=== PATIENT | female | born 1950 | race African-American/Black ===

== ENCOUNTER 2019-04-03 20:08 | Observation (INO) | payer OTHER, SELFPAY ==
--- NOTE | ~2019-04-03 | XR_ITS ---
EXAMINATION: XR chest 2V 04/03/2019 21:31 INDICATION: Mid chest pain with palpitations PROCEDURE: 2 view chest COMPARISON: 01/08/2019 FINDINGS: The lungs are clear. The cardiomediastinal silhouette is within normal limits. There are no pleural effusions. There is no pneumothorax suspected. There is thoracic spondylosis with mild l evoscoliosis. IMPRESSION: 1: NO ACUTE CARDIOPULMONARY DISEASE. Reviewed, dictated and finalized at location A. DESKMAN
--- NOTE | ~2019-04-03 | CT_ITS ---
EXAMINATION: CTA chest PE protocol DATE: 04/04/2019 00:26 INDICATION: Chest tightness. TECHNIQUE: Computed tomography angiography (CTA) of the chest was performed with 100 mL Omnipaque-350 intravenous contrast timed to evaluate the pulmonary arteries. Coronal maximum intensity projection 3D-reconstructions were created by the technologist. Automated exposure control and iterative reconst ruction technique were employed. The dose-length product was 376.37 mGy-cm. COMPARISON: CT abdomen and pelvis 06/10/2016, cervical spine CT 07/04/2006 FINDINGS: The lungs demonstrate mild atelectasis. There is a 1.1 cm nodule in right upper lobe. No pl eural effusion. The heart size is normal. No pericardial effusion. There is a small sliding hiatal he rnia. There is no pulmonary embolus. There are no pathologically enlarged lymph nodes. There is corti zulema thinning of the kidneys. There are stones in the kidneys measuring up to 6 mm on the left. There is severe thoracic spondylosis. IMPRESSION: 1. No pulmonary embolus. 2. 1.1 cm nodule in right lung upper lobe suspicious for primary bronchogenic carcinoma. PET/CT or 3- month noncontrast, low-dose chest CT is recommended. Reviewed, dictated and finalized at location A. COLLECTOR IMPRESSION: 1. No pulmonary embolus. 2. 1.1 cm nodule in right lung upper lobe suspicious for primary bronchogenic c arcinoma. PET/CT or 3-month noncontrast, low-dose chest CT is recommended.
[2019-04-03 20:11] VITALS: BP 160/60; PULSE 97; RESP 16; TEMP 36.4; O2SAT 98
--- NOTE | 2019-04-03 20:11 | ECG_ITS ---
Measurements Intervals [place] Rate: 69 P: 47 [place]: 139 QRS: -23 QRSD: 114 T: 48 QT: 445 QTc: 477 Interpretive Statements SINUS RHYTHM SUPRAVENTRICULAR BIGEMINY INTRAVENTRICULAR CONDUCTION DELAY BASELINE ARTIFACT- I, II, AVR, AVL, AVF ABNORMAL ECG Electronically Signed On 04-05-2019 8:10:10 WIRE STRIPPING MACHINE OPERATOR by Michael Huynh D.O.
[2019-04-03 20:36] LABS: Basophils Absolute Auto 0.1 K/mm3 (0.0-0.1); Basophils Percent Auto 0.7 % (0.2-1.2); Eosinophils Absolute Auto 0.2 K/mm3 (0-0.3); Eosinophils Percent Auto 1.8 % (0-4.4); Hematocrit 37.8 % (37.0-47.0); Hemoglobin 12.2 g/dL (12.0-15.0); Immature Granulocyte Absolute 0.02 K/mm3 (0.00-0.031); Immature Granulocyte Percent A 0.2 % (0-0.5); Lymphocytes Absolute Auto 2.92 K/mm3 (0.9-3.2); Lymphocytes Percent Auto 31.1 % (18.3-44.2); Mean Corpuscular HGB Conc 32.3 g/dl (32-36); Mean Corpuscular Hemoglobin 28.9 pg (26-34); Mean Corpuscular Volume 89.6 fl (80-100); Mean Platelet Volume 9.6 fl (7.4-10.4); Monocytes Absolute Auto 0.8 K/mm3 (0.1-0.6); Monocytes Percent Auto 8.5 % (2.6-8.5); Neutrophils Absolute Auto 5.4 K/mm3 (1.3-6.7); Neutrophils Percent Auto 57.7 % (45.5-73.1); Platelet Count Result 378 k/mm3 (150-375); Red Blood Count 4.22 M/mm3 (4.2-5.4); Red Cell Distribution Width 13.6 % (11.5-14.5); White Blood Count 9.4 K/mm3 (4.5-10.0)
[2019-04-03 20:48] LABS: Partial Thromboplastin Time 27.6 SECONDS (22.3-36.8); Prothrombin Time 12.9 Seconds (11.1-14.7)
[2019-04-03 21:12] LABS: Blood Urea Nitrogen 31 mg/dL (7-17); Calcium 9.9 mg/dL (8.4-10.2); Carbon Dioxide 30 mmol/L (22-30); Chloride 100 mmol/L (98-107); Estimated CRCL calculation 36 ml/min; Estimated Glomerular Filt Rate 46; Glucose 114 mg/dL (65-105); Potassium 3.3 mmol/L (3.4-5.0); Sodium 142 mmol/L (137-145); Troponin I < 0.012 ng/mL (0.000-0.034)
--- NOTE | 2019-04-03 21:35 | ED.ARRPALP ---
HPI - Arrhythmia/Palpitations General Chief Complaint: Arrhythmia/Palpitations Stated Complaint: pains in my chest, palpatations Time Seen by Provider: 04/03/19 21:24 Source: patient and RN notes reviewed Mode of arrival: ambulatory Limitations: no limitations History of Present Illness HPI narrative: Pt is a 68 y/o female who presents to the ED with c/o intermittent palpitations starting over 1 week ago. She notes that she has had palpitations when she lays down to sleep at night for the past week. Pt describes her symptoms as her heart racing. She states that she was evaluated by her PCP roughly 1 week ago for her palpitations. Pt also reports intermittent chest tightness accompanying her palpitations, but denies any chest pain, SOB, fever, or chills currently. She denies any Hx of A-Fib. MD complaint: palpitations Onset (ago): week(s) (1) Duration: intermittent Context: occurred during rest Associated symptoms: chest pain (chest tightness (resolved)) Related Data Home Medications Medication Instructions Recorded Confirmed amlodipine 10 mg tablet 10 mg PO DAILY 01/21/19 atorvastatin 10 mg tablet 10 mg PO DAILY 01/21/19 ranitidine HCl 150 mg tablet 300 mg PO DAILY tablet 01/21/19 Allergies Allergy/AdvReac Type Severity Reaction Status Date / Time pregabalin Allergy Intermediate LETHARGIC, Verified 04/03/19 20:09 SLEEPY, SPACEY niacin Allergy Unknown Rash Verified 04/03/19 20:09 Penicillins Allergy Unknown Rash Verified 04/03/19 20:09 tramadol Allergy Unknown Gastrointestinal Verified 04/03/19 20:09 Upset hydrocodone AdvReac Unknown Nausea and Verified 04/03/19 20:09 Vomiting morphine AdvReac Unknown Nausea and Verified 04/03/19 20:09 Vomiting Review of Systems Review of Systems: All systems reviewed & are unremarkable except as noted in HPI and below Constitutional: Constitutional: Denies chills and Denies fever(s) Cardiovascular: Cardiovascular: Reports chest pain (chest tightness (resolved)) and Reports palpitations Respiratory: Respiratory: Denies dyspnea PMFSH Past Medical History Medical History Ankle fracture Anxiety Arthritis Blood glucose elevated Carpal tunnel syndrome on both sides Cervical vertebral fusion Chronic bilateral low back pain with left-sided sciatica Depression GERD (gastroesophageal reflux disease) HLD (hyperlipidemia) HTN (hypertension) Hypokalemia Kidney stones Mitral valve prolapse Surgical History Surgical History History of hysterectomy Hx of arthroscopic knee surgery rt knee Hx of carpal tunnel repair Hx of section Family History Family History (Updated 10/10/13 @ 07:13 by DOCTOR UNKNOWN) Father Hypertension Mother Hypertension Other Diabetes mellitus Family history of seizure disorder Social History Social History Smoking status: Never smoker Alcohol intake: never Substance use: never Substance use type: does not use Gender identity (if verbalized by the patient): Female Exam Const: General: cooperative, healthy appearing, comfortable, no acute distress, well developed, alert and awake; No confusion Orientation/consciousness: oriented to person, oriented to place, oriented to time, patient oriented x3 and No confusion Limitations: no limitations HENMT: Head: normal to inspection, normocephalic and atraumatic Chest: Chest palpation & inspection: normal inspection of the chest Resp: Effort & Inspection: normal respiratory effort, able to speak in complete sentences, no respiratory distress and not tachypneic Auscultation: clear to auscultation bilaterally, no crackles, no rales, no rhonchi and no wheezes Cardio: Rate: regular rate Rhythm: regular rhythm GI: Inspection: normal to inspection GI Palp: No abdominal tenderness, Yes Soft to palpation,
[2019-04-03] MEDS: POTASSIUM CHLORIDE 20 MEQ PACKET (FOR LIQUID) 40 MEQ PO (21:48)
[2019-04-03 22:21] VITALS: BP 165/70; PULSE 63; RESP 15; O2SAT 100
[2019-04-03 22:37] LABS: Thyroid Stimulating Hormone 0.959 uIU/mL (0.465-4.680)
[2019-04-03 23:10] VITALS: BP 150/55; PULSE 61; RESP 20; TEMP 36.7; O2SAT 100
[2019-04-04] VITALS (12 sets, daily range): BP systolic 108–160; BP diastolic 65–88; PULSE 61–89; RESP 14–25; TEMP 36.4; O2SAT 97–100; BMI 31.4
--- NOTE | 2019-04-04 | EST_ITS ---
Patient Info Name: Ira Lord Age: 68 years : 1950 Gender: Female Ht: 62 in Wt: 171 lbs BSA: 1.87 m2 HR: 64 bpm BP: 152 / 70 mmHg Technical Quality: Good Exam Date: 04/04/2019 12:17 PM Exam Location: [facility] Stress Patient Status: Inpatient Admit Date: 04/04/2019 Staff Ordering Physician: Osorio Burger MD Medical Legal Investigator: Maribel Vieyra RDCS Attending Provider: Osorio Burger MD Exercise Technologist: Monse Coates RDCS Exercise Physician: Osorio Burger MD Exam Type: CA stress echo Study Info Indications R07.89 - Other chest pain Treadmill exercise stress echocardiogram is performed. Summary 1. Negative stress echocardiogram for ischemia by wall motion analysis. Stress Echo Findings Left Ventricle No regional wall motion abnormalities noted at rest. Left ventricular endocardium is not well visualized preventing adequate wall motion interpretation at rest. Overall global left ventricular systolic function Improved post stress. Left ventricular ejection fraction increases post stress. Protocol: [facility] Stress ECG Details Stage: REST Duration (min): 53 min : 49 sec Speed (mph): 0.0 Grade (%): 0 HR (bpm): 63 SBP (mmHg): 152 DBP (mmHg): 70 METS: --- Stage: REST Duration (min): --- Speed (mph): 1.0 Grade (%): 0 HR (bpm): 75 SBP (mmHg): 152 DBP (mmHg): 70 METS: --- Stage: STAGE 1 Duration (min): 1 min : 0 sec Speed (mph): 1.7 Grade (%): 10 HR (bpm): 106 SBP (mmHg): 152 DBP (mmHg): 70 METS: --- Stage: STAGE 1 Duration (min): 2 min : 0 sec Speed (mph): 1.7 Grade (%): 10 HR (bpm): 122 SBP (mmHg): 152 DBP (mmHg): 70 METS: --- Stage: STAGE 1 Duration (min): 3 min : 0 sec Speed (mph): 1.7 Grade (%): 10 HR (bpm): 131 SBP (mmHg): 218 DBP (mmHg): 71 METS: --- Stage: STAGE 2 Duration (min): 1 min : 0 sec Speed (mph): 2.5 Grade (%): 12 HR (bpm): 144 SBP (mmHg): 218 DBP (mmHg): 71 METS: --- Stage: STAGE 2 Duration (min): 1 min : 30 sec Speed (mph): 2.5 Grade (%): 12 HR (bpm): 150 SBP (mmHg): 218 DBP (mmHg): 71 METS: --- Stage: RECOVERY Duration (min): 0 min : 29 sec Speed (mph): 0.0 Grade (%): 0 HR (bpm): 135 SBP (mmHg): 248 DBP (mmHg): 91 METS: --- Stage: RECOVERY Duration (min): 1 min : 29 sec Speed (mph): 0.0 Grade (%): 0 HR (bpm): 107 SBP (mmHg): 248 DBP (mmHg): 91 METS: --- Stage: RECOVERY Duration (min): 2 min : 29 sec Speed (mph): 0.0 Grade (%): 0 HR (bpm): 90 SBP (mmHg): 248 DBP (mmHg): 91 METS: --- Stage: RECOVERY Duration (min): 3 min : 29 sec Speed (mph): 0.0 Grade (%): 0 HR (bpm): 86 SBP (mmHg): 187 DBP (mmHg): 53 METS: --- Stage: RECOVERY Duration (min): 4 min : 29 sec Speed (mph): 0.0 Grade (%): 0
[2019-04-04 00:07] LABS: Troponin I < 0.012 ng/mL (0.000-0.034)
[2019-04-04] MEDS: SODIUM CHLORIDE 0.9% IV 1,000 ML 999 ML IV CONT (00:15)
[2019-04-04 03:26] LABS: Troponin I < 0.012 ng/mL (0.000-0.034)
--- NOTE | 2019-04-04 03:36 | ADMGEN ---
This patient, Ira Lord, was admitted to [facility]- at 0300. Patient/family oriented to hospital policies and general routines including ID bracelet, bed and alarms, visiting hours, pain management, procedures, bathroom and other care routines, personal items, smoking policy, room service/diet, and visiting hours. Valuables list has been completed. Information on how to activate the Rapid Response Team has been discussed. Patient/Family are encouraged to report perceived risks to care and to ask questions if they do not understand what they are told or what they should do.
--- NOTE | 2019-04-04 11:38 | PM.IMHP ---
H&P: HPI History of Present Illness Chief complaint: chest pain,palpatations Narrative: Ira Lord is a 68 year old female With history of mitral valve prolapse, hypertension, hyperlipidemia, hypokalemia, gastroesophageal reflux disease, depression, anxiety, chronic bilateral lower back pain with left-sided sciatica, who was seen in cardiac consultation for chief complaint of chest pain with palpitations. Patient reports a 1.5 week history of intermittent palpitations with a sense of her heart skipping a beat and occasionally beating fast. She stated that subsequent to the palpitations approximately 1 week ago she also had a possible GI syndrome with intermittent nausea and vomiting without diarrhea. She stated that on the day of her presentation to the emergency department she had an episode of chest tightness which was lasting less than 1 minute at a time but intermittent over 5 minutes. Her chest discomfort while driving was central with some associated palpitations and dizziness, as well as dyspnea and anxiety. She denies any subsequent chest pain or dyspnea. She denies any recent exertional dyspnea or exertional chest pain. She denies any presyncope or syncope. She reports no edema, orthopnea, or paroxysmal nocturnal dyspnea. She reports being started on hydrochlorothiazide approximately 1 week ago when being evaluated for her palpitations and hypertension as an outpatient. She reports a chronic occasional problem with hypokalemia requiring intermittent supplementation although she was not on potassium supplement regularly at home recently. She denies any history of myocardial infarction, known coronary artery disease, congestive heart failure, or valvular heart disease. She denies any history of prior left heart catheterization or prior echocardiogram. She reports a distant stress test which was okay per her report. She denies any family history of premature myocardial infarction. She denies any history of tobacco use, alcohol use, or drug use. This admission, telemetry demonstrated sinus arrhythmia. EKG demonstrated sinus rhythm with marked sinus arrhythmia, 69 beats per minute, intraventricular conduction delay. She had CTA of the chest: 1. No pulmonary embolus. 2. 1.1 cm nodule in right lung upper lobe suspicious for primary bronchogenic carcinoma. PET/CT or 3-month noncontrast, low-dose chest CT is recommended. TSH normal. Troponin was negative for injury on 3 occasions. Creatinine was elevated at 1.40. Potassium was initially low at 3.3. Patient was seen, examined, chart reviewed, case discussed with nurse. Review of Systems Review of Systems: All systems reviewed & are unremarkable except as noted in HPI and below (HPI) [facility] Past Medical History Medical History Ankle fracture Anxiety Arthritis Blood glucose elevated Carpal tunnel syndrome on both sides Cervical vertebral fusion Chronic bilateral low back pain with left-sided sciatica Depression GERD (gastroesophageal reflux disease) HLD (hyperlipidemia) HTN (hypertension) Hypokalemia Kidney stones Mitral valve prolapse Surgical History Surgical History History of hysterectomy Hx of arthroscopic knee surgery rt knee Hx of carpal tunnel repair Hx of section Family History Family History Father Hypertension Mother Hypertension Other Diabetes mellitus Family history of seizure disorder Social History Social History Smoking status: Never smoker Alcohol intake: never Substance use: never Substance use type: does not use Gender identity (if verbalized by the patient): Female Meds Home Medications and Allergies Home Medications Medication Instructions Recorded Confirmed Type amlodipine 10 mg tablet 10 mg PO TATYANA
[2019-04-04] MEDS: lisinopriL 10 MG TABLET PO (11:39)
[2019-04-04] MEDS: hydroCHLOROthiazide 12.5 MG CAPSULE PO (11:39)
[2019-04-04] MEDS: AMLODIPINE BESYLATE 5 MG TABLET 10 MG PO (11:39)
[2019-04-04] MEDS: FAMOTIDINE 20 MG TABLET 40 MG PO (11:40)
[2019-04-04] MEDS: ALPRAZOLAM 0.25 MG TABLET PO (12:52)
--- NOTE | 2019-04-04 16:22 | PM.DS ---
DS: Diagnosis Admitting Diagnosis Admitting Diagnosis: Chest pain, unspecified Noncardiac chest pain PVCs Discharge Diagnosis (1) Chest pain at rest: Code(s): R07.9 - Chest pain, unspecified Status: Acute Assessment and Plan: Ira Lord is a 68 year old female With history of mitral valve prolapse, hypertension, hyperlipidemia, hypokalemia, gastroesophageal reflux disease, depression, anxiety, chronic bilateral lower back pain with left-sided sciatica, who was seen in cardiac consultation for chief complaint of chest pain with palpitations. - patient presented with atypical chest pain currently resolved, with associated palpitations in the setting of hypokalemia with potassium 3.3. - Serial troponin I negative for injury, EKG without evidence of acute injury. - Obtain exercise stress echo to evaluate for ischemia. - She has a distant history of mitral valve prolapse diagnosed in emergency department many years ago. - She had CTA of the chest: 1. No pulmonary embolus. 2. 1.1 cm nodule in right lung upper lobe suspicious for primary bronchogenic carcinoma. PET/CT or 3-month noncontrast, low-dose chest CT is recommended. - Patient will need pulmonary consultation in the near future for evaluation and management of her pulmonary nodule. (2) Palpitations: Code(s): R00.2 - Palpitations Status: Acute Assessment and Plan: - telemetry and EKG this admission demonstrated sinus arrhythmia in the setting of hypokalemia with potassium 3.3. - TSH normal. -obtain magnesium level. -repleted potassium. -May need outpatient daily supplementation of her potassium since she was started on hydrochlorothiazide 1 week ago and has a history of intermittent chronic hypokalemia. (3) HTN (hypertension): Code(s): I10 - Essential (primary) hypertension Status: Acute Assessment and Plan: - Blood pressure mildly elevated this admission and will continue to monitor on current regimen. (4) Acute renal failure: Code(s): N17.9 - Acute kidney failure, unspecified Status: Acute Assessment and Plan: - she has acute renal failure in the setting of initiation per her PCP of lisinopril and hydrochlorothiazide 1 week ago and with recent GI syndrome with nausea and vomiting. -repeat BMP and if creatinine remains elevated consider discontinuation of lisinopril/hydrochlorothiazide with careful monitoring of blood pressure. (5) Pulmonary nodule: Code(s): R91.1 - Solitary pulmonary nodule Status: Acute Assessment and Plan: - She had CTA of the chest: 1. No pulmonary embolus. 2. 1.1 cm nodule in right lung upper lobe suspicious for primary bronchogenic carcinoma. PET/CT or 3-month noncontrast, low-dose chest CT is recommended. - Patient will need pulmonary consultation in the near future for evaluation and management of her pulmonary nodule. DS: Summary Time Spent with Patient Time attestation: Total time spent providing and/or coordinating discharge services: She was admitted to the hospital because of chest pain, cardiac enzymes were negative, no EKG changes, noted to have few PVCs. She underwent stress ECHO revealing no evidence of ischemia, she will be discharged home on above medication to have a follow-up with us in 1 week Exam Narrative: Exam Narrative: Const: General: cooperative, healthy appearing, comfortable, no acute distress, well developed, alert and awake; No confusion Orientation/consciousness: oriented to person, oriented to place, oriented to time, patient oriented x3 and No confusion Limitations: no limitations HENMT: Head: normal to inspection, normocephalic and atraumatic Chest: Chest palpation & inspection: normal inspection of the chest Resp: Effort & Inspection: normal respiratory effort, able to speak in complete sentences, no respiratory distress and not tachypneic Auscultation: clear to auscultation bilaterally, no crackles, no rales, no rhonchi an
[2019-04-04] MEDS: POTASSIUM CHLORIDE 20 MEQ PACKET (FOR LIQUID) 40 MEQ PO (17:10)
--- NOTE | 2019-04-04 17:12 | PC.NURSE ---
1705-pt given D/C orders and instructions. Verbalized understanding. Pt is aware of nodule on lung and has had this looked into in the past. PIV removed. No chest pain noted or verbalized at time of departure.
== END 2019-04-04 17:05 | disposition home or self-care (01) ==
LOC: ANHED 04-04 01:04 → ANHCPC 04-04 10:30
PROVIDERS: Emergency Medicine; Admitting Provider Specialist; Emergency Provider Emergency Medicine; PCP Family Medicine; Visit Provider Specialist
DX: R07.89 Other chest pain (principal); R00.2 Palpitations; E87.6 Hypokalemia; N17.9 Acute kidney failure, unspecified; R91.1 Solitary pulmonary nodule; I10 Essential (primary) hypertension; Z23 Encounter for immunization; I34.1 Nonrheumatic mitral (valve) prolapse; E78.5 Hyperlipidemia, unspecified; K21.9 Gastro-esophageal reflux disease without esophagitis; M54.42 Lumbago with sciatica, left side; Z98.1 Arthrodesis status; Z79.899 Other long term (current) drug therapy
CPT/HCPCS: 36415; 71046; 71275; 80048; 84443; 84484; 85025; 85380; 85610; 85730; 90471; 90686; 93005; 93351; 96360; 99285; A9270; G0008; G0378; J7030; Q9967

== ENCOUNTER 2019-04-19 16:13 | Emergency (ER) | payer OTHER, SELFPAY ==
[2019-04-19 16:25] VITALS: BP 135/61; PULSE 65; RESP 18; TEMP 36.9; O2SAT 98
--- NOTE | 2019-04-19 16:46 | ED.GENADULT ---
HPI - General Adult General Chief complaint: Dizziness Stated complaint: Lightheaded Time Seen by Provider: 04/19/19 16:47 Source: patient Mode of arrival: ambulatory Limitations: no limitations History of Present Illness HPI narrative: 68-year-old female patient presents to the [facility] with complaints of lightheadedness that started today. Patient states that she was in the hospital about 2 weeks ago for palpitations. Patient states at that time she had low potassium and was given potassium in the hospital. Patient states that her medications were recently changed and they put her on lisinopril with HCTZ along with metoprolol. Patient states that today she felt just kind of not right . Patient states that she did have an episode of lightheadedness and some palpitations again. Denies any nausea, vomiting, diarrhea. Denies any chest pain or shortness of breath at this time. Patient states she did try calling her primary doctor's office however they were getting ready to close and they recommend that she go to either the urgent care or ER. Patient denies any fevers, body aches or chills. Patient denies any coughing. Related Data Home Medications Medication Instructions Recorded Confirmed amlodipine 10 mg tablet 10 mg PO DAILY 01/21/19 04/04/19 atorvastatin 10 mg tablet 10 mg PO DAILY 01/21/19 04/04/19 ranitidine HCl 150 mg tablet 300 mg PO DAILY tablet 01/21/19 04/04/19 Allergies Allergy/AdvReac Type Severity Reaction Status Date / Time pregabalin Allergy Intermediate LETHARGIC, Verified 04/03/19 20:09 SLEEPY, SPACEY niacin Allergy Unknown Rash Verified 04/03/19 20:09 Penicillins Allergy Unknown Rash Verified 04/03/19 20:09 tramadol Allergy Unknown Gastrointestinal Verified 04/03/19 20:09 Upset hydrocodone AdvReac Unknown Nausea and Verified 04/03/19 20:09 Vomiting morphine AdvReac Unknown Nausea and Verified 04/03/19 20:09 Vomiting Review of Systems Review of Systems: Narrative: CONSTITUTIONAL: Denies fever, chills, or sweats. EYES: Denies visual changes, redness, or discharge. ENT: Denies rhinorrhea, congestion, sore throat, or otalgia. CARDIOVASCULAR: Denies chest pain, positive palpitations, denies edema. RESPIRATORY: Denies cough or dyspnea. GASTROINTESTINAL: Denies abdominal pain, nausea, vomiting, or diarrhea. GENITOURINARY: Denies dysuria or hematuria. SKIN: Denies rash or itching. MUSCULOSKELETAL: Denies back pain, joint pain, or myalgia. NEUROLOGIC: Denies headache, numbness, or weakness. Positive lightheadedness PSYCHIATRIC: Denies anxiety or depression. [facility] Past Medical History Medical History Ankle fracture Anxiety Arthritis Benign hypertension with chronic kidney disease Blood glucose elevated Carpal tunnel syndrome on both sides Cervical vertebral fusion Chest pain Chronic bilateral low back pain with left-sided sciatica CKD (chronic kidney disease), stage III Depression GERD (gastroesophageal reflux disease) HLD (hyperlipidemia) HTN (hypertension) Hypokalemia Hypokalemia Kidney stones Mitral valve prolapse Prediabetes Surgical History Surgical History History of hysterectomy Hx of arthroscopic knee surgery rt knee Hx of carpal tunnel repair Hx of section Family History Family History Father Hypertension Mother Hypertension Other Diabetes mellitus Family history of seizure disorder Social History Social History Smoking status: Never smoker Alcohol intake: never Substance use: never Substance use type: does not use Gender identity (if verbalized by the patient): Female Comments At the time of my signature I agree with nursing past medical history, surgical, social, and family history. There is no relevan
--- NOTE | 2019-04-19 16:49 | ECG_ITS ---
Measurements Intervals [place] Rate: 73 P: 44 [place]: 144 QRS: -25 QRSD: 112 T: 23 QT: 420 QTc: 465 Interpretive Statements SINUS RHYTHM INTRAVENTRICULAR CONDUCTION DELAY VOLTAGE CRITERIA FOR LVH BORDERLINE ECG Electronically Signed On 04-19-2019 19:14:26 CORPORATE SCHEDULER by Michael Huynh D.O.
--- NOTE | 2019-04-19 17:21 | PC.NURSE ---
ekg done. UA done. remains asymptomatic
== END 2019-04-19 17:30 | disposition short-term general hospital (02) ==
PROVIDERS: Emergency Provider Nurse Practitioner Family; PCP Family Medicine
DX: R00.2 Palpitations (principal); R42 Dizziness and giddiness; M19.90 Unspecified osteoarthritis, unspecified site; F41.9 Anxiety disorder, unspecified; I12.9 Hypertensive chronic kidney disease with stage 1 through stage 4 chronic kidney disease, or unspecified chronic kidney disease; N18.3 Chronic kidney disease, stage 3 (moderate); K21.9 Gastro-esophageal reflux disease without esophagitis; E78.5 Hyperlipidemia, unspecified; I34.1 Nonrheumatic mitral (valve) prolapse; R73.03 Prediabetes
CPT/HCPCS: 81003; 93005; 99213; G0463

== ENCOUNTER 2019-04-19 18:12 | Emergency (ER) | payer OTHER, SELFPAY ==
--- NOTE | ~2019-04-19 | XR_ITS ---
EXAMINATION: XR chest 1V portable EXAM DATE: 04/19/2019 18:51 INDICATION: Hypertension, palpitations. Chest pain. TECHNIQUE: Portable AP frontal chest x-ray was obtained. Comparison is made to prior examination from 04/03/2019. FINDINGS: The lungs are clear. There are no pleural effusions. Cardiac silhouette is prominent but magnified on this AP technique. There is no pneumothorax suspected. The bones and soft tissues are unremarkable. IMPRESSION: No acute cardiopulmonary findings. Reviewed, dictated and finalized at location A. LATORY CONSULTANT
[2019-04-19 18:15] VITALS: BP 168/67; PULSE 98; RESP 18; TEMP 36.9; O2SAT 98
--- NOTE | 2019-04-19 18:33 | ED.ARRPALP ---
HPI - Arrhythmia/Palpitations General Chief Complaint: Arrhythmia/Palpitations Stated Complaint: Palpitations Time Seen by Provider: 04/19/19 18:24 Source: patient and RN notes reviewed Mode of arrival: ambulatory Limitations: no limitations History of Present Illness HPI narrative: Pt is a 68 y/o female presenting to the ED c/o palpitations. Pt reports she started feeling lightheaded and palpitations described as skipping a beat earlier today while at work. Pt states she originally felt like as though her BP was high and notes she felt fine when she went to work earlier today. Pt denies CP. Pt reports she recently had her dosage of Lisinopril changed and had a Diuretic added by her Ski Binding Fitter And Repairer, Dr. Burger. Pt states she called her PCP, Dr. Gordon, today who instructed the pt present to the ED or UC. Pt notes she went to an UC where she was instructed to present to the ED due to an EKG abnormality. MD complaint: skipped beats Onset (ago): unknown (Earlier today) Associated symptoms: other (Lighthead) Related Data Home Medications Medication Instructions Recorded Confirmed amlodipine 10 mg tablet 10 mg PO DAILY 01/21/19 04/04/19 atorvastatin 10 mg tablet 10 mg PO DAILY 01/21/19 04/04/19 ranitidine HCl 150 mg tablet 300 mg PO DAILY tablet 01/21/19 04/04/19 Allergies Allergy/AdvReac Type Severity Reaction Status Date / Time pregabalin Allergy Intermediate LETHARGIC, Verified 04/03/19 20:09 SLEEPY, SPACEY niacin Allergy Unknown Rash Verified 04/03/19 20:09 Penicillins Allergy Unknown Rash Verified 04/03/19 20:09 tramadol Allergy Unknown Gastrointestinal Verified 04/03/19 20:09 Upset hydrocodone AdvReac Unknown Nausea and Verified 04/03/19 20:09 Vomiting morphine AdvReac Unknown Nausea and Verified 04/03/19 20:09 Vomiting Review of Systems Review of Systems: All systems reviewed & are unremarkable except as noted in HPI and below Cardiovascular: Cardiovascular: Denies chest pain and Reports palpitations ( skipping a beat ) Neurologic: Denies other (Lightheaded) FORMERLY [facility], [facility] Past Medical History Medical History Ankle fracture Anxiety Arthritis Benign hypertension with chronic kidney disease Blood glucose elevated Carpal tunnel syndrome on both sides Cervical vertebral fusion Chest pain Chronic bilateral low back pain with left-sided sciatica CKD (chronic kidney disease), stage III Depression GERD (gastroesophageal reflux disease) HLD (hyperlipidemia) HTN (hypertension) Hypokalemia Hypokalemia Kidney stones Mitral valve prolapse Prediabetes Surgical History Surgical History History of hysterectomy Hx of arthroscopic knee surgery rt knee Hx of carpal tunnel repair Hx of section Family History Family History Father Hypertension Mother Hypertension Other Diabetes mellitus Family history of seizure disorder Social History Social History Smoking status: Never smoker Alcohol intake: never Substance use: never Substance use type: does not use Gender identity (if verbalized by the patient): Female Exam Narrative: Exam Narrative: GENERAL: Well-appearing, well-nourished, and in no acute distress. HEAD: Normocephalic, atraumatic. EYES: PERRLA and EOMI. ENT: Nares clear, Mucous membranes moist. NECK: Supple. CHEST: Clear to auscultation. No respiratory distress. HEART: Regular rate and rhythm. No murmur heard. Normal peripheral pulses. ABDOMEN: Soft, non tender, non distended, normal active bowel sounds. EXTREMITIES: Normal range of motion. No edema. SKIN: Warm, dry, no rash. NEURO: No focal deficits. Alert and oriented x3. PSYCH: Normal mood and affect. Course Course Emergency Course: Patient remained in normal sinus rhythm, I discussed lab work with the patient. Advise
--- NOTE | 2019-04-19 18:42 | ECG_ITS ---
Measurements Intervals [place] Rate: 66 P: 47 NV: 142 QRS: -23 QRSD: 120 T: 47 QT: 431 QTc: 454 Interpretive Statements SINUS RHYTHM POSSIBLE LEFT ATRIAL ENLARGEMENT INTRAVENTRICULAR CONDUCTION DELAY DELAYED PRECORDIAL R/S TRANSITION BASELINE ARTIFACT- I, II, III, AVR, AVL, AVF BORDERLINE ECG Electronically Signed On 04-20-2019 7:26:07 VENEER CLIPPER HELPER by Michael Huynh D.O.
[2019-04-19 18:47] VITALS: BP 166/74; PULSE 77; RESP 18; O2SAT 99
[2019-04-19 19:11] VITALS: BP 148/82; PULSE 79; RESP 17; O2SAT 97
--- NOTE | 2019-04-19 19:11 | PC.NURSE ---
assumed care of pt at this time, received report from brianna marin.
[2019-04-19 19:25] LABS: Basophils Absolute Auto 0.1 K/mm3 (0.0-0.1); Basophils Percent Auto 0.5 % (0.2-1.2); Eosinophils Absolute Auto 0.1 K/mm3 (0-0.3); Eosinophils Percent Auto 1.1 % (0-4.4); Hematocrit 34.1 % (37.0-47.0); Hemoglobin 11.2 g/dL (12.0-15.0); Immature Granulocyte Absolute 0.03 K/mm3 (0.00-0.031); Immature Granulocyte Percent A 0.3 % (0-0.5); Lymphocytes Absolute Auto 2.92 K/mm3 (0.9-3.2); Lymphocytes Percent Auto 28.6 % (18.3-44.2); Mean Corpuscular HGB Conc 32.8 g/dl (32-36); Mean Corpuscular Hemoglobin 28.9 pg (26-34); Mean Corpuscular Volume 87.9 fl (80-100); Mean Platelet Volume 9.3 fl (7.4-10.4); Monocytes Absolute Auto 0.8 K/mm3 (0.1-0.6); Monocytes Percent Auto 7.5 % (2.6-8.5); Neutrophils Absolute Auto 6.3 K/mm3 (1.3-6.7); Platelet Count Result 362 k/mm3 (150-375); Red Blood Count 3.88 M/mm3 (4.2-5.4); Red Cell Distribution Width 13.2 % (11.5-14.5); White Blood Count 10.2 K/mm3 (4.5-10.0)
[2019-04-19 19:36] LABS: INR 1.1; Prothrombin Time 13.5 Seconds (11.1-14.7)
[2019-04-19 19:42] LABS: Blood Urea Nitrogen 36 mg/dL (7-17); Carbon Dioxide 31 mmol/L (22-30); Chloride 99 mmol/L (98-107); Estimated CRCL calculation 32 ml/min; Estimated Glomerular Filt Rate 42; Glucose 99 mg/dL (65-105); Potassium 2.8 mmol/L (3.4-5.0); Sodium 140 mmol/L (137-145)
[2019-04-19 19:47] LABS: NT Pro B Type Natriuretic Pept 183 PG/ML (5-100)
[2019-04-19 19:50] LABS: Troponin I < 0.012 ng/mL (0.000-0.034)
[2019-04-19] MEDS: POTASSIUM CHLORIDE 20 MEQ PACKET (FOR LIQUID) 40 MEQ PO (20:11)
[2019-04-19] MEDS: KCL 20 MEQ/SW 100 ML 100 ML 50 MEQ IVPB (20:11)
[2019-04-19 20:20] VITALS: BP 133/85; PULSE 82; RESP 14; O2SAT 100
[2019-04-19 21:13] VITALS: BP 161/72; PULSE 71; RESP 14; O2SAT 100
[2019-04-19 22:05] VITALS: BP 161/75; PULSE 67; RESP 17; O2SAT 100
== END 2019-04-19 22:11 | disposition home or self-care (01) ==
PROVIDERS: Emergency Provider Family Medicine; PCP Family Medicine
DX: R00.2 Palpitations (principal); E87.6 Hypokalemia; T50.2X5A Adverse effect of carbonic-anhydrase inhibitors, benzothiadiazides and other diuretics, initial encounter; M19.90 Unspecified osteoarthritis, unspecified site; I12.9 Hypertensive chronic kidney disease with stage 1 through stage 4 chronic kidney disease, or unspecified chronic kidney disease; N18.3 Chronic kidney disease, stage 3 (moderate); R73.03 Prediabetes; K21.9 Gastro-esophageal reflux disease without esophagitis; E78.5 Hyperlipidemia, unspecified; I34.1 Nonrheumatic mitral (valve) prolapse; Z87.442 Personal history of urinary calculi
CPT/HCPCS: 36415; 71045; 80048; 83880; 84484; 85025; 85610; 93005; 96365; 96366; 99284; A9270; J3480

== ENCOUNTER 2019-05-09 10:28 | Outpatient (CLI) | payer OTHER, SELFPAY ==
[2019-05-09 11:06] LABS: Blood Urea Nitrogen 35 mg/dL (7-17); Calcium 9.6 mg/dL (8.4-10.2); Carbon Dioxide 32 mmol/L (22-30); Chloride 105 mmol/L (98-107); Estimated Glomerular Filt Rate 42; Glucose 99 mg/dL (65-105); Potassium 4.1 mmol/L (3.4-5.0); Sodium 140 mmol/L (137-145)
== END 2019-05-09 10:29 | disposition home or self-care (01) ==
PROVIDERS: PCP Family Medicine; Visit Provider Physician Assistant
DX: E87.6 Hypokalemia (principal); N18.3 Chronic kidney disease, stage 3 (moderate)
CPT/HCPCS: 36415; 80048

== ENCOUNTER 2019-09-12 09:21 | Outpatient (CLI) | payer OTHER, SELFPAY ==
--- NOTE | ~2019-09-12 | US_ITS ---
EXAMINATION: US retroperitoneal duplex ltd DATE: 09/12/2019 10:47 INDICATION: Uncontrolled hypertension. TECHNIQUE: Multiple grayscale, color Doppler, and pulsed Doppler images of the kidneys and renal juan antonio elsy were obtained. COMPARISON: Chest CT 04/04/2019 FINDINGS: The aorta peak systolic velocity is 94 cm/s. The right renal artery peak systolic velocity is 58 cm/s in the proximal segment, 68 cm/s in the mid segment, and 67 cm/s in the distal segment. The left cuca al artery peak systolic velocity is 55 cm/s in the proximal segment, 54 cm/s in the mid segment, and 70 cm/s in the distal segment. IMPRESSION: 1. No Doppler evidence of renal artery stenosis. The CT from 04/04/2019 also shows no significant cuca al artery stenosis. Reviewed, dictated and finalized at location A. IMPRESSION: 1. No Doppler evidence of renal artery stenosis. The CT from 04/04/2019 also sh ows no significant renal artery stenosis.
== END 2019-09-12 09:22 | disposition home or self-care (01) ==
PROVIDERS: PCP Family Medicine; Visit Provider Physician Assistant
DX: I10 Essential (primary) hypertension (principal)
CPT/HCPCS: 93976

== ENCOUNTER 2019-10-17 17:58 | Emergency (ER) | payer OTHER, SELFPAY ==
--- NOTE | 2019-10-17 18:11 | ED.CHESTPAIN ---
HPI - Chest Pain General Chief Complaint: Unspecified Stated Complaint: burning/tightness in chest Time Seen by Provider: 10/17/19 18:46 Source: patient and RN notes reviewed Mode of arrival: ambulatory Limitations: no limitations History of Present Illness HPI narrative: 69-year-old female history of kidney disease presents with concern for burning to her mid chest. Reports she feels the burning moves into her throat, feels a sensation of things getting stuck in her chest. She reports this feeling has been going on intermittently for approximately a month, however worsened today. Reports she took a Prilosec tablet and feels like it got stuck causing burning. She denies shortness of breath, cough, nausea, diaphoresis. Denies fever, malaise. Denies constipation, diarrhea. Reports normal appetite. MD complaint: chest pain Related Data Home Medications Medication Instructions Recorded Confirmed atorvastatin 10 mg tablet 10 mg PO DAILY 01/21/19 04/04/19 ranitidine HCl 150 mg tablet 300 mg PO DAILY tablet 01/21/19 04/04/19 aspirin 10/17/19 omega 9-rws-[id number]-fish oil [Fish Oil] cap 10/17/19 Allergies Allergy/AdvReac Type Severity Reaction Status Date / Time pregabalin Allergy Intermediate LETHARGIC, Verified 04/03/19 20:09 SLEEPY, SPACEY niacin Allergy Unknown Rash Verified 04/03/19 20:09 Penicillins Allergy Unknown Rash Verified 04/03/19 20:09 tramadol Allergy Unknown Gastrointestinal Verified 04/03/19 20:09 Upset hydrochlorothiazide AdvReac Intermediate hypokalemia Verified 05/09/19 10:23 hydrocodone AdvReac Unknown Nausea and Verified 04/03/19 20:09 Vomiting morphine AdvReac Unknown Nausea and Verified 04/03/19 20:09 Vomiting Review of Systems Review of Systems: Narrative: CONSTITUTIONAL: Denies malaise, chills, sweats, or fever. EYES: Denies visual changes, redness, or discharge. ENT: Denies rhinorrhea, congestion, sinus pain, otalgia or sore throat. CARDIOVASCULAR: Reports central chest pain, burning. Reports history of palpitations. Denies edema. RESPIRATORY: Denies cough or dyspnea. GASTROINTESTINAL: Denies abdominal pain, nausea, vomiting, diarrhea, bloody, or mucous stools. GENITOURINARY: Denies dysuria or hematuria. MUSCULOSKELETAL: Denies back pain, joint pain, or myalgia. NEUROLOGIC: Denies numbness, weakness, or headache. All systems reviewed & are unremarkable except as noted in HPI and below PMFSH Past Medical History Medical History Ankle fracture Anxiety Arthritis Benign hypertension with chronic kidney disease Blood glucose elevated Carpal tunnel syndrome on both sides Cervical vertebral fusion Chest pain Chronic bilateral low back pain with left-sided sciatica CKD (chronic kidney disease), stage III Depression GERD (gastroesophageal reflux disease) HLD (hyperlipidemia) HTN (hypertension) Hypokalemia Hypokalemia Kidney stones Mitral valve prolapse Prediabetes Social History Social History Smoking status: Never smoker Alcohol intake: never Substance use: never Substance use type: does not use Gender identity (if verbalized by the patient): Female Comments At time of signature, agree with nursing past medical, surgical, social and family history. There is no relevant family history pertinent to the presenting complaint Exam Narrative: Exam Narrative: GENERAL: Well-appearing, well-nourished, and in no acute distress. HEAD: Normocephalic, atraumatic. EYES: PERRLA, conjunctivae clear ENT: Nares clear. Mucous membranes moist. Oropharynx without erythema or lesions. NECK: Supple. CHEST: No respiratory distress. Clear to auscultation. No bony deformities, no asymmetry. Speaks in full sentences. HEART: Regular rate and rhythm. No murmur heard. ABDOMEN: Soft, nontender, nondistended, normal active bowel sounds, no palpable masses. SKIN: Warm, dry, n
[2019-10-17 18:13] VITALS: BP 166/62; PULSE 65; RESP 16; TEMP 36.9; O2SAT 100
--- NOTE | 2019-10-17 19:19 | ECG_ITS ---
Measurements Intervals [place] Rate: 63 P: 47 ID: [id number] QRS: -18 QRSD: 96 T: 41 QT: 430 QTc: 442 Interpretive Statements SINUS RHYTHM POSSIBLE LEFT ATRIAL ENLARGEMENT BASELINE ARTIFACT- I, II, III, AVR, AVL, AVF, V1 BORDERLINE ECG Electronically Signed On 10-18-2019 8:05:25 CDT by Michael Huynh D.O.
== END 2019-10-17 19:30 | disposition home or self-care (01) ==
PROVIDERS: Emergency Provider Nurse Practitioner; PCP Family Medicine
DX: R07.89 Other chest pain (principal); I12.9 Hypertensive chronic kidney disease with stage 1 through stage 4 chronic kidney disease, or unspecified chronic kidney disease; N18.3 Chronic kidney disease, stage 3 (moderate); M19.90 Unspecified osteoarthritis, unspecified site; K21.9 Gastro-esophageal reflux disease without esophagitis; E78.5 Hyperlipidemia, unspecified; I34.1 Nonrheumatic mitral (valve) prolapse
CPT/HCPCS: 93005; 99213; G0463

== ENCOUNTER 2019-10-21 16:41 | Emergency (ER) | payer OTHER, SELFPAY ==
--- NOTE | 2019-10-21 16:43 | ED.GENADULT ---
HPI - General Adult General Chief complaint: Chest Pain Stated complaint: heartburn Time Seen by Provider: 10/21/19 16:43 Source: patient Mode of arrival: ambulatory Limitations: no limitations History of Present Illness HPI narrative: 69-year-old female patient presents to the [facility] with complaints of epigastric and chest pain. Patient states she was seen here Monday for some heartburn symptoms and was given some medication.. Patient states that she did follow-up with her doctor. Patient states he has been taking medication and has been only been feeling well. Patient states that today when she was laying down she felt that the fluid going up her throat and then coming back down in a burning sensation. Patient states she continues to have a burning sensation to the epigastric area as well as the chest area. Denies any shortness of breath. Denies any fevers, body aches or chills. Denies nausea, vomiting or diarrhea. Patient states she has been taking the Tums, Pepcid and omeprazole with no relief today. Patient states she feels like she has something stuck in her throat. Related Data Home Medications Medication Instructions Recorded Confirmed atorvastatin 10 mg tablet 10 mg PO DAILY 01/21/19 04/04/19 aspirin 10/17/19 omega 8-mum-vyt-fish oil [Fish Oil] cap 10/17/19 Allergies Allergy/AdvReac Type Severity Reaction Status Date / Time pregabalin Allergy Intermediate LETHARGIC, Verified 10/21/19 16:59 SLEEPY, SPACEY niacin Allergy Unknown Rash Verified 10/21/19 16:59 Penicillins Allergy Unknown Rash Verified 10/21/19 16:59 tramadol Allergy Unknown Gastrointestinal Verified 10/21/19 16:59 Upset hydrochlorothiazide AdvReac Intermediate hypokalemia Verified 10/21/19 16:59 hydrocodone AdvReac Unknown Nausea and Verified 10/21/19 16:59 Vomiting morphine AdvReac Unknown Nausea and Verified 10/21/19 16:59 Vomiting Review of Systems Review of Systems: Narrative: CONSTITUTIONAL: Denies fever, chills, or sweats. EYES: Denies visual changes, redness, or discharge. ENT: Denies rhinorrhea, congestion, sore throat, or otalgia. CARDIOVASCULAR: Positive upper chest pain, denies palpitations, or edema. RESPIRATORY: Denies cough or dyspnea. GASTROINTESTINAL: Positive epigastric pain, denies abdominal pain, nausea, vomiting, or diarrhea. GENITOURINARY: Denies dysuria or hematuria. SKIN: Denies rash or itching. MUSCULOSKELETAL: Denies back pain, joint pain, or myalgia. NEUROLOGIC: Denies headache, numbness, or weakness. PSYCHIATRIC: Denies anxiety or depression. FORMERLY [facility] Past Medical History Medical History Ankle fracture Anxiety Arthritis Benign hypertension with chronic kidney disease Blood glucose elevated Carpal tunnel syndrome on both sides Cervical vertebral fusion Chest pain Chronic bilateral low back pain with left-sided sciatica CKD (chronic kidney disease), stage III Depression GERD (gastroesophageal reflux disease) HLD (hyperlipidemia) HTN (hypertension) Hypokalemia Hypokalemia Kidney stones Mitral valve prolapse Prediabetes Surgical History Surgical History History of hysterectomy Hx of arthroscopic knee surgery rt knee Hx of carpal tunnel repair Hx of section Family History Family History Father Hypertension Mother Hypertension Other Diabetes mellitus Family history of seizure disorder Social History Social History Smoking status: Never smoker Alcohol intake: never Substance use: never Substance use type: does not use Gender identity (if verbalized by the patient): Female Comments At the time of my signature I agree with nursing past medical history, surgical, social, and family history. There is no relevant family history warren
[2019-10-21 16:55] VITALS: BP 136/63; PULSE 68; RESP 16; TEMP 35.8; O2SAT 100
--- NOTE | 2019-10-21 16:55 | ECG_ITS ---
Measurements Intervals [place] Rate: 74 P: 56 HI: 155 QRS: -16 QRSD: 112 T: 37 QT: 433 QTc: 482 Interpretive Statements SINUS RHYTHM POSSIBLE LEFT ATRIAL ENLARGEMENT INCOMPLETE RIGHT BUNDLE BRANCH BLOCK BASELINE ARTIFACT- II, III, AVF BORDERLINE ECG Electronically Signed On 10-21-2019 18:08:36 CDT by Michael Huynh D.O.
== END 2019-10-21 16:59 | disposition short-term general hospital (02) ==
PROVIDERS: Emergency Provider Nurse Practitioner Family; PCP Family Medicine
DX: R10.13 Epigastric pain (principal); R07.9 Chest pain, unspecified; I45.10 Unspecified right bundle-branch block; M19.90 Unspecified osteoarthritis, unspecified site; I12.9 Hypertensive chronic kidney disease with stage 1 through stage 4 chronic kidney disease, or unspecified chronic kidney disease; N18.3 Chronic kidney disease, stage 3 (moderate); K21.9 Gastro-esophageal reflux disease without esophagitis; E78.5 Hyperlipidemia, unspecified; I34.1 Nonrheumatic mitral (valve) prolapse; F41.9 Anxiety disorder, unspecified; F32.9 Major depressive disorder, single episode, unspecified
CPT/HCPCS: 93005; 99213; G0463

== ENCOUNTER 2019-10-21 18:12 | Observation (INO) | payer OTHER, SELFPAY ==
[2019-10-21] VITALS (8 sets, daily range): BP systolic 130–169; BP diastolic 55–136; PULSE 58–79; RESP 15–21; TEMP 36.5–36.9; O2SAT 96–100; BMI 32.3
--- NOTE | ~2019-10-21 | XR_ITS ---
XR chest 2V DATE: 10/21/2019 18:39 INDICATION: Midsternal chest pain. Hypertension. Acid reflux for 4 days TECHNIQUE: PA and lateral views COMPARISON: 04/19/2019 portable AP chest FINDINGS: Normal heart size. No hilar or mediastinal enlargement. No pulmonary infiltrate or consolid ation, pleural effusion or pulmonary vascular congestion or pneumothorax. There is degenerative spurring of the thoracic spine. IMPRESSION: No active cardiopulmonary disease Reviewed, dictated and finalized at location A.
--- NOTE | 2019-10-21 18:14 | ECG_ITS ---
Measurements Intervals [place] Rate: 75 P: 56 MT: 168 QRS: -21 QRSD: 108 T: 44 QT: 356 QTc: 399 Interpretive Statements SINUS RHYTHM WITH SINUS ARRHYTHMIA BASELINE ARTIFACT- I, III, AVR, AVL, AVF, V1-V6 BORDERLINE ECG Electronically Signed On 10-22-2019 8:18:25 CDT by Michael Huynh D.O.
[2019-10-21 18:34] LABS: Basophils Absolute Auto 0.1 K/mm3 (0.0-0.1); Basophils Percent Auto 0.5 % (0.2-1.2); Eosinophils Absolute Auto 0.2 K/mm3 (0-0.3); Eosinophils Percent Auto 1.9 % (0-4.4); Hematocrit 34.8 % (37.0-47.0); Hemoglobin 11.7 g/dL (12.0-15.0); Immature Granulocyte Absolute 0.02 K/mm3 (0.00-0.031); Immature Granulocyte Percent A 0.2 % (0-0.5); Lymphocytes Absolute Auto 3.17 K/mm3 (0.9-3.2); Lymphocytes Percent Auto 32.8 % (18.3-44.2); Mean Corpuscular HGB Conc 33.6 g/dl (32-36); Mean Corpuscular Hemoglobin 29.1 pg (26-34); Mean Corpuscular Volume 86.6 fl (80-100); Mean Platelet Volume 9.2 fl (7.4-10.4); Monocytes Absolute Auto 0.9 K/mm3 (0.1-0.6); Neutrophils Absolute Auto 5.4 K/mm3 (1.3-6.7); Neutrophils Percent Auto 55.6 % (45.5-73.1); Platelet Count Result 356 k/mm3 (150-375); Red Blood Count 4.02 M/mm3 (4.2-5.4); Red Cell Distribution Width 13.5 % (11.5-14.5); White Blood Count 9.7 K/mm3 (4.5-10.0)
[2019-10-21 18:44] LABS: INR 1.1; Prothrombin Time 14.2 Seconds (11.1-14.7)
[2019-10-21 18:45] LABS: Partial Thromboplastin Time 28.1 SECONDS (22.3-36.8)
[2019-10-21 18:47] LABS: Anion Gap 7 mmol/L (8-16); Blood Urea Nitrogen 31 mg/dL (7-17); Calcium 9.8 mg/dL (8.4-10.2); Carbon Dioxide 27 mmol/L (22-30); Chloride 103 mmol/L (98-107); Estimated CRCL calculation 24 ml/min; Estimated Glomerular Filt Rate 30; Glucose 92 mg/dL (65-105); Potassium 3.6 mmol/L (3.4-5.0); Sodium 137 mmol/L (137-145)
[2019-10-21 18:58] LABS: Troponin I < 0.012 ng/mL (0.000-0.034)
--- NOTE | 2019-10-21 19:25 | ED.CHESTPAIN ---
HPI - Chest Pain General Chief Complaint: Chest Pain Stated Complaint: heartburn, CP Time Seen by Provider: 10/21/19 18:32 Source: patient and family Mode of arrival: ambulatory Limitations: no limitations History of Present Illness HPI narrative: 69 years old -[place] female developed retrosternal burning sensation going up to the throat with vomiting 4 days ago, started on Pepcid by urgent care. Morning after patient woke up at 2:00 in the morning with acid liquid at the back of her throat with retrosternal burning sensation has been steady for the last 19 hours was intermittent flareup. Patient denies any aggravating or relieving factors. Patient denies fever, chills, nausea, or shortness of breath. History of hypertension, hyperlipidemia on medication as needed. Patient does not smoke, no family history of coronary artery disease, physically active, not morbidly obese. Related Data Home Medications Medication Instructions Recorded Confirmed atorvastatin 10 mg tablet 10 mg PO DAILY 01/21/19 10/21/19 aspirin 81 mg PO DAILY 10/17/19 omega 2-jlu-nee-fish oil [Fish Oil] 1 cap PO DAILY 10/17/19 10/21/19 lisinopril 40 mg PO DAILY 10/21/19 metoprolol succinate 25 mg PO HS 10/21/19 potassium chloride 20 meq PO DAILY 10/21/19 10/21/19 Allergies Allergy/AdvReac Type Severity Reaction Status Date / Time pregabalin Allergy Intermediate LETHARGIC, Verified 10/21/19 16:59 SLEEPY, SPACEY niacin Allergy Unknown Rash Verified 10/21/19 16:59 Penicillins Allergy Unknown Rash Verified 10/21/19 16:59 tramadol Allergy Unknown Gastrointestinal Verified 10/21/19 16:59 Upset hydrochlorothiazide AdvReac Intermediate hypokalemia Verified 10/21/19 16:59 hydrocodone AdvReac Unknown Nausea and Verified 10/21/19 16:59 Vomiting morphine AdvReac Unknown Nausea and Verified 10/21/19 16:59 Vomiting Review of Systems Review of Systems: Narrative: CONSTITUTIONAL: Denies fever, chills, or sweats. EYES: Denies visual changes, redness, or discharge. ENT: Denies rhinorrhea, congestion, sore throat, or otalgia. CARDIOVASCULAR: Denies chest pain, palpitations, or edema. RESPIRATORY: Denies cough or dyspnea. GASTROINTESTINAL: Denies abdominal pain, nausea, vomiting, or diarrhea. GENITOURINARY: Denies dysuria or hematuria. SKIN: Denies rash or itching. MUSCULOSKELETAL: Denies back pain, joint pain, or myalgia. NEUROLOGIC: Denies headache, numbness, or weakness. PSYCHIATRIC: Denies anxiety or depression. PMFSH Past Medical History Medical History Ankle fracture Anxiety Arthritis Benign hypertension with chronic kidney disease Blood glucose elevated Carpal tunnel syndrome on both sides Cervical vertebral fusion Chest pain Chronic bilateral low back pain with left-sided sciatica CKD (chronic kidney disease), stage III Depression GERD (gastroesophageal reflux disease) HLD (hyperlipidemia) HTN (hypertension) Hypokalemia Hypokalemia Kidney stones Mitral valve prolapse Prediabetes Surgical History Surgical History History of hysterectomy Hx of arthroscopic knee surgery rt knee Hx of carpal tunnel repair Hx of section Family History Family History Father Hypertension Mother Hypertension Other Diabetes mellitus Family history of seizure disorder Social History Social History Social History: Primary Care Provider: NORBERTO Pandya Smoking status: Never smoker Alcohol intake: never Substance use: never Substance use type: does not use Gender identity (if verbalized by the patient): Female Spiritual care concerns: No Exam Narrative: Exam Narrative: General appearance: Well-developed, well-nourished Skin: Normal color Head: Normocephalic, nontraumatic Eyes: Monika
[2019-10-21] MEDS: BELLADONNA ALK/PHENOB ELIX 10 ML, MAG HYDROX/ALUMINUM HYD/SIMETH 30 ML, LIDOCAINE HCL 2... PO (19:36)
--- NOTE | 2019-10-21 20:38 | PM.IMHP ---
H&P: HPI History of Present Illness Date/Time: 10/21/19 21:15 Chief complaint: chest pain going into her throat Narrative: Ira Lord is a 69 year old female with a past medical history chronic kidney disease, essential hypertension, prediabetes and heartburn who presented to the ER with substernal chest pain radiated up into her throat. The pain is burning in nature and accompanied by his sensation of globus. Symptoms started on Monday. She did have 1 episode of emesis today that was of clear material. She denies any hematemesis, coffee-ground emesis, hematochezia or melena. She denies any changes in her bowel habits. She denies any shortness of breath, cough or congestion. When her symptoms started last Monday [facility] and was given a [facility] for Pepcid. Her symptoms seem to be worse if she lies down flat. she currently feels as if she has a stick stuck down in her throat. She denies any actual sore throat states that it is uncomfortable to swallow. She did not eating any food on Monday. She did eat this small amount of chicken on Monday but then had worsening of her symptoms that persisted throughout the day on Monday resulting in her coming to the ER. She reports that she has continued to drink liquids. She does admit that she has been drinking what sounds like relatively concentrated limb in water. She stated that she was told to drink lemon water after she had a kidney stone several years ago. However, instead of drinking water with a few drops of limb in she has been adding a lot of phlegm in juice to her water. She had tried to drink some aloe supplement to see if that would soothe her stomach but this did not provide any relief. She did have significant relief in her symptoms with a GI cocktail administered in the ER. she had a prior endoscopy some where in the early (per her report).She denies any dyspnea on exertion. She has not had any lower extremity edema. the patient was evaluated by Dr. Burger March 2019 and had a stress echocardiogram that was normal. She denies any palpitations. Review of Systems Review of Systems: Narrative: 12 systems were reviewed with pertinent positives and negatives per HPI. Except as documented in the HPI, all other systems were reviewed and are negative. [facility] Past Medical History Medical History Ankle fracture Anxiety Arthritis Chronic bilateral low back pain with left-sided sciatica CKD (chronic kidney disease), stage III Depression GERD (gastroesophageal reflux disease) HLD (hyperlipidemia) HTN (hypertension) Kidney stones 2012 Mitral valve prolapse Prediabetes Surgical History Surgical History History of bilateral carpal tunnel release 2002 and 2005 History of hysterectomy 1986 History of total right knee replacement Dr. Hilario Hx of section Status post cervical spinal fusion 2005 Family History Family History (Updated 10/22/19 @ 01:59 by Mayda Reynoso DO) Father , He in June 2019 due to complications of COVID-19. Hypertension Parkinson disease Mother Hypertension Sibling Diabetes mellitus Daughter , at age 34. (2011) TTP (thrombotic thrombocytopenic purpura) Social History Social History (Updated 10/22/19 @ 02:00 by Mayda Reynoso DO) Social History: Primary Care Provider: Dr. 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 Gender identity (if verbalized by the patient): Female Spiritual care concerns: No Meds Home Medications and Allergies Home Medications Medication Instructions Recorded Confirmed Type atorvastatin 10 mg tab
[2019-10-21 21:50] LABS: Troponin I < 0.012 ng/mL (0.000-0.034)
[2019-10-21 22:03] LABS: Add Urine Microscopic? YES; Appearance Urine Clear (Clear); Bilirubin Urine Negative (Negative); Blood Urine Negative (Negative); Color Urine Straw (Yellow); Glucose Urine UA Negative (Negative); Ketones Urine Negative (Negative); Leukocyte Esterase Ur 1+ LEU/UL (Negative); Mucus Urine Rare /lpf; Nitrate Urine Negative (Negative); Protein Urine Negative (Negative); RBC Urine 0-2 /hpf (0-2); Specific Grav Ur 1.008 (1.001-1.035); Squamous Epithelial Cell Urine Few /hpf (Few); Urobilinogen Urine Negative mg/dL (<2.0); WBC Urine 0-3 /hpf
[2019-10-21 22:13] LABS: Creatinine Urine 51.7 mg/dL
[2019-10-21 22:16] LABS: Sodium Urine Random 42 meq/L
--- NOTE | 2019-10-21 22:34 | ADMGEN ---
This patient, Ira Lord, was admitted to 3 [facility] Room 313-01. Patient/family oriented to hospital policies and general routines including ID bracelet, bed and alarms, visiting hours, pain management, procedures, bathroom and other care routines, personal items, smoking policy, room service/diet, and visiting hours. Valuables list has been completed. Information on how to activate the Rapid Response Team has been discussed. Patient/Family are encouraged to report perceived risks to care and to ask questions if they do not understand what they are told or what they should do.
[2019-10-21] MEDS: SODIUM CHLORIDE 0.9% IV 1,000 ML 100 ML IV CONT (23:50)
[2019-10-22] VITALS: PULSE 66
[2019-10-22 00:45] LABS: Total Protein Urine Random 20 mg/dL
[2019-10-22 00:54] LABS: Creatinine Urine 20.2 mg/dL
[2019-10-22 01:08] LABS: Troponin I < 0.012 ng/mL (0.000-0.034)
[2019-10-22 01:29] LABS: Sodium Urine Random 67 meq/L
[2019-10-22 04:00] VITALS: PULSE 78
[2019-10-22 05:56] VITALS: BP 126/51; PULSE 58; RESP 18; TEMP 36.1; O2SAT 99
[2019-10-22 06:49] LABS: Albumin Level 4.1 g/dL (3.5-5.1); Anion Gap 7 mmol/L (8-16); Blood Urea Nitrogen 25 mg/dL (7-17); Calcium 9.1 mg/dL (8.4-10.2); Carbon Dioxide 26 mmol/L (22-30); Chloride 105 mmol/L (98-107); Estimated CRCL calculation 32 ml/min; Estimated Glomerular Filt Rate 42; Glucose 94 mg/dL (65-105); Phosphorus 3.2 mg/dL (2.5-4.5); Potassium 4.5 mmol/L (3.4-5.0); Sodium 138 mmol/L (137-145)
[2019-10-22 08:00] VITALS: PULSE 62
--- NOTE | 2019-10-22 08:14 | WPDGICN ---
Assessment and Plan Assessment and plan (1) Chest pain due to GERD: Code(s): R07.9 - Chest pain, unspecified; K21.9 - Gastro-esophageal reflux disease without esophagitis Status: Acute Assessment and Plan: Patient's chest pain described as burning regurgitation type pain has resolved. Plan is for patient be placed on proton pump inhibitor such as Protonix 40 mg p.o. daily. Anti-reflux measures are discussed with the patient including elevating head of bed at night no late snacks bland foods. Would suggest outpatient EGD be performed electively to evaluate her rather persistent severe symptoms at present. Early discharge is encourage. With outpatient follow-up. (2) GERD (gastroesophageal reflux disease): Code(s): K21.9 - Gastro-esophageal reflux disease without esophagitis Status: Acute GI Consult Note Consult date/time: 10/22/19 08:14 HPI: Ira Lord is a 69 year old female I am asked to see because of acid regurgitation. Patient reports a long standing history of acid reflux disease. Initially treated with an acids. She states she had an endoscopy perhaps 18 years ago. The exact findings are somewhat uncertain. She states that she began to have acid regurgitation with substernal discomfort beginning on Monday and and persisting throughout the weekend. She spoke with her primary care service as well as the she apparently was given a GI cocktail that seem to soothe her symptoms. At home it appears as though she was on [id number] antacid therapy. Prior to this. This morning she feels wonderful old she denies any pain. She has been received Protonix since admission with good response to symptoms. Review of Systems Review of Systems: All systems reviewed & are unremarkable except as noted in HPI and below PMFSH Past Medical History Medical History Ankle fracture Anxiety Arthritis Chronic bilateral low back pain with left-sided sciatica CKD (chronic kidney disease), stage III Depression GERD (gastroesophageal reflux disease) HLD (hyperlipidemia) HTN (hypertension) Kidney stones 2012 Mitral valve prolapse Prediabetes Surgical History Surgical History History of bilateral carpal tunnel release 2002 and 2005 History of hysterectomy 1986 History of total right knee replacement Dr. Hilario Hx of section Status post cervical spinal fusion 2005 Family History Family History Father , He in June 2019 due to complications of COVID-19. Hypertension Parkinson disease Mother Hypertension Sibling Diabetes mellitus Daughter , at age 34. (2011) TTP (thrombotic thrombocytopenic purpura) Social History Social History Social History: Primary Care Provider: Dr. 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 Gender identity (if verbalized by the patient): Female Spiritual care concerns: No Meds Home Medications and Allergies Home Medications Medication Instructions Recorded Confirmed Type atorvastatin 10 mg tablet 10 mg PO DAILY 01/21/19 10/21/19 History ondansetron 4 mg disintegrating 4 - 8 mg PO Q8H PRN #18 tablet 03/26/19 10/21/19 Rx tablet amlodipine 10 mg tablet 10 mg PO DAILY #90 tablet 05/08/19 10/21/19 Rx alendronate 35 mg tablet 35 mg PO WEEKLY #30 tablet 05/09/19 10/21/19 Rx alprazolam 0.25 mg tablet 0.25 mg PO TID PRN #60 tablet 08/27/19 10/21/19 Rx spironolactone 25 mg tablet 25 mg PO DAILY #30 tablet 09/23/19 10/21/19 Rx alum-mag hydroxide-simeth [Maalox 5 ml PO QID PRN #355 ml 10/17/19 10/21/19 Rx
[2019-10-22] MEDS: OMEGA 3 POLYUNSAT FATTY ACIDS 1 GM CAP PO (08:19)
[2019-10-22] MEDS: ATORVASTATIN 10 MG TABLET PO (08:20)
[2019-10-22] MEDS: ASPIRIN 81 MG CHEWABLE TABLET PO (08:20)
[2019-10-22] MEDS: amLODIPine BESYLATE 5 MG TABLET 10 MG PO (08:20)
[2019-10-22] MEDS: PANTOPRAZOLE SODIUM IV 40 MG VIAL IV PUSH (08:21)
--- NOTE | 2019-10-22 09:34 | PM.CNNEP ---
Assessment and Plan Assessment and plan (1) LETTY (acute kidney injury): Code(s): N17.9 - Acute kidney failure, unspecified Status: Acute Assessment and Plan: resolved perhaps her baseline CKD runs around 1.5 - 2.0mg/dl (?) more likely, her GI symptoms resulted in some relative volume depletion follow trend for now (2) CKD (chronic kidney disease), stage III: Code(s): N18.3 - Chronic kidney disease, stage 3 (moderate) Status: Acute Assessment and Plan: creatinine usually runs around 1.4 - 1.5mg/dl since earlier this year probably from HTN, vascular disease, and age further testing can be done as an outpatient if needed (3) Chest pain: Code(s): R07.9 - Chest pain, unspecified Status: Acute Assessment and Plan: thought to be more related to GERD Gastroenterology recommendations noted (4) HTN (hypertension): Code(s): I10 - Essential (primary) hypertension Status: Acute Assessment and Plan: reasonably controlled at this time follow trend of hemodynamics Will continue to follow. History of Present Illness Reason for Consult Consult date: 10/22/19 Reason for consult: acute renal failure (on chronic kidney disease) Chief Complaint Chief complaint: chest pain going into her throat History of Present Illness Narrative: The patient is a 69 year old AA female with a past medical history as outlined below who presented to the ER with chest pain. The chest pain was localized to the substernal area and described as a burning sensation with radiation up into her throat. The symptoms apparently started about 3 days ago and at that time she seem to correlate with a bout of vomiting as well. She reports no other symptoms with regard to shortness of breath, cough, congestion, or palpitations. She does state though that the sensation of something stuck in her throat seems to work be worse when she lays flat. Because of the symptoms, her oral intake has been somewhat diminished and there is some concern that she was not able to take her antihypertensive medications as well. Nevertheless, she does report that she continued to drink water as tolerated. Wltf-[id number] medications with regard to Pepcid did not seem to resolve her symptoms. As the symptoms continue to worsen, she came to the ER for further evaluation and therapy. Workup and evaluation emergency room demonstrated the patient to be hemodynamically stable with the above symptoms as noted. Initial evaluation included routine blood test demonstrated that her creatinine was somewhat higher than her previous baseline in conjunction with mild anemia. Her EKG did not show any type of ischemic changes but chest pain protocol was initiated and she was subsequent admitted to the hospital with Gastroenterology and Nephrology consultation. Renal consultation was requested due to the elevated creatinine on admission in comparison to her baseline. From review of her records, it would seem the patient has some mild renal insufficiency at baseline. Back in 2017, her creatinine was running around 1.1-1.2 mg/dL and labs earlier this year demonstrated a creatinine around 1.4-1.5 mg/dL. Presumably, her mild renal insufficiency is secondary to her hypertension, hyperlipidemia, and distant history of of her kidney stone/nephrolithiasis. Interestingly, labs this morning show her kidney function back to baseline without any significant intervention. It is felt that her chest pain symptoms are more related to gastroesophageal reflux disease and gastroenterology has started the patient on anti proton pump inhibitors with the possibility of an outpatient EGD for further evaluation if her symptoms persist. Currently, she does not appear to be in acute distress at this time. Review of Systems Review of Systems: Narrative: As per HPI. [facility] Past Medical History Medical History (Reviewed 10/22/19 @ 08:16 by Lorenzo
[2019-10-22] MEDS: SODIUM CHLORIDE 0.9% IV 1,000 ML 100 ML IV CONT (09:54)
--- NOTE | 2019-10-22 12:00 | PM.DS ---
DS: Admitting Diagnosis Admitting Diagnosis Admitting Diagnosis: chest pain going into her throat DS: Discharge Diagnosis Discharge Diagnosis (1) Chest pain due to GERD: Code(s): R07.9 - Chest pain, unspecified; K21.9 - Gastro-esophageal reflux disease without esophagitis Status: Acute Assessment and Plan: Discharge Summary (Date of service 10/22/19): Mrs. Lord is a 69 y.o. female with PMH significant for CKD, essential hypertension, prediabetes, and GERD who presented to the emergency department for the evaluation of substernal chest pain radiating up into the throat. Pain was burning in nature with globus sensation and worse lying flat. She was recently prescribed pepcid however her symptoms persisted. She had one episode of clear emesis. She reported drinking significant amounts of lemon water. Troponins were negative x3. EKG had no evidence of acute ischemia. Cr was elevated at 2.0 and BUN 31. CBC had very minimal leukocytosis, likely reactive, given her episode of vomiting. Hemoglobin was 11.2 and BUN 34.1. MCV 87.9. She was placed on protonix 40mg and admitted to the hospitalist service and GI and nephrology was consulted. Dr. Gallagher with GI recommended continued PPI (protonix 40mg PO QD) as well as anti-reflux measures. He recommended elective outpatient EGD persistent symptoms and outpatient follow-up. Her renal function returned to baseline and she was advised to follow-up with her PCP for her chronic kidney disease with referral to nephrology should her PCP feel this is necessary. She was advised to follow-up outpatient for repeat imaging of her lung nodule found on CTA chest 03/2019. She was discharged in stable condition on the afternoon of 10/22/19. (2) Renal failure (ARF), acute on chronic: Code(s): N17.9 - Acute kidney failure, unspecified; N18.9 - Chronic kidney disease, unspecified Status: Acute Assessment and Plan: Cr was 2.0 and BUN 31 at presentation to the emergency department. LETTY on chronic kidney disease was felt to be pre-renal due to decreased PO intake given her recent upper GI symptoms. She was seen in consultation by nephrology. Her renal function returned to baseline following overnight IV fluids. She will need to follow-up with her primary care doctor with a repeat BMP in 1 week. I discussed her care with Dr. Real who was fine for her to discharge. He recommended that she could follow-up with him outpatient if felt necessary by her primary care doctor. Her chronic kidney disease is likely due to longstanding hypertension, vascular disease, and age. (3) Pulmonary nodule: Code(s): R91.1 - Solitary pulmonary nodule Status: Acute Assessment and Plan: Chest CTA from 04/04/19 demonstrated a 1.1cm nodule in the right upper lobe suspicious for primary bronchogenic carcinoma. PET/CT was recommended in 3 months for surveillance. She will need to follow-up with her primary care doctor outpatient for repeat imaging for this finding. (4) Anemia: Code(s): D64.9 - Anemia, unspecified Status: Acute Assessment and Plan: Hb 11.2 and Hct 34.1. Recommend outpatient follow-up. DS: Summary Hospital Course Reason for hospitalization: Chest pain due to GERD Hospital Course: As above. Status at Discharge Functional status at discharge: independent ambulation Overall status at discharge: patient is back to baseline Time Spent with Patient Time attestation: Total time spent providing and/or coordinating discharge services: 35 minutes Exam Narrative: Exam Narrative: Vitals at presentation: Temp Pulse Resp BP Pulse Ox 97.9 F 76 18 169/136 H 96 10/21/19 18:17 10/21/19 18:17 10/21/19 18:17 10/21/19 18:17 10/21/19 18:17 Vitals at discharge: Temp Pulse Resp B
[2019-10-22 13:23] VITALS: BP 128/54; PULSE 64; RESP 18; TEMP 36.3; O2SAT 100
--- NOTE | 2019-10-22 13:55 | PC.NURSE ---
Addendum entered by Yaron Whyte RN 10/22/19 15:43: Patient was discharged before vaccination was given. Original Note: Patient left the building for discharge before vaccination was given.
[2019-10-26 17:05] LABS: Chloride Rand Ur 56 mmol/L (32-290); Chloride/Creatinine Rand Ur 255 (38-318); Creatinine Random Urine 22 mg/dL (20-275)
== END 2019-10-22 13:50 | disposition home or self-care (01) ==
LOC: ANHED 20:55 → ANH3MEDSUR 22:27
PROVIDERS: Internal Medicine Nephrology; Admitting Provider Internal Medicine; Emergency Provider Emergency Medicine; PCP Family Medicine; Visit Provider Family Medicine
DX: R07.9 Chest pain, unspecified (principal); N17.9 Acute kidney failure, unspecified; R91.1 Solitary pulmonary nodule; Z91.14 Patient's other noncompliance with medication regimen; I12.9 Hypertensive chronic kidney disease with stage 1 through stage 4 chronic kidney disease, or unspecified chronic kidney disease; N18.3 Chronic kidney disease, stage 3 (moderate); E78.5 Hyperlipidemia, unspecified; K21.9 Gastro-esophageal reflux disease without esophagitis; I34.1 Nonrheumatic mitral (valve) prolapse; R73.03 Prediabetes; F41.8 Other specified anxiety disorders; Z98.1 Arthrodesis status
CPT/HCPCS: 36415; 71046; 80048; 80069; 81001; 82436; 82570; 84156; 84300; 84484; 85025; 85610; 85730; 85999; 93005; 96361; 96374; 99285; A9270; C9113; G0378; J7030

== ENCOUNTER 2019-10-29 00:13 | Outpatient (CLI) | payer OTHER, SELFPAY ==
[2019-10-29 17:26] LABS: SARS-CoV-2 RNA PCR Negative
== END 2019-10-29 00:14 | disposition home or self-care (01) ==
LOC: ANHCOVIDDT 00:13
PROVIDERS: PCP Family Medicine; Visit Provider Internal Medicine Gastroenterology
DX: Z01.812 Encounter for preprocedural laboratory examination (principal); Z11.59 Encounter for screening for other viral diseases
CPT/HCPCS: 87635; C9803; U0003

== ENCOUNTER 2019-10-31 02:16 | Day surgery (SDC) | payer OTHER, SELFPAY ==
[2019-10-25 15:53] VITALS: BMI 31.8
--- NOTE | 2019-10-30 13:12 | WPDANESEPPF ---
Anes - Initial Pre Proc Eval Procedure: Operation Date: 10/31/19 09:30 Proposed Procedures p Esophagogastroduodenoscopy - Lorenzo Gallagher MD Date/Time: 10/30/19 13:12 Surgeon: Lorenzo Gallagher MD Pre Op Diagnosis: GERD Patient Data Age: 69 Gender: F Height: 1.57 m Weight: 79 kg Allergies Allergy/AdvReac Type Severity Reaction Status Date / Time pregabalin Allergy Intermediate LETHARGIC, Verified 10/31/19 09:11 SLEEPY, SPACEY niacin Allergy Mild Rash Verified 10/31/19 09:11 Penicillins Allergy Mild Rash Verified 10/31/19 09:11 buspirone AdvReac Intermediate Agitated Verified 10/31/19 09:11 hydrochlorothiazide AdvReac Intermediate hypokalemia Verified 10/31/19 09:11 hydrocodone AdvReac Mild Nausea and Verified 10/31/19 09:11 Vomiting morphine AdvReac Mild Nausea and Verified 10/31/19 09:11 Vomiting tramadol AdvReac Mild Gastrointestinal Verified 10/31/19 09:11 Upset Home Medications Medication Instructions Recorded Confirmed Type atorvastatin 10 mg tablet 10 mg PO DAILY 01/21/19 10/25/19 History ondansetron 4 mg disintegrating 4 - 8 mg PO Q8H PRN #18 tablet 03/26/19 10/25/19 Rx tablet alendronate 35 mg tablet 35 mg PO WEEKLY #30 tablet 05/09/19 10/25/19 Rx spironolactone 25 mg tablet 25 mg PO DAILY #30 tablet 09/23/19 10/25/19 Rx alum-mag hydroxide-simeth [Maalox 5 ml PO QID PRN #355 ml 10/17/19 10/25/19 Rx Maximum Strength] aspirin 81 mg PO DAILY 10/17/19 10/25/19 History omega 0-bel-dgv-fish oil [Fish Oil] 1 cap PO DAILY 10/17/19 10/25/19 History lisinopril 40 mg PO DAILY 10/21/19 10/25/19 History metoprolol succinate 25 mg PO HS 10/21/19 10/25/19 History potassium chloride 20 meq PO DAILY 10/21/19 10/25/19 History amlodipine 10 mg tablet 10 mg PO DAILY #90 tablet 11/11/19 Rx pantoprazole 40 mg tablet,delayed 40 mg PO QAM 30 Days #90 tablet 11/11/19 Rx release alprazolam 0.25 mg tablet 0.25 mg PO TID PRN #60 tablet 11/18/19 Rx Patient hx anesthesia problems: none Family hx anesthesia problems: none PMFSH Past Medical History Medical History (Updated 10/26/19 @ 08:31 by Gina Kelly PA-C) Ankle fracture Anxiety Arthritis Chronic bilateral low back pain with left-sided sciatica CKD (chronic kidney disease), stage III Depression GERD (gastroesophageal reflux disease) HLD (hyperlipidemia) HTN (hypertension) Kidney stones 2012 Mitral valve prolapse Prediabetes Surgical History Surgical History History of bilateral carpal tunnel release 2002 and 2005 History of hysterectomy 1986 History of total right knee replacement Dr. Hilario Hx of section Status post cervical spinal fusion 2005 Family History Family History Father , He in June 2019 due to complications of COVID-19. Hypertension Parkinson disease Mother Hypertension Sibling Diabetes mellitus Daughter , at age 34. (2011) TTP (thrombotic thrombocytopenic purpura) Social History Social History Social History: Primary Care Provider: Dr. 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 Gender identity (if verbalized by the patient): Female Spiritual care concerns: Yes (NO BLOOD PRODUCTS) Anes - Eval Final PreProcedure Day of Procedure 10/30/19 13:12 Patient weight: obese Heart: regular rate and rhythm Lungs: clear to auscultation and normal air movement Airway: Mallampati scale class II Neurological: alert and oriented Last oral intake: >/= 8 hours ASA classification: III Emergent: no Anesthetic plan: proceed Anesthesia type and monitoring: general GIVS and standard monitoring Informed Consent: The patient's
[2019-10-31 08:57] VITALS: BP 151/63; PULSE 64; RESP 18; TEMP 36.3; O2SAT 64; BMI 32.1
[2019-10-31] MEDS: SODIUM CHLORIDE 0.9% IV 500 ML 10 ML IV CONT (09:45)
--- NOTE | 2019-10-31 09:54 | WPDGICN ---
Assessment and Plan Assessment and plan (1) Chest pain: Qualifiers: Chest pain type: unspecified Qualified Code(s): R07.9 - Chest pain, unspecified Code(s): R07.9 - Chest pain, unspecified Status: Acute Assessment and Plan: Severe chest pain prompting recent hospital stay. Likely related to GE reflux. Plan is to assess with EGD today. Continue Pantoprazolel 40 mg p.o. daily anticipated. (2) GERD (gastroesophageal reflux disease): Code(s): K21.9 - Gastro-esophageal reflux disease without esophagitis Status: Acute GI Consult Note Consult date/time: 10/31/19 09:54 HPI: Ira Lord is a 69 year old female Seen in evaluation after recent hospital stay. Patient experienced chest pain attributed to heartburn and acid reflux. She has improved dramatically on taking Protonix 40 mg p.o. daily. She presents today for EGD. She states that she has had acid reflux for perhaps 18 years but never bad enough to cause hospitalization as this time. She denies any weight loss. She denies any bleeding. She has had no dysphagia. Plan is for EGD to assess more thoroughly today Review of Systems Review of Systems: All systems reviewed & are unremarkable except as noted in HPI and below PMFSH Social History Social History Social History: Primary Care Provider: Dr. 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 Gender identity (if verbalized by the patient): Female Spiritual care concerns: Yes (NO BLOOD PRODUCTS) Meds Home Medications and Allergies Home Medications Medication Instructions Recorded Confirmed Type atorvastatin 10 mg tablet 10 mg PO DAILY 01/21/19 10/25/19 History ondansetron 4 mg disintegrating 4 - 8 mg PO Q8H PRN #18 tablet 03/26/19 10/25/19 Rx tablet amlodipine 10 mg tablet 10 mg PO DAILY #90 tablet 05/08/19 10/25/19 Rx alendronate 35 mg tablet 35 mg PO WEEKLY #30 tablet 05/09/19 10/25/19 Rx alprazolam 0.25 mg tablet 0.25 mg PO TID PRN #60 tablet 08/27/19 10/25/19 Rx spironolactone 25 mg tablet 25 mg PO DAILY #30 tablet 09/23/19 10/25/19 Rx alum-mag hydroxide-simeth [Maalox 5 ml PO QID PRN #355 ml 10/17/19 10/25/19 Rx Maximum Strength] aspirin 81 mg PO DAILY 10/17/19 10/25/19 History omega 7-xpq-gft-fish oil [Fish Oil] 1 cap PO DAILY 10/17/19 10/25/19 History lisinopril 40 mg PO DAILY 10/21/19 10/25/19 History metoprolol succinate 25 mg PO HS 10/21/19 10/25/19 History potassium chloride 20 meq PO DAILY 10/21/19 10/25/19 History pantoprazole 40 mg PO QAM 30 Days #30 tablet 10/22/19 10/25/19 Rx Allergies Allergy/AdvReac Type Severity Reaction Status Date / Time pregabalin Allergy Intermediate LETHARGIC, Verified 10/31/19 09:11 SLEEPY, SPACEY niacin Allergy Mild Rash Verified 10/31/19 09:11 Penicillins Allergy Mild Rash Verified 10/31/19 09:11 buspirone AdvReac Intermediate Agitated Verified 10/31/19 09:11 hydrochlorothiazide AdvReac Intermediate hypokalemia Verified 10/31/19 09:11 hydrocodone AdvReac Mild Nausea and Verified 10/31/19 09:11 Vomiting morphine AdvReac Mild Nausea and Verified 10/31/19 09:11 Vomiting tramadol AdvReac Mild Gastrointestinal Verified 10/31/19 09:11 Upset Vital Signs Vital Signs - 24 hr 10/31/19 08:57 Temperature 97.4 F L Pulse Rate 64 Respiratory Rate 18 Blood Pressure 151/63 H Pulse Oximetry 64 L Exam Narrative: Exam Narrative: physical exam reveals patient to be alert. Vital signs stable. HEENT exam unremarkable. Lungs are clear to auscultation and percussion. Heart is without murmur or extra sounds. Abdominal exam bowel sounds are present soft nontender with no organomegaly. Digital rectal exam is unremarkable as well.
[2019-10-31] MEDS: EPINEPHrine INJ 1 MG/10 ML SYRINGE 0.2 MG XX (10:14)
[2019-10-31 10:18] VITALS: BP 147/62; PULSE 61; RESP 14; O2SAT 99
[2019-10-31 10:28] VITALS: BP 158/68; PULSE 64; RESP 19; O2SAT 99
[2019-10-31 10:38] VITALS: BP 162/70; PULSE 62; RESP 26; O2SAT 99
== END 2019-10-31 10:55 | disposition home or self-care (01) ==
PROVIDERS: PCP Family Medicine; Visit Provider Internal Medicine Gastroenterology
PROC: 0DJ08ZZ Inspection of Upper Intestinal Tract, Via Natural or Artificial Opening Endoscopic (ICD-10-PCS; CPT 43235; principal; 2019-10-31 09:30)
DX: R07.9 Chest pain, unspecified (principal); K21.9 Gastro-esophageal reflux disease without esophagitis; K31.7 Polyp of stomach and duodenum; E66.9 Obesity, unspecified; Z68.32 Body mass index [BMI] 32.0-32.9, adult
CPT/HCPCS: 43251; 88305; J0171; J2704; J7040

== ENCOUNTER 2019-11-02 11:49 | Outpatient (CLI) | payer OTHER, SELFPAY ==
[2019-11-02 12:38] LABS: Anion Gap 6 mmol/L (8-16); Blood Urea Nitrogen 37 mg/dL (7-17); Calcium 10.2 mg/dL (8.4-10.2); Carbon Dioxide 27 mmol/L (22-30); Chloride 105 mmol/L (98-107); Estimated Glomerular Filt Rate 36; Glucose 90 mg/dL (65-105); Potassium 4.6 mmol/L (3.4-5.0); Sodium 138 mmol/L (137-145)
== END 2019-11-02 11:50 | disposition home or self-care (01) ==
PROVIDERS: PCP Family Medicine; Visit Provider Physician Assistant
DX: N17.9 Acute kidney failure, unspecified (principal); N18.3 Chronic kidney disease, stage 3 (moderate)
CPT/HCPCS: 36415; 80048

== ENCOUNTER 2019-11-19 11:43 | Outpatient (CLI) | payer OTHER, SELFPAY ==
--- NOTE | ~2019-11-19 | XR_ITS ---
XR lumbar spine 2-3V DATE: 11/19/2019 12:16 INDICATION: Surgery 2 weeks ago for spondylolisthesis. TECHNIQUE: AP, lateral, coned lateral lumbosacral views COMPARISON: 05/07/2012 lumbar spine FINDINGS: Status post posterior and interbody spinal fusion at L4-5. The pedicle screws and spinal ro ds appear intact, without fracture or displacement. Normal alignment of the lumbar spine. No fracture or bone destruction is evident. There is moderately severe loss of interspace height at L3-4. There is severe degenerative disc disease at L5-S1. The sacroiliac joints are normal. Mild osteitis pubis. IMPRESSION: Status post posterior and interbody spinal fusion at L4-5 Moderately severe degenerative disc disease at L3-4 Severe degenerative disc disease at L5-S1 Reviewed, dictated and finalized at location A.
== END 2019-11-19 11:44 | disposition home or self-care (01) ==
PROVIDERS: PCP Family Medicine; Visit Provider Neurological Surgery
DX: M43.10 Spondylolisthesis, site unspecified (principal); M51.36 Other intervertebral disc degeneration, lumbar region; Z98.1 Arthrodesis status
CPT/HCPCS: 72100

== ENCOUNTER 2019-12-17 10:12 | Outpatient (CLI) | payer OTHER, SELFPAY ==
--- NOTE | ~2019-12-17 | XR_ITS ---
EXAMINATION: XR lumbar spine 2-3V DATE: 12/17/2019 10:32 INDICATION: Lumbar fusion TECHNIQUE: Anteroposterior and lateral views of the lumbar spine, and cone-down lateral view of the l umbosacral junction were obtained. COMPARISON: 11/19/2019 FINDINGS: Again noted are changes of posterior and interbody fusion at L4-5. The vertebral body heigh ts and alignment are normal. There is advanced loss of intervertebral disc space height at L5-S1. Mod erate L3-4 disc space loss is also noted. Small degenerative osteophytes project from the anterior en dplates of multiple vertebral bodies. There is no fracture. A moderate volume of colonic stool is pre sent. IMPRESSION: 1. Changes of posterior and interbody fusion at L4-5 with severe spondylosis at L5-S1, no acute findi ngs or significant interval change. Reviewed, dictated and finalized at location A. SIT MIXER DRIVER IMPRESSION: 1. Changes of posterior and interbody fusion at L4-5 with severe spondylosis at L5-S1, no acute findings or significant interval change.
== END 2019-12-17 10:13 | disposition home or self-care (01) ==
LOC: ANHIMG 10:19
PROVIDERS: PCP Family Medicine; Visit Provider Neurological Surgery
DX: Z98.1 Arthrodesis status (principal); M47.816 Spondylosis without myelopathy or radiculopathy, lumbar region
CPT/HCPCS: 72100

== ENCOUNTER 2019-12-23 03:36 | Outpatient (CLI) | payer OTHER, SELFPAY ==
[2019-12-23 20:39] LABS: SARS-CoV-2 RNA PCR Negative
== END 2019-12-23 03:37 | disposition home or self-care (01) ==
LOC: ANHCOVIDDT 03:36
PROVIDERS: PCP Family Medicine; Visit Provider Internal Medicine Gastroenterology
DX: Z01.812 Encounter for preprocedural laboratory examination (principal); Z20.828 Contact with and (suspected) exposure to other viral communicable diseases
CPT/HCPCS: 87635; C9803; U0003

== ENCOUNTER 2019-12-24 10:28 | Outpatient (CLI) | payer OTHER, SELFPAY ==
--- NOTE | ~2019-12-24 | CT_ITS ---
EXAMINATION: CT chest wo con EXAM DATE: 12/24/2019 10:42 INDICATION: R91.1 - Solitary pulmonary nodule. TECHNIQUE: Spiral CT of the chest without contrast. Axial, coronal and sagittal images were reviewe d. Coronal maximum intensity pixel images of chest reviewed. The dose-length product (DLP) for this examination was 81.39 mGy-cm. The exposure was tailored according to patient size (auto mA exposure control), and iterative reconstruction (ASIR) was used as additional dose reduction technique. Maciel rison is made to prior examination from 04/04/2019. FINDINGS: Right upper lobe nodule measuring 1.0 cm, stable or minimally decreased in size.. This is consistent with noncalcified granuloma. Additional 1 year follow-up low-dose chest CT recommended. Th ere is mild emphysema. There are no pleural or pericardial effusions. Tracheobronchial tree is castellanos nt. There is no mediastinal, hilar or axillary lymphadenopathy. There is no pneumothorax. Heart normal in size. There is mild coronary arterial calcification, arterial sclerosis. Upper abdomen is unremarkable. There is moderate thoracic spondylosis without osteoblastic or osteolytic lesions identified. IMPRESSION: 1. Right upper lobe nodule, stable or minimally decreased in size. Likely postinfectious but additio nal one-year follow-up chest CT should be considered. 2. Mild emphysema. Reviewed, dictated and finalized at location A. IC RELATIONS DIRECTOR IMPRESSION: 1. Right upper lobe nodule, stable or minimally decreased in size. Likely post infectious but additional one-year follow-up chest CT should be considered. 2. Mild emphysema.
== END 2019-12-24 10:29 ==
PROVIDERS: PCP Family Medicine; Visit Provider Physician Assistant
DX: R91.1 Solitary pulmonary nodule (principal); J43.9 Emphysema, unspecified
CPT/HCPCS: 71250

== ENCOUNTER 2019-12-26 00:34 | Day surgery (SDC) | payer OTHER, SELFPAY ==
[2019-12-19 14:53] VITALS: BMI 32.2
--- NOTE | 2019-12-26 08:07 | WPDANESEPPF ---
Anes - Initial Pre Proc Eval Procedure: Operation Date: 12/26/19 10:30 Proposed Procedures p Esophagogastroduodenoscopy - Lorenzo Gallagher MD Date/Time: 12/26/19 08:07 Surgeon: Lorenzo Gallagher MD Pre Op Diagnosis: GERD, Gastric Polyp Patient Data Age: 69 Gender: F Height: 1.57 m Weight: 80 kg Allergies Allergy/AdvReac Type Severity Reaction Status Date / Time pregabalin Allergy Intermediate LETHARGIC, Verified 12/26/19 09:46 SLEEPY, SPACEY niacin Allergy Mild Rash Verified 12/26/19 09:46 Penicillins Allergy Mild Rash Verified 12/26/19 09:46 buspirone AdvReac Intermediate Agitated Verified 12/26/19 09:46 hydrochlorothiazide AdvReac Intermediate hypokalemia Verified 12/26/19 09:46 hydrocodone AdvReac Mild Nausea and Verified 12/26/19 09:46 Vomiting morphine AdvReac Mild Nausea and Verified 12/26/19 09:46 Vomiting tramadol AdvReac Mild Gastrointestinal Verified 12/26/19 09:46 Upset Home Medications Medication Instructions Recorded Confirmed Type atorvastatin 10 mg tablet 10 mg PO DAILY 01/21/19 12/19/19 History alendronate 35 mg tablet 35 mg PO WEEKLY #30 tablet 05/09/19 12/19/19 Rx spironolactone 25 mg tablet 25 mg PO DAILY #30 tablet 09/23/19 12/19/19 Rx alum-mag hydroxide-simeth [Maalox 5 ml PO QID PRN #355 ml 10/17/19 12/19/19 Rx Maximum Strength] aspirin 81 mg PO DAILY 10/17/19 12/19/19 History omega 2-ufv-mhe-fish oil [Fish Oil] 1 cap PO DAILY 10/17/19 12/19/19 History lisinopril 40 mg PO DAILY 10/21/19 12/19/19 History metoprolol succinate 25 mg PO HS 10/21/19 12/19/19 History potassium chloride 20 meq PO DAILY 10/21/19 12/19/19 History amlodipine 10 mg tablet 10 mg PO DAILY #90 tablet 11/11/19 12/19/19 Rx pantoprazole 40 mg tablet,delayed 40 mg PO QAM 30 Days #90 tablet 11/11/19 12/19/19 Rx release alprazolam 0.25 mg tablet 0.25 mg PO TID PRN #60 tablet 11/18/19 12/19/19 Rx ondansetron 4 mg disintegrating 4 - 8 mg PO Q8H PRN tablet 12/11/19 12/19/19 History tablet Patient hx anesthesia problems: none Family hx anesthesia problems: none PMFSH Past Medical History Medical History (Updated 12/26/19 @ 08:08 by Matthew French MD) Ankle fracture Anxiety Arthritis Chronic bilateral low back pain with left-sided sciatica CKD (chronic kidney disease), stage III Depression GERD (gastroesophageal reflux disease) GERD (gastroesophageal reflux disease) HLD (hyperlipidemia) HTN (hypertension) Kidney stones 2012 Mitral valve prolapse Obesity ROSALVA (obstructive sleep apnea) Prediabetes Surgical History Surgical History History of bilateral carpal tunnel release 2002 and 2005 History of hysterectomy 1986 History of total right knee replacement Dr. Hilario Hx of section Status post cervical spinal fusion 2005 Family History Family History Father , He in June 2019 due to complications of COVID-19. Hypertension Parkinson disease Mother Hypertension Sibling Diabetes mellitus Daughter , at age 34. (2011) TTP (thrombotic thrombocytopenic purpura) Social History Social History (Updated 12/11/19 @ 13:39 by Rosa Reed MA) Social History: Primary Care Provider: Dr. 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 Gender identity (if verbalized by the patient): Female Spiritual care concerns: Yes (NO BLOOD PRODUCTS) Anes - Eval Final PreProcedure Day of Procedure 12/26/19 08:07 Patient weight: obese Heart: regular rate and rhythm Lungs: clear to auscultation and normal air movement Airway: Mallampati scale class II Neurological: alert and oriented Last oral intake: >/= 8 hours ASA class
[2019-12-26 09:48] VITALS: BP 152/48; PULSE 60; RESP 18; TEMP 36.2; O2SAT 100; BMI 31.0
[2019-12-26] MEDS: LACTATED RINGERS 1,000 ML 150 ML IV CONT (10:06)
--- NOTE | 2019-12-26 11:15 | WPDGICN ---
Assessment and Plan Assessment and plan (1) History of gastric polyp: Code(s): Z87.19 - Personal history of other diseases of the digestive system Status: Acute Assessment and Plan: Patient has a history of gastric polyp with nodular like appearance. Histology revealed this to be ulcerated hyperplastic. Plan is for follow-up exam this time to document healing of this lesion. Continuing patient on proton pump inhibitor otherwise is felt appropriate. Further recommendations may be given after endoscopy. GI Consult Note Consult date/time: 12/26/19 11:15 HPI: Ira Lord is a 69 year old female Seen in evaluation at the request Dr. Tip Nixon. Patient has a history of GI blood loss for which she was hospitalized. An EGD revealed an ulcerated nodule/polyp within the gastric antrum. Patient presents today for follow-up examination to ensure healing. The ultimate histology of this polyp was benign. Patient denies any ongoing pain she denies any obvious bleeding. Her stools are normal color if not been black. Review of Systems Review of Systems: All systems reviewed & are unremarkable except as noted in HPI and below PMFSH Past Medical History Medical History (Updated 12/26/19 @ 11:17 by Lorenzo Gallagher MD) Ankle fracture Anxiety Arthritis Chronic bilateral low back pain with left-sided sciatica CKD (chronic kidney disease), stage III Depression GERD (gastroesophageal reflux disease) GERD (gastroesophageal reflux disease) HLD (hyperlipidemia) HTN (hypertension) Kidney stones 2012 Mitral valve prolapse Obesity ROSALVA (obstructive sleep apnea) Prediabetes Surgical History Surgical History History of bilateral carpal tunnel release 2002 and 2005 History of hysterectomy 1986 History of total right knee replacement Dr. Hilario Hx of section Status post cervical spinal fusion 2005 Family History Family History Father , He in June 2019 due to complications of COVID-19. Hypertension Parkinson disease Mother Hypertension Sibling Diabetes mellitus Daughter , at age 34. (2011) TTP (thrombotic thrombocytopenic purpura) Social History Social History (Updated 12/11/19 @ 13:39 by Rosa Reed MA) Social History: Primary Care Provider: Dr. 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 Gender identity (if verbalized by the patient): Female Spiritual care concerns: Yes (NO BLOOD PRODUCTS) Meds Home Medications and Allergies Home Medications Medication Instructions Recorded Confirmed Type atorvastatin 10 mg tablet 10 mg PO DAILY 01/21/19 12/19/19 History alendronate 35 mg tablet 35 mg PO WEEKLY #30 tablet 05/09/19 12/19/19 Rx spironolactone 25 mg tablet 25 mg PO DAILY #30 tablet 09/23/19 12/19/19 Rx alum-mag hydroxide-simeth [Maalox 5 ml PO QID PRN #355 ml 10/17/19 12/19/19 Rx Maximum Strength] aspirin 81 mg PO DAILY 10/17/19 12/19/19 History omega 8-ijl-nxi-fish oil [Fish Oil] 1 cap PO DAILY 10/17/19 12/19/19 History lisinopril 40 mg PO DAILY 10/21/19 12/19/19 History metoprolol succinate 25 mg PO HS 10/21/19 12/19/19 History potassium chloride 20 meq PO DAILY 10/21/19 12/19/19 History amlodipine 10 mg tablet 10 mg PO DAILY #90 tablet 11/11/19 12/19/19 Rx pantoprazole 40 mg tablet,delayed 40 mg PO QAM 30 Days #90 tablet 11/11/19 12/19/19 Rx release alprazolam 0.25 mg tablet 0.25 mg PO TID PRN #60 tablet 11/18/19 12/19/19 Rx ondansetron 4 mg disintegrating 4 - 8 mg PO Q8H PRN tablet 12/11/19 12/19/19 History tablet Allergies Allergy/AdvReac Type Severity Reaction Status Date / Time pregabalin Allergy Inte
[2019-12-26] MEDS: BENZOCAINE (*SP) 60 ML SPRAY CAN (HURRICAINE) 1 SPRAY MUCOUS MEM (11:26)
[2019-12-26 11:35] VITALS: BP 130/56; PULSE 68; RESP 19; O2SAT 100
[2019-12-26 11:45] VITALS: BP 129/59; PULSE 63; RESP 17; O2SAT 100
[2019-12-26 11:55] VITALS: BP 141/54; PULSE 61; RESP 23; O2SAT 100
[2019-12-26 12:05] VITALS: BP 135/56; PULSE 53; RESP 15; O2SAT 100
== END 2019-12-26 12:16 | disposition home or self-care (01) ==
PROVIDERS: PCP Family Medicine; Visit Provider Internal Medicine Gastroenterology
PROC: 0DJ08ZZ Inspection of Upper Intestinal Tract, Via Natural or Artificial Opening Endoscopic (ICD-10-PCS; CPT 43235; principal; 2019-12-26 10:30)
DX: Z09 Encounter for follow-up examination after completed treatment for conditions other than malignant neoplasm (principal); K29.60 Other gastritis without bleeding; K21.9 Gastro-esophageal reflux disease without esophagitis; I12.9 Hypertensive chronic kidney disease with stage 1 through stage 4 chronic kidney disease, or unspecified chronic kidney disease; N18.30 Chronic kidney disease, stage 3 unspecified; F41.8 Other specified anxiety disorders; E78.5 Hyperlipidemia, unspecified; I34.1 Nonrheumatic mitral (valve) prolapse; G47.33 Obstructive sleep apnea (adult) (pediatric); R73.03 Prediabetes; Z98.1 Arthrodesis status; Z79.82 Long term (current) use of aspirin; E66.9 Obesity, unspecified; Z68.31 Body mass index [BMI] 31.0-31.9, adult
CPT/HCPCS: 43239; 87081; J2704; J7120

== ENCOUNTER 2020-03-27 11:43 | Outpatient (CLI) | payer OTHER, SELFPAY ==
--- NOTE | ~2020-03-27 | XR_ITS ---
XR hip LT 2V w AP pelvis 03/27/2020 12:09 Indication: Left hip pain Procedure: AP pelvis and 2 views left hip Comparison: No prior studies for comparison. Findings: There is mild joint space narrowing of the left hip consistent with degenerative joint dise ase. No fracture or traumatic malalignment. Pelvic rings are intact. There are degenerative changes o f the lower lumbar spine partially visualized with pedicular screws. Pelvic rings are intact. Sacral foramen are symmetric. Impression: 1: Mild osteoarthritis of the left hip. Reviewed, dictated and finalized at location B. AGE LINER Impression: 1: Mild osteoarthritis of the left hip.
== END 2020-03-27 11:44 | disposition home or self-care (01) ==
PROVIDERS: PCP Family Medicine; Visit Provider Physician Assistant
DX: M16.12 Unilateral primary osteoarthritis, left hip (principal)
CPT/HCPCS: 73502

== ENCOUNTER → 2020-04-18 00:32 | Outpatient (CLI) | payer OTHER, SELFPAY ==
[2020-04-18 19:48] LABS: SARS-CoV-2 RNA PCR Negative
== END ==
PROVIDERS: PCP Family Medicine; Visit Provider Internal Medicine Gastroenterology
DX: Z01.812 Encounter for preprocedural laboratory examination (principal); Z20.822 Contact with and (suspected) exposure to COVID-19
CPT/HCPCS: C9803; U0003; U0005

== ENCOUNTER 2020-04-22 00:48 | Day surgery (SDC) | payer OTHER, SELFPAY ==
[2020-04-13 09:41] VITALS: BMI 25.2
[2020-04-22 08:02] VITALS: BP 147/61; PULSE 63; RESP 16; TEMP 36.2; O2SAT 100
[2020-04-22] MEDS: LACTATED RINGERS 1,000 ML 150 ML IV CONT (08:19)
--- NOTE | 2020-04-22 08:45 | WPDANESEPPF ---
Anes - Initial Pre Proc Eval Procedure: Operation Date: 04/22/20 09:15 Proposed Procedures p Screening Colonoscopy - Aki Em MD Date/Time: 04/22/20 08:45 Surgeon: Aki Em MD Pre Op Diagnosis: Neoplasm Screening Patient Data Age: 69 Gender: F Height: 5 ft 10 in Weight: 76.7 kg Last Vital Signs Temp 97.2 F L 04/22/20 08:02 Pulse 63 04/22/20 08:02 Resp 16 04/22/20 08:02 BP 147/61 H 04/22/20 08:02 Pulse Ox 100 04/22/20 08:02 Allergies Allergy/AdvReac Type Severity Reaction Status Date / Time pregabalin Allergy Intermediate LETHARGIC, Verified 04/22/20 08:00 SLEEPY, SPACEY niacin Allergy Mild Rash Verified 04/22/20 08:00 Penicillins Allergy Mild Rash Verified 04/22/20 08:00 buspirone AdvReac Intermediate Agitated Verified 04/22/20 08:00 hydrochlorothiazide AdvReac Intermediate hypokalemia Verified 04/22/20 08:00 hydrocodone AdvReac Mild Nausea and Verified 04/22/20 08:00 Vomiting morphine AdvReac Mild Nausea and Verified 04/22/20 08:00 Vomiting tramadol AdvReac Mild Gastrointestinal Verified 04/22/20 08:00 Upset Home Medications Medication Instructions Recorded Confirmed Type atorvastatin 10 mg tablet 10 mg PO DAILY 01/21/19 04/22/20 History aspirin 81 mg PO DAILY 10/17/19 04/22/20 History omega 2-jbt-xgg-fish oil [Fish Oil] 1 cap PO DAILY 10/17/19 04/22/20 History metoprolol succinate 25 mg PO HS 10/21/19 04/22/20 History potassium chloride 20 meq PO DAILY 10/21/19 04/13/20 History amlodipine 10 mg tablet 10 mg PO DAILY #90 tablet 11/11/19 04/22/20 Rx lisinopril 40 mg tablet 40 mg PO DAILY #90 tablet 01/17/20 04/22/20 Rx spironolactone 25 mg tablet 25 mg PO DAILY #30 tablet 01/30/20 04/13/20 Rx ondansetron 4 mg disintegrating 4 - 8 mg PO Q8H PRN #30 tablet 03/10/20 04/13/20 Rx tablet alprazolam 0.25 mg tablet 0.25 mg PO TID PRN #60 tablet 04/06/20 04/22/20 Rx alendronate 35 mg PO DAILY 04/13/20 04/22/20 History omeprazole 20 mg PO DAILY 04/13/20 04/13/20 History Patient hx anesthesia problems: none Family hx anesthesia problems: none PMFSH Past Medical History Medical History Ankle fracture Anxiety Arthritis Chronic bilateral low back pain with left-sided sciatica CKD (chronic kidney disease), stage III Depression GERD (gastroesophageal reflux disease) GERD (gastroesophageal reflux disease) HLD (hyperlipidemia) HTN (hypertension) Kidney stones 2012 Mitral valve prolapse Obesity ROSALVA (obstructive sleep apnea) Prediabetes Surgical History Surgical History History of bilateral carpal tunnel release 2002 and 2005 History of hysterectomy 1985 History of total right knee replacement Dr. Hilario Hx of section Status post cervical spinal fusion 2005 Family History Family History Father , He in June 2019 due to complications of COVID-19. Hypertension Parkinson disease Mother Hypertension Sibling Diabetes mellitus Daughter , at age 34. (2011) TTP (thrombotic thrombocytopenic purpura) Social History Social History Social History: Primary Care Provider: Dr. 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 Gender identity (if verbalized by the patient): Female Spiritual care concerns: No Anes - Eval Final PreProcedure Day of Procedure 04/22/20 08:45 Patient weight: normal Heart: regular rate and rhythm Lungs: clear to auscultation Airway: Mallampati scale class II Neurological: alert and oriented Last oral intake: >/= 8 hours ASA classifi
--- NOTE | 2020-04-22 09:12 | PM.HPGS ---
History of Present Illness History of Present Illness Consent: Risks, benefits, and alternatives have been discussed and questions answered. Patient agrees to proceed with procedure. Chief complaint: Neoplasm Screening Narrative: Ira Lord is a 69 year old female here for screening colonoscopy, had colonoscopy ~ 2011 then followed by a negative cologuard and she is due to have another screening. 12/2019 had EGD that showed few stomach erosions and benign polyp, gerd symptoms controlled with ppi now. Review of Systems Constitutional: Constitutional: Denies headache(s) and Denies weakness Eyes: Eyes: Denies blurry vision ENT: Reports Normal hearing present, Denies headache(s) and Denies neck pain Cardiovascular: Cardiovascular: Denies chest pain and Denies dyspnea Respiratory: Respiratory: Denies dyspnea Gastrointestinal: Gastrointestinal: Reports no additional gastrointestinal complaints Genitourinary: Genitourinary: Denies dysuria Musculoskeletal: Musculoskeletal: Denies neck pain Integumentary/Breasts: Skin/Breast: Denies dry skin Neurologic: Reports Normal hearing present, Denies headache(s) and Denies weakness Psychiatric: Psychiatric: Denies anxiety Endocrine: Endocrine: Denies change in body appearance Hematologic/Lymphatic: Hematologic/Lymphatic: Denies easy bleeding Allergic/Immunologic: Allergic/Immunologic: Denies urticaria PMFSH Past Medical History Medical History Ankle fracture Anxiety Arthritis Chronic bilateral low back pain with left-sided sciatica CKD (chronic kidney disease), stage III Depression GERD (gastroesophageal reflux disease) GERD (gastroesophageal reflux disease) HLD (hyperlipidemia) HTN (hypertension) Kidney stones 2012 Mitral valve prolapse Obesity ROSALVA (obstructive sleep apnea) Prediabetes Surgical History Surgical History History of bilateral carpal tunnel release 2002 and 2006 History of hysterectomy 1985 History of total right knee replacement Dr. Hilario Hx of section Status post cervical spinal fusion 2005 Family History Family History Father , He in June 2019 due to complications of COVID-19. Hypertension Parkinson disease Mother Hypertension Sibling Diabetes mellitus Daughter , at age 34. (2011) TTP (thrombotic thrombocytopenic purpura) Social History Social History Social History: Primary Care Provider: Dr. 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 Gender identity (if verbalized by the patient): Female Spiritual care concerns: No Meds Home Medications and Allergies Home Medications Medication Instructions Recorded Confirmed Type atorvastatin 10 mg tablet 10 mg PO DAILY 01/21/19 04/22/20 History aspirin 81 mg PO DAILY 10/17/19 04/22/20 History omega 2-pfx-qlj-fish oil [Fish Oil] 1 cap PO DAILY 10/17/19 04/22/20 History metoprolol succinate 25 mg PO HS 10/21/19 04/22/20 History potassium chloride 20 meq PO DAILY 10/21/19 04/13/20 History amlodipine 10 mg tablet 10 mg PO DAILY #90 tablet 11/11/19 04/22/20 Rx lisinopril 40 mg tablet 40 mg PO DAILY #90 tablet 01/17/20 04/22/20 Rx spironolactone 25 mg tablet 25 mg PO DAILY #30 tablet 01/30/20 04/13/20 Rx ondansetron 4 mg disintegrating 4 - 8 mg PO Q8H PRN #30 tablet 03/10/20 04/13/20 Rx tablet alprazolam 0.25 mg tablet 0.25 mg PO TID PRN #60 tablet 04/06/20 04/22/20 Rx alendronate 35 mg PO DAILY 04/13/20 04/22/20 History omeprazole 20 mg PO DAILY 04/13/20 04/13/20 History Allergies Allergy/AdvReac Type Severity React
[2020-04-22 09:34] VITALS: BP 128/70; PULSE 80; RESP 18; O2SAT 94
[2020-04-22 09:44] VITALS: BP 139/74; PULSE 76; RESP 18; O2SAT 99
[2020-04-22 09:54] VITALS: BP 154/64; PULSE 72; RESP 18; O2SAT 98
== END 2020-04-22 10:10 | disposition home or self-care (01) ==
PROVIDERS: PCP Family Medicine; Visit Provider Internal Medicine Gastroenterology
PROC: 0DJD8ZZ Inspection of Lower Intestinal Tract, Via Natural or Artificial Opening Endoscopic (ICD-10-PCS; CPT 45378; principal; 2020-04-22 09:15)
DX: Z12.11 Encounter for screening for malignant neoplasm of colon (principal); K63.5 Polyp of colon; K64.8 Other hemorrhoids; I12.9 Hypertensive chronic kidney disease with stage 1 through stage 4 chronic kidney disease, or unspecified chronic kidney disease; N18.30 Chronic kidney disease, stage 3 unspecified; E78.5 Hyperlipidemia, unspecified; R73.03 Prediabetes; K21.9 Gastro-esophageal reflux disease without esophagitis; I34.1 Nonrheumatic mitral (valve) prolapse; F41.8 Other specified anxiety disorders; G47.33 Obstructive sleep apnea (adult) (pediatric); Z98.1 Arthrodesis status
CPT/HCPCS: 45385; 88305; J2704; J7120

== ENCOUNTER 2020-04-27 14:40 | Outpatient (CLI) | payer OTHER, SELFPAY ==
--- NOTE | ~2020-04-27 | XR_ITS ---
XR lumbar spine 2-3V DATE: 04/27/2020 14:56 INDICATION: Status post lumbar spinal fusion TECHNIQUE: AP, lateral, coned lateral lumbosacral views COMPARISON: 12/17/2019 lumbar spine FINDINGS: Status post posterior and interbody spinal fusion at L4-5. No hardware fracture or displacement. Moderately severe degenerative disc disease at L3-4. Severe degenerative disc disease at L5-S1. No fracture or dislocation or bone destruction. No spondylolisthesis. The sacroiliac joints are normal. IMPRESSION: Status post posterior and interbody surgical spinal fusion Degenerative disc disease at L3-4 and especially L5-S1 Reviewed, dictated and finalized at location A.
== END 2020-04-27 14:41 | disposition home or self-care (01) ==
PROVIDERS: PCP Family Medicine; Visit Provider Neurological Surgery
DX: Z98.1 Arthrodesis status (principal); M51.36 Other intervertebral disc degeneration, lumbar region
CPT/HCPCS: 72100

== ENCOUNTER 2020-10-29 16:44 | Outpatient (CLI) | payer OTHER, SELFPAY ==
--- NOTE | ~2020-10-29 | XR_ITS ---
XR lumbar spine 2-3V DATE: 10/29/2020 17:16 INDICATION: Lumbar spinal surgical fusion one year ago. Checkup. TECHNIQUE: AP, lateral, coned lateral lumbosacral views COMPARISON: 04/27/2020 lumbar spine 11/02/2012 CT abdomen pelvis FINDINGS: Again noted is postoperative change (posterior and interbody spinal fusion at L4-5. The perfusion hardware appears intact, without fracture or displacement. There is no interval change in position or alignment of the lumbar spine. There is very severe degenerative disc disease at L5-S1. There is moderately severe degenerative disc disease at L3-4 and moderate degenerative disc disease a t L2-3. Degenerative spurring of the thoracic spine. The sacroiliac joints are intact. At least one approximately 5 mm calcification overlying the left renal silhouette, present on 04/26/19 21. Bilateral nephrolithiasis is noted on 11/02/2012 CT abdomen pelvis examination. IMPRESSION: Status post L4-5 posterior and interbody spinal surgical fusion Multilevel degenerative disc disease, particularly severe at L5-S1 Left nephrolithiasis Reviewed, dictated and finalized at location A.
== END 2020-10-29 16:45 | disposition home or self-care (01) ==
LOC: ANHIMG 16:47
PROVIDERS: PCP Family Medicine; Visit Provider Neurological Surgery
DX: Z98.1 Arthrodesis status (principal); M47.817 Spondylosis without myelopathy or radiculopathy, lumbosacral region; N20.0 Calculus of kidney
CPT/HCPCS: 72100

== ENCOUNTER 2021-01-05 10:12 | Outpatient (CLI) | payer OTHER, SELFPAY ==
--- NOTE | ~2021-01-05 | XR_ITS ---
EXAMINATION: XR abdomen/kub 1V EXAM DATE: 01/05/2021 10:28 INDICATION: R10.12 - Left upper quadrant pain. No known history of kidney stones. TECHNIQUE: Frontal projection(s) of the abdomen for interpretation. Comparison is made to prior exami nation from 06/08/2016. FINDINGS: There is a 6 mm density projecting over left kidney which could be a kidney stone. Bowel ga s is obscuring both renal contours. Nonobstructive bowel gas pattern. L4 laminotomies, L4-5 effusions and interbody device. There is no organomegaly. IMPRESSION: Probable left nephrolithiasis. Reviewed, dictated and finalized at location A. LE COVERER
== END 2021-01-05 10:13 | disposition home or self-care (01) ==
LOC: ANHIMG 10:15
PROVIDERS: PCP Family Medicine; Visit Provider Nurse Practitioner Family
DX: R10.12 Left upper quadrant pain (principal); N20.0 Calculus of kidney
CPT/HCPCS: 74018

== ENCOUNTER 2021-01-13 16:59 | Outpatient (CLI) | payer OTHER, SELFPAY ==
--- NOTE | ~2021-01-13 | CT_ITS ---
EXAMINATION: CT chest abdomen pelvis wo con EXAM DATE: 01/13/2021 17:51 INDICATION: R91.1 - Solitary pulmonary nodule. TECHNIQUE: Spiral CT of the chest, abdomen and pelvis was performed without contrast. Axial, saeed l and sagittal images chest, abdomen and pelvis were reviewed. Coronal maximum intensity pixel image s of chest reviewed. The dose-length product (DLP) for this examination was 742.03 mGy-cm. The expo sure was tailored according to patient size (auto mA exposure control), and iterative reconstruction (ASIR) was used as additional dose reduction technique. Correlation is made to CT abdomen pelvis from 06/10/2016. FINDINGS: CHEST: There is 9 x 11 mm right suprahilar nodule without spiculations, stable consistent with postin fectious residua. No new or suspicious lung opacities. There are no pleural or pericardial effusions. Tracheobronchial tree is patent. There is no mediastinal, hilar or axillary lymphadenopathy. T here is no pneumothorax. Heart normal in size. There is mild coronary arterial calcification, art erial sclerosis. ABDOMEN PELVIS: There are bilateral renal lesions, with lobular contours. One of these along the left kidney midpole lateral cortex is heterogeneously mildly hyperdense measuring about 2 cm, appearance is suspicious for a solid mass, was not evident on a CT abdomen without contrast in 2017. There is bi lateral nephrolithiasis. No ureteral stones or hydronephrosis. The liver, spleen, adrenal glands and pancreas are unremarkable. Gallbladder is unremarkable. No bi liary obstruction. The uterus is not identified and has likely been surgically resected. The blad tho is unremarkable. There is no retroperitoneal or pelvic lymphadenopathy. There is mild scattere d arteriosclerotic disease. Probable identification of a normal appendix. No pericecal inflammation. The stomach and small chloé l are unremarkable. There is moderate amount of colonic stool. No free intraperitoneal gas. Ther e are no osteoblastic or osteolytic lesions identified. Posterior and interbody fusion L4-5. Moderat e to severe disc disease L5-S1. IMPRESSION: 1. Suspicion of solid left renal mass, RCC. Contrast-enhanced MR or CT if GFR allows, consult if not or if this suspicion confirmed on that CT. 2. Stable right upper lobe nodule, granuloma. 3. Bilateral nonobstructing calyceal stones. Reviewed, dictated and finalized at location A. ESTATE LOAN OFFICER
== END 2021-01-13 17:00 | disposition home or self-care (01) ==
LOC: ANHIMG 17:13
PROVIDERS: PCP Family Medicine; Visit Provider Nurse Practitioner Family
DX: N20.0 Calculus of kidney (principal); R91.1 Solitary pulmonary nodule; R93.5 Abnormal findings on diagnostic imaging of other abdominal regions, including retroperitoneum
CPT/HCPCS: 71250; 74176

== ENCOUNTER 2021-01-26 08:24 | Outpatient (CLI) | payer OTHER, SELFPAY ==
--- NOTE | ~2021-01-26 | CT_ITS ---
EXAMINATION: CT abdomen pelvis w con DATE: 01/26/2021 09:12 INDICATION: Other specified disorders left kidney and ureter. Left kidney mass. TECHNIQUE: Computed tomography (CT) of the abdomen and pelvis was performed with 100 mL Omnipaque 350 intravenous contrast. Automated exposure control and iterative reconstruction technique were employe d. The dose-length product was 946.41 mGy-cm. COMPARISON: CT abdomen and pelvis 01/13/2021 FINDINGS: The visualized portions of the lung bases demonstrate mild atelectasis. No pleural effusion . The heart size is normal. No pericardial effusion. There is a small sliding hiatal hernia. There is an 8 mm cyst in the liver. The gallbladder, spleen, pancreas, and adrenal glands are normal. There a re innumerable cysts in the kidneys. There is a 2.3 cm enhancing mass in left kidney. There are multi ple 1-3 mm stones in each kidney. There is a 7 mm stone in left kidney. There are no dilated loops of bowel. The appendix is normal. There are no pathologically enlarged lymph nodes. There is no free in traperitoneal fluid. There are changes of anterior and posterior fusion procedures at L4-L5. There is severe thoracic and lumbar spondylosis. IMPRESSION: 1. 2.3 cm enhancing left kidney mass, consistent with renal cell carcinoma. 2. Bilateral nonobstructing kidney stones. 3. Polycystic kidney disease. Reviewed, dictated and finalized at location A. AND FRAME MECHANIC
== END 2021-01-26 08:25 | disposition home or self-care (01) ==
PROVIDERS: PCP Family Medicine; Visit Provider Physician Assistant
DX: N28.89 Other specified disorders of kidney and ureter (principal); R93.89 Abnormal findings on diagnostic imaging of other specified body structures; N20.0 Calculus of kidney; N28.1 Cyst of kidney, acquired; Z98.1 Arthrodesis status; K76.89 Other specified diseases of liver; M47.815 Spondylosis without myelopathy or radiculopathy, thoracolumbar region
CPT/HCPCS: 74177; Q9967

== ENCOUNTER 2021-04-29 08:16 | Emergency (ER) | payer OTHER, SELFPAY ==
[2021-04-29] VITALS (10 sets, daily range): BP systolic 159–175; BP diastolic 59–64; PULSE 61–69; RESP 13–21; TEMP 36.7; O2SAT 92–100
--- NOTE | ~2021-04-29 | XR_ITS ---
EXAMINATION: XR chest 2V DATE: 04/29/2021 08:56 INDICATION: Tachycardia. Palpitations. TECHNIQUE: PA and lateral views of the chest were obtained. COMPARISON: Chest radiograph dated 10/21/[address] dated 01/13/2021 FINDINGS: The lungs remain clear with no focal airspace opacities, pulmonary edema, pleural effusion or pneumot horax. The cardiomediastinal silhouette is normal. Severe thoracic spondylosis with chronic mild wedg ing of a couple mid thoracic vertebral bodies IMPRESSION: 1. No acute cardiopulmonary disease. Reviewed, dictated and finalized at location A.
--- NOTE | 2021-04-29 08:34 | ECG_ITS ---
Measurements Intervals [place] Rate: 74 P: 50 MD: 149 QRS: -19 QRSD: 110 T: 42 QT: 410 QTc: 458 Interpretive Statements SINUS RHYTHM WITH A SHORT MD INTERVAL. NO DELTA WAVE. COMPARED TO ECG 10/21/2019 18:27:53 NO SIGNIFICANT CHANGES Electronically Signed On 04-29-2021 13:59:48 CDT by Allegra Lombardo M.D.
[2021-04-29 08:41] LABS: Basophils Percent Auto 0.4 % (0.2-1.2); Eosinophils Absolute Auto 0.1 K/mm3 (0-0.3); Eosinophils Percent Auto 0.9 % (0-4.4); Hematocrit 34.7 % (37.0-47.0); Hemoglobin 11.3 g/dL (12.0-15.0); Immature Granulocyte Absolute 0.04 K/mm3 (0.00-0.031); Immature Granulocyte Percent A 0.4 % (0-0.5); Lymphocytes Absolute Auto 1.92 K/mm3 (0.9-3.2); Lymphocytes Percent Auto 20.2 % (18.3-44.2); Mean Corpuscular HGB Conc 32.6 g/dl (32-36); Mean Corpuscular Hemoglobin 28.8 pg (26-34); Mean Corpuscular Volume 88.5 fl (80-100); Mean Platelet Volume 9.5 fl (7.4-10.4); Monocytes Absolute Auto 0.7 K/mm3 (0.1-0.6); Monocytes Percent Auto 7.4 % (2.6-8.5); Neutrophils Absolute Auto 6.7 K/mm3 (1.3-6.7); Neutrophils Percent Auto 70.7 % (45.5-73.1); Platelet Count Result 302 k/mm3 (150-375); Red Blood Count 3.92 M/mm3 (4.2-5.4); Red Cell Distribution Width 14.4 % (11.5-14.5); White Blood Count 9.5 K/mm3 (4.5-10.0)
--- NOTE | 2021-04-29 08:50 | PC.NURSE ---
Patient off unit to Radiology for chest xray.
[2021-04-29 08:52] LABS: Alanine Aminotransferase 26 U/L (4-35); Albumin Level 4.3 g/dL (3.5-5.1); Alkaline Phosphatase 86 U/L (38-126); Anion Gap 9 mmol/L (8-16); Aspartate Amino Transferase 37 U/L (14-36); Bilirubin,Total 0.4 mg/dL (0.2-1.3); Blood Urea Nitrogen 39 mg/dL (7-17); Calcium 9.4 mg/dL (8.4-10.2); Carbon Dioxide 26 mmol/L (22-30); Chloride 105 mmol/L (98-107); Estimated CRCL calculation 27 ml/min; Estimated Glomerular Filt Rate 34; Glucose 143 mg/dL (65-110); INR 1.1; Lipase 106 U/L (23-300); Partial Thromboplastin Time 25.9 SECONDS (22.3-36.8); Potassium 3.7 mmol/L (3.4-5.0); Prothrombin Time 13.7 Seconds (11.1-14.7); Sodium 140 mmol/L (137-145)
[2021-04-29 09:03] LABS: Troponin I < 0.012 ng/mL (0.000-0.034)
--- NOTE | 2021-04-29 09:08 | PC.NURSE ---
Dr. Pedraza at bedside to assess pt.
--- NOTE | 2021-04-29 09:42 | ED.ARRPALP ---
HPI - Arrhythmia/Palpitations General Chief Complaint: Chest Pain Stated Complaint: Chest pain Time Seen by Provider: 04/29/21 08:48 Source: patient Mode of arrival: ambulatory Limitations: no limitations History of Present Illness HPI narrative: Patient is 70 years old -Citizen Of [place] female was going to work and sudden onset of palpitation, tingling numbness of the hands and feet, feeling shaky and nervous. The symptoms resolved immediately on arrival to the emergency room. History of cyst on the kidney, questionable cancer scheduled for further evaluation next week. Patient is so stressed concerned about the possibility of malignancy. History of hypertension, hyperlipidemia, does not smoke or drink or uses drugs, no family history of coronary artery disease. Currently patient is asymptomatic. Related Data Home Medications Medication Instructions Recorded Confirmed atorvastatin 10 mg tablet 10 mg PO DAILY 01/21/19 11/20/20 aspirin 81 mg PO DAILY 10/17/19 11/20/20 omega 7-tpa-qgo-fish oil [Fish Oil] 1 cap PO DAILY 10/17/19 11/20/20 potassium chloride 20 meq PO DAILY 10/21/19 11/20/20 alendronate 35 mg PO DAILY 04/13/20 11/20/20 Allergies Allergy/AdvReac Type Severity Reaction Status Date / Time pregabalin Allergy Intermediate LETHARGIC, Verified 04/27/21 16:01 SLEEPY, SPACEY niacin Allergy Mild Rash Verified 04/27/21 16:01 Penicillins Allergy Mild Rash Verified 04/27/21 16:01 buspirone AdvReac Intermediate Agitated Verified 04/27/21 16:01 hydrochlorothiazide AdvReac Intermediate hypokalemia Verified 04/27/21 16:01 hydrocodone AdvReac Mild Nausea and Verified 04/27/21 16:01 Vomiting morphine AdvReac Mild Nausea and Verified 04/27/21 16:01 Vomiting tramadol AdvReac Mild Gastrointestinal Verified 04/27/21 16:01 Upset Review of Systems Review of Systems: CONSTITUTIONAL: Denies fever, chills, or sweats. EYES: Denies visual changes, redness, or discharge. ENT: Denies rhinorrhea, congestion, sore throat, or otalgia. CARDIOVASCULAR: Denies chest pain, palpitations, or edema. RESPIRATORY: Denies cough or dyspnea. GASTROINTESTINAL: Denies abdominal pain, nausea, vomiting, or diarrhea. GENITOURINARY: Denies dysuria or hematuria. SKIN: Denies rash or itching. MUSCULOSKELETAL: Denies back pain, joint pain, or myalgia. NEUROLOGIC: Denies headache, numbness, or weakness. PSYCHIATRIC: Denies anxiety or depression. [facility] Past Medical History Medical History Ankle fracture Anxiety Arthritis Chronic bilateral low back pain with left-sided sciatica CKD (chronic kidney disease), stage III Colon cancer screening Depression GERD (gastroesophageal reflux disease) GERD (gastroesophageal reflux disease) HLD (hyperlipidemia) HTN (hypertension) Kidney stones 2012 Mitral valve prolapse Obesity ROSALVA (obstructive sleep apnea) Prediabetes Surgical History Surgical History History of bilateral carpal tunnel release 2002 and 2005 History of hysterectomy 1986 History of total right knee replacement Dr. Hilario Hx of section Status post cervical spinal fusion 2005 Family History Family History Father , He in June 2019 due to complications of COVID-19. Hypertension Parkinson disease Mother Hypertension Sibling Diabetes mellitus Daughter , at age 34. (2011) TTP (thrombotic thrombocytopenic purpura) Social History Social History Social History: Primary Care Provider: Dr. 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 Gender identity (if verbalized by the patient): Female Sexual Orientation
== END 2021-04-29 10:17 | disposition home or self-care (01) ==
PROVIDERS: Emergency Provider Emergency Medicine; PCP Family Medicine
DX: R00.2 Palpitations (principal); F41.9 Anxiety disorder, unspecified; E86.0 Dehydration; I12.9 Hypertensive chronic kidney disease with stage 1 through stage 4 chronic kidney disease, or unspecified chronic kidney disease; N18.30 Chronic kidney disease, stage 3 unspecified; E78.5 Hyperlipidemia, unspecified; R73.03 Prediabetes; I34.1 Nonrheumatic mitral (valve) prolapse; F32.A Depression, unspecified; G47.33 Obstructive sleep apnea (adult) (pediatric); K21.9 Gastro-esophageal reflux disease without esophagitis; Z87.442 Personal history of urinary calculi; Z96.651 Presence of right artificial knee joint; Z98.1 Arthrodesis status; Z79.82 Long term (current) use of aspirin
CPT/HCPCS: 36415; 71046; 80053; 83690; 84484; 85025; 85610; 85730; 93005; 99284

== ENCOUNTER 2021-05-31 07:46 | Outpatient (CLI) | payer OTHER, SELFPAY ==
--- NOTE | ~2021-05-31 | MM_ITS ---
EXAMINATION: MM screening dylan BI w justice HISTORY: Screening mammogram TECHNIQUE: Craniocaudal and mediolateral oblique 3-D tomosynthesis images were obtained and synthetic 2-D images were generated. CAD analysis was submitted and interpreted. COMPARISON: 02/22/2019, 02/07/2017, 01/24/2014 bilateral screening mammogram examinations BREAST PARENCHYMAL COMPOSITION: There are scattered areas of fibroglandular density. FINDINGS: There is no evidence of suspicious mass, calcification, or architectural distortion to sugg est malignancy in either breast. There has been no suspicious interval change. IMPRESSION: 1. No mammographic evidence of malignancy. 2. Recommend routine screening mammography in one year. BI-RADS Category 1: Negative Reviewed, dictated and finalized at location A.
== END 2021-05-31 07:47 | disposition home or self-care (01) ==
LOC: ANHIMG 07:48
PROVIDERS: PCP Family Medicine; Visit Provider Obstetrics & Gynecology
DX: Z12.31 Encounter for screening mammogram for malignant neoplasm of breast (principal)
CPT/HCPCS: 77063; 77067

== ENCOUNTER 2021-10-19 17:16 | Outpatient (CLI) | payer OTHER, SELFPAY ==
--- NOTE | ~2021-10-19 | XR_ITS ---
EXAMINATION: XR lumbar spine 2-3V DATE: 10/19/2021 17:32 INDICATION: History of lumbar fusion TECHNIQUE: Anteroposterior and lateral views of the lumbar spine, and cone-down lateral view of the l umbosacral junction were obtained. COMPARISON: 10/29/2020 FINDINGS: There are changes of anterior and posterior fusion with laminectomy at L4-5. Alignment is u nchanged. There is no fracture. There is no evidence of hardware failure or loosening. There is moder ate loss of intervertebral disc space height at L3-4. There is severe loss of intervertebral disc spa ce height at L5-S1. The vertebral body heights are maintained. IMPRESSION: 1. Stable postsurgical changes of the lumbar spine. Reviewed, dictated and finalized at location B.
== END 2021-10-19 17:17 | disposition home or self-care (01) ==
PROVIDERS: PCP Family Medicine
DX: Z98.1 Arthrodesis status (principal); M47.817 Spondylosis without myelopathy or radiculopathy, lumbosacral region
CPT/HCPCS: 72100

== ENCOUNTER 2022-04-22 09:19 | Outpatient (CLI) | payer OTHER, SELFPAY ==
[2022-04-22 10:25] LABS: Influenza A QL RT-PCR Negative (Negative); Influenza B QL RT-PCR Negative (Negative); SARS-CoV-2 RNA PCR Negative
== END 2022-04-22 09:20 | disposition home or self-care (01) ==
LOC: ANHLAB 09:20
PROVIDERS: PCP Family Medicine; Visit Provider Physician Assistant
DX: R05.9 Cough, unspecified (principal); Z20.822 Contact with and (suspected) exposure to COVID-19
CPT/HCPCS: 87636

== ENCOUNTER 2022-08-03 13:10 | Outpatient (CLI) | payer OTHER, SELFPAY ==
--- NOTE | ~2022-08-03 | XR_ITS ---
Right foot Technique: AP, oblique, and lateral views were obtained. Clinical History: Pain Findings: No acute fracture or dislocation is seen. There is hallux valgus with mild degenerative carmen nge at the first MTP joint. There is moderate degenerative change of the second, third, and fourth TM T joints. Dorsal soft tissue swelling the foot noted. Impression: Hallux valgus with mild degenerative change at the first MTP joint. Moderate to advanced degenerative change at the TMT joints. Dorsal soft tissue swelling, nonspecific. Reviewed, dictated and finalized at location M. Impression: Hallux valgus with mild degenerative change at the first MTP joint. Moderate to advanced degenerative change at the TMT joints. Dorsal soft tissue swelling, nonspecific.
== END 2022-08-03 13:11 | disposition home or self-care (01) ==
PROVIDERS: PCP Family Medicine; Visit Provider Physician Assistant
DX: M20.11 Hallux valgus (acquired), right foot (principal); M79.89 Other specified soft tissue disorders; M19.071 Primary osteoarthritis, right ankle and foot
CPT/HCPCS: 73630

== ENCOUNTER 2022-10-04 15:45 | Outpatient (CLI) | payer OTHER, SELFPAY ==
--- NOTE | ~2022-10-04 | MM_ITS ---
EXAMINATION: MM screening dylan BI w justice HISTORY: Screening mammogram TECHNIQUE: Craniocaudal and mediolateral oblique 3-D tomosynthesis images were obtained and synthetic 2-D images were generated. CAD analysis was submitted and interpreted. COMPARISON: 05/31/2021, 02/22/2019, 02/07/2017 bilateral screening mammogram examinations BREAST PARENCHYMAL COMPOSITION: There are scattered areas of fibroglandular density. FINDINGS: There is no evidence of suspicious mass, calcification, or architectural distortion to sugg est malignancy in either breast. There has been no suspicious interval change. IMPRESSION: 1. No mammographic evidence of malignancy. 2. Recommend routine screening mammography in one year. BI-RADS Category 1: Negative Reviewed, dictated and finalized at location A.
== END 2022-10-04 15:46 | disposition home or self-care (01) ==
PROVIDERS: PCP Family Medicine; Visit Provider Obstetrics & Gynecology
DX: Z12.31 Encounter for screening mammogram for malignant neoplasm of breast (principal)
CPT/HCPCS: 77063; 77067

== ENCOUNTER 2022-10-28 11:12 | Emergency (ER) | payer OTHER, SELFPAY ==
[2022-10-28] VITALS (33 sets, daily range): BP systolic 106–173; BP diastolic 47–97; PULSE 56–76; RESP 12–21; TEMP 37.1; O2SAT 99–100
--- NOTE | ~2022-10-28 | CT_ITS ---
EXAMINATION: CT abdomen pelvis wo con DATE: 10/28/2022 14:09 INDICATION: Left flank pain TECHNIQUE: Computed tomography (CT) of the abdomen and pelvis was performed without intravenous contr ast. The dose-length product (DLP) was 719.53 mGy-cm. Automated exposure control and iterative recons truction technique were employed. COMPARISON: 01/26/2021 FINDINGS: Minimal dependent atelectasis is present in the lung bases. The heart size is normal. There is a small sliding hiatal hernia. The liver, spleen, pancreas, gallbladder, and adrenal glands are n ormal. There are innumerable cysts of the kidneys. There appears to be interval treatment change of t he previously described suspicious left kidney mass. There are multiple nonobstructing stones of the kidneys. The largest on the left measures 8 mm. The largest on the right measures 2 mm. No stones are identified in the ureters or bladder. No hydronephrosis or hydroureter. No pathologically enlarged a bdominal or pelvic lymph nodes are identified. No free intraperitoneal gas or evidence of bowel obstr uction. There are changes of anterior posterior fusion at L4-5. There is severe lumbar spondylosis at L5-S1. IMPRESSION: 1. No CT correlate for the patient's symptoms. 2. Polycystic kidneys. 3. Bilateral nonobstructing nephrolithiasis. Reviewed, dictated and finalized at location F.
[2022-10-28 12:27] LABS: Appearance Urine Clear (Clear); Bacteria Urine Rare /hpf; Bilirubin Urine Negative (Negative); Blood Urine Trace (Negative); Color Urine Yellow (Yellow); Glucose Urine UA Negative (Negative); Ketones Urine Negative (Negative); Leukocyte Esterase Ur 3+ LEU/UL (Negative); Nitrate Urine Negative (Negative); Non Pathogenic Casts 0-2; Protein Urine 2+ mg/dL (Negative); Specific Grav Ur 1.011 (1.001-1.035); Squamous Epithelial Cell Urine Occasional /hpf (Few); Urobilinogen Urine 0.2 mg/dL (<2.0); pH Urine 6.5 (5.0-9.0)
[2022-10-28 12:28] LABS: Basophils Absolute Auto 0.1 K/mm3 (0.0-0.1); Basophils Percent Auto 0.7 % (0.2-1.2); Eosinophils Absolute Auto 0.1 K/mm3 (0-0.3); Eosinophils Percent Auto 1.5 % (0-4.4); Hematocrit 28.6 % (37.0-47.0); Hemoglobin 9.1 g/dL (12.0-15.0); Immature Granulocyte Absolute 0.03 K/mm3 (0.00-0.031); Immature Granulocyte Percent A 0.3 % (0-0.5); Lymphocytes Absolute Auto 2.45 K/mm3 (0.9-3.2); Lymphocytes Percent Auto 26.6 % (18.3-44.2); Mean Corpuscular HGB Conc 31.8 g/dl (32-36); Mean Corpuscular Hemoglobin 29.1 pg (26-34); Mean Corpuscular Volume 91.4 fl (80-100); Mean Platelet Volume 9.8 fl (7.4-10.4); Monocytes Percent Auto 11.3 % (2.6-8.5); Neutrophils Absolute Auto 5.5 K/mm3 (1.3-6.7); Neutrophils Percent Auto 59.6 % (45.5-73.1); Platelet Count Result 317 k/mm3 (150-375); Red Blood Count 3.13 M/mm3 (4.2-5.4); Red Cell Distribution Width 14.5 % (11.5-14.5); White Blood Count 9.2 K/mm3 (4.5-10.0)
[2022-10-28 12:39] LABS: Alanine Aminotransferase 21 U/L (6-35); Albumin Level 4.4 g/dL (3.5-5.1); Alkaline Phosphatase 67 U/L (38-126); Anion Gap 9 mmol/L (8-16); Aspartate Amino Transferase 35 U/L (14-36); Bilirubin,Total 0.4 mg/dL (0.2-1.3); Blood Urea Nitrogen 56 mg/dL (7-17); Calcium 9.7 mg/dL (8.4-10.2); Carbon Dioxide 29 mmol/L (22-30); Chloride 103 mmol/L (98-107); Estimated CRCL calculation 17 ml/min; Estimated Glomerular Filt Rate 20; Glucose 87 mg/dL (65-110); Potassium 3.4 mmol/L (3.4-5.0); Sodium 141 mmol/L (137-145)
[2022-10-28 12:49] LABS: Add Urine Microscopic? YES
[2022-10-28] MEDS: SODIUM CHLORIDE 0.9% IV 1,000 ML 999 ML IV CONT (13:33)
--- NOTE | 2022-10-28 15:03 | ED.RECABL ---
HPI - Recheck/Abnormal Lab/Rx General Chief Complaint: Recheck/Abnormal Lab/Rx Stated Complaint: elevated kidney function Time Seen by Provider: 10/28/22 12:34 History of Present Illness HPI narrative: This is a 72-year-old female, with history of chronic kidney disease stage III who was encouraged to do presented to the emergency department by her neurosurgery spine physician for worsening kidney function. The patient states she was recently started on a new medication. She went for labs yesterday and was found to have a creatinine elevated to 2.8 with a reported baseline of 1.6. The patient has no complaints aside from a small amount of left flank pressure that began yesterday. Related Data Home Medications Medication Instructions Recorded Confirmed atorvastatin 10 mg tablet 10 mg PO DAILY 01/21/19 08/02/22 aspirin 81 mg PO DAILY 10/17/19 08/02/22 omega 9-rkr-gdn-fish oil 300 1 cap PO DAILY 10/17/19 08/02/22 mg-1,000 mg capsule (Fish Oil) potassium chloride 20 mEq 20 meq PO DAILY 10/21/19 08/02/22 tablet,extended release alendronate 35 mg tablet 35 mg PO WEEKLY 05/24/22 08/02/22 Allergies Allergy/AdvReac Type Severity Reaction Status Date / Time pregabalin Allergy Intermediate LETHARGIC, Verified 08/02/22 07:34 SLEEPY, SPACEY niacin Allergy Mild Rash Verified 08/02/22 07:34 Penicillins Allergy Mild Rash Verified 08/02/22 07:34 buspirone AdvReac Intermediate Agitated Verified 08/02/22 07:34 hydrochlorothiazide AdvReac Intermediate hypokalemia Verified 08/02/22 07:34 hydrocodone AdvReac Mild Nausea and Verified 08/02/22 07:34 Vomiting morphine AdvReac Mild Nausea and Verified 08/02/22 07:34 Vomiting tramadol AdvReac Mild Gastrointestinal Verified 08/02/22 07:34 Upset Review of Systems Review of Systems: CONSTITUTIONAL: Denies fever, chills, or sweats. CARDIOVASCULAR: Denies chest pain, palpitations, or edema. RESPIRATORY: Denies cough or dyspnea. GASTROINTESTINAL: Mild left flank pain denies nausea, vomiting, or diarrhea. GENITOURINARY: Denies dysuria or hematuria. SKIN: Denies rash or itching. MUSCULOSKELETAL: Denies back pain, joint pain, or myalgia. NEUROLOGIC: Denies headache, numbness, dizziness, or weakness. PSYCHIATRIC: Denies anxiety or depression. [facility] Past Medical History Medical History Ankle fracture Anxiety Arthritis Chronic bilateral low back pain with left-sided sciatica CKD (chronic kidney disease), stage III Colon cancer screening Depression GERD (gastroesophageal reflux disease) GERD (gastroesophageal reflux disease) HLD (hyperlipidemia) HTN (hypertension) Kidney stone on left side Kidney stones 2012 Mitral valve prolapse Obesity ROSALVA (obstructive sleep apnea) Prediabetes Surgical History Surgical History History of bilateral carpal tunnel release 2002 and 2005 History of hysterectomy 1986 History of total right knee replacement Dr. Hilario Hx of section Status post cervical spinal fusion 2005 Family History Family History Father , He in June 2019 due to complications of COVID-19. Hypertension Parkinson disease Mother Hypertension Sibling Diabetes mellitus Daughter , at age 34. (2011) TTP (thrombotic thrombocytopenic purpura) Social History Social History Social History: Primary Care Provider: Dr. 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 Gender identity (if verbalized by the patient): Female Sexual Orientation (if Verbalized by the Patient): Raheem
[2022-10-28 15:45] LABS: Anion Gap 8 mmol/L (8-16); Blood Urea Nitrogen 51 mg/dL (7-17); Calcium 9.2 mg/dL (8.4-10.2); Carbon Dioxide 27 mmol/L (22-30); Chloride 106 mmol/L (98-107); Estimated CRCL calculation 18 ml/min; Estimated Glomerular Filt Rate 21; Glucose 93 mg/dL (65-110); Potassium 3.1 mmol/L (3.4-5.0); Sodium 141 mmol/L (137-145)
== END 2022-10-28 17:37 | disposition home or self-care (01) ==
PROVIDERS: Emergency Provider Preventive Medicine Aerospace Medicine; PCP Family Medicine
DX: R74.8 Abnormal levels of other serum enzymes (principal); I12.9 Hypertensive chronic kidney disease with stage 1 through stage 4 chronic kidney disease, or unspecified chronic kidney disease; N18.30 Chronic kidney disease, stage 3 unspecified; E78.5 Hyperlipidemia, unspecified; G47.33 Obstructive sleep apnea (adult) (pediatric); R73.03 Prediabetes; K21.9 Gastro-esophageal reflux disease without esophagitis; F41.9 Anxiety disorder, unspecified; F32.A Depression, unspecified; I34.1 Nonrheumatic mitral (valve) prolapse; Z98.1 Arthrodesis status; Z79.82 Long term (current) use of aspirin
CPT/HCPCS: 36415; 74176; 80048; 80053; 81001; 85025; 87086; 87088; 96360; 99284; J7030

== ENCOUNTER 2023-01-28 14:59 | Emergency (ER) | payer OTHER, SELFPAY ==
--- NOTE | 2023-01-28 15:07 | ED.HEATRA ---
HPI - Head Injury General Chief complaint: Head Injury Stated complaint: tripped,hit head Time Seen by Provider: 01/28/23 15:49 Mode of arrival: ambulatory Limitations: no limitations History of Present Illness HPI Narrative: 72-year-old female presents with concern of for head injury. Reports she was at work and she tripped on a rug and hit her head. She reports a hematoma on the right side of her forehead. Reports she felt woozy little bit prior to her exam. She reports she recently started on Xarelto. She denies any vomiting. She denies any weakness, vision changes. MD Complaint: head injury Related Data Home Medications Medication Instructions Recorded Confirmed atorvastatin 10 mg tablet 10 mg PO DAILY 01/21/19 01/28/23 aspirin 81 mg PO DAILY 10/17/19 01/28/23 omega 0-bjx-tpy-fish oil 300 1 cap PO DAILY 10/17/19 01/28/23 mg-1,000 mg capsule (Fish Oil) potassium chloride 20 mEq 20 meq PO DAILY 10/21/19 01/28/23 tablet,extended release alendronate 35 mg tablet 35 mg PO WEEKLY 05/24/22 01/28/23 hydralazine 50 mg tablet 50 mg PO TID 11/03/22 01/28/23 nitroglycerin 0.4 mg sublingual 0.4 mg sublingual Q5M PRN Chest 11/03/22 01/28/23 tablet Pain rivaroxaban 15 mg tablet (Xarelto) 15 mg PO DAILY 01/28/23 01/28/23 Allergies Allergy/AdvReac Type Severity Reaction Status Date / Time pregabalin Allergy Intermediate LETHARGIC, Verified 01/28/23 15:18 SLEEPY, SPACEY niacin Allergy Mild Rash Verified 01/28/23 15:18 Penicillins Allergy Mild Rash Verified 01/28/23 15:18 buspirone AdvReac Intermediate Agitated Verified 01/28/23 15:18 hydrochlorothiazide AdvReac Intermediate hypokalemia Verified 01/28/23 15:18 hydrocodone AdvReac Mild Nausea and Verified 01/28/23 15:18 Vomiting morphine AdvReac Mild Nausea and Verified 01/28/23 15:18 Vomiting tramadol AdvReac Mild Gastrointestinal Verified 01/28/23 15:18 Upset Review of Systems Review of Systems: CONSTITUTIONAL: Denies malaise EYES: Denies visual changes CARDIOVASCULAR: Denies chest pain, palpitations, or edema. RESPIRATORY: Denies cough or dyspnea. GASTROINTESTINAL: Denies nausea, vomiting SKIN: Reports a hematoma on her forehead MUSCULOSKELETAL: Denies musculoskeletal pain NEUROLOGIC: Denies numbness, weakness. Reports headache. All systems reviewed & are unremarkable except as noted in HPI and below PMFSH Past Medical History Medical History Ankle fracture Anxiety Arthritis Chronic bilateral low back pain with left-sided sciatica CKD (chronic kidney disease), stage III Colon cancer screening Depression GERD (gastroesophageal reflux disease) GERD (gastroesophageal reflux disease) HLD (hyperlipidemia) HTN (hypertension) Kidney stone on left side Kidney stones 2012 Mitral valve prolapse Obesity ROSALVA (obstructive sleep apnea) Prediabetes Surgical History Surgical History History of bilateral carpal tunnel release 2002 and 2005 History of hysterectomy 1985 History of total right knee replacement Dr. Hilario Hx of section Status post cervical spinal fusion 2005 Family History Family History Father , He in June 2019 due to complications of COVID-19. Hypertension Parkinson disease Mother Hypertension Sibling Diabetes mellitus Daughter , at age 34. (2011) TTP (thrombotic thrombocytopenic purpura) Social History Social History (Updated 11/03/22 @ 11:40 by Angela Barrow) Social History: Primary Care Provider: Dr. Tip Gordon Smoking status: Never smoker Second hand tobacco smoke exposure: No Alcohol intake: never Substance use: never Substance use type: does not use Lack of Transportation: No Lack of Food: Never True Current Housing: I Have Housing Concerned About
[2023-01-28 15:20] VITALS: BP 147/56; PULSE 51; RESP 18; TEMP 36.1; O2SAT 98
[2023-01-28 15:24] VITALS: BP 147/56; PULSE 51; RESP 18; TEMP 36.1; O2SAT 98
== END 2023-01-28 16:00 | disposition short-term general hospital (02) ==
PROVIDERS: Emergency Provider Nurse Practitioner; PCP Family Medicine
DX: S09.90XA Unspecified injury of head, initial encounter (principal); W18.09XA Striking against other object with subsequent fall, initial encounter; Y99.0 Civilian activity done for income or pay; M19.90 Unspecified osteoarthritis, unspecified site; K21.9 Gastro-esophageal reflux disease without esophagitis; E78.5 Hyperlipidemia, unspecified; I12.9 Hypertensive chronic kidney disease with stage 1 through stage 4 chronic kidney disease, or unspecified chronic kidney disease; N18.30 Chronic kidney disease, stage 3 unspecified; I34.1 Nonrheumatic mitral (valve) prolapse; E66.9 Obesity, unspecified; Z68.30 Body mass index [BMI] 30.0-30.9, adult; R73.03 Prediabetes; Z96.651 Presence of right artificial knee joint; F41.9 Anxiety disorder, unspecified; Z79.82 Long term (current) use of aspirin; Z79.01 Long term (current) use of anticoagulants
CPT/HCPCS: 99213; G0463

== ENCOUNTER 2023-01-28 16:44 | Emergency (ER) | payer OTHER, SELFPAY ==
--- NOTE | ~2023-01-28 | XR_ITS ---
EXAM: XR knee RT min 4V DATE: 01/28/2023 17:42 HISTORY: fall, ecchymosis TO MEDIAL ANTERIOR KNEE . COMPARISON: 02/24/2022. FINDINGS: Decreased mineralization. No fracture or dislocation. No lytic or blastic lesion. Uncompli cated knee arthroplasty hardware. No erosion or periosteal change. Soft tissues swelling anteriorly. IMPRESSION: No acute osseous finding in the right knee. No radiographic evidence of hardware related complication. Reviewed, dictated and finalized at location K. READER IMPRESSION: No acute osseous finding in the right knee. No radiographic evidenc e of hardware related complication.
--- NOTE | ~2023-01-28 | CT_ITS ---
EXAMINATION: CT brain wo con DATE: 01/28/2023 17:32 INDICATION: fall, hit head, on eliquis . TECHNIQUE: Computed tomography (CT) of the head was performed without intravenous contrast. The mA wa s adjusted according to patient size. Iterative reconstruction technique was employed. The dose-lengt h product was 605.33 mGy-cm. COMPARISON: None. FINDINGS: No acute intracranial hemorrhage or extra-axial fluid collection. No hydrocephalus, mass, or herniation. No acute ischemic infarct. Unremarkable dural venous sinus attenuation. No acute osseous abnormality. Right frontotemporal scalp swelling/contusion. The aerated spaces are clear. IMPRESSION: No acute intracranial process. Reviewed, dictated and finalized at location K. [employer]AGE [employer]ER
[2023-01-28 16:46] VITALS: BP 152/94
[2023-01-28 16:52] VITALS: BP 152/54; PULSE 72; RESP 20; TEMP 36.3; O2SAT 100
--- NOTE | 2023-01-28 17:20 | ED.HEATRA ---
HPI - Head Injury General Chief complaint: Head Injury Stated complaint: FALL WITH HEAD INJURY/BLOOD THINNERS Time Seen by Provider: 01/28/23 16:56 History of Present Illness HPI Narrative: 72 y/o F who is chronically anticoagulated on Eliquis for a fib reports for evaluation reports for evaluation after a mechanical fall that occurred at 1200 today. Pt states she tripped over a rug, fell and hit her head on a glass door. States she also hit her R knee (hx of remote R knee arthroplasty). She denies LOC, but does state she felt dazed for a couple minutes after the fall. Denies n/v, amnesia or confusion, neck pain, back pain, or other injuries acquired. Related Data Home Medications Medication Instructions Recorded Confirmed atorvastatin 10 mg tablet 10 mg PO DAILY 01/21/19 01/28/23 aspirin 81 mg PO DAILY 10/17/19 01/28/23 omega 5-qei-aub-fish oil 300 1 cap PO DAILY 10/17/19 01/28/23 mg-1,000 mg capsule (Fish Oil) potassium chloride 20 mEq 20 meq PO DAILY 10/21/19 01/28/23 tablet,extended release alendronate 35 mg tablet 35 mg PO WEEKLY 05/24/22 01/28/23 hydralazine 50 mg tablet 50 mg PO TID 11/03/22 01/28/23 nitroglycerin 0.4 mg sublingual 0.4 mg sublingual Q5M PRN Chest 11/03/22 01/28/23 tablet Pain rivaroxaban 15 mg tablet (Xarelto) 15 mg PO DAILY 01/28/23 01/28/23 Allergies Allergy/AdvReac Type Severity Reaction Status Date / Time pregabalin Allergy Intermediate LETHARGIC, Verified 01/28/23 17:48 SLEEPY, SPACEY niacin Allergy Mild Rash Verified 01/28/23 17:48 Penicillins Allergy Mild Rash Verified 01/28/23 17:48 buspirone AdvReac Intermediate Agitated Verified 01/28/23 17:48 hydrochlorothiazide AdvReac Intermediate hypokalemia Verified 01/28/23 17:48 hydrocodone AdvReac Mild Nausea and Verified 01/28/23 17:48 Vomiting morphine AdvReac Mild Nausea and Verified 01/28/23 17:48 Vomiting tramadol AdvReac Mild Gastrointestinal Verified 01/28/23 17:48 Upset Review of Systems Review of Systems: CONSTITUTIONAL: Denies fever, chills, or sweats. EYES: Denies visual changes, redness, or discharge. ENT: Denies rhinorrhea, congestion, sore throat, or otalgia. CARDIOVASCULAR: Denies chest pain, palpitations, or edema. RESPIRATORY: Denies cough or dyspnea. GASTROINTESTINAL: Denies abdominal pain, nausea, vomiting, or diarrhea. GENITOURINARY: Denies dysuria or hematuria. SKIN: Denies rash or itching. MUSCULOSKELETAL: See HPI NEUROLOGIC: See HPI PSYCHIATRIC: Denies anxiety or depression. [facility] Past Medical History Medical History Ankle fracture Anxiety Arthritis Chronic bilateral low back pain with left-sided sciatica CKD (chronic kidney disease), stage III Colon cancer screening Depression GERD (gastroesophageal reflux disease) GERD (gastroesophageal reflux disease) HLD (hyperlipidemia) HTN (hypertension) Kidney stone on left side Kidney stones 2012 Mitral valve prolapse Obesity ROSALVA (obstructive sleep apnea) Prediabetes Surgical History Surgical History History of bilateral carpal tunnel release 2002 and 2005 History of hysterectomy 1986 History of total right knee replacement Dr. Hilario Hx of section Status post cervical spinal fusion 2005 Family History Family History Father , He in June 2019 due to complications of COVID-19. Hypertension Parkinson disease Mother Hypertension Sibling Diabetes mellitus Daughter , at age 34. (2011) TTP (thrombotic thrombocytopenic purpura) Social History Social History Social History: Primary Care Provider: Dr. Tip Grodon Smoking status: Never smoker Second hand tobacco smoke exposure: No Alcohol intake: never Substance use: ne
[2023-01-28 17:49] VITALS: O2SAT 98
[2023-01-28 18:09] VITALS: BP 146/56; PULSE 56; RESP 18; O2SAT 97
== END 2023-01-28 18:11 | disposition home or self-care (01) ==
PROVIDERS: Emergency Provider Physician Assistant; PCP Family Medicine
DX: S00.83XA Contusion of other part of head, initial encounter (principal); S80.01XA Contusion of right knee, initial encounter; I48.91 Unspecified atrial fibrillation; I12.9 Hypertensive chronic kidney disease with stage 1 through stage 4 chronic kidney disease, or unspecified chronic kidney disease; N18.30 Chronic kidney disease, stage 3 unspecified; I34.1 Nonrheumatic mitral (valve) prolapse; R73.03 Prediabetes; E78.5 Hyperlipidemia, unspecified; M19.90 Unspecified osteoarthritis, unspecified site; K21.9 Gastro-esophageal reflux disease without esophagitis; G47.33 Obstructive sleep apnea (adult) (pediatric); E66.9 Obesity, unspecified; Z68.29 Body mass index [BMI] 29.0-29.9, adult; Z98.1 Arthrodesis status; Z96.651 Presence of right artificial knee joint; Z87.442 Personal history of urinary calculi; Z90.710 Acquired absence of both cervix and uterus; Z79.01 Long term (current) use of anticoagulants; Z79.82 Long term (current) use of aspirin; W18.09XA Striking against other object with subsequent fall, initial encounter
CPT/HCPCS: 70450; 73564; 99284

== ENCOUNTER 2023-05-24 10:33 | Emergency (ER) | payer OTHER, SELFPAY ==
[2023-05-24 10:45] VITALS: BP 155/55; PULSE 59; RESP 16; TEMP 36.2; O2SAT 100
--- NOTE | 2023-05-24 10:45 | ED.GENADULT ---
HPI - General Adult General Chief complaint: Unspecified Stated complaint: spasm under right knee,thigh/left thigh Time Seen by Provider: 05/24/23 11:15 Source: patient and RN notes reviewed Mode of arrival: ambulatory Limitations: no limitations History of Present Illness HPI narrative: 72-year-old female presents with concern for spasms in her bilateral thighs and behind her right knee. Reports symptoms started yesterday. She denies injury, trauma. She denies any change in back pain. Reports she has chronic low back pain. Reports she had a back surgery in the past after similar symptoms which eventually led her to not be able to walk. She denies any dysfunction with bilateral extremities, denies loss of bowel or bladder function, perianal anesthesia, abdominal pain, fever. MD complaint: Leg cramps Related Data Home Medications Medication Instructions Recorded Confirmed atorvastatin 10 mg tablet 10 mg PO DAILY 01/21/19 05/24/23 aspirin 81 mg PO DAILY 10/17/19 05/24/23 omega 5-apj-jae-fish oil 300 1 cap PO DAILY 10/17/19 05/24/23 mg-1,000 mg capsule (Fish Oil) potassium chloride 20 mEq 20 meq PO DAILY 10/21/19 05/24/23 tablet,extended release alendronate 35 mg tablet 35 mg PO WEEKLY 05/24/22 05/24/23 hydralazine 50 mg tablet 50 mg PO TID 11/03/22 05/24/23 nitroglycerin 0.4 mg sublingual 0.4 mg sublingual Q5M PRN Chest 11/03/22 05/24/23 tablet Pain rivaroxaban 15 mg tablet (Xarelto) 15 mg PO DAILY 01/28/23 05/24/23 Allergies Allergy/AdvReac Type Severity Reaction Status Date / Time pregabalin Allergy Intermediate LETHARGIC, Verified 05/24/23 10:43 SLEEPY, SPACEY niacin Allergy Mild Rash Verified 05/24/23 10:43 Penicillins Allergy Mild Rash Verified 05/24/23 10:43 buspirone AdvReac Intermediate Agitated Verified 05/24/23 10:43 hydrocodone AdvReac Mild Nausea and Verified 05/24/23 10:43 Vomiting morphine AdvReac Mild Nausea and Verified 05/24/23 10:43 Vomiting tramadol AdvReac Mild Gastrointestinal Verified 05/24/23 10:43 Upset Review of Systems Review of Systems: CONSTITUTIONAL: Denies malaise, chills, sweats, or fever. CARDIOVASCULAR: Denies chest pain, palpitations, or edema. RESPIRATORY: Denies cough or dyspnea. GASTROINTESTINAL: Denies abdominal pain, nausea, vomiting, diarrhea, loss of bowel function GENITOURINARY: Denies dysuria, hematuria, frequency, loss of bladder function. SKIN: Denies rash or itching. MUSCULOSKELETAL: Reports chronic low back pain. Reports bilateral thigh spasming NEUROLOGIC: Denies numbness, weakness, or headache. All systems reviewed & are unremarkable except as noted in HPI and below PMFSH Past Medical History Medical History Ankle fracture Anxiety Arthritis Chronic bilateral low back pain with left-sided sciatica CKD (chronic kidney disease), stage III Colon cancer screening Depression GERD (gastroesophageal reflux disease) GERD (gastroesophageal reflux disease) HLD (hyperlipidemia) HTN (hypertension) Kidney stone on left side Kidney stones 2012 Mitral valve prolapse Obesity ROSALVA (obstructive sleep apnea) Prediabetes Surgical History Surgical History History of bilateral carpal tunnel release 2002 and 2005 History of hysterectomy 1985 History of total right knee replacement Dr. Hilario Hx of section Status post cervical spinal fusion 2005 Family History Family History Father , He in June 2019 due to complications of COVID-19. Hypertension Parkinson disease Mother Hypertension Sibling Diabetes mellitus Daughter , at age 34. (2011) TTP (thrombotic thrombocytopenic purpura) Social History Social History Social History: Primary Care Provid
[2023-05-24 10:54] VITALS: BP 155/55; PULSE 59; RESP 16; TEMP 36.2; O2SAT 100
== END 2023-05-24 11:32 | disposition home or self-care (01) ==
PROVIDERS: Emergency Provider Nurse Practitioner; PCP Family Medicine
DX: M54.32 Sciatica, left side (principal); M54.31 Sciatica, right side; I13.10 Hypertensive heart and chronic kidney disease without heart failure, with stage 1 through stage 4 chronic kidney disease, or unspecified chronic kidney disease; N18.30 Chronic kidney disease, stage 3 unspecified; M19.90 Unspecified osteoarthritis, unspecified site; K21.9 Gastro-esophageal reflux disease without esophagitis; E78.5 Hyperlipidemia, unspecified; I34.1 Nonrheumatic mitral (valve) prolapse; E66.9 Obesity, unspecified; Z68.31 Body mass index [BMI] 31.0-31.9, adult; R73.03 Prediabetes; F41.9 Anxiety disorder, unspecified; F32.A Depression, unspecified; Z96.651 Presence of right artificial knee joint; Z79.01 Long term (current) use of anticoagulants; Z79.82 Long term (current) use of aspirin
CPT/HCPCS: 99213; G0463

== ENCOUNTER 2023-06-14 12:34 | Outpatient (CLI) | payer OTHER, SELFPAY ==
--- NOTE | ~2023-06-14 | XR_ITS ---
XR lumbar spine 2-3V DATE: 06/14/2023 12:57 INDICATION: Sciatica and history of severe character TECHNIQUE: Standing AP, lateral and coned lateral lumbosacral views COMPARISON: [id number] 2021 lumbar spine FINDINGS: Status post posterior interbody surgical fusion at L4-5. There is chronic severe degenerative disc disease at L5-S1 with near-complete obliteration of disc sp sourav, prominent degenerative spurring and eburnation. Moderate degenerative disease at L2-3 and L3-4. No fracture or spondylolisthesis or bone destruction. There is mild dextroscoliosis of the lumbar spine. The sacroiliac joints are intact. IMPRESSION: No significant change since 10/21/2021 Reviewed, dictated and finalized at location A.
== END 2023-06-14 12:35 ==
LOC: MICIMG 12:35
PROVIDERS: PCP Physician Assistant Medical; Visit Provider Physician Assistant Medical
DX: M54.30 Sciatica, unspecified side (principal)
CPT/HCPCS: 72100

== ENCOUNTER 2023-06-28 09:13 | Outpatient (CLI) | payer OTHER, SELFPAY ==
--- NOTE | ~2023-06-28 | US_ITS ---
EXAMINATION: US arterial ankle brachial ind DATE: 06/28/2023 10:38 INDICATION: Claudication with right lower limb pain TECHNIQUE: Segmental pressures and plethysmographic and Doppler waveforms of the brachial and lower e xtremity arteries were obtained. COMPARISON: None. FINDINGS: Right and left brachial artery pressures of 160 mm Hg and 167 mm Hg, respectively, are concordant (no rmal difference <= 30 mmHg). The right ankle-brachial index (JAYESH) is 1.05 (normal >= 0.9-1.0). The right great toe-brachial index (TBI) is 0.76 (normal >= 0.65). Arterial Doppler waveforms are biphasic with brisk systolic upstrokes at both right posterior tibial and dorsalis pedis arteries. The left JAYESH is 1.11. The left TBI is 0.52. Arterial Doppler waveforms are biphasic with brisk systol ic upstrokes at both left posterior tibial and dorsalis pedis arteries. IMPRESSION: 1. Mild arterial occlusive disease to the left lower limb with normal left JAYESH but mildly decreased l eft TBI. 2. No significant arterial occlusive disease to the right lower limb with normal right JAYESH and TBI. Reviewed, dictated and finalized at location A. IMPRESSION: 1. Mild arterial occlusive disease to the left lower limb with normal left JAYESH but mildly decreased left TBI. 2. No significant arterial occlusive disease to the right lower limb with tee l right JAYESH and TBI.
== END 2023-06-28 09:14 | disposition home or self-care (01) ==
PROVIDERS: PCP Family Medicine; Visit Provider Physician Assistant Medical
DX: I77.1 Stricture of artery (principal)
CPT/HCPCS: 93922

== ENCOUNTER 2023-07-24 13:31 | Outpatient (CLI) | payer OTHER, SELFPAY ==
--- NOTE | ~2023-07-24 | MR_ITS ---
MRI of the lumbar spine Clinical History: Degenerative disc disease Technique: Axial T2-weighted images, and sagittal T1-weighted, T2-weighted, and and STIR images were acquired. Following intravenous administration of 16 cc MultiHance gadolinium, T1-weighted fat-sat im aging was performed in the axial and sagittal planes. COMPARISON: 10/16/2018 Findings: Status post interval posterior fusion from L4 to L5, with bilateral rods and transpedicular screws present. There is associated posterior decompression at L4 and L5. No fracture or subluxation evident in the lumbar spine. No suspicious bone marrow signal abnormality identified. At L1-L2, there is no significant disc bulge or herniation. There is moderate facet arthropathy. No c entral canal stenosis or neural foraminal narrowing. At L2-3, there is moderate to advanced degenerative disc narrowing. There is diffuse disc bulge and s evere facet arthropathy, with moderate to severe spinal canal stenosis/thecal sac compression. There is severe left neural foraminal compromise, and mild to moderate right neural foraminal comprise. At L3-L4, there is advanced degenerative disc narrowing. Disc bulge and severe facet arthropathy cont ribute to severe spinal canal stenosis/thecal sac compression. There is severe left neural foraminal narrowing, and mild to moderate right neural foraminal narrowing. At L4-L5, there is no disc bulge or herniation. No spinal canal stenosis. Neural foramina may be mini melissa narrowed, right worse than left. At L5-S1, there is disc bulge and severe facet arthropathy. No oneil central canal stenosis. There is severe bilateral neural foraminal compromise. Paravertebral soft tissues are unremarkable, aside from expected postoperative change. No abnormal postcontrast enhancement seen. Impression: Severe degenerative spondylosis at L2-L3 and L3-L4, as detailed above. Status post interval posterior fusion and posterior decompression from L4 to L5, as detailed above. Advanced bilateral neural foraminal narrowing at L5-S1. Reviewed, dictated and finalized at location M. Impression: Severe degenerative spondylosis at L2-L3 and L3-L4, as detailed above. Status post interval posterior fusion and posterior decompression from L4 to L5 , as detailed above. Advanced bilateral neural foraminal narrowing at L5-S1.
== END 2023-07-24 13:32 | disposition home or self-care (01) ==
PROVIDERS: PCP Family Medicine; Visit Provider Physician Assistant Medical
DX: M51.36 Other intervertebral disc degeneration, lumbar region (principal); M48.00 Spinal stenosis, site unspecified; Z98.1 Arthrodesis status; M47.896 Other spondylosis, lumbar region
CPT/HCPCS: 72158; A9577

== ENCOUNTER 2023-08-11 14:55 | Outpatient (CLI) | payer OTHER, SELFPAY ==
--- NOTE | ~2023-08-11 | MR_ITS ---
EXAMINATION: MR cervical spine wo con DATE: 08/11/2023 15:42 INDICATION: Paresthesias of skin TECHNIQUE: Magnetic resonance imaging (MRI) of the cervical spine was performed without intravenous c ontrast. Sequences included sagittal T2-weighted FSE, sagittal T2-weighted FS FSE, sagittal T1-weight ed FSE, axial MERGE and axial T2-weighted FSE. COMPARISON: None FINDINGS: C3-C6 anterior spinal fusion. 4 mm anterolisthesis C2 on C3 and 2.5 mm anterolisthesis C7 on T1. Karen re disc height loss with bronchovascular and fibrofatty degenerative endplate changes at C2-C3 and C6 -C7 through T3-T4. Unfused vertebral body heights are normal. Aside from the degenerative endplate ch anges the marrow signal is normal. Small focus of mild fluid signal in the cord at the level of C2-C3 where there is moderate to severe stenosis. Cervical soft tissues are unremarkable. The following di sc levels are specifically discussed: C2-C3: Disc is bulging and there is some ossification along the posterior longitudinal ligament at C3 . There is moderate bilateral uncovertebral joint osteoarthritis. There is severe facet joint osteoar thritis. There is moderate bilateral neural foraminal stenosis. There is moderate to severe central c anal stenosis which measures 5 mm AP in the mid sagittal plane with indentation of the ventral surfac e of the cord. C3-C4: Disc space is fused. There is moderate bilateral facet joint osteoarthritis with suggestion of developing fusion. There is mild bilateral neural foraminal stenosis. There is mild central canal st enosis. C4-C5: Disc space is fused. There is mild bilateral facet joint osteoarthritis. There is minimal left neural foraminal stenosis. There is no central canal stenosis. C5-C6: Disc space is fused. There is mild bilateral facet joint osteoarthritis. There is minimal righ t neural foraminal stenosis. There is mild central canal stenosis. C6-C7: Disc is bulging. There is severe bilateral uncovertebral joint osteoarthritis. There is severe bilateral facet joint osteoarthritis. There is moderate bilateral neural foraminal stenosis. There i s mild central canal stenosis. C7-T1: Disc is bulging. There is mild bilateral uncovertebral joint osteoarthritis. There is severe b ilateral facet joint osteoarthritis. There is mild to moderate bilateral neural foraminal stenosis. T here is mild central canal stenosis. IMPRESSION: 1. Severe cervical and upper thoracic spondylosis most notable for 4 mm anterolisthesis C2 on C3 and moderate to severe associated central canal stenosis with small region of mild increased cord signal at this level. 2. C3-C6 anterior spinal fusion. Reviewed, dictated and finalized at location A. IMPRESSION: 1. Severe cervical and upper thoracic spondylosis most notable for 4 mm anterol isthesis C2 on C3 and moderate to severe associated central canal stenosis with small region of mild increased cord signal at this level. 2. C3-C6 anterior spinal fusion.
== END 2023-08-11 14:56 ==
LOC: GOSHIMG 14:55
PROVIDERS: PCP Family Medicine; Visit Provider Orthopaedic Surgery
DX: M54.12 Radiculopathy, cervical region (principal); R20.2 Paresthesia of skin; R20.0 Anesthesia of skin; M43.02 Spondylolysis, cervical region; M48.02 Spinal stenosis, cervical region; Z98.1 Arthrodesis status
CPT/HCPCS: 72141

== ENCOUNTER 2023-09-13 09:41 | Emergency (ER) | payer OTHER, SELFPAY ==
[2023-09-13] VITALS (7 sets, daily range): BP systolic 127–143; BP diastolic 41–57; PULSE 53–58; RESP 14–20; TEMP 36.5–36.9; O2SAT 94–100
--- NOTE | ~2023-09-13 | XR_ITS ---
EXAMINATION: XR chest 1V portable DATE: 09/13/2023 13:21 INDICATION: Pulmonary edema. TECHNIQUE: A single frontal view of the chest was obtained. COMPARISON: Chest 2 view 04/29/2021, CT abdomen and pelvis 10/28/2022 FINDINGS: There are mild airspace opacities in the lower lung zones. No pleural effusion or pneumotho rax. Cardiomegaly is noted. IMPRESSION: 1. Mild airspace opacities in the lower lung zones, likely atelectasis. 2. Cardiomegaly. Reviewed, dictated and finalized at location A.
--- NOTE | 2023-09-13 11:19 | ED.EXTPRO ---
HPI - Extremity Problem General Chief complaint: Extremity Problem,Nontraumatic Stated complaint: bilateral leg weakness Time Seen by Provider: 09/13/23 10:03 Source: patient Mode of arrival: ambulatory Limitations: no limitations History of Present Illness HPI Narrative: Patient presents with bilateral leg weakness, stating that they feel like jelly , achy and weak. Patient has a history of neurogenic bilateral lower extremity claudication and has been seen by her primary care provider/physician resident assistant cna as well as neurosurgeon in the past month and has had MRI imaging. She undergoes physical therapy, ambulates with a cane as needed and is on cyclobenzaprine. Symptoms are better when sitting. She has had chronic intermittent left toe paresthesias in left upper extremity paresthesias in 3 fingers ever since she has had surgical intervention and cervical spine lumbar spine. She denies any dysuria, urgency, frequency or hematuria. She does continue to make urine. She is on Lasix once daily as well as hydrochlorothiazide once daily. Denies any shortness of breath. Related Data Home Medications Medication Instructions Recorded Confirmed atorvastatin 10 mg tablet 10 mg PO DAILY 01/21/19 08/25/23 omega 1-zam-yzl-fish oil 300 1 cap PO DAILY 10/17/19 08/25/23 mg-1,000 mg capsule (Fish Oil) potassium chloride 20 mEq 20 meq PO DAILY 10/21/19 08/25/23 tablet,extended release alendronate 35 mg tablet 35 mg PO WEEKLY 05/24/22 08/25/23 hydralazine 50 mg tablet 50 mg PO TID 11/03/22 08/25/23 nitroglycerin 0.4 mg sublingual 0.4 mg sublingual Q5M PRN Chest 11/03/22 08/25/23 tablet Pain rivaroxaban 15 mg tablet (Xarelto) 15 mg PO DAILY 01/28/23 08/25/23 aspirin 81 mg capsule 81 mg PO DAILY 07/26/23 08/25/23 Allergies Allergy/AdvReac Type Severity Reaction Status Date / Time pregabalin Allergy Intermediate LETHARGIC, Verified 09/13/23 09:50 SLEEPY, SPACEY niacin Allergy Mild Rash Verified 09/13/23 09:50 Penicillins Allergy Mild Rash Verified 09/13/23 09:50 buspirone AdvReac Intermediate Agitated Verified 09/13/23 09:50 hydrocodone AdvReac Mild Nausea and Verified 09/13/23 09:50 Vomiting morphine AdvReac Mild Nausea and Verified 09/13/23 09:50 Vomiting tramadol AdvReac Mild Gastrointestinal Verified 09/13/23 09:50 Upset PMFSH Past Medical History Medical History (Updated 09/14/23 @ 09:34 by July Omer MD) Anemia Ankle fracture Anxiety Arthritis BMI 30.0-30.9,adult Chronic bilateral low back pain with left-sided sciatica CKD (chronic kidney disease), stage III Colon cancer screening Depression GERD (gastroesophageal reflux disease) HLD (hyperlipidemia) HTN (hypertension) Kidney stone on left side Kidney stones 2012 Mitral valve prolapse Obesity ROSALVA (obstructive sleep apnea) Prediabetes Surgical History Surgical History History of bilateral carpal tunnel release 2002 and 2005 History of hysterectomy 1986 History of total right knee replacement Dr. Hilario Hx of section Status post cervical spinal fusion 2005 Family History Family History Father , He in June 2019 due to complications of COVID-19. Hypertension Parkinson disease Mother Hypertension Sibling Diabetes mellitus Daughter , at age 34. (2011) TTP (thrombotic thrombocytopenic purpura) Social History Social History (Updated 09/14/23 @ 09:34 by July Omer MD) Social History: Primary Care Provider: Dr. Tip Gordon Smoking status: Never smoker Second hand tobacco smoke exposure: No Alcohol intake: never Substance use: never Substance use type: does not use Do You Feel Safe in your Home?: Yes Lack of Transportation: No Lack of Food: Never True Current Housing: I Have Housing Concerned About Future Housing:
[2023-09-13 11:35] LABS: Basophils Percent Auto 0.2 % (0.2-1.2); Eosinophils Absolute Auto 0.1 K/mm3 (0-0.3); Eosinophils Percent Auto 1.5 % (0-4.4); Immature Granulocyte Absolute 0.06 K/mm3 (0.00-0.031); Immature Granulocyte Percent A 0.6 % (0-0.5); Lymphocytes Absolute Auto 1.32 K/mm3 (0.9-3.2); Lymphocytes Percent Auto 14.1 % (18.3-44.2); Mean Corpuscular HGB Conc 29.3 g/dl (32-36); Mean Corpuscular Volume 78.5 fl (80-100); Mean Platelet Volume 9.1 fl (7.4-10.4); Monocytes Absolute Auto 0.9 K/mm3 (0.1-0.6); Monocytes Percent Auto 9.5 % (2.6-8.5); Neutrophils Absolute Auto 6.9 K/mm3 (1.3-6.7); Neutrophils Percent Auto 74.1 % (45.5-73.1); Nucleated Red Blood Cells Perc 0.4 % (0.0-0.2); Platelet Count Result 262 k/mm3 (150-375); Red Blood Count 1.91 M/mm3 (4.2-5.4); Red Cell Distribution Width 16.9 % (11.5-14.5); White Blood Count 9.4 K/mm3 (4.5-10.0)
[2023-09-13 11:42] LABS: Hemoglobin 4.4 g/dL (12.0-15.0)
[2023-09-13 11:47] LABS: Anion Gap 13 mmol/L (4-12); Blood Urea Nitrogen 87 mg/dL (7-17); Calcium 9.5 mg/dL (8.4-10.2); Carbon Dioxide 23 mmol/L (22-30); Chloride 103 mmol/L (98-107); Creatine Kinase 47 U/L (30-135); Estimated CRCL calculation 9 ml/min; Estimated Glomerular Filt Rate 10; Glucose 98 mg/dL (65-110); INR 3.3; Magnesium 1.8 mg/dL (1.6-2.3); Potassium 3.3 mmol/L (3.4-5.0); Prothrombin Time 34.5 Seconds (11.1-14.7); Sodium 139 mmol/L (137-145)
[2023-09-13 11:48] LABS: Partial Thromboplastin Time 39.2 Seconds (22.3-36.8)
[2023-09-13 11:57] LABS: Anisocytosis 1+; Hypochromasia 2+; Microcytosis 2+ (NORMAL); Platelet Estimate Adequate (Adequate); Schistocytes None Seen
[2023-09-13 12:03] LABS: Add Urine Microscopic? YES; Appearance Urine Clear (Clear); Bilirubin Urine Negative (Negative); Blood Urine 1+ (Negative); Color Urine Yellow (Yellow); Glucose Urine UA Negative (Negative); Ketones Urine Negative (Negative); Leukocyte Esterase Ur 1+ LEU/UL (Negative); Nitrate Urine Negative (Negative); Protein Urine 1+ mg/dL (Negative); Specific Grav Ur 1.009 (1.001-1.035); Urobilinogen Urine 0.2 mg/dL (<2.0); pH Urine 5.5 (5.0-9.0)
[2023-09-13 12:07] LABS: Bacteria Urine None Seen /hpf; Non Pathogenic Casts 0-2; Squamous Epithelial Cell Urine None Seen /hpf (Few)
[2023-09-13 12:17] LABS: NT Pro B Type Natriuretic Pept 2350 pg/mL (19.9-100)
[2023-09-13] MEDS: EPOETIN ALFA 20,000 UNITS/ML VIAL 40000 UNITS SUB-Q (13:13)
[2023-09-13 13:26] LABS: Iron 17 ug/dL (37-170)
[2023-09-13 13:42] LABS: Percent Iron Saturation 4 % (20-50)
[2023-09-13 14:18] LABS: Folic Acid > 20.0 ng/mL (2.76->20)
[2023-09-13] MEDS: FUROSEMIDE 20 MG TABLET 40 MG PO (15:50)
[2023-09-13] MEDS: FERROUS SULFATE 325 MG TABLET DR PO (15:51)
[2023-09-13] MEDS: HYDROcodone/acetaminophen (*CRX) 5-325 MG TABLET 1 TAB PO (15:56)
== END 2023-09-13 16:04 | disposition home or self-care (01) ==
PROVIDERS: Emergency Provider Student in an Organized Health Care Education/Training Program; PCP Family Medicine
DX: I12.0 Hypertensive chronic kidney disease with stage 5 chronic kidney disease or end stage renal disease (principal); N18.5 Chronic kidney disease, stage 5; D63.1 Anemia in chronic kidney disease; D50.9 Iron deficiency anemia, unspecified; E87.6 Hypokalemia; R79.1 Abnormal coagulation profile; R79.89 Other specified abnormal findings of blood chemistry; R19.5 Other fecal abnormalities; I51.7 Cardiomegaly; I48.91 Unspecified atrial fibrillation; Z53.1 Procedure and treatment not carried out because of patient's decision for reasons of belief and group pressure; M48.062 Spinal stenosis, lumbar region with neurogenic claudication; Z79.01 Long term (current) use of anticoagulants; Z79.82 Long term (current) use of aspirin; Z79.899 Other long term (current) drug therapy
CPT/HCPCS: 36415; 71045; 80048; 81001; 82550; 82607; 82728; 82746; 83540; 83550; 83735; 83880; 85025; 85610; 85730; 87086; 96372; 99283; A9270; Q4081

== ENCOUNTER 2023-09-28 14:38 | Outpatient (CLI) | payer OTHER, SELFPAY ==
--- NOTE | ~2023-09-28 | XR_ITS ---
XR shoulder LT min 2V 09/28/2023 15:09 Indication: Left shoulder pain Procedure: 4 views left shoulder Comparison: No prior studies for comparison. Findings: Mild osteoarthritis of the acromioclavicular joint. No fracture, subluxation or dislocati on. Normal mineralization. Lungs are unremarkable. No soft tissue abnormality. No foreign bodies. Impression: 1: Mild osteoarthritis of the acromioclavicular joint. Reviewed, dictated and finalized at location B. Impression: 1: Mild osteoarthritis of the acromioclavicular joint.
== END 2023-09-28 14:39 ==
PROVIDERS: PCP Family Medicine; Visit Provider Family Medicine
DX: M19.012 Primary osteoarthritis, left shoulder (principal)
CPT/HCPCS: 73030

== ENCOUNTER 2023-10-19 16:30 | Emergency (ER) | payer OTHER, SELFPAY ==
--- NOTE | ~2023-10-19 | CT_ITS ---
EXAMINATION: CT brain wo con DATE: 10/19/2023 17:09 INDICATION: Fall. Head injury. TECHNIQUE: Computed tomography (CT) of the head was performed without intravenous contrast. The mA wa s adjusted according to patient size. Iterative reconstruction technique was employed. The dose-lengt h product was 605.33 mGy-cm. COMPARISON: Head CT 01/28/2023 FINDINGS: There is no intracranial hemorrhage, acute infarction, or abnormal intracranial mass lesion . The ventricles are normal in size. There is a frontal scalp hematoma. There is mild mucosal thicken ing in the paranasal sinuses. The mastoid air cells are normal. IMPRESSION: 1. Normal brain. Reviewed, dictated and finalized at location A. IMPRESSION: 1. Normal brain.
--- NOTE | ~2023-10-19 | CT_ITS ---
EXAMINATION: CT cervical spine wo con DATE: 10/19/2023 17:09 INDICATION: Head injury. Fall. TECHNIQUE: Computed tomography (CT) of the cervical spine was performed without intravenous contrast. Automated exposure control and iterative reconstruction technique were employed. The dose-length pro duct was 445.52 mGy-cm. COMPARISON: None FINDINGS: There is kyphosis of cervical spine. There is 4 mm anterolisthesis of C2 on C3 and 3 mm ant erolisthesis of C7 on T1. Vertebral body heights are normal. There is healed interbody fusion from C3 to C6. There is moderately decreased disc height at C2-3, severely decreased disc height at C6-7, mo derately decreased disc height at C7-T1, and severely decreased disc height at T1-T2 and T2-T3. The f ollowing disc levels are specifically discussed: C2-C3: There is moderate bilateral uncovertebral joint osteoarthritis. There is severe bilateral face t joint osteoarthritis. There is mild bilateral neural foraminal stenosis. There is moderate central canal stenosis. C3-C4: There is mild bilateral uncovertebral joint hypertrophy. There is ankylosis of the facet joint s with mild hypertrophy. There is mild bilateral neural foraminal stenosis. There is no central canal stenosis. C4-C5: There is mild bilateral uncovertebral joint hypertrophy. There is no facet joint hypertrophy. There is no neural foraminal stenosis. There is no central canal stenosis. C5-C6: There is mild bilateral uncovertebral joint hypertrophy. There is no facet joint hypertrophy. There is no neural foraminal stenosis. There is no central canal stenosis. C6-C7: There is severe bilateral uncovertebral joint osteoarthritis. There is severe bilateral facet joint osteoarthritis. There is mild right and moderate left neural foraminal stenosis. There is mild central canal stenosis. C7-T1: There is mild bilateral uncovertebral joint osteoarthritis. There is severe bilateral facet enid int osteoarthritis. There is mild bilateral neural foraminal stenosis. There is no central canal sten osis. IMPRESSION: 1. No fracture. 2. Severe cervical spondylosis. 3. Anterior fusion procedure from C3 to C6. Reviewed, dictated and finalized at location A.
[2023-10-19 16:40] VITALS: BP 161/60; PULSE 67; RESP 14; TEMP 36.6; O2SAT 100
--- NOTE | 2023-10-19 19:45 | ED.FALL ---
HPI - Fall General Chief Complaint: Fall Stated Complaint: fall head injury Time Seen by Provider: 10/19/23 18:10 History of Present Illness HPI Narrative: 73-year-old female presents to the emergency department for evaluation after having a ground level fall at work. Patient states that she tripped and hit her head on the side of the table. Patient does have a hematoma on the right side of her head. Patient does deny loss consciousness. Patient had previously been on blood thinners but stopped these on September 15. Patient does confirm that this was a mechanical fall, And that she tripped over the corner of a rug. Related Data Home Medications Medication Instructions Recorded Confirmed atorvastatin 10 mg tablet 10 mg PO DAILY 01/21/19 10/09/23 omega 4-imm-gqe-fish oil 300 1 cap PO DAILY 10/17/19 10/09/23 mg-1,000 mg capsule (Fish Oil) potassium chloride 20 mEq 20 meq PO DAILY 10/21/19 10/09/23 tablet,extended release hydralazine 50 mg tablet 50 mg PO TID 11/03/22 10/09/23 nitroglycerin 0.4 mg sublingual 0.4 mg sublingual Q5M PRN Chest 11/03/22 10/09/23 tablet Pain rivaroxaban 15 mg tablet (Xarelto) 15 mg PO DAILY 01/28/23 10/09/23 aspirin 81 mg capsule 81 mg PO DAILY 07/26/23 10/09/23 metoprolol succinate 50 mg 50 mg PO DAILY 10/09/23 10/09/23 tablet,extended release 24 hr Allergies Allergy/AdvReac Type Severity Reaction Status Date / Time pregabalin Allergy Intermediate LETHARGIC, Verified 10/09/23 14:14 SLEEPY, SPACEY niacin Allergy Mild Rash Verified 10/09/23 14:14 Penicillins Allergy Mild Rash Verified 10/09/23 14:14 buspirone AdvReac Intermediate Agitated Verified 10/09/23 14:14 hydrocodone AdvReac Mild Nausea and Verified 10/09/23 14:14 Vomiting morphine AdvReac Mild Nausea and Verified 10/09/23 14:14 Vomiting tramadol AdvReac Mild Gastrointestinal Verified 10/09/23 14:14 Upset Review of Systems Review of Systems: All systems reviewed & are unremarkable except as noted in HPI and below 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 Hilario Hx of section Status post cervical spinal fusion 2005 Family History Family History Father , He in June 2019 due to complications of COVID-19. Hypertension Parkinson disease Mother Hypertension Sibling Diabetes mellitus Daughter , at age 34. (2012) TTP (thrombotic thrombocytopenic purpura) Social History Social History Social History: Primary Care Provider: Dr. Tip Gordon Smoking status: Never smoker Second hand tobacco smoke exposure: No Alcohol intake: never Substance use: never Substance use type: does not use Do You Feel Safe in your Home?: Yes Lack of Transportation: No Lack of Food: Never True Current Housing: I Have Housing Concerned About Future Housing: No Difficulty Paying Gas/Electric Bills: No Difficulty Paying for Meds: No Currently Unemployed: No Education: Associate Degree Difficulty w/ Childcare or Family Care: No Living arrangements: with fam
[2023-10-19 20:57] VITALS: BP 146/84; PULSE 62; RESP 16; O2SAT 100
== END 2023-10-19 21:05 | disposition home or self-care (01) ==
PROVIDERS: Emergency Provider Emergency Medicine; PCP Family Medicine
DX: S00.93XA Contusion of unspecified part of head, initial encounter (principal); W01.190A Fall on same level from slipping, tripping and stumbling with subsequent striking against furniture, initial encounter; I12.9 Hypertensive chronic kidney disease with stage 1 through stage 4 chronic kidney disease, or unspecified chronic kidney disease; N18.30 Chronic kidney disease, stage 3 unspecified; E78.5 Hyperlipidemia, unspecified; D50.9 Iron deficiency anemia, unspecified; G47.33 Obstructive sleep apnea (adult) (pediatric); K21.9 Gastro-esophageal reflux disease without esophagitis; F41.9 Anxiety disorder, unspecified; F32.A Depression, unspecified; I34.1 Nonrheumatic mitral (valve) prolapse; Z98.1 Arthrodesis status; Z79.01 Long term (current) use of anticoagulants; Z79.82 Long term (current) use of aspirin
CPT/HCPCS: 70450; 72125; 99284

== ENCOUNTER 2023-11-04 09:33 | Outpatient (CLI) | payer OTHER, SELFPAY ==
--- NOTE | ~2023-11-04 | MR_ITS ---
EXAMINATION: MR shoulder LT wo con DATE: 11/04/2023 10:37 INDICATION: Left rotator cuff pathology. TECHNIQUE: Magnetic resonance imaging (MRI) of the left shoulder was performed without intravenous co ntrast. Sequences included axial PD-weighted FS FSE, coronal oblique PD-weighted FS FSE and T2-weight ed FS FSE, and sagittal oblique T2-weighted FS FSE and T1-weighted FSE. COMPARISON: Left shoulder radiographs 09/28/2023 FINDINGS: Coracoacromial arch: The acromion undersurface is curved in morphology (type II). There is severe acromioclavicular joint osteoarthritis. There is severe subacromial/subdeltoid bursitis. Rotator cuff: There is a full-thickness tear involving supraspinatus and infraspinatus tendons measuring 3.9 cm ant erior to posterior by 4.5 cm proximal to distal. Teres minor tendon is normal. There is severe subsca pularis tendinopathy. There is mild fatty atrophy of supraspinatus and infraspinatus muscle bellies. Biceps tendon and glenoid labrum: There is a partial tear of proximal biceps tendon. There is degenerative tearing of the glenoid labru m. Fluid: There is a large glenohumeral joint effusion. Bones/cartilage: There is partial-thickness cartilage loss of humeral head and glenoid. IMPRESSION: 1. Full-thickness rotator cuff tear. 2. Mild glenohumeral joint chondrosis. 3. Severe acromioclavicular joint osteoarthritis. 4. Partial tear of proximal biceps tendon. 5. Large glenohumeral joint effusion and severe subacromial/bob bursitis. Reviewed, dictated and finalized at location A.
== END 2023-11-04 09:34 | disposition home or self-care (01) ==
PROVIDERS: PCP Family Medicine; Visit Provider Family Medicine
DX: M75.122 Complete rotator cuff tear or rupture of left shoulder, not specified as traumatic (principal); M94.212 Chondromalacia, left shoulder; M19.012 Primary osteoarthritis, left shoulder; S46.212A Strain of muscle, fascia and tendon of other parts of biceps, left arm, initial encounter; X58.XXXA Exposure to other specified factors, initial encounter; M25.412 Effusion, left shoulder; M75.52 Bursitis of left shoulder
CPT/HCPCS: 73221

== ENCOUNTER 2023-11-09 16:12 | Outpatient (CLI) | payer OTHER, SELFPAY ==
--- NOTE | ~2023-11-09 | MM_ITS ---
EXAMINATION: MM screening dylan BI w justice HISTORY: Screening TECHNIQUE: Craniocaudal and mediolateral oblique 3-D tomosynthesis images were obtained and synthetic 2-D images were generated. CAD analysis was submitted and interpreted. COMPARISON: Comparison to multiple prior studies sequentially, with oldest reviewed study dated 10/04. BREAST PARENCHYMAL COMPOSITION: Not dense: There are scattered areas of fibroglandular density. FINDINGS: Stable benign-appearing low-density left breast mass. There is no evidence of suspicious ma ss, calcification, or architectural distortion to suggest malignancy in either breast. There has been no suspicious interval change. IMPRESSION: 1. No mammographic evidence of malignancy. 2. Recommend routine screening mammography in one year. BI-RADS Category 2: Benign finding(s). Reviewed, dictated and finalized at location B.
== END 2023-11-09 16:13 | disposition home or self-care (01) ==
PROVIDERS: PCP Family Medicine; Visit Provider Obstetrics & Gynecology
DX: Z12.31 Encounter for screening mammogram for malignant neoplasm of breast (principal)
CPT/HCPCS: 77063; 77067

== ENCOUNTER 2024-01-05 01:28 | Day surgery (SDC) | payer OTHER, SELFPAY ==
[2023-12-21 15:45] VITALS: BMI 31.0
[2024-01-05 08:34] VITALS: BP 179/55; PULSE 59; RESP 16; TEMP 36.7; O2SAT 100; BMI 29.7
[2024-01-05] MEDS: LACTATED RINGERS 1,000 ML 150 ML IV CONT (08:48)
--- NOTE | 2024-01-05 09:21 | PM.IMHP ---
H&P: HPI History of Present Illness Date/Time: 01/05/24 09:21 Chief Complaint: Anemia Narrative: this patient was seen in our office by Dr. Chaves 2 months ago, with history of chronic renal failure and severe anemia Treated with transfusions and iron infusion. Her last EGD and colonoscopy were about 4 years ago. She is here for follow-up EGD and colonoscopy. She denies melena, hematemesis, abdominal pain or any GI complaints at this moment. 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 Hilario Hx of section Status post cervical spinal fusion 2005 Family History Family History Father , He in June 2019 due to complications of COVID-19. Hypertension Parkinson disease Mother Hypertension Sibling Diabetes mellitus Daughter , at age 34. (2011) TTP (thrombotic thrombocytopenic purpura) Social History Social History Social History: Primary Care Provider: Dr. 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 Gender identity (if verbalized by the patient): Female Sexual Orientation (if Verbalized by the Patient): Straight or Heterosexual Spiritual care concerns: Yes Agree to blood products: No Meds Home Medications and Allergies Home Medications Medication Instructions Recorded Confirmed Type atorvastatin 10 mg tablet 10 mg PO DAILY 01/21/19 01/05/24 History omega 9-ult-uhv-fish oil 300 1 cap PO DAILY 10/17/19 01/05/24 History mg-1,000 mg capsule (Fish Oil) potassium chloride 20 mEq 20 meq PO DAILY 10/21/19 01/05/24 History tablet,extended release amlodipine 10 mg tablet See Rx Instructions .Route 08/25/20 01/05/24 Rx .COMPLEX #90 tabs hydralazine 50 mg tablet 50 mg PO TID 11/03/22 01/05/24 History nitroglycerin 0.4 mg sublingual 0.4 mg sublingual Q5M PRN Chest 11/03/22 01/05/24 History tablet Pain ondansetron 4 mg disintegrating 4 - 8 mg PO Q8H PRN nausea and 07/03/23 01/05/24 Rx tablet vomiting #30 tabs calcitriol 0.25 mcg capsule 0.25 mcg PO 3XW #48 caps 08/09/23 01/05/24 Rx cyclobenzaprine 10 mg tablet 10 mg PO TID PRN muscle spasm #30 08/25/23 01/05/24 Rx tabs ferrous sulfate 325 mg (65 mg 325 mg PO EVERY OTHER DAY 30 days 09/13/23 01/05/24 Rx iron) tablet #15 tabs metoprolol succinate 50 mg 50 mg PO DAILY 10/09/23 01/05/24 History tablet,extended release 24 hr triamcinolone acetonide 0.1 % 1 applic topical DAILY #60 mL 11/14/23 01/05/24 Rx lotion clonazepam 0.25 mg disintegrating 0.25 mg PO BID #60 tabs 12/18/23 01/05/24 Rx tablet pantoprazole 40 mg tablet,delayed 40 mg PO QAM 12/21/23 01/05/24 History release (Protonix) amiodarone 200 mg tablet 200 mg PO DAILY 12/25/23 01/05/24 History aspirin 325 mg tablet,delayed 325 mg PO DAILY 12/25/23 01/05/24 History release Allergies Allergy/AdvReac Type Severity Reaction Status Date / Time pregabalin Allergy Intermediate LETHARGIC, Verified 01/05/24 08:30 SLEEPY, SPACEY niacin Allergy Mild Rash Verified 01/05/24 08:30 Penicillins Allergy Mild Rash Verified 01/05/24 08:30 buspirone AdvReac Intermediate Agitated Verified 01/05/24 08:30 hydrocodone AdvReac Mild Nausea and Verified 01/05/24 08:30 Vomiting morphine AdvReac Mild Nausea and Verified 01/05/24 08:30 Vomiting tramadol AdvReac Mild Gastrointestinal Verified 01/05/24 08:30 Upset Vital Signs Vital Signs - 24 hr 01/05/24 08:34 Temperature 98.0 F Pulse Rate 59 L Respiratory Rate 16 Blood Pressure 179/55 H Pulse Oximetry 100 Oxygen Delivery Room Air Exam Const: General: cooperative and healthy appearing Resp: Effort & Inspection: normal respiratory effort and able to speak in complete sentences Auscultation: clear to auscultation bilaterally Cardio: Rate: regular rate Rhythm: regular rhythm GI: Inspection: normal to inspection GI Palp: No No hepatosplenomegaly present Auscultation: normal bowel sounds Rectal Exam: deferred Skin: General skin exam: normal color Psych: Appearance: grossly normal Mental Status: mental status grossly normal Assessment and Plan Assessment and plan (1) Anemia: Code(s): D64.9 - Anemia, unspecified Status: Acute Assessment and Plan: The patient is deemed a good candidate for EGD and colonoscopy. Consent signed. Will proceed.
--- NOTE | 2024-01-05 09:29 | WPDANESEPPF ---
Anes - Initial Pre Proc Eval Procedure: Operation Date: 01/05/24 09:30 Proposed Procedures p Esophagogastroduodenoscopy & Colonoscopy - Ignacio Nuno MD Date/Time: 01/05/24 09:29 Surgeon: Ignacio Nuno MD Pre Op Diagnosis: anemia and CKD-stage 4 Patient Data Age: 73 Gender: F Height: 1.57 m Weight: 73.9 kg Last Vital Signs Temp 98.0 F 01/05/24 08:34 Pulse 59 L 01/05/24 08:34 Resp 16 01/05/24 08:34 BP 179/55 H 01/05/24 08:34 Pulse Ox 100 01/05/24 08:34 O2 Del Method Room Air 01/05/24 08:34 Allergies Allergy/AdvReac Type Severity Reaction Status Date / Time pregabalin Allergy Intermediate LETHARGIC, Verified 01/05/24 08:30 SLEEPY, SPACEY niacin Allergy Mild Rash Verified 01/05/24 08:30 Penicillins Allergy Mild Rash Verified 01/05/24 08:30 buspirone AdvReac Intermediate Agitated Verified 01/05/24 08:30 hydrocodone AdvReac Mild Nausea and Verified 01/05/24 08:30 Vomiting morphine AdvReac Mild Nausea and Verified 01/05/24 08:30 Vomiting tramadol AdvReac Mild Gastrointestinal Verified 01/05/24 08:30 Upset Home Medications Medication Instructions Recorded Confirmed Type atorvastatin 10 mg tablet 10 mg PO DAILY 01/21/19 01/05/24 History omega 4-sxx-awv-fish oil 300 1 cap PO DAILY 10/17/19 01/05/24 History mg-1,000 mg capsule (Fish Oil) potassium chloride 20 mEq 20 meq PO DAILY 10/21/19 01/05/24 History tablet,extended release amlodipine 10 mg tablet See Rx Instructions .Route 08/25/20 01/05/24 Rx .COMPLEX #90 tabs hydralazine 50 mg tablet 50 mg PO TID 11/03/22 01/05/24 History nitroglycerin 0.4 mg sublingual 0.4 mg sublingual Q5M PRN Chest 11/03/22 01/05/24 History tablet Pain ondansetron 4 mg disintegrating 4 - 8 mg PO Q8H PRN nausea and 07/03/23 01/05/24 Rx tablet vomiting #30 tabs calcitriol 0.25 mcg capsule 0.25 mcg PO 3XW #48 caps 08/09/23 01/05/24 Rx cyclobenzaprine 10 mg tablet 10 mg PO TID PRN muscle spasm #30 08/25/23 01/05/24 Rx tabs ferrous sulfate 325 mg (65 mg 325 mg PO EVERY OTHER DAY 30 days 09/13/23 01/05/24 Rx iron) tablet #15 tabs metoprolol succinate 50 mg 50 mg PO DAILY 10/09/23 01/05/24 History tablet,extended release 24 hr triamcinolone acetonide 0.1 % 1 applic topical DAILY #60 mL 11/14/23 01/05/24 Rx lotion clonazepam 0.25 mg disintegrating 0.25 mg PO BID #60 tabs 12/18/23 01/05/24 Rx tablet pantoprazole 40 mg tablet,delayed 40 mg PO QAM 12/21/23 01/05/24 History release (Protonix) amiodarone 200 mg tablet 200 mg PO DAILY 12/25/23 01/05/24 History aspirin 325 mg tablet,delayed 325 mg PO DAILY 12/25/23 01/05/24 History release Patient hx anesthesia problems: none Family hx anesthesia problems: none Results Review: All pre-operative results and documents have been reviewed as part of the pre-operative evaluation. 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 Hilario Hx of section Status post cervical spinal fusion 2005 Family History Family History Father , He in June 2019 due to complications of COVID-19. Hypertension Parkinson disease Mother Hypertension Sibling Diabetes mellitus Daughter , at age 34. (2011) TTP (thrombotic thrombocytopenic purpura) Social History Social History Social History: Primary Care Provider: Dr. 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 Gender identity (if verbalized by the patient): Female Sexual Orientation (if Verbalized by the Patient): Straight or Heterosexual Spiritual care concerns: Yes Agree to blood products: No Anes - Eval Final PreProcedure Day of Procedure 01/05/24 09:29 Patient weight: normal Heart: regular rate and rhythm Lungs: clear to auscultation Airway: Mallampati scale class II Neurological: alert and oriented Last oral intake: >/= 8 hours ASA classification: III Emergent: no Anesthetic plan: proceed Anesthesia type and monitoring: general GIVS and standard monitoring Results Review: All pre-operative results and documents have been reviewed as part of the pre-operative evaluation. Informed Consent: The patient's anesthetic plan and its attendant risks and benefits were discussed with the patient/family/POA. Questions were solicited and answers provided to the satisfaction of the patient/family/POA.
[2024-01-05] MEDS: SIMETHICONE ORAL SUSPENSION 20 MG/0.3 ML 30 ML BOTTLE 0.6 ML IRRIGATION (10:38)
--- NOTE | 2024-01-05 11:11 | SUR.OPER ---
EGD [id number]. Colonoscopy start time 1113.
[2024-01-05 11:33] VITALS: BP 105/48; PULSE 60; RESP 24; O2SAT 100
[2024-01-05 11:43] VITALS: BP 158/68; PULSE 52; RESP 15; O2SAT 100
[2024-01-05 11:53] VITALS: BP 155/64; PULSE 52; RESP 16; O2SAT 100
--- NOTE | 2024-01-05 12:33 | SUR.PHASEII ---
Patient instructed to avoid NSAIDs for 2 weeks and to follow up with primary on when to resume Xarelto. Pt. verbalized understanding of all teaching and instructions.
== END 2024-01-05 12:30 | disposition home or self-care (01) ==
PROVIDERS: PCP Family Medicine; Visit Provider Internal Medicine Gastroenterology
PROC: 0DJ08ZZ Inspection of Upper Intestinal Tract, Via Natural or Artificial Opening Endoscopic (ICD-10-PCS; CPT 43235; principal; 2024-01-05 09:30)
DX: D50.9 Iron deficiency anemia, unspecified (principal); D17.5 Benign lipomatous neoplasm of intra-abdominal organs; K31.7 Polyp of stomach and duodenum; K21.9 Gastro-esophageal reflux disease without esophagitis; I12.9 Hypertensive chronic kidney disease with stage 1 through stage 4 chronic kidney disease, or unspecified chronic kidney disease; E78.5 Hyperlipidemia, unspecified; G47.33 Obstructive sleep apnea (adult) (pediatric); F41.9 Anxiety disorder, unspecified; F32.A Depression, unspecified; N18.4 Chronic kidney disease, stage 4 (severe); D63.1 Anemia in chronic kidney disease
CPT/HCPCS: 45378; 43254; 88305; J2704; J7120

== ENCOUNTER 2024-03-27 00:23 | Day surgery (SDC) | payer OTHER, SELFPAY ==
[2024-03-13 12:43] VITALS: BMI 31.1
--- OUTSIDE RECORDS SUMMARY | 2024-03-27 00:26 | XMS_ITS | Clinical Summary ---
Author Organization [employer] [id number] [facility] Address [address] [place] [address] Care Team Providers Care Nurse Clinician Name Role Phone Tip Gordon MD Primary Care Provider [phone] Allergies Active Allergy Reactions Criticality Noted Date Comments Niacin Rash Low 01/25/2019 Penicillins Rash Low 01/25/2019 Medications amLODIPine (NORVASC) 10 mg tablet Take 10 mg by mouth. 2 9 Active atorvastatin (LIPITOR) 10 mg tablet Take 10 mg by mouth daily. 5 9 Active lisinopril (PRINIVIL) 10 mg tablet Take 40 mg by mouth daily. 2 9 Active BIOTIN-KERATIN ORAL Take by mouth. Activ e ALPRAZolam (XANAX) 0.25 mg tablet Take 0.25 mg by mouth nightly as needed for Anxiety. Active pantoprazole (Protonix) 40 mg Tablet, Delayed Release (E.C.) Take 40 mg by mouth daily. Active metoprolol succinate (TOPROL XL) 25 mg Extended Release 24 hour tablet Take 25 mg by mouth daily at bedtime. Active alendronate (FOSAMAX) 70 mg tablet Take 35 mg by mouth every 7 days. TAKES ON Active POTASSIUM-99 ORAL Take 1 Tablet by mouth daily. Active HYDROcodone-sourav taminophen (NORCO) 5-325 mg tabletIndicatio ns:Spondylolist hesis at L4-L5 level Take 1 Tablet by mouth every 6 hours as needed for break through pain. Max Daily Amount: 4 Tablets 18 Tablet 11/08/2019 12:35 PM CDT 0 Active sennosides-docu sate sodium (SENNA-S) 8.6-50 mg tablet Take 1 Tablet by mouth 2 times daily while on narcotic analgesia, then take 1 tablet twice daily as needed for constipation. 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 01/22/2019 Family History Medical History Relation Name Comments Diabetes Brother Hypertension Brother Hypertension Father Parkinson's Disease Father Arthritis-osteo Mother Hypertension Mother Relation Name Status Comments Brother Alive Father Alive Mother Alive Social History Tobacco Use Types Packs/Day Years Used Date Smoking Tobacco: Never Smokeless Tobacco: Never Alcohol Use Standard Drinks/Week Comments Never 0 (1 standard drink = 0.6 oz pur e alcohol) Comments No Sex and Gender Information Value Date Recorded Sex Assigned at Not on file Legal Sex Female 4:04 PM CDT Gender Identity Not on file Sexual Orientation Not on file Occupation Industry Job Start Date Job End Date Not on file Not on file Not on file Not on file Last Filed Vital Signs Vital Sign Reading Time Taken Comments Blood Pressure 135/53 11/08/2019 5:00 PM CDT Pulse 73 11/08/2019 5:00 PM CDT Temperature 36.8 C (98.2 F) 11/08/2019 5:00 PM CDT Respiratory Rate 20 11/08/2019 5:00 PM CDT Oxygen Saturation 98% 11/08/2019 5:00 PM CDT Inhaled Oxygen Concentration - - Weight 79.1 kg (174 lb 4.8 oz) 11/07/2019 10:45 PM CDT Height 158.8 cm (5' 2.5 ) 11/06/2019 9:15 AM CDT Body Mass Index 31.37 11/06/2019 9:15 AM CDT Plan of Treatment Health Maintenance Due Date Last Done Comments DTAP/TDAP/TD VACCINES (1 - Tdap) 10/10/1971 BREAST CANCER SCREENING 1992 COLORECTAL SCREENING 1997 Colorectal Cancer Screening 1997 FIT-DNA Q 3 years 1997 FIT/FOBT Q 1 year 1997 Flex Sig/CT Colonography Q 5 years 1997 PNEUMOCOCCAL VACCINE 65+ YEARS (1 of 1 - PCV) 10/10/19 03 ZOSTER VACCINE (1 of 2) 2002 OSTEOPOROSIS SCREENING 2017 INFLUENZA VACCINE (#1) 2023 04/23/2019 RSV VACCINE (60+ or ) (1 - 1-dose 75+ series) 10/10/2027 Medical Devices Implanted Type Area Top Stitcher Device Identifier Shelf Expiration Date Model / Serial / Lot Hemostatic Surgiflo 8ml W/Thrombin 2994 - [id number] Implanted:Qty: 1 on 11/06/2019 by Matt Brooks MD at [facility] Hemostatic N/A: Spine Lumbar [employer] 10/13/2020 2994 / / [id number] Meliton Cdh Solera Ccm 4.79a80pz Capped [id number] - [id number] Implanted:Qty: 2 on 11/06/2019 by Matt Brooks MD at [facility] Meliton N/A: Spine Lumbar [employer]- SOFAMOR DANEK [id number] / / N/A Description:Load no. 02 Sterilized Nov 05 SAPPHIRE REQ [id number] Screw Solera Markell Ma 6.5x40mm 4.75 Ext Tab [id number] - [id number] Implanted:Qty: 2 on 11/06/2019 by Matt Brooks MD at [facility] Screw N/A: Spine Lumbar [employer]- SOFAMOR DANEK [id number] / / N/A Description:Load no. 02 Sterilized Nov 05 Set Screw Solera Perc 4.75mm [id number] - [id number] Implanted:Qty: 4 on 11/06/2019 by Matt Brooks MD at [facility] N/A: Spine Lumbar [employer]- SOFAMOR DANEK [id number] / / N/A Description:Load no. 02 Sterilized Nov 05 Screw Solera Markell Ma 6.5x35mm 4.75 Ext Tab [id number] - [id number] Implanted:Qty: 1 on 11/06/2019 by Matt Brooks MD at [facility] Screw N/A: Spine Lumbar [employer] SOFAMOR DANEK [id number] / / N/A Description:Load no. [id number] 02 Sterilized Nov 05 Screw Solera Markell Ma 5.5x35mm 4.75 Ext Tab [id number] - [id number] Implanted:Qty: 1 on 11/06/2019 by Matt Brooks MD at [facility] Screw N/A: Spine Lumbar [employer] SOFAMOR DANEK [id number] / / N/A Description:Load no. 5 02 Sterilized Nov 05 Infuse Protein Kit Sm [id number] - [id number] Implanted:Qty: 1 on 11/06/2019 by Matt Brooks MD at [facility] Tissue N/A: Spine Lumbar [employer]- SOFAMOR DANEK 10/13/2020 [id number] / / [id number] Description:REQ#[id number] Globus Spacer 8x22, 7-13mm Implanted:Qty: 1 on 11/06/2019 by Matt Brooks MD at [facility] N/A: Spine Lumbar [employer] [id number] / STERILIZED 11/06/2019 / LOAD #[id number] Description:ENTERED BY RN 09 [id number] 1X ADD SAPPHIRE REQ [id number] Insurance MEDICARE PART A HOSPITAL ONLY [employer] HMO OPEN ACCESS RX [facility] [employer] Advance Directives For more information, please contact: [phone] * Full Code (Latest Code Status on File) Date Activated Date Inactivated Comments 11/06/2019 6:31 PM 11/08/2019 7:39 PM * Full Code Date Activated Date Inactivated Comments 11/06/2019 10:06 AM 11/06/2019 6:31 PM Care Teams Nurse Clinician Relationship Specialty Start Date End Date Tip Gordon MD [address] [facility] [address] [place] [address] PCP - General Family Practice 11/12/18
--- OUTSIDE RECORDS SUMMARY | 2024-03-27 00:26 | XMS_ITS | Encounter Summary ---
Author Organization [facility] Address [address] [place] [address] Phone Care Team Providers Care Food Service Name Role Phone Tip Gordon MD Primary Care Provider Gilberto Huang MD Unavailable [phone] Encounter Details Date Type Department Care Team (Late st Contact Info) Description 11/24/2023 Telephone [facility] [address] [phone] Gilberto Huang MD [address] [facility] [address] [place] [address] Social History Tobacco Use Types Packs/Day Years Used Date Smoking Tobacco: Never Smokeless Tobacco: Never Alcohol Use Standard Drinks/Week Comments Not Currently 0 (1 standard drink = 0.6 oz pur e alcohol) Comments Unknown Sex and Gender Information Value Date Recorded Sex Assigned at Not on file 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 documented in this encounter Plan of Treatment Upcoming Encounters Date Type Department Care Team (Late st Contact Info) Description 05/03/2024 11:00 AM CDT Lab [facility] [address] [phone] Lab, [facility] 05/10/2024 11:15 AM CDT Office Visit [facility] [address] [phone] Gilberto Huang MD [address] [address] documented as of this encounter Visit Diagnoses Not on filedocumented in this encounter Care Teams Food Service Relationship Specialty Start Date End Date Tip Gordon MD [address] [place] [address] PCP - General Family Medicine 09/20/23 Gilberto Huang MD [address] [place] [phone] Oncology 09/20/23 documented as of this encounter
--- OUTSIDE RECORDS SUMMARY | 2024-03-27 00:26 | XMS_ITS | Clinical Summary ---
Author Organization [facility] Address [address], [address] [place] [address] Phone Care Team Providers Care Honey Blender Name Role Phone Tip Gordon MD Primary Care Provider Gilberto Huang MD Unavailable [phone] Allergies Active Allergy Reactions Criticality Noted Date Comments Hydrocodone Other (see Comments) 03/14/2021 Morphine Unknown 03/14/2021 Niacin Unknown,Rash Low 01/25/2019 Penicillins Rash Low 01/25/2019 Pregabalin Unknown,Other (see Comments) 022 Tramadol Nausea 03/14/2021 Diazepam Nausea 09/22/2023 Medications amiodarone (CORDARONE) 200 MG Tablet Take 1 Tablet by mouth daily. Active amLODIPine (NORVASC) 10 MG Tablet Take 1 Tablet by mouth daily. 9 Active atorvastatin (LIPITOR) 10 MG Tablet Take 10 mg by mouth daily. 9 Active calcitRIOL (ROCALTROL) 0.25 MCG Capsule Take 0.25 mcg by mouth. Active clonazePAM ODT (KlonoPIN) 0.25 MG TABLET DISPERSIBLE Take 1 Tablet by mouth 2 times daily. 2 Active famotidine (PEPCID) 40 MG Tablet Take 40 mg by mouth. 1 Active hydrALAZINE 50 MG Tablet Take 50 mg by mouth 3 times daily. Active ferrous sulfate 325 (65 Fe) MG Tablet Take 325 mg by mouth daily. 4 Active ondansetron (ZOFRAN-ODT) 4 MG TABLET DISPERSIBLE Take 4 mg by mouth every 8 hours as needed for Nausea - 1st line. 1 Active metoprolol Succinate (TOPROL-XL) 50 MG TABLET SR 24 HR Take 50 mg by mouth. 4 Active albuterol 108 (90 Base) MCG/ACT Aerosol Solution INHALE 2 PUFFS BY MOUTH EVERY 4 HOURS NEEDED Active pantoprazole (PROTONIX) 40 MG Tablet Delayed Response TAKE 1 TABLET 40 MG ORALLY EVERY MORNING 4 Active cyclobenzaprine (FLEXERIL) 10 MG Tablet Take 10 mg by mouth. 4 Active triamcinolone (KENALOG) 0.1 % Lotion APPLY TOPICALLY TO AFFECTED AREAS ONCE DAILY FOR NO MORE THAN 2 WEEKS 4 Active fish oil-omega-3 fatty acids 1000 MG Capsule Take 1 Capsule by mouth daily. 0 Active nitroGLYCERIN (NITROSTAT) 0.4 MG SL Tablet 0.4 mg by Sublingual route. Active lisinopril (PRINIVIL, ZESTRIL) 10 MG Tablet Take 1 Tablet by mouth daily. Active Active Problems Problem Noted Date Diagnosed Date HTN (hypertension) 12/15/2023 Anemia in stage 3b chronic kidney disease 2023 Stage 3 chronic kidney disease 10/13/2023 Iron deficiency anemia due to chronic blood loss 09/22/2023 Encounters Date Type Department Care Team Description 03/15/2024 10:45 AM MANAGER CHEMICAL Office Visit [facility] [address] [place] [phone] Gilberto Huang MD Iron deficiency anemia due to chronic blood loss (Primary Dx); Anemia in stage 3b chronic kidney disease (HCC); Stage 3 chronic kidney disease, unspecified whether stage 3a or 3b CKD (HCC) 03/15/2024 Travel 03/05/2024 Results Follow-Up [facility] [address] [place] [phone] Gilberto Huang MD 03/04/2024 10:30 AM MANAGER CHEMICAL Lab [facility] [address] [address] Lab, [facility] [place] Iron deficiency anemia due to chronic blood loss; Anemia in stage 3b chronic kidney disease (HCC); Chronic atrial fibrillation (HCC) 03/04/2024 Travel 02/16/2024 10:45 AM MANAGER CHEMICAL Office Visit [facility] [address] [address] Jolene Carpenter APRN, PHILIP Anemia in stage 3b chronic kidney disease (HCC) (Primary Dx); Iron deficiency anemia due to chronic blood loss; Chronic atrial fibrillation (HCC) 02/16/2024 Travel 02/12/2024 10:40 AM MANAGER CHEMICAL Lab [facility] [address] [address] Lab, [facility] [place] Iron deficiency anemia due to chronic blood loss; Anemia in stage 3b chronic kidney disease (HCC); Stage 3 chronic kidney disease, unspecified whether stage 3a or 3b CKD (HCC) 02/12/2024 Telephone [facility] [address] [address] Gilberto Huang MD 02/12/2024 Travel 01/19/2024 10:45 AM MANAGER CHEMICAL Office [facility] [address] [address] Gilberto Huang MD Iron deficiency anemia due to chronic blood loss (Primary Dx); Anemia in stage 3b chronic kidney disease (HCC); Stage 3 chronic kidney disease, unspecified whether stage 3a or 3b CKD (HCC) 01/19/2024 Travel 01/15/2024 9:15 AM MANAGER CHEMICAL Lab [facility] [address] [address] Lab, [facility] [place] Anemia in stage 3b chronic kidney disease (HCC); Iron deficiency anemia due to chronic blood loss; Stage 3 chronic kidney disease, unspecified whether stage 3a or 3b CKD (HCC) 01/15/2024 Travel from Last 3 Months Immunizations Immunization Administration Dates Next Due COVID-19, Mrna, Lnp-s, Pf, 50 mcg/0.5 mL 024 Covid-19, Mrna, Lnp-s, Pf, 1 00 Mcg Or 50 Mcg Dose (MODERNA) 03/19/2020 Influenza, High-dose, Quadrivalent 12/03/2022, Influenza, high-dose, trivalent, PF 12/09/2023 Pneumococcal conjugate PCV20 , polysaccharide SNV040 conjugate, adjuvant, PF 02/24/2022 RSV, Bivalent, Protein Subun it Rsvpref, Diluent Reconstit (Abrysvo) 12/25/2023 TDAP Vaccine 07/05/2022,03/02/2015 Zoster Vaccine Recombinant 04/12/2022,01/23/2022 Family History Medical History Relation Name Comments Hypertension Father Hypertension Mother Relation Name Status Comments Father Mother Social History Tobacco Use Types Packs/Day Years Used Date Smoking Tobacco: Never Smokeless Tobacco: Never Tobacco Cessation:Counseling Given: Not Answered Alcohol Use Standard Drinks/Week Comments Not Currently 0 (1 standard drink = 0.6 oz pur e alcohol) Comments Unknown Sex and Gender Information Value Date Recorded Sex Assigned at Not on file Legal Sex Female 1:21 PM MANAGER CHEMICAL Gender Identity Not on file Sexual Orientation Not on file Last Filed Vital Signs Vital Sign Reading Time Taken Comments Blood Pressure 168/70 03/15/2024 10:58 AM MANAGER CHEMICAL Pulse 57 03/15/2024 10:58 AM MANAGER CHEMICAL Temperature 36.7 C (98 F) 03/15/2024 10:58 AM MANAGER CHEMICAL Respiratory Rate 18 03/15/2024 10:58 AM MANAGER CHEMICAL Oxygen Saturation 99% 03/15/2024 10:58 AM MANAGER CHEMICAL Inhaled Oxygen Concentration - - Weight 76.5 kg (168 lb 9.6 oz) 03/15/2024 10:58 AM MANAGER CHEMICAL Height 158.8 cm (5' 2.5 ) 03/15/2024 10:58 AM CS T Body Mass Index 30.35 03/15/2024 10:58 AM MANAGER CHEMICAL Plan of Treatment Upcoming Encounters Date Type Department Care Team (Late st Contact Info) Description 05/03/2024 11:00 AM CDT Lab [facility] [address] [phone] Lab, [facility] 05/10/2024 11:15 AM CDT Office Visit [facility] [address] [place] [address] Gilberto Huang MD [address] [place] [address] [place], [place] [phone] Health Maintenance Due Date Last Done Comments DEXA Bone Density 1950 Hepatitis C Virus (HCV) Screening 1950 Colonoscopy 1997 Cologuard 2002 Mammogram 2002 Colorectal Cancer Screening 09/17/2023 SARS-COV-2 Immunization ( season) 2024 12/09/2023, 12/03/2022, 11/20/2021, Additional history exists Immunochemical Fecal Occult Blood 09/15/2024 09/16/2023 Td Immunization Every 10 Years (Adults With 1 Tdap) 07/05/2032 07/05/2022, 03/02/2015 Pneumococcal Immunization (50+ years) Completed 02/24/2022 Zoster Immunization Completed 04/12/2022, DTaP/Tdap/Td Immunization Discontinued 07/05/2022, TdaP Immunization Discontinued 07/05/2022, 03/02/2015 Influenza Immunization Completed 4, 12/03/2022, 11/20/2021 Respiratory Syncytial Virus (RSV) Immunization (Adult) Completed 12/25/2023 Hepatitis B Immunization Aged Out No longer eligible based on patient's age to complete this topic Meningococcal Immunization (ACWY) Aged Out No longer eligible based on patient's age to complete this topic Rotavirus Immunization Aged Out No lo nger eligible based on patient's age to complete this topic Procedures Procedure Name Priority Date/Time Associated Diagnosis Comments CBC WITH AUTO DIFF OH Routine 03/04/2024 10:28 AM MANAGER CHEMICAL CMP (COMPREHENSIVE METABOLIC PANEL) Routine 03/04/2024 10:28 AM MANAGER CHEMICAL Iron deficiency anemia due to chronic blood loss Anemia in stage 3b chronic kidney disease (HCC) Chronic atrial fibrillation (HCC) LACTATE DEHYDROGENASE (LD) Routine 03/04/2024 10:28 AM MANAGER CHEMICAL Iron deficiency anemia due to chronic blood loss Anemia in stage 3b chronic kidney disease (HCC) Chronic atrial fibrillation (HCC) VITAMIN B12 Routine 03/04/2024 10:28 AM MANAGER CHEMICAL Iron deficiency anemia due to chronic blood loss Anemia in stage 3b chronic kidney disease (HCC) Chronic atrial fibrillation (HCC) FERRITIN Routine 03/04/2024 10:28 AM MANAGER CHEMICAL Iron deficiency anemia due to chronic blood loss Anemia in stage 3b chronic kidney disease (HCC) Chronic atrial fibrillation (HCC) IRON W/ IRON BINDING CAPACITY OH Routine 03/04/2024 10:28 AM MANAGER CHEMICAL Iron deficiency anemia due to chronic blood loss Anemia in stage 3b chronic kidney disease (HCC) Chronic atrial fibrillation (HCC) CBC WITH AUTO DIFF OH Routine 02/12/2024 10:43 AM MANAGER CHEMICAL CMP (COMPREHENSIVE METABOLIC PANEL) Routine 02/12/2024 10:43 AM MANAGER CHEMICAL Iron deficiency anemia due to chronic blood loss Anemia in stage 3b chronic kidney disease (HCC) Stage 3 chronic kidney disease, unspecified whether stage 3a or 3b CKD (HCC) LACTATE DEHYDROGENASE (LD) Routine 02/12/2024 10:43 AM MANAGER CHEMICAL Iron deficiency anemia due to chronic blood loss Anemia in stage 3b chronic kidney disease (HCC) Stage 3 chronic kidney disease, unspecified whether stage 3a or 3b CKD (HCC) VITAMIN B12 Routine 02/12/2024 10:43 AM MANAGER CHEMICAL Iron deficiency anemia due to chronic blood loss Anemia in stage 3b chronic kidney disease (HCC) Stage 3 chronic kidney disease, unspecified whether stage 3a or 3b CKD (HCC) IRON W/ IRON BINDING CAPACITY OH Routine 02/12/2024 10:43 AM MANAGER CHEMICAL Iron deficiency anemia due to chronic blood loss Anemia in stage 3b chronic kidney disease (HCC) Stage 3 chronic kidney disease, unspecified whether stage 3a or 3b CKD (HCC) FERRITIN Routine 02/12/2024 10:43 AM MANAGER CHEMICAL Iron deficiency anemia due to chronic blood loss Anemia in stage 3b chronic kidney disease (HCC) Stage 3 chronic kidney disease, unspecified whether stage 3a or 3b CKD (HCC) CBC WITH AUTO DIFF OH Routine 01/15/2024 9:25 AM MANAGER CHEMICAL CMP (COMPREHENSIVE METABOLIC PANEL) Routine 01/15/2024 9:25 AM MANAGER CHEMICAL Anemia in stage 3b chronic kidney disease (HCC) Iron deficiency anemia due to chronic blood loss Stage 3 chronic kidney disease, unspecified whether stage 3a or 3b CKD (HCC) VITAMIN B12 Routine 01/15/2024 9:25 AM MANAGER CHEMICAL Anemia in stage 3b chronic kidney disease (HCC) Iron deficiency anemia due to chronic blood loss Stage 3 chronic kidney disease, unspecified whether stage 3a or 3b CKD (HCC) FOLIC ACID (FOLATE) Routine 01/15/2024 9 :25 AM MANAGER CHEMICAL Anemia in stage 3b chronic kidney disease (HCC) Iron deficiency anemia due to chronic blood loss Stage 3 chronic kidney disease, unspecified whether stage 3a or 3b CKD (HCC) IRON W/ IRON BINDING CAPACITY OH Routine 01/15/2024 9:25 AM MANAGER CHEMICAL Anemia in stage 3b chronic kidney disease (HCC) Iron deficiency anemia due to chronic blood loss Stage 3 chronic kidney disease, unspecified whether stage 3a or 3b CKD (HCC) FERRITIN Routine 01/15/2024 9:25 AM MANAGER CHEMICAL Anemia in stage 3b chronic kidney disease (HCC) Iron deficiency anemia due to chronic blood loss Stage 3 chronic kidney disease, unspecified whether stage 3a or 3b CKD (HCC) from Last 3 Months Results * (ABNORMAL) IRON W/ IRON BINDING CAPACITY OH (03/04/2024 10:28 AM MANAGER CHEMICAL) Only the most recent of3 resultswithin the time period is included. IRON 76 50 - 212 ug/dL [facility] UIBC 173 155 - 355 ug/dL [facility] TIBC 249(L) 261 - 478 ug/dl [facility] % Saturation 31 20 - 50 % [facility] 03/04/2024 10:2 8 AM MANAGER CHEMICAL Narrative [facility] - 03/04/2024 11:48 AM MANAGER CHEMICAL Release to patient->Immediate us Jolene Carpenter COUNTER MOLDER, BACKEND PYTHON DEVELOPER LAB SEND OUTS Fin al Result [facility] [place] [address], [place] [phone] * (ABNORMAL) CBC WITH AUTO DIFF OH (03/04/2024 10:28 AM MANAGER CHEMICAL) Only the most recent of3 resultswithin the time period is included. WBC 8.0 4.0 - 10.0 10*3/uL [facility] HGB 9.1(L) 11.2 - 15.7 g/dL [facility] HCT 27.4(L) 34.1 - 44.9 % [facility] PLT 236 163 - 369 10*3/uL [facility] MPV 9.1(L) 9.4 - 12.4 fL [facility] RBC 2.89(L) 3.93 - 5.22 10*6/uL [facility] MCV 95 79 - 95 fL [facility] MCH 31.5 25.6 - 32.2 pg [facility] MCHC 33.2 32.2 - 36.5 g/dL [facility] RDW 15.2(H) 11.6 - 14.4 % [facility] Neutrophils % 70.8(H) 36.0 - 66.0 % [facility] Lymphocytes % 18.1(L) 19.0 - 40.0 % [facility] Monocytes % 8.5 4.1 - 12.1 % [facility] Eosinophils % 1.3 0.0 - 3.5 % [facility] Basophils % 0.5 0.0 - 1.0 % [facility] [place] Absolute Neutrophils 5.7 1.4 - 6.6 10*3/uL [facility] Absolute Lymphocytes 1.4 0.8 - 4.0 10*3/uL [facility] Absolute Monocytes 0.7 0.2 - 1.2 10*3/uL [facility] Absolute Eosinophils 0.1 0.0 - 0.4 10*3/uL [facility] Absolute Basophils 0.0 0.0 - 0.1 10*3/uL [facility] 03/04/2024 10:2 8 AM MANAGER CHEMICAL us Jolene Carpenter APRN, CNP LAB SEND OUTS Fin al Result Performing Organization Address [facility] Co de Phone Number [facility] [place] [address], [place] [phone] * VITAMIN B12 (03/04/2024 10:28 AM MANAGER CHEMICAL) Only the most recent of3 resultswithin the time period is included. Vitamin B12 337 180 - 914 pg/mL [facility] Blood 03/04/2024 10:2 8 AM MANAGER CHEMICAL Narrative [facility] - 03/05/2024 2:48 PM MANAGER CHEMICAL Release to patient->Immediate Jolene Carpenter APRN, CNP CHEMISTRY ORDERABLE S Final Result Performing Organization Address [facility] de Phone Number [facility] [place] [address], [place] [phone] * LACTATE DEHYDROGENASE (LD) (03/04/2024 10:28 AM MANAGER CHEMICAL) Only the most recent of2 resultswithin the time period is included. LDH 187 140 - 271 U/L [facility] Blood 03/04/2024 10:2 8 AM MANAGER CHEMICAL Narrative [facility] 03/04/2024 11:48 AM MANAGER CHEMICAL Release to patient->Immediate us Jolene Carpenter APRN, CNP CHEMISTRY ORDERABLE S Final Result Performing Organization Address [facility] Co de Phone Number [facility] [place] [address], [place] [phone] * (ABNORMAL) FERRITIN (03/04/2024 10:28 AM MANAGER CHEMICAL) Only the most recent of3 resultswithin the time period is included. Ferritin 498(H) 11 - 307 ng/mL [facility] Blood 03/04/2024 10:2 8 AM MANAGER CHEMICAL [facility] - 03/05/2024 2:48 PM MANAGER CHEMICAL Release to patient->Immediate Jolene Carpenter APRN, CNP CHEMISTRY ORDERABLE S Final Result Performing Organization Address [facility] de Phone Number [facility] [place] [address], [place] [phone] * (ABNORMAL) CMP (COMPREHENSIVE METABOLIC PANEL) (03/04/2024 10:28 AM MANAGER CHEMICAL) Only the most recent of3 resultswithin the time period is included. Glucose 94 70 - 105 mg/dL [facility] Blood Urea Nitrogen 57(H) 7 - 25 mg/dL [facility] Creatinine 5.1(H) 0.6 - 1.2 mg/dL [facility] Sodium 146(H) 136 - 145 mEq/L [facility] Potassium 3.8 3.5 - 5.1 mEq/L [facility] Chloride 106 98 - 107 mEq/L [facility] Bicarbonate 26 21 - 31 mEq/L [facility] Total Bilirubin 0.5 0.3 - 1.0 mg/dL [facility] Alk. Phosphatase 106(H) 34 - 104 U/L [facility] Aspartate Aminotransferase 34 13 - 39 U/L [facility] Alanine Aminotransferase 48 7 - 52 U/L [facility] Total Protein 6.0(L) 6.4 - 8.9 g/dL [facility] Albumin 4.0 3.5 - 5.7 g/dL [facility] Calcium 9.9 8.6 - 10.3 mg/dL [facility] Anion Gap 17.8(H) 7.0 - 15.0 mEq/L [facility] Globulin 2.0 2.0 - 3.5 g/dL [facility] EGFR 9(L) >60 ml/min/1. 73m2 [facility] Comment: This eGFR is calculated using 2020 CKD-EPI Creatinine equation without race modifier based on the NKF-ASN task force recommendations Blood 03/04/2024 10:2 8 AM MANAGER CHEMICAL Narrative [facility] - 03/04/2024 11:48 AM MANAGER CHEMICAL Release to patient->Immediate IS THE PATIENT REQUIRED TO BE FASTING FOR 8 HOURS?->No Jolene Carpenter APRN, CNP CHEMISTRY ORDERABLE S Final Result Performing Organization Address [facility] Co de Phone Number [facility] Cancer [address] [place] [address], * FOLIC ACID (FOLATE) (01/15/2024 9:25 AM MANAGER CHEMICAL) Folate >20.00 >=5.90 ng/mL [facility] Blood 01/15/2024 9:25 AM MANAGER CHEMICAL Narrative [facility] - 01/15/2024 2:45 PM MANAGER CHEMICAL Release to patient->Immediate IS THE PATIENT REQUIRED TO BE FASTING FOR 12 HOURS?->No Gilberto Huang MD CHEMISTRY ORDERABLES Patience l Result [facility] Care [address] [place] [address], from Last 3 Months Insurance [employer] [facility] OAP Care Teams Honey Blender Relationship Specialty Start Date End Date Tip Gordon MD [address] [place] [address] PCP - General Family Medicine 09/20/23 Gilberto Huang MD [address] [place] [phone] Oncology 09/20/23
--- OUTSIDE RECORDS SUMMARY | 2024-03-27 00:27 | XMS_ITS | Data Portability ---
Author Organization [place] - [facility] OFFICE Address [address] [place] [address] Care Team Providers Care Under Cutter Name Role Phone TALA URIARTE Primary Care Provider Assessment Encounter Date Assessment Date Assessment LastModified by Organization Details LastModified Time 04/25/2023 04/25/2023 This document was scribed by BULL Piper Not available 04/25/2023 12:53:08 Plan of Treatment Reminders Order Date Submit Date Provider Last Modified By Organization Details Last Modified Time Details Appointments ESTABLISH ED PATIENT DETAILED 2024 01:00P M Osorio Hargrove i, MD Not available Not available Not available Lab None recorded. Referral None recorded. Procedures None recorded. Surgeries None recorded. Imaging None recorded. Medication Orders hydralazi ne 50 mg tablet 2023 024 [id number], [address] [place], [address], 08/08/2023 17:36:19 furosemid e 40 mg tablet 2023 024 [id number], [address] [place], [address], 08/08/2023 17:36:21 furosemid e 40 mg tablet 2024 025 [id number], [address] [place], [address], 03/16/2024 15:31:24 rosuvasta tin 10 mg tablet 2024 025 [id number], [address] [place], [address], 03/16/2024 15:31:24 Patient TargetsNo targets recorded. Patient Instructions Encounter Date Encounter Id Patient Instructions Last Modified By Organization Details Last Modified Time 04/25/2023 [id number] Low cholesterol diet advised Low sodium diet advised. [email or web address] Not available 04/25/2023 12:55:17 08/29/2023 [id number] Weight loss 20 pounds Exercise advised Low cholesterol diet advised Low sodium diet advised. [email or web address] Not available 08/29/2023 12:39:20 09/23/2023 [id number] Weight loss 20 pounds Exercise advised Low cholesterol diet advised Low sodium diet advised. [email or web address] Not available 09/23/2023 14:49:24 Reason for Referral None Reported. Results Created Date Observation Date Name Description Value Unit Range Abnormal Flag Note LastModifiedBy Organization Detail LastModifiedTime 08/09/19 24 08/08/2023 elect rocar diogr am No observ ation record ed. [email or web address] Not Available 2023 10:58:56 08/29/19 24 08/29/2023 elect rocar diogr am No observ ation record ed. [email or web address] Not Available 2023 16:38:01 03/19/19 25 03/16/2024 elect rocar diogr am No observ ation record ed. [email or web address] Not Available 2024 16:03:38 Result Notes None recorded. Problems Name Problem SNOMED Code Status Onset Date Resolution Date Notes Provider Name and Address Organization Details Recorded Time Chest pain 42828068 Active 2019 [place], [place] - [facility] 0 15:02:45 Palpitatio ns 03152087 Active 2019 Wayne [place], [place] - [facility] 0 15:02:52 Fracture of ankle 68882359 Active 2019 [place] - [facility] 0 15:17:27 Anxiety 49436446 Active 2019 [place] [facility] 0 15:18:29 Arthritis 7260531 Active 2019 [place] [facility] 0 15:18:35 Carpal tunnel syndrome 60035212 Active 2019 [place] [facility] 0 15:19:24 Low back pain 813020696 Active 2019 bilateral [place] [facility] 0 15:21:03 Depressive disorder 08410375 Active 2019 [place] [facility] 0 15:21:56 Gastroesop hageal reflux disease 108219858 Active 2019 [place] [facility] 0 15:22:05 Hyperlipid emia 86247540 Active 2019 [place] [facility] 2 14:39:11 Essential hypertensi on 77422320 Active 2019 [place] [facility] 2 14:39:03 Hypokalemi a 30758749 Active 2019 [place] [facility] 0 15:22:33 Kidney stone 21061939 Active 2019 [place] [facility] 0 15:24:20 Mitral valve prolapse 746882358 Active 2019 [place] [facility] 0 15:24:51 Nodule of lung 647584474 Active 2019 [place] [facility] 0 15:39:32 Ventricula r premature beats 70242983 Active 2019 [place] [facility] 0 08:16:19 Atypical chest pain 594966407 Active 2019 [place] [facility] 0 08:16:32 Solitary nodule of lung 924473855 Active 2019 [place] [facility] 0 08:16:42 Edema of lower extremity 007022095 Active 2019 [place] [facility] 0 08:16:53 Problem Notes None recorded. Procedures Surgical History Date Name Laterality Status Provider Name and Address Organization Details Recorded Time hysterectomy completed [place] [facility] 04/05/2019 15:25:09 Knee arthroscopy/surge ry completed [place] [facility] 04/05/2019 15:26:23 Carpal tunnel surgery completed [place] [facility] 04/05/2019 15:26:59 Caesarean Section completed [facility] [place] [facility] 04/05/2019 15:27:46 Imaging Results Imaging Date Name Status LastModified by Organization Details LastModified Time 08/08/2023 electrocardiogram completed Informa tion not available 08/09/2023 10:58:56 08/29/2023 electrocardiogram completed Informa tion not available 08/29/2023 16:38:01 03/16/2024 electrocardiogram completed Informa tion not available 03/19/2024 16:03:38 Procedure Notes None recorded. Medical Equipment None Reported. Allergies Allergen ID Allergen Name Allergen Category Reaction Reaction Severity Criticality Documentation Date Start Date Code Code System Note Provider Name and Address Organization Details Recorded Time 9613 pregabali n medicatio n Not available Not available Not available 04/05/2019 60603 2 RxNorm [place] - [facility] 0 15:34:20 9614 niacin medicatio n Not available Not available Not available 04/05/2019 7393 RxNorm [place] [facility] 0 15:34:35 9615 Product containin g penicilli n and antibioti c (product) medicatio n Not available Not available Not available 04/05/2019 21168 05 SNOMED [place] [facility] 0 15:34:42 9616 tramadol medicatio n Not available Not available Not available 04/05/2019 50903 RxNorm [place] [facility] 0 15:34:48 9617 hydrocodo ne Not available Not available Not available Not available 04/05/2019 5489 RxNorm Wayne [place]ter[place] - [facility] 0 15:35:01 9618 morphine medicatio n Not available Not available Not available 04/05/2019 7052 RxNorm Wayne [place] [facility] 0 15:35:09 Medications Name Sig Start Date Stop Date Status Note LastModified by Organization Details LastModified Time cyclobenz aprine 10 mg tablet TAKE 1 TABLET ORALLY THREE TIMES A DAY NEEDED FOR MUSCLE SPASM active Not Available Not Available No t Available furosemid e 40 mg tablet TAKE 1 TABLET BY MOUTH EVERY DAY active Not Available Not Available No t Available buspirone 5 mg tablet 08/15 completed pt states makes her feel weird 08/15/2019 FH Not Available Not Available Not Available clindamyc in HCl 300 mg capsule 07/18 completed Not Available Not Available Not Available atorvasta tin 10 mg tablet TAKE 1 TABLET BY MOUTH EVERY DAY 05/22 completed Not Available Not Available Not Available azithromy bhavani 250 mg tablet 07/18 completed Not Available Not Available Not Available amiodaron e 200 mg tablet TAKE 1 TABLET BY MOUTH EVERY DAY active Not Available Not Available No t Available metoprolo l succinate ER 50 mg tablet,ex tended release 24 hr TAKE 1 TABLET BY MOUTH EVERY DAY 02/15 completed Not Available Not Available Not Available ranitidin e 300 mg tablet 07/18 completed Not Available Not Available Not Available hydrocodo ne 5 mg-acetam inophen 325 mg tablet 07/23 completed pt. no longer take 09/04/20 FH Not Available Not Available Not Available lisinopri l 20 mg tablet 1 tablet once day 09/12 completed Pt takes differen t dose - oya 0 Not Available Not Available Not Available famotidin e 40 mg tablet TAKE 1 TABLET BY MOUTH EVERY DAY NEEDED 09/22 completed Not Available Not Available Not Available prednison e 20 mg tablet TAKE 2 TABLETS BY MOUTH EVERY DAY FOR 5 DAYS 08/07 completed Not Available Not Available Not Available metoprolo l succinate ER 100 mg tablet,ex tended release 24 hr TAKE 1 TABLET BY MOUTH EVERY DAY active Not Available Not Available No t Available sulfameth oxazole 800 mg-trimet hoprim 160 mg tablet TAKE 1 TABLET BY MOUTH TWICE A DAY 10/28 completed Not Available Not Available Not Available spironola ctone 25 mg tablet TAKE 1 TABLET BY MOUTH EVERY DAY 06/11 completed Pt is not taking this medicati on Not Available Not Available Not Available nortripty line 25 mg capsule 09/12 completed Pt not taking - oya 0 Not Available Not Available Not Available alendrona te 35 mg tablet TAKE 1 TABLET BY MOUTH WEEKLY 03/16 completed Not Available Not Available Not Available potassium chloride 20 mEq oral packet 08/18 completed Not Available Not Available Not Available alprazola m 0.25 mg tablet TAKE 1 TABLET BY MOUTH THREE TIMES A DAY NEEDED FOR ANXIETY active Not Available Not Available No t Available amlodipin e 10 mg tablet TAKE 1 TABLET BY MOUTH EVERY DAY active Not Available Not Available No t Available benzonata te 100 mg capsule 10/28 completed Not Available Not Available Not Available pantopraz ole 40 mg tablet,de layed release TAKE 1 TABLET 40 MG ORALLY EVERY MORNING active Not Available Not Available No t Available ferrous sulfate 325 mg (65 mg iron) tablet TAKE 1 TABLET BY MOUTH EVERY DAY WITH BREAKFAS T active Not Available Not Available No t Available lisinopri l 10 mg tablet TAKE 1 TABLET BY MOUTH EVERY DAY active Not Available Not Available No t Available nitroglyc georgette 0.4 mg sublingua l tablet PLACE 1 TABLET 3 TIMES A DAY BY SUBLINGU AL ROUTE. active Not Available Not Available No t Available sertralin e 25 mg tablet Take 1 tablet every day by oral route for 30 days. 10/13 completed Not Available Not Available Not Available Personal Best Full Range device USE DIRECTED active Not Available Not Available No t Available hydralazi ne 50 mg tablet TAKE 1 TABLET 3 TIMES A DAY BY ORAL ROUTE. active Not Available Not Available No t Available hydrochlo rothiazid e 25 mg tablet 25 MG ORALLY DAILY active Not Available Not Available No t Available furosemid e 20 mg tablet TAKE 1 TABLET BY MOUTH EVERY DAY NEEDED 05/22 completed Not Available Not Available Not Available metoprolo l succinate ER 25 mg tablet,ex tended release 24 hr TAKE 1 TABLET BY MOUTH TWICE A DAY 08/04 completed 08/04/21 okay to change to 50mg. daily/OA /ek Not Available Not Available Not Available triamcino lone acetonide 0.1 % lotion APPLY TOPICALL Y TO AFFECTED AREAS ONCE DAILY FOR NO MORE THAN 2 WEEKS active Not Available Not Available No t Available lisinopri l 10 mg-hydroc hlorothia zide 12.5 mg tablet 05/14 completed Not Available Not Available Not Available levofloxa bhavani 750 mg tablet 07/18 completed Not Available Not Available Not Available methylpre dnisolone 4 mg tablets in a dose pack TAKE 6 TABLETS ON DAY 1 DIRECTED ON PACKAGE AND DECREASE BY 1 TAB EACH DAY FOR A TOTAL OF 6 DAYS 03/16 completed Not Available Not Available Not Available albuterol sulfate HFA 90 mcg/actua tion aerosol inhaler INHALE 2 PUFFS BY MOUTH EVERY 4 HOURS NEEDED active Not Available Not Available No t Available ipratropi um bromide 42 mcg (0.06 %) nasal spray 06/11 completed Prn Not Available Not Available Not Available lisinopri l 40 mg tablet 40 MG ORALLY DAILY 03/16 completed Not Available Not Available Not Available ondansetr on 4 mg disintegr ating tablet TAKE 1 TO 2 TABLETS BY MOUTH EVERY 8 HOURS NEEDED FOR NAUSEA AND VOMITING 03/16 completed Not Available Not Available Not Available sertralin e 50 mg tablet TAKE 1&1/2 TABLETS BY MOUTH DAILY active Not Available Not Available No t Available calcitrio l 0.25 mcg capsule 0.25 MCG ORALLY 3 TIMES A WEEK TAKE ON MON/MON/ MONDAY active Not Available Not Available No t Available escitalop jae 10 mg tablet 06/11 completed Not Available Not Available Not Available clonazepa m 0.25 mg disintegr ating tablet TAKE 1 TABLET BY MOUTH TWICE DAILY active Not Available Not Available No t Available rosuvasta tin 10 mg tablet TAKE 1 TABLET BY MOUTH EVERY DAY active Not Available Not Available No t Available potassium 1 tablet once a day 08/18 completed 99mcg once a day Not Available Not Available Not Available Xarelto 15 mg tablet TAKE 1 TABLET BY MOUTH EVERY DAY 03/16 completed Not Available Not Available Not Available potassium chloride ER 20 mEq tablet,ex tended release take 1 tablet daily po active Not Available Not Available No t Available Fish Oil 1,000 mg (120 mg-180 mg) capsule Take 1 capsule every day by oral route. 2019 active Not Available Not Available Not Avai lable Clenpiq 10 mg-3.5 gram-12 gram/160 mL oral solution PLEASE SEE ATTACHED FOR DETAILED DIRECTIO NS 07/23 completed pt no longer takes 12/30/19 nj Not Available Not Available Not Available Fluzone High-Dose Quad (PF) 240 mcg/0.7 mL IM syringe 12/12 completed Not Available Not Available Not Available Vitals Date Recorded Body height Body mass index (BMI) Body weight Heart rate Oxygen saturation Oxygen saturation in Arterial blood by Pulse oximetry Systolic blood pressure Diastolic blood pressure Provider Name and Address Organization Details Last Updated DateTime 4 157.48 cm 32.7 kg/m2 45910.0 3 g 56 /min 98 % 98 % 165 mm[Hg] 62 mm[Hg] Liz Ribera [facility] [place] 4 12:36:08 Date Recorded Body height Body mass index (BMI) Body weight Heart rate Oxygen saturation Oxygen saturation in Arterial blood by Pulse oximetry Systolic blood pressure Diastolic blood pressure Provider Name and Address Organization Details Last Updated DateTime 4 157.48 cm 32 kg/m2 34466.6 6 g 52 /min 99 % 99 % 140 mm[Hg] 60 mm[Hg] [facility] 4 17:18:46 Date Recorded Body height Body mass index (BMI) Body weight Heart rate Oxygen saturation Oxygen saturation in Arterial blood by Pulse oximetry Systolic blood pressure Diastolic blood pressure Provider Name and Address Organization Details Last Updated DateTime 4 157.48 cm 31.6 kg/m2 33352.4 8 g 54 /min 99 % 99 % 120 mm[Hg] 52 mm[Hg] [facility] 4 12:13:23 Date Recorded Body height Body mass index (BMI) Body weight Heart rate Oxygen saturation Oxygen saturation in Arterial blood by Pulse oximetry Systolic blood pressure Diastolic blood pressure Provider Name and Address Organization Details Last Updated DateTime 4 157.48 cm 30.5 kg/m2 51490.2 1 g 63 /min 97 % 97 % 138 mm[Hg] 60 mm[Hg] Liz Ribera [facility] [place] 4 14:04:16 Date Recorded Body height Body mass index (BMI) Body weight Heart rate Oxygen saturation Oxygen saturation in Arterial blood by Pulse oximetry Systolic blood pressure Diastolic blood pressure Provider Name and Address Organization Details Last Updated DateTime 5 157.48 cm 30.8 kg/m2 76473.3 1 g 49 /min 100 % 100 % 130 mm[Hg] 80 mm[Hg] Priscilla Guerra [facility] 5 15:08:49 Social History Question Answer Notes LastModified by Organizat ion Details LastModified Time Tobacco Smoking Status Never Smoker Wayne beckford [facility] 04/05/2019 15:31:46 What Is Your Level Of Alcohol Consumption? None Information not available 04/05/2019 Which Illicit Or Recreational Drugs Have You Used? Kedar Information not available 04/05/2019 Do You Or Have You Ever Used E-cigarettes Or Vape? Never Used Electronic Cigarettes Information not available 04/05/2019 What Was The Date Of Your Most Recent Tobacco Screening? 04/04/2019 Information not available 04/05/2019 What Is Your Relationship Status? Information not available 12/17/2022 Do You Or Have You Ever Used Smokeless Tobacco? Never Used Smokeless Tobacco Information not available 04/05/2019 How Much Tobacco Do You Smoke? No Information not available 04/05/2019 How Many Years Have You Smoked Tobacco? 0 Information not available 04/05/2019 Sex: Unknown Functional Status None recorded. Mental Status None recorded. Family History Relationship Description Onset Age of this Age Resolved Age Notes LastModified by Organization Details LastModified Time Father Hypertensive disorder hmesto Not available 2019 15:27:56 Mother Hypertensive disorder hmesto Not available 2019 15:28:01 Unspecified Relation Diabetes mellitus hmesto Not available 2019 15:28:13 Unspecified Relation Seizure disorder hmesto Not available 2019 15:30:39 Medical History Condition Response Depression Y Kidney Disease Y Valvular Heart Disease Y Hyperlipidemia Y GERD/Reflux Y Hypertension Y Gynecological HistoryNo gynecological history recorded. Obstetrics History GPAL:G 0 P 0 0 0 0 Past Encounters Encounter ID Performer Location Encounter Start Date Encounter Closed Date Diagnosis/Indication Diagnosis SNOMED-CT Code Diagnosis ICD10 Code Diagnosis Note [id number] MD Ellis [facility] Office [address] [place] [address] 04/08/2019 15:43:00 04/08/2019 16:33:18 Ventricular premature beats 15488175 I49.3 Atypical chest pain 1025 60920 R07.89 Had negative stress test Essential hypertension 43941481 I10 Now well controlled Solitary n odule of lung 446922433 R91.1 Pulmonary follow up Edema of l ower extremity 014768561 R60.0 [id number] Kellen Moreira [facility] Office [address] [place] [address] 05/15/2019 14:08:26 05/15/2019 14:53:26 Ventricular premature beats 58610534 I49.3 Stable. Continue Metoprolol . Atypical chest pain 1025 49797 R07.89 Resolved. Had negative stress test Essential hypertension 55980739 I10 Now well controlled Solitary n odule of lung 722044020 R91.1 Pulmonary follow up Edema of l ower extremity 986718415 R60.0 04/22/19 ECHO: LV chamber size is normal. The estimated left ventricle ejection fraction is 55-60%(nor mal). LV relaxation is impaired. There is borderline left atrial enlargemen t. There is mild aortic valve sclerosis without significan t stenosis. Mitral valve prolapse is present. There is mild thickening of mitral valve anterior leaflet. There is trace mitral regurgitat ion. Hyperlipidemia 39327634 E78.5 Needs to keep LDL less than 100, and HDL more than 40 [place] [id number] Wong Ervin [place] OFFICE [address] [place] [address] 07/19/2019 11:57:46 07/19/2019 13:04:29 Ventricular premature beats 06553054 I49.3 Stable. Continue Metoprolol . Atypical chest pain 1025 87492 R07.89 Resolved. Had negative stress test 04/04/2019 Essential hypertension 57073120 I10 Now well controlled Edema of l ower extremity 057717692 R60.0 04/22/19 ECHO: LV chamber size is normal. The estimated left ventricle ejection fraction is 55-60%(nor mal). LV relaxation is impaired. There is borderline left atrial enlargemen t. There is mild aortic valve sclerosis without significan t stenosis. Mitral valve prolapse is present. There is mild thickening of mitral valve anterior leaflet. There is trace mitral regurgitat ion. Hyperlipidemia 87012455 E78.5 Needs to keep LDL less than 100, and HDL more than 40 Will get fasting [place] [id number] Osorio Burger MD [place] [facility] [place] [address] 08/16/2019 10:07:18 08/16/2019 11:01:05 Ventricular premature beats 72536896 I49.3 Increase metoprolol to 25mg daily 08/16/2019 Atypical chest pain 1025 00657 R07.89 Will arrange for cardiac CTA, the patient will need further investigat ions, and would benefit from CT to look for any Coronary Artery Disease Negative stress test 04/04/2019 Essential hypertension 78280799 I10 Well controlled Edema of l ower extremity 614619880 R60.0 Stable, improved. 04/22/2019 ECHO: LV chamber size is normal. The estimated left ventricle ejection fraction is 55-60%(nor mal). LV relaxation is impaired. There is borderline left atrial enlargemen t. There is mild aortic valve sclerosis without significan t stenosis. Mitral valve prolapse is present. There is mild thickening of mitral valve anterior leaflet. There is trace mitral regurgitat ion. Hyperlipidemia 97270614 E78.5 Needs to keep LDL less than 100, and HDL more than 40 Will get fasting [place] [id number] Osorio Burger MD [place] [facility] [place] [address] 09/13/2019 12:32:18 09/26/2019 11:22:47 Ventricular premature beats 23481205 I49.3 Stable, improved.o n metoprolol to 25mg daily since 08/16/2019 Atypical chest pain 1025 87665 R07.89 Resolved Cardiac CTA 09/02/2019 showed no significan t CAD Negative stress test 04/04/2019 Essential hypertension 67935967 I10 Blood pressure is elevated today, but this is only one reading, will keep close follow up, and consider medication change if blood pressure is still elevated next visit. Edema of l ower extremity 330205913 R60.0 Stable, improved. 04/22/2019 ECHO: LV chamber size is normal. The estimated left ventricle ejection fraction is 55-60%(nor mal). LV relaxation is impaired. There is borderline left atrial enlargemen t. There is mild aortic valve sclerosis without significan t stenosis. Mitral valve prolapse is present. There is mild thickening of mitral valve anterior leaflet. There is trace mitral regurgitat ion. Hyperlipidemia 30823254 E78.5 Needs to keep LDL less than 100, and HDL more than 40 Will get fasting lipids for follow-upC ontinue atorvastat in 10mg nightly [id number] Osorio Burger MD [place] [facility] [place] [address] 12/13/2019 12:18:06 12/13/2019 13:59:06 Ventricular premature beats 90387279 I49.3 Stable, improved with metoprolol 25mg. Atypical chest pain 1025 91642 R07.89 Resolved Cardiac CTA 09/02/2019 showed no significan t CAD Negative stress test 04/04/2019 Essential hypertension 54274872 I10 Fair control on current regimen Edema of l ower extremity 463955039 R60.0 Will start Lasix 20mg daily Echo 04/22/2019 : LV chamber size is normal. The estimated left ventricle ejection fraction is 55-60%(nor mal). LV relaxation is impaired. There is borderline left atrial enlargemen t. There is mild aortic valve sclerosis without significan t stenosis. Mitral valve prolapse is present. There is mild thickening of mitral valve anterior leaflet. There is trace mitral regurgitat ion. Hyperlipidemia 41089928 E78.5 Needs to keep LDL less than 100, and HDL more than 40 Will get fasting lipids for follow-upC ontinue atorvastat in 10mg nightly Mitral valve prolapse 40 4812842 I34.1 Stable, echo as above. [id number] Kathleen Martha [place] OFFICE [address] [place] [address] 02/05/2020 14:19:50 02/05/2020 15:19:10 Ventricular premature beats 23496294 I49.3 Reports episode of palpitatio ns today that caused her to mandrel puller and call to make an appointmen t. Took alprazolam , which resolved the palpitatio ns. Obtain 48 hour holter improved with metoprolol 25mg. Atypical chest pain 1025 67867 R07.89 Resolved Cardiac CTA 09/02/2019 showed no significan t CAD Negative stress test 04/04/2019 Essential hypertension 39747337 I10 Fair control on current regimen Edema of l ower extremity 397239518 R60.0 StableLasi x 20mg daily Echo 04/22/2019 : LV chamber size is normal. The estimated left ventricle ejection fraction is 55-60%(nor mal). LV relaxation is impaired. There is borderline left atrial enlargemen t. There is mild aortic valve sclerosis without significan t stenosis. Mitral valve prolapse is present. There is mild thickening of mitral valve anterior leaflet. There is trace mitral regurgitat ion. Hyperlipidemia 08142581 E78.5 Needs to keep LDL less than 100, and HDL more than 40 Will get fasting lipids for follow-upC ontinue atorvastat in 10mg nightly Mitral valve prolapse 40 2685664 I34.1 Stable, echo as above. [id number] Osorio Burger MD [place] [facility] [place] [address] 03/13/2020 11:11:24 03/13/2020 13:14:10 Ventricular premature beats 22890747 I49.3 Reports episode of palpitatio ns today that caused her to mandrel puller and call to make an appointmen t. Took alprazolam , which resolved the palpitatio ns. Education on talking to her PCP about skilled nursing medication s. 48 hour holter unremarkab le improved with metoprolol 25mg. Atypical chest pain 1025 54562 R07.89 Resolved Cardiac CTA 09/02/2019 showed no significan t CAD Negative stress test 04/04/2019 Essential hypertension 45755524 I10 Fair control on current regimen Edema of l ower extremity 379739019 R60.0 StableLasi x 20mg daily Echo 04/22/2019 : LV chamber size is normal. The estimated left ventricle ejection fraction is 55-60%(nor mal). LV relaxation is impaired. There is borderline left atrial enlargemen t. There is mild aortic valve sclerosis without significan t stenosis. Mitral valve prolapse is present. There is mild thickening of mitral valve anterior leaflet. There is trace mitral regurgitat ion. Hyperlipidemia 04947596 E78.5 Needs to keep LDL less than 100, and HDL more than 40 Will get fasting lipids for follow-upC ontinue atorvastat in 10mg nightly Mitral valve prolapse 40 2306700 I34.1 Stable, echo as above. [id number] MD Td Jackson e Office [address] [facility] [address] [place] [address] 06/01/2020 09:59:43 06/01/2020 10:37:52 Ventricular premature beats 16003543 I49.3 with recurrent palpitatio ns Stress and anxiety management discussed 48 hour holter monitor 02/24/2020 : Unremarkab le holter. Continue metoprolol 25 mg Atypical chest pain 1025 21233 R07.89 Resolved Cardiac CTA obtained 09/02/2019 showed no significan t CAD Negative stress test 04/04/2019 Essential hypertension 17890004 I10 Fair control on current regimen Edema of l ower extremity 678314555 R60.0 Venous duplex and reflux study Compressio n stockings trial Echo 04/22/2019 : LV chamber size is normal. The estimated left ventricle ejection fraction is 55-60%(nor mal). LV relaxation is impaired. There is borderline left atrial enlargemen t. There is mild aortic valve sclerosis without significan t stenosis. Mitral valve prolapse is present. There is mild thickening of mitral valve anterior leaflet. There is trace mitral regurgitat ion. Hyperlipidemia 05715431 E78.5 Needs to keep LDL less than 100, and HDL more than 40 Will get fasting lipids for follow-up Continue atorvastat in 10 mg nightly Mitral valve prolapse 40 7609030 I34.1 Stable, echo as above. 95557 MD Td Jackson Office [address] [facility] [address] [place] [address] 06/11/2020 10:10:40 06/11/2020 10:34:45 Ventricular premature beats 85120837 I49.3 with recurrent palpitatio ns r/t anxiety/pa jag attacks Stress and anxiety management discussed 48 hour holter monitor 02/24/2020 : Unremarkab le holter. Continue metoprolol 25 mg and OTC fish oil Atypical chest pain 1025 62547 R07.89 Resolved Cardiac CTA obtained 09/02/2019 showed no significan t CAD Negative stress test 04/04/2019 Essential hypertension 27325294 I10 Fair control on current regimen Edema of l ower extremity 658042995 R60.0 Venous duplex and reflux study Compressio n stockings trial Echo 04/22/2019 : LV chamber size is normal. The estimated left ventricle ejection fraction is 55-60%(nor mal). LV relaxation is impaired. There is borderline left atrial enlargemen t. There is mild aortic valve sclerosis without significan t stenosis. Mitral valve prolapse is present. There is mild thickening of mitral valve anterior leaflet. There is trace mitral regurgitat ion. Hyperlipidemia 65901170 E78.5 Needs to keep LDL less than 100, and HDL more than 40. Will get fasting lipids for follow-up Continue atorvastat in 10 mg nightly Mitral valve prolapse 40 7333474 I34.1 Stable, echo as above. [id number] Wong [facility] OFFICE [address] [place] [address] 09/04/2020 10:00:16 09/07/2020 08:45:59 Ventricular premature beats 12530130 I49.3 with recurrent palpitatio ns r/t anxiety/pa jag attacks Stress and anxiety management discussed 48 hour holter monitor 02/24/2020 : Unremarkab le holter. Continue metoprolol 25 mg and OTC fish oil Atypical chest pain 1025 13996 R07.89 Resolved with Pepcid Cardiac CTA obtained 09/02/2019 showed no significan t CAD Negative stress test 04/04/2019 Essential hypertension 24550109 I10 Well controlled on current regimen Edema of l ower extremity 545728255 R60.0 Resolved Venous reflux 07/23/2020 : No significan t reflux disease noted Echo 04/22/2019 : LV chamber size is normal. The estimated left ventricle ejection fraction is 55-60%(nor mal). LV relaxation is impaired. There is borderline left atrial enlargemen t. There is mild aortic valve sclerosis without significan t stenosis. Mitral valve prolapse is present. There is mild thickening of mitral valve anterior leaflet. There is trace mitral regurgitat ion. Hyperlipidemia 79387776 E78.5 Needs to keep LDL less than 100, and HDL more than 40. Will get fasting lipids for follow-up Continue atorvastat in 10 mg nightly Mitral valve prolapse 40 8396802 I34.1 Stable, echo as above. 52575 Osorio Burger MD [place] OFFICE [address] [place] [address] 12/29/2020 17:04:00 12/29/2020 17:46:59 Essential hypertension 25305278 I10 Well controlled on current regimen Hyperlipidemia 59132465 E78.5 Needs to keep LDL less than 100, and HDL more than 40. Will get fasting lipids for follow-up Continue atorvastat in 10 mg nightly Ventricula r premature beats 03569511 I49.3 with recurrent palpitatio ns r/t anxiety/pa jag attacks Stress and anxiety management discussed 48 hour holter monitor 02/24/2020 : Unremarkab le holter. Continue metoprolol 25 mg and increase to bid Edema of l ower extremity 057291510 R60.0 Obtain echo to evaluate for structural /functiona l disease. 05725 Kathleen hTomas [place] OFF[facility] [place] [address] 03/30/2021 16:39:07 03/30/2021 18:15:50 Essential hypertension 22075399 I10 Well controlled on current regimen Hyperlipidemia 74889221 E78.5 Needs to keep LDL less than 100, and HDL more than 40. Will get fasting lipids for follow-up Continue atorvastat in 10 mg nightly Ventricula r premature beats 46652343 I49.3 with recurrent palpitatio ns r/t anxiety/pa jag attacks Stress and anxiety management discussed 48 hour holter monitor 02/24/2020 : Unremarkab le holter. Continue metoprolol 50 mg once a day Edema of l ower extremity 496551686 R60.0 2+ edema will start lasix 20 daily and will check her in 2 weeks Coronary arteriosclerosis 38149441 I25.10 chest pain will do stres echo [id number] Osorio Burger MD [place] OFFICE [address] [place] [address] 07/23/2021 10:03:45 07/23/2021 11:18:07 Essential hypertension 92535825 I10 Well controlled on current regimen Hyperlipidemia 06728445 E78.5 Needs to keep LDL less than 100, and HDL more than 40. Will get fasting lipids for follow-up Continue atorvastat in 10 mg nightly Ventricula r premature beats 88993007 I49.3 with recurrent palpitatio ns r/t anxiety/pa jag attacks Stress and anxiety management discussed 48 hour holter monitor 02/24/2020 : Unremarkab le holter. Continue metoprolol 50 mg once a day Edema of l ower extremity 813926830 R60.0 resolved Coronary arteriosclerosis 99101823 I25.10 Negative stress echo Pre-surger y evaluation 777879785 Z01.818 There is no cardiac contraindi cation for the procedure. The planned procedure would be within acceptable risk. {{ Patient may stop taking aspirin and Plavix five (5) days prior to the procedure. *}} [id number] Osorio Burger MD [facility] Office [address] [facility] [address] [address] 10/13/2021 15:18:53 10/13/2021 16:00:18 Essential hypertension 05873885 I10 still elevated at 162/80will add HCTZ 25 mg daily Hyperlipidemia 19993595 E78.5 Needs to keep LDL less than 100, and HDL more than 40.LDL 98 done on tinue atorvastat in 10 mg nightly Ventricula r premature beats 51017630 I49.3 with recurrent palpitatio ns r/t anxiety/pa jag attacks Stress and anxiety management discussed 48 hour holter monitor 02/24/2020 : Unremarkab le holter. Continue metoprolol 100 mg once a dayadd fish oil Edema of l ower extremity 482937169 R60.0 3+ edema contiune lasix 20 mg dailyadd HCTZ 25 mg daily Coronary arteriosclerosis 78143762 I25.10 Negative stress echo [id number] Osorio Burger MD [place] OFFICE [address] [place] [address] 01/21/2022 09:11:04 01/21/2022 09:35:11 Essential hypertension 56288861 I10 still elevated at 162/80will add HCTZ 25 mg daily Hyperlipidemia 87465857 E78.5 Needs to keep LDL less than 100, and HDL more than 40.LDL 98 done on tinue atorvastat in 10 mg nightly Ventricula r premature beats 61392416 I49.3 with recurrent palpitatio ns r/t anxiety/pa jag attacks Stress and anxiety management discussed 48 hour holter monitor 02/24/2020 : Unremarkab le holter. Continue metoprolol 100 mg once a dayadd fish oil Edema of l ower extremity 123731155 R60.0 1+ edema continue lasix 20 mg dailyand HCTZ 25 mg daily Coronary arteriosclerosis 50675927 I25.10 Negative stress echo [id number] Osorio Burger MD [place] OFFICE [address] [place] [address] 04/22/2022 11:20:08 04/22/2022 12:14:18 Essential hypertension 74088363 I10 Better nowwill add HCTZ 25 mg daily Hyperlipidemia 16678485 E78.5 Needs to keep LDL less than 100, and HDL more than 40.LDL 98 done on tinue atorvastat in 10 mg nightly Ventricula r premature beats 53368457 I49.3 with recurrent palpitatio ns r/t anxiety/pa jag attacks Stress and anxiety management discussed 48 hour holter monitor 02/24/2020 : Unremarkab le holter. Continue metoprolol 100 mg once a day, OK to take 50 mg PRN for Palpitatio n Edema of l ower extremity 444514954 R60.0 1+ edema continue lasix 20 mg dailyand HCTZ 25 mg daily Coronary arteriosclerosis 91672560 I25.10 Negative stress echo 19256 Chayo So [place] OFFICE [address] [place] [address] 10/21/2022 10:06:50 10/21/2022 11:14:39 Essential hypertension 44159235 I10 elevated BP 190/100wil l add hydralazin e to 50 mg TID daily Hyperlipidemia 19376045 E78.5 Needs to keep LDL less than 100, and HDL more than 40.LDL 98 done 04/2022Con tinue atorvastat in 10 mg nightly Ventricula r premature beats 87271677 I49.3 with recurrent palpitatio ns r/t anxiety/pa jag attacks Stress and anxiety management discussed 48 hour holter monitor 02/24/2020 : Unremarkab le holter. Continue metoprolol 100 mg once a day, OK to take 50 mg PRN for Palpitatio n Edema of l ower extremity 515786656 R60.0 1+ edema continue lasix 20 mg dailyconti nue HCTZ 25 mg daily Coronary arteriosclerosis 79644659 I25.10 Negative stress echo will repeat echo [id number] NATHANIEL SAULCHAVA [place] OFFICE [address] [place] [address] 10/28/2022 10:15:48 10/28/2022 11:27:18 Essential hypertension 80718535 I10 mildly elevated at 140 /67continu e hydralazin e to 50 mg TID daily as it is new for herwill increase if stay high in 3 months Hyperlipidemia 26026518 E78.5 Needs to keep LDL less than 100, and HDL more than 40.LDL 98 done on tinue atorvastat in 10 mg nightly Ventricula r premature beats 36674012 I49.3 with recurrent palpitatio ns r/t anxiety/pa jag attacks Stress and anxiety management discussed 48 hour holter monitor 02/24/2020 : Unremarkab le holter. Continue metoprolol 100 mg once a day, OK to take 50 mg PRN for Palpitatio n Edema of l ower extremity 511951340 R60.0 1+ edema continue lasix 20 mg dailyconti nue HCTZ 25 mg daily Coronary arteriosclerosis 06796922 I25.10 Negative stress echo US, echocardio gram ECHO 10/26/22:L V chamber size is normal,LVE F 65-70%.LV relaxation is impaired,l eft atrium chamber is mildly dilated,th e aortic valve is mildly calcified, degenerati ve aortic valve. Chronic ki dney disease stage 3 507654675 N18.30 Her Cr increased from 1.6 to 2.8 with drop in her GFRWILL SEND HER TO ED [id number] Osorio Burger MD [place] OFFICE [address] [place] [address] 11/12/2022 08:59:12 11/12/2022 09:46:51 Essential hypertension 22823480 I10 mildly elevated at 140 /67continu e hydralazin e to 50 mg TID daily as it is new for herwill increase if stay high in 3 months Hyperlipidemia 01645679 E78.5 Needs to keep LDL less than 100, and HDL more than 40.LDL 98 done on tinue atorvastat in 10 mg nightly Ventricula r premature beats 60146537 I49.3 with recurrent palpitatio ns r/t anxiety/pa jag attacks Stress and anxiety management discussed 48 hour holter monitor 02/24/2020 : Unremarkab le holter. Continue metoprolol 100 mg once a day, OK to take 50 mg PRN for Palpitatio n Edema of l ower extremity 240518014 R60.0 1+ edema continue lasix 20 mg dailyconti nue HCTZ 25 mg daily Coronary arteriosclerosis 32382897 I25.10 Negative stress echo US, echocardio gram ECHO 10/26/22:L V chamber size is normal,LVE F 65-70%.LV relaxation is impaired,l eft atrium chamber is mildly dilated,th e aortic valve is mildly calcified, degenerati ve aortic valve. Chronic ki dney disease stage 3 264314958 N18.30 Her Cr increased from 1.6 to 2.8 with drop in her GFRHad follow labs, will get for [facility] [id number] NATHANIEL [facility] OFFICE [address] [place] [address] 12/21/2022 16:10:17 12/21/2022 16:45:58 Palpitations 10699715 R00.2 she is on metop 100 mg dailytoday she has one episode of heart flutter and took additional 50 mg metoprolol and now her fluttering is better. Fluttering heart 9285438 04 R00.2 will do event monitor for one monthwill add full aspirincon tinue with metoprolol 100 mg daily 60142 ROMEROFRANCISCA [facility] OFFICE [address] [place] [address] 01/25/2023 16:06:46 01/25/2023 16:33:24 Palpitations 03085043 R00.2 she is on metop 100 mg dailytoday she has one episode of heart flutter and took additional 50 mg metoprolol and now her fluttering is better. Fluttering heart 5670024 04 R00.2 event monitor showed paroxysmal a fib with RVRcontinu e with aspirin and will start xarelto 15 mg dailyconti nue with metoprolol 100 mg daily/ rate controlled [id number] Osorio Burger MD [place] OFFICE [facility] [place] [address] 03/04/2023 13:08:10 03/04/2023 13:41:33 Palpitations 22063221 R00.2 she is on metop 100 mg dailytoday she has one episode of heart flutter and took additional 50 mg metoprolol and now her fluttering is better. Fluttering heart 3242276 04 R00.2 event monitor showed paroxysmal a fib with RVRcontinu e with aspirin and will start xarelto 15 mg dailyconti nue with metoprolol 100 mg daily/ rate controlled Hyperlipidemia 54949695 E78.5 Needs to keep LDL less than 100, and HDL more than 40.LDL 98 done 3Con tinue atorvastat in 10 mg nightly Essential hypertension 39904893 I10 mildly elevated at 140 /67continu e hydralazin e to 50 mg TID daily as it is new for herwill increase if stay high in 3 months [id number] Osorio Burger MD [place] OFF[facility] [place] [address] 04/25/2023 12:25:22 04/25/2023 13:06:17 Palpitations 98668164 R00.2 she is on metop 100 mg daily well controlled today Fluttering heart 1967990 04 R00.2 event monitor showed paroxysmal a fib with RVRcontinu e with aspirin and will start xarelto 15 mg dailyconti nue with metoprolol 100 mg daily/ rate controlled Hyperlipidemia 53932623 E78.5 Needs to keep LDL less than 100, and HDL more than 40.LDL 98 done 3Con tinue atorvastat in 10 mg nightly Essential hypertension 08855912 I10 mildly elevated at 140 /67continu e hydralazin e to 50 mg TID daily as it is new for herwill increase if stay high in 3 months Swelling o f bilateral lower limbs 732061943 M79.89 continue with HCTZ and lasix 40 [id number] Osorio Burger MD [place] OFFICE [address] [place] [address] 08/08/2023 16:55:40 08/08/2023 17:45:53 Palpitations 14495437 R00.2 she is on metop 100 mg daily well controlled today Fluttering heart 7844172 04 R00.2 event monitor showed paroxysmal a fib with RVRcontinu e with aspirin and will start xarelto 15 mg dailyconti nue with metoprolol 100 mg daily/ rate controlled Hyperlipidemia 93743388 E78.5 Needs to keep LDL less than 100, and HDL more than 40.LDL 98 done on tinue atorvastat in 10 mg nightly Essential hypertension 48723622 I10 mildly elevated at 140 /67continu e hydralazin e to 50 mg TID daily as it is new for herwill increase if stay high in 3 months Swelling o f bilateral lower limbs 697391067 M79.89 continue with HCTZ and lasix 40 Obstructiv e sleep apnea syndrome 06371652 G47.33 Home sleep studyHe has leg swelling, fatigue, and snoring [id number] Osorio Burger MD [place] OFFICE [address] [place] [address] 08/29/2023 11:32:59 08/29/2023 12:41:22 Palpitations 19786526 R00.2 she is on metop 100 mg daily well controlled today Fluttering heart 4193484 04 R00.2 event monitor showed paroxysmal a fib with RVRcontinu e with aspirin and will start xarelto 15 mg dailyconti nue with metoprolol 100 mg daily/ rate controlled Hyperlipidemia 04820076 E78.5 Needs to keep LDL less than 100, and HDL more than 40.LDL 98 done 3Con tinue atorvastat in 10 mg nightly Essential hypertension 71446006 I10 mildly elevated at 140 /67continu e hydralazin e to 50 mg TID daily as it is new for herwill increase if stay high in 3 months Swelling o f bilateral lower limbs 082921107 M79.89 continue with HCTZ and lasix 40 Obstructiv e sleep apnea syndrome 22960744 G47.33 Home sleep studyHe has leg swelling, fatigue, and snoring [id number] Osorio Burger MD [place] OFFICE [address] [place] [address] 09/23/2023 13:44:18 09/23/2023 14:51:02 Palpitations 66608725 R00.2 she is on metop 100 mg daily well controlled today Fluttering heart 9900702 04 R00.2 event monitor showed paroxysmal a fib with RVRcontinu e with aspirin full dosecontin ue with metoprolol 100 mg daily/ rate controlled Hyperlipidemia 83201138 E78.5 Needs to keep LDL less than 100, and HDL more than 40.LDL 98 done on tinue atorvastat in 10 mg nightly Essential hypertension 33221018 I10 mildly elevated at 140 /67continu e hydralazin e to 50 mg TID daily as it is new for herwill increase if stay high in 3 months Swelling o f bilateral lower limbs 300604347 M79.89 continue with HCTZ and lasix 40 Obstructiv e sleep apnea syndrome 42803365 G47.33 Home sleep studyHe has leg swelling, fatigue, and snoring [id number] Osorio Burger MD [place] OFFICE [address] [place] [address] 03/16/2024 14:22:29 03/16/2024 15:38:52 Palpitations 50329319 R00.2 she is on metop 100 mg daily well controlled todayObtai n echo to evaluate for structural /functiona l disease. Fluttering heart 9177006 04 R00.2 event monitor showed paroxysmal a fib with RVRcontinu e with aspirin full dosecontin ue with metoprolol 100 mg daily/ rate controlled Hyperlipidemia 18289219 E78.5 Needs to keep LDL less than 100, and HDL more than 40.LDL 98 done 10/2022 Essential hypertension 46612272 I10 Needs to keep LDL less than 70, and HDL more than 40Will get fasting lipids for follow up Swelling o f bilateral lower limbs 893132995 M79.89 continue with HCTZ and lasix 40 Obstructiv e sleep apnea syndrome 10034349 G47.33 on Cpap Health Concerns Section Related Observation LastModified by Organization Detshashank ls LastModified Time None Recorded Concern Status LastModified by Organization Details LastModified Time None Recorded Advance Directives Directive None Recorded Payers Encounter Date Sequence Insurance Name Policy Number Policy Alonzo Covered Member ID Alonzo Member ID Guarantor Name 04/25/2023 1 [facility] [employer] (O) Ira Massey Lord [id number] OI Ira Alaniznes 08/08/2023 1 [facility] [employer] (PPO) Ira Massey Lord [id number] OI Iraemily Alaniznes 08/29/2023 1 [facility] [employer] (O) Ira Massey Lord [id number] OI Ira Alaniznes 09/23/2023 1 [facility] [employer] (O) Ira Alaniznes [id number] OI Ira Alaniznes 03/16/2024 1 [facility] [employer] (PPO) Ira Alaniznes [id number] OI Ira Lord Notes Date Note Type Note Provider Name and Address Organization Details Recorded Time 04/25/2023 text/html 04/25/23CC: Card iac follow-up dyspnea on [id number] Female with h/o mitral valve prolapse, ROSALVA (CPAP) ,Hypertension, Hyperlipidemia , Hypokalemia , paroxysmal a fib, GERD, depression, Anxiety, chronic bilateral pain with left sided sciatica is here for 3 month follow up.She was last seen in the clinic on 03/04/23, since then she is doing well. *Last LDL was 95 done on 10/26/22.Pt takes atorvastatin 10 mg. She denies ER visits and hospitalizations since she was last seen. Today reports:no ccDenies chest pain.Denies shortness of breath at rest. Has mild dyspnea on exertion.No orthopnea. No PNDs.Denies heart palpitations.Denies dizziness. Denies syncope or near syncope.No ankle or leg edema.No major bleeding events.No reported side effects from medications. Taking medications as prescribed with no missed doses.Denies snoring, daytime somnolence and AM headache.*Last LDL was 95 done on 10/26/22.Pt takes atorvastatin 10 mg. Previously:Her event monitor showed paroxysmal Atrial fibrillation with rapid ventricular response. She had occasional Palpitation with chest pain. She took extra dose of metoprolol which is 50 mg today. She is on sinus rhythm. She had palpitation and chest pressure occasionally. Her last stress test negative done 05/2021. She has leg edema and she is using her CPAP daily. *Had ECHO done in 12/02/20 showed LV chamber size is normal,LV wall thickness is normal,LVEF is 65-70%,E to A mitral inflow reversal is consistent with possible diastolic dysfunction,Left atrium chamber is mildly dilated, the aortic valve is mildly calcified, mitral valve prolapse is present,the mitral valve leaflet is mildly thickened,there is mild pulmonic regurgitation, sinus bradycardia. She c/o abnormal EKG at PCP showing, enlarged heart and Palpitation She had one episode of chest discomfort in the middle of her chest which was relieved with Pepcid. She reported increased chest pain and palpitations; had Metoprolol XL increased from 1/2 tab to 1 tab daily. *Had CTA done on 09/02/2019 showing mild Coronary Artery Disease. She was in [facility] in 04/04/19 because of Chest pain. Had negative stress test on 04/04/2019, but noted to have PVC'sResults from this visit, or from the past:EKG 06/01/20: Sinus bradycardia,left axis deviation. 02/05/20 EKG: NSR 12/17/19 EKG: Sinus bradycardia. Otherwise within normal limits 08/05/19 EKG: Normal sinus rhythm within normal limits. 05/15/2019 : EKG : Left axis deviation 04/08/19 Ekg- SR- w/ rare variation. CV=11. Left atrial enlargement. Anteroseptal infarct. 02/24/20 48 HR HOLTER: Unremarkable Holter. 04/22/19 ECHO: LV chamber size is normal. The estimated left ventricle ejection fraction is 55-60%(normal). LV relaxation is impaired. There is borderline left atrial enlargement. There is mild aortic valve sclerosis without significant stenosis. Mitral valve prolapse is present. There is mild thickening of mitral valve anterior leaflet. There is trace mitral regurgitation 09/02/19 CTA: Normal LV function. EF 66%. Mild coronary disease. LM: small distal calcification lesion with <10% stenosis. LAD: proximal calcified lesion with <25% stenosis. Left Circumflex: Significant disease. RCA: large dominant with important RPL branch. 25-40% stenosis in proximal segment. 04/04/2019 : Stress Echo : 10 Negative stress echocardiogram for ischemia by wall motion analysis Stress Echo Findings : Left ventricle No regional wall motion abnormalities noted at rest .Left ventricular endocardium is not well visualized preventing adequate wall motion interpretation at rest Overall global left ventricular systolic function improved post stress Left ventricular ejection fraction increases post stress 04/22/19 ECHO: LV chamber size is normal. The estimated left ventricle ejection fraction is 55-60%(normal). LV relaxation is impaired. There is borderline left atrial enlargement. There is mild aortic valve sclerosis without significant stenosis. Mitral valve prolapse is present. There is mild thickening of mitral valve anterior leaflet. There is trace mitral regurgitation. Osorio Burger MD [address] [place], [address], [facility] 04/25/2023 12:55:21 08/08/2023 text/html 08/08/23CC: Card iac follow-up , [id number] Female with h/o mitral valve prolapse, ROSALVA (CPAP) ,Hypertension, Hyperlipidemia , Hypokalemia , paroxysmal a fib, GERD, depression, Anxiety, chronic bilateral pain with left sided sciatica is here for follow up.She was last seen in the clinic on 04/25/23, since then she has more PalpitationShe denies ER visits and hospitalizations since she was last seen. Today reports:Denies chest pain.Denies shortness of breath at rest. Has mild dyspnea on exertion.No orthopnea. No PNDs.Has heart palpitations.Denies dizziness. Denies syncope or near syncope.No ankle or leg edema.No major bleeding events.No reported side effects from medications. Taking medications as prescribed with no missed doses.Has snoring, daytime somnolence and AM headache.*Last LDL was 95 done on 10/26/22.Pt dose not takes any statins. Previously:Her event monitor showed paroxysmal Atrial fibrillation with rapid ventricular response. She had occasional Palpitation with chest pain. She took extra dose of metoprolol which is 50 mg today. She is on sinus rhythm. She had palpitation and chest pressure occasionally. Her last stress test negative done 05/2021. She has leg edema and she is using her CPAP daily. *Had ECHO done in 12/02/20 showed LV chamber size is normal,LV wall thickness is normal,LVEF is 65-70%,E to A mitral inflow reversal is consistent with possible diastolic dysfunction,Left atrium chamber is mildly dilated, the aortic valve is mildly calcified, mitral valve prolapse is present,the mitral valve leaflet is mildly thickened,there is mild pulmonic regurgitation, sinus bradycardia. She c/o abnormal EKG at PCP showing, enlarged heart and Palpitation She had one episode of chest discomfort in the middle of her chest which was relieved with Pepcid. She reported increased chest pain and palpitations; had Metoprolol XL increased from 1/2 tab to 1 tab daily. *Had CTA done on 09/02/2019 showing mild Coronary Artery Disease. She was in [facility] in 04/04/19 because of Chest pain. Had negative stress test on 04/04/2019, but noted to have PVC'sResults from this visit, or from the past:EKG 06/01/20: Sinus bradycardia,left axis deviation. 02/05/20 EKG: NSR 12/17/19 EKG: Sinus bradycardia. Otherwise within normal limits 08/05/19 EKG: Normal sinus rhythm within normal limits. 05/15/2019 : EKG : Left axis deviation 04/08/19 Ekg- SR- w/ rare variation. CV=11. Left atrial enlargement. Anteroseptal infarct. 02/24/20 48 HR HOLTER: Unremarkable Holter. 04/22/19 ECHO: LV chamber size is normal. The estimated left ventricle ejection fraction is 55-60%(normal). LV relaxation is impaired. There is borderline left atrial enlargement. There is mild aortic valve sclerosis without significant stenosis. Mitral valve prolapse is present. There is mild thickening of mitral valve anterior leaflet. There is trace mitral regurgitation 09/02/19 CTA: Normal LV function. EF 66%. Mild coronary disease. LM: small distal calcification lesion with <10% stenosis. LAD: proximal calcified lesion with <25% stenosis. Left Circumflex: Significant disease. RCA: large dominant with important RPL branch. 25-40% stenosis in proximal segment. 04/04/2019 : Stress Echo : 10 Negative stress echocardiogram for ischemia by wall motion analysis Stress Echo Findings : Left ventricle No regional wall motion abnormalities noted at rest .Left ventricular endocardium is not well visualized preventing adequate wall motion interpretation at rest Overall global left ventricular systolic function improved post stress Left ventricular ejection fraction increases post stress 04/22/19 ECHO: LV chamber size is normal. The estimated left ventricle ejection fraction is 55-60%(normal). LV relaxation is impaired. There is borderline left atrial enlargement. There is mild aortic valve sclerosis without significant stenosis. Mitral valve prolapse is present. There is mild thickening of mitral valve anterior leaflet. There is trace mitral regurgitation. Osorio Burger MD [address] [place], [address], [facility] 08/08/2023 17:37:22 08/29/2023 text/html 08/29/23CC: Card iac follow-up , issues with heart [id number] Female with h/o mitral valve prolapse, ROSALVA (CPAP) ,Hypertension, Hyperlipidemia , Hypokalemia , paroxysmal a fib, GERD, depression, Anxiety, chronic bilateral pain with left sided sciatica is here with c/o issues with heart rate.She was last seen in the clinic on 04/25/23, since then she has issues with heart rateShe denies ER visits and hospitalizations since she was last seen. Today reports:Denies chest pain.Denies shortness of breath at rest. Has mild dyspnea on exertion.No orthopnea. No PNDs.Has heart palpitations.Denies dizziness. Denies syncope or near syncope.No ankle or leg edema.No major bleeding events.No reported side effects from medications. Taking medications as prescribed with no missed doses.Has snoring, daytime somnolence and AM headache.*Last LDL was 95 done on 10/26/22.Pt dose not takes any statins. Previously:Her event monitor showed paroxysmal Atrial fibrillation with rapid ventricular response. She had occasional Palpitation with chest pain. She took extra dose of metoprolol which is 50 mg today. She is on sinus rhythm. She had palpitation and chest pressure occasionally. Her last stress test negative done 05/2021. She has leg edema and she is using her CPAP daily. *Had ECHO done in 12/02/20 showed LV chamber size is normal,LV wall thickness is normal,LVEF is 65-70%,E to A mitral inflow reversal is consistent with possible diastolic dysfunction,Left atrium chamber is mildly dilated, the aortic valve is mildly calcified, mitral valve prolapse is present,the mitral valve leaflet is mildly thickened,there is mild pulmonic regurgitation, sinus bradycardia. She c/o abnormal EKG at PCP showing, enlarged heart and Palpitation She had one episode of chest discomfort in the middle of her chest which was relieved with Pepcid. She reported increased chest pain and palpitations; had Metoprolol XL increased from 1/2 tab to 1 tab daily. *Had CTA done on 09/02/2019 showing mild Coronary Artery Disease. She was in [facility] in 04/04/19 because of Chest pain. Had negative stress test on 04/04/2019, but noted to have PVC'sResults from this visit, or from the past:EKG 06/01/20: Sinus bradycardia,left axis deviation. 02/05/20 EKG: NSR 12/17/19 EKG: Sinus bradycardia. Otherwise within normal limits 08/05/19 EKG: Normal sinus rhythm within normal limits. 05/15/2019 : EKG : Left axis deviation 04/08/19 Ekg- SR- w/ rare variation. CV=11. Left atrial enlargement. Anteroseptal infarct. 02/24/20 48 HR HOLTER: Unremarkable Holter. 04/22/19 ECHO: LV chamber size is normal. The estimated left ventricle ejection fraction is 55-60%(normal). LV relaxation is impaired. There is borderline left atrial enlargement. There is mild aortic valve sclerosis without significant stenosis. Mitral valve prolapse is present. There is mild thickening of mitral valve anterior leaflet. There is trace mitral regurgitation 09/02/19 CTA: Normal LV function. EF 66%. Mild coronary disease. LM: small distal calcification lesion with <10% stenosis. LAD: proximal calcified lesion with <25% stenosis. Left Circumflex: Significant disease. RCA: large dominant with important RPL branch. 25-40% stenosis in proximal segment. 04/04/2019 : Stress Echo : 10 Negative stress echocardiogram for ischemia by wall motion analysis Stress Echo Findings : Left ventricle No regional wall motion abnormalities noted at rest .Left ventricular endocardium is not well visualized preventing adequate wall motion interpretation at rest Overall global left ventricular systolic function improved post stress Left ventricular ejection fraction increases post stress 04/22/19 ECHO: LV chamber size is normal. The estimated left ventricle ejection fraction is 55-60%(normal). LV relaxation is impaired. There is borderline left atrial enlargement. There is mild aortic valve sclerosis without significant stenosis. Mitral valve prolapse is present. There is mild thickening of mitral valve anterior leaflet. There is trace mitral regurgitation. 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 Has mild dyspnea on exertion.No orthopnea. No PNDs.Denies heart palpitations.Denies dizziness. Denies syncope or near syncope.No ankle or leg edema.No major bleeding events.No reported side effects from medications. Taking medications as prescribed with no missed doses.Denies snoring, daytime somnolence and AM headache.*Last LDL was 95 done on 10/26/22.Pt dose not takes any statins. *She had Cardiac ECHOCARDIOGRAM on 09/18/23 showed The left ventricular size is normal. No left ventricular hypertrophy. The ejection fraction is 60-65%. Diastolic filling is indeterminate. The right ventricle size is normal. The right ventricular function is normal. Left atrial size is moderately enlarged. The right atrial size is normal. Bubble study negative for PFO. Mild pulmonic regurgitation There is trace tricuspid regurgitation. Previously:Last visit came with c/o issues with heart rate.Her event monitor showed paroxysmal Atrial fibrillation with rapid ventricular response. Her last stress test negative done 05/2021. She has leg edema and she is using her CPAP daily. *Had ECHO done in 12/02/20 showed LV chamber size is normal,LV wall thickness is normal,LVEF is 65-70%,E to A mitral inflow reversal is consistent with possible diastolic dysfunction,Left atrium chamber is mildly dilated, the aortic valve is mildly calcified, mitral valve prolapse is present,the mitral valve leaflet is mildly thickened,there is mild pulmonic regurgitation, sinus bradycardia. She c/o abnormal EKG at PCP showing, enlarged heart and Palpitation She reported increased chest pain and palpitations; had Metoprolol XL increased from 1/2 tab to 1 tab daily. *Had CTA done on 09/02/2019 showing mild Coronary Artery Disease. She was in [facility] in 04/04/19 because of Chest pain. Had negative stress test on 04/04/2019, but noted to have PVC'sResults from this visit, or from the past:EKG 06/01/20: Sinus bradycardia,left axis deviation. 02/05/20 EKG: NSR 12/17/19 EKG: Sinus bradycardia. Otherwise within normal limits 08/05/19 EKG: Normal sinus rhythm within normal limits. 05/15/2019 : EKG : Left axis deviation 04/08/19 Ekg- SR- w/ rare variation. CV=11. Left atrial enlargement. Anteroseptal infarct. 02/24/20 48 HR HOLTER: Unremarkable Holter. 04/22/19 ECHO: LV chamber size is normal. The estimated left ventricle ejection fraction is 55-60%(normal). LV relaxation is impaired. There is borderline left atrial enlargement. There is mild aortic valve sclerosis without significant stenosis. Mitral valve prolapse is present. There is mild thickening of mitral valve anterior leaflet. There is trace mitral regurgitation 09/02/19 CTA: Normal LV function. EF 66%. Mild coronary disease. LM: small distal calcification lesion with <10% stenosis. LAD: proximal calcified lesion with <25% stenosis. Left Circumflex: Significant disease. RCA: large dominant with important RPL branch. 25-40% stenosis in proximal segment. 04/04/2019 : Stress Echo : 10 Negative stress echocardiogram for ischemia by wall motion analysis Stress Echo Findings : Left ventricle No regional wall motion abnormalities noted at rest .Left ventricular endocardium is not well visualized preventing adequate wall motion interpretation at rest Overall global left ventricular systolic function improved post stress Left ventricular ejection fraction increases post stress 04/22/19 ECHO: LV chamber size is normal. The estimated left ventricle ejection fraction is 55-60%(normal). LV relaxation is impaired. There is borderline left atrial enlargement. There is mild aortic valve sclerosis without significant stenosis. Mitral valve prolapse is present. There is mild thickening of mitral valve anterior leaflet. There is trace mitral regurgitation. 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 Today reports: CC: pt states no concerns at this timeDenies chest pain.Denies shortness of breath at rest. Has mild dyspnea on exertion.No orthopnea. No PNDs.Denies heart palpitations.Denies dizziness. Denies syncope or near syncope.No ankle or leg edema.No major bleeding events.No reported side effects from medications. Taking medications as prescribed with no missed doses.Denies snoring, daytime somnolence and AM headache.*Last LDL was 95 done on 10/26/22.Pt dose not takes any statins. Previously:She was in the hospital on 09/16/23 because of Weakness and diagnosed with Anemia and Chronic kidney disease.*She had ECHO on 09/18/23 showed The left ventricular size is normal. No left ventricular hypertrophy. The ejection fraction is 60-65%. Diastolic filling is indeterminate. The right ventricle size is normal. The right ventricular function is normal. Left atrial size is moderately enlarged. The right atrial size is normal. Bubble study negative for PFO. Mild pulmonic regurgitation There is trace tricuspid regurgitation. Her event monitor showed paroxysmal Atrial fibrillation with rapid ventricular response. Her last stress test negative done 05/2021. She c/o abnormal EKG at PCP showing, enlarged heart and Palpitation She reported increased chest pain and palpitations; had Metoprolol XL increased from 1/2 tab to 1 tab daily. *Had CTA done on 09/02/2019 showing mild Coronary Artery Disease. She was in [facility] in 04/04/19 because of Chest pain. Had negative stress test on 04/04/2019, but noted to have PVC'sResults from this visit, or from the past:EKG 06/01/20: Sinus bradycardia,left axis deviation. 02/05/20 EKG: NSR 12/17/19 EKG: Sinus bradycardia. Otherwise within normal limits 08/05/19 EKG: Normal sinus rhythm within normal limits. 05/15/2019 : EKG : Left axis deviation 04/08/19 Ekg- SR- w/ rare variation. CV=11. Left atrial enlargement. Anteroseptal infarct. 02/24/20 48 HR HOLTER: Unremarkable Holter. 04/22/19 ECHO: LV chamber size is normal. The estimated left ventricle ejection fraction is 55-60%(normal). LV relaxation is impaired. There is borderline left atrial enlargement. There is mild aortic valve sclerosis without significant stenosis. Mitral valve prolapse is present. There is mild thickening of mitral valve anterior leaflet. There is trace mitral regurgitation 09/02/19 CTA: Normal LV function. EF 66%. Mild coronary disease. LM: small distal calcification lesion with <10% stenosis. LAD: proximal calcified lesion with <25% stenosis. Left Circumflex: Significant disease. RCA: large dominant with important RPL branch. 25-40% stenosis in proximal segment. 04/04/2019 : Stress Echo : 10 Negative stress echocardiogram for ischemia by wall motion analysis Stress Echo Findings : Left ventricle No regional wall motion abnormalities noted at rest .Left ventricular endocardium is not well visualized preventing adequate wall motion interpretation at rest Overall global left ventricular systolic function improved post stress Left ventricular ejection fraction increases post stress 04/22/19 ECHO: LV chamber size is normal. The estimated left ventricle ejection fraction is 55-60%(normal). LV relaxation is impaired. There is borderline left atrial enlargement. There is mild aortic valve sclerosis without significant stenosis. Mitral valve prolapse is present. There is mild thickening of mitral valve anterior leaflet. There is trace mitral regurgitation. Osorio Burger MD [address] [place], [address], [facility] 03/16/2024 15:32:10 OBGyn Episode No OBEpisode recorded.
--- OUTSIDE RECORDS SUMMARY | 2024-03-27 00:27 | XMS_ITS | Clinical Summary ---
Author Organization [facility] Address [address] [place] [address] Care Team Providers Care Antenna Installer Name Role Phone Tip Gordon MD Primary Care Provider [phone] Allergies Active Allergy Reactions Criticality Noted Date Comments Niacin Rash Low 01/25/2019 Penicillins Rash Low 01/25/2019 Pregabalin Other (see comment) 03/14/2021 Medications albuterol sulfate HFA 108 (90 Base) MCG/ACT inhaler Inhale 2 puffs into the lungs every 4 (four) hours as needed for Shortness of breath. Active amLODIPine 10 MG tablet Take 1 tablet (10 mg total) by mouth daily. 2 Active atorvastatin 10 MG tablet Take 1 tablet (10 mg total) by mouth daily. 2 Active clonazePAM 0.25 MG disintegrating tablet Take 1 tablet (0.25 mg total) by mouth 2 (two) times daily as needed (anxiety). 2 Active famotidine 40 MG tablet Take 1 tablet (40 mg total) by mouth daily as needed for Heartburn. 2 Active calcitriol (ROCALTROL) 0.25 MCG capsule Take 1 capsule (0.25 mcg total) by mouth 3 (three) times a week. On Mondays, Wednesdays, and Fridays Active hydrALAZINE (APRESOLINE) 50 MG tablet Take 1 tablet (50 mg total) by mouth 3 (three) times daily. Active amiodarone (PACERONE) 200 MG tablet Take 1 tablet (200 mg total) by mouth daily. Active metoprolol succinate ER (TOPROL-XL) 50 MG 24 hr tablet Take 1 tablet (50 mg total) by mouth daily. 30 tablet 1 4 Active ferrous sulfate, 65 mg elemental, 325 (65 FE) MG tablet Take 1 tablet (325 mg total) by mouth daily with breakfast. 30 tablet 2 4 Active Active Problems Problem Noted Date Diagnosed Date Anemia 09/16/2023 Encounters Date Type Department Care Team Description 03/11/2024 8:00 AM DEHYDRATION PLANT OPERATOR - 03/11/2024 11:59 PM [facility] Hospital Encounter [facility] [place] [address] Juno Field MD Discharge Disposition: Home or Self Care (Routine Discharge) 03/11/2024 Travel from Last 3 Months Social History Tobacco Use Types Packs/Day Years Used Date Smoking Tobacco: Never Smokeless Tobacco: Never Alcohol Use Standard Drinks/Week Comments Not Currently 0 (1 standard drink = 0.6 oz pur e alcohol) B1300 Health Literacy Answer Date Recor ded How often do you need to hav e someone help you when you read instructions, pamphlets, or other written material from your doctor or pharmacy? Patient declines to respond 09/16/2023 [facility] Utilities Answer Date Recorded In the past 12 months has [facility] Open Utility, oil, or water [employer] threatened to shut off services in your home? Patient declined 09/16/2023 Humiliation, Afraid, Rape, and Kick questionnair e Answer Date Recorded Within the last year, have y ou been afraid of your partner or ex-partner? Patient declined 09/16/2023 Within the last year, have y ou been humiliated or emotionally abused in other ways by your partner or ex-partner? Patient declined 09/16/2023 Within the last year, have y ou been kicked, hit, slapped, or otherwise physically hurt by your partner or ex-partner? Patient declined 09/16/2023 Within the last year, have y ou been raped or forced to have any kind of sexual activity by your partner or ex-partner? Patient declined 09/16/2023 Social Connection and Isolat ion Panel [NHANES] Answer Date Recorded In a typical week, how many times do you talk on the phone with family, friends, or neighbors? More than three times a week 09/16/2023 How often do you get togethe r with friends or relatives? Once a week 09/16/2023 How often do you attend chur ch or tenriism services? More than 4 times per year 09/16/2023 Do you belong to any clubs o r organizations such as yarsanism groups, unions, fraternal or athletic groups, or school groups? Yes 09/16/2023 How often do you attend meet ings of the clubs or organizations you belong to? More than 4 times per year 09/16/2023 Are you , , di vorced, , never , or living with a partner? 09/16/2023 AUDIT-C Answer Date Recorded Q1: How often do you have a drink containing alc ohol? Patient declined 09/16/2023 Q2: How many drinks containi ng alcohol do you have on a typical day when you are drinking? Patient declined 09/16/2023 Q3: How often do you have si x or more drinks on one occasion? Patient declined 09/16/2023 Overall Financial Resource Strain (CARDIA) Answe r Date Recorded How hard is it for you to pa y for the very basics like food, housing, medical care, and heating? Patient declined 09/16/2023 [facility] - Occupational Stress Questionnaire Answer Date Recorded Do you feel stress - tense, restless, nervous, or anxious, or unable to sleep at night because your mind is troubled all the time - these days? Patient declined 09/16/2023 Exercise Vital Sign Answer Date Recorde d On average, how many days pe r week do you engage in moderate to strenuous exercise (like a brisk walk)? 7 days 09/16/2023 On average, how many minutes do you engage in exercise at this level? 60 min 09/16/2023 Hunger Vital Sign Answer Date Recorded Within the past 12 months, y ou worried that your food would run out before you got the money to buy more. Patient declined Within the past 12 months, t he food you bought just didn't last and you didn't have money to get more. Patient declined 04/2023 PRAPARE - Transportation Answer Date Re corded In the past 12 months, has l ack of transportation kept you from medical appointments or from getting medications? No 04/2023 In the past 12 months, has l ack of transportation kept you from meetings, work, or from getting things needed for daily living? No 09/16/2023 Housing Stability Vital Sign Answer Teddy e Recorded In the last 12 months, was t here a time when you were not able to pay the mortgage or rent on time? No 09/16/2023 In the past 12 months, how m any times have you moved where you were living? 1 09/16/2023 At any time in the past 12 m [facility], were you homeless or living in a jail (including now)? No 09/16/2023 Comments No Sex and Gender Information Value Date Recorded Sex Assigned at Female 03/11/2024 8:03 AM DEHYDRATION PLANT OPERATOR Legal Sex Female 6:23 PM CDT Gender Identity Not on file Sexual Orientation Not on file Last Filed Vital Signs Vital Sign Reading Time Taken Comments Blood Pressure 122/48 09/20/2023 11:45 AM CDT Pulse 61 09/20/2023 11:39 AM CDT Temperature 36.7 C (98.1 F) 09/20/2023 11:39 AM CDT Respiratory Rate 17 09/20/2023 11:39 AM CDT Oxygen Saturation 100% 09/20/2023 11:39 AM CDT Inhaled Oxygen Concentration - - Weight 74.5 kg (164 lb 3.2 oz) 09/20/2023 2:28 A M CDT Height 157.5 cm (5' 2 ) 09/16/2023 2:56 PM CDT Body Mass Index 30.03 09/16/2023 2:56 PM CDT Plan of Treatment Health Maintenance Due Date Last Done Comments Hepatitis C 1970 Mammogram Screening 1992 RSV Immunization or 60+ Years (1 - Risk 60-74 years 1-dose series) 2012 Dexa Scan (General) 2017 Colorectal Cancer Screening FIT/FOBT (1 Year) 09/15/2024 09/16/2023 DTaP, Tdap and Td Vaccines (3 - Td or Tdap) 07/05/2032 07/05/2022, 03/02/2015 Pneumococcal Vaccine: 65+ Years Completed 02/24/2022 Zoster Vaccines Completed 04/12/2022, 01/23/2022 COVID-19 Vaccine Completed 12/09/2023, 12/2020, 04/16/2020, Additional history exists Influenza Adult Completed 12/09/2023, 10/23/2012 Meningococcal B Vaccine Aged Out No l onger eligible based on patient's age to complete this topic Meningococcal Vaccine Aged Out No romaine su eligible based on patient's age to complete this topic RSV Immunizations Under 20 Months Aged Out No longer eligible based on patient's age to complete this topic Goals Goal Patient Goal Type Associated Problems Recent Progress Patient-Stated? Author Patient will return to prior living situation and remain independent in ADLs upon discharge from hospital Lifestyle Cesilia Bolanos RN Procedures Procedure Name Priority Date/Time Associated Diagnosis Comments MRI ABD WWO CON Routine 03/11/2024 9:15 AM DEHYDRATION PLANT OPERATOR Left renal mass OCCULT BLOOD, FECES STAT 09/16/2023 5 :50 PM CDT from Last 3 Months or Most Recently Relevant to Health Maintenance Results * MRI ABD WWO CON (03/11/2024 9:15 AM DEHYDRATION PLANT OPERATOR) Anatomical Region Laterality Modality Abdomen Magnetic Resonan ce 03/12/2024 4:21 PM DEHYDRATION PLANT OPERATOR Impressions 03/12/2024 4:27 PM DEHYDRATION PLANT OPERATOR =====IMPRESSION:===== 1. Complex abnormalities of both kidneys. These appear to represent a bilateral combination of benign Bosniak type II simple cysts and Bosniak type II F indeterminate cysts of relatively low suspicion. These do not appear to be significantly changed in comparison to the previous study. Correlation with follow-up pre and post contrast renal protocol MRI abdomen in 6 months would be recommended for continued evaluation. Ordered By: JUNO FIELD Interpreted By: Kennedy Ortiz MD, 03/12/2024 4:21 PM Narrative 03/12/2024 4:27 PM DEHYDRATION PLANT OPERATOR [address] [address] EXAMINATION: MRI Abdomen with/without contrast EXAM DATE/TIME: 03/11/2024 8:15 AM REASON FOR EXAM: Left renal mass ablation, multiple bilateral renal lesions. COMPARISON: MRI abdomen 05/12/2023 TECHNIQUE: Multiplanar, multisequence imaging of the abdomen was obtained before and after uneventful intravenous administration of 16 mL Dotarem gadolinium contrast. FINDINGS: There is some respiratory motion artifact and misregistration along with some associated subtraction artifact decreasing the sensitivity of study. The liver is normal in size. Small benign-appearing intrahepatic cysts. No significant liver lesions are demonstrated. No evidence of cholelithiasis nor gallbladder wall thickening. No biliary duct dilatation. The spleen, pancreas, and the adrenal glands are unremarkable. Complex multifocal abnormalities are again noted involving both kidneys. There are numerous simple and complex appearing cystic lesions present throughout both lesions. Several of the lesions including a 2.3 cm low pole left renal lesion have high signal intensity on noncontrast T1-weighted images suggesting hemorrhagic content. Following intravenous injection of gadolinium contrast none of the lesions appear to be showing any significant focal enhancement in these are not significantly changed in comparison to previous study. These are felt to represent a combination of multiple Bosniak type II and Bosniak type II F lesions. The renal veins are unremarkable. There is no significant lymphadenopathy no acute inflammatory change, abscess nor ascites. Procedure Note Kennedy Ortiz MD - 03/12/[address] [address] EXAMINATION: MRI Abdomen with/without contrast EXAM DATE/TIME: 03/11/2024 8:15 AM REASON FOR EXAM: Left renal mass ablation, multiple bilateral renallesions. COMPARISON: MRI abdomen 05/12/2023 TECHNIQUE: Multiplanar, multisequence imaging of the abdomen was obtainedbefore and after uneventful intravenous administration of 16 mL Dotaremgadolinium contrast. FINDINGS: There is some respiratory motion artifact and misregistrationalong with some associated subtraction artifact decreasing the sensitivityof study. The liver is normal in size. Small benign-appearing intrahepaticcysts. No significant liver lesions are demonstrated. No evidence ofcholelithiasis nor gallbladder wall thickening. No biliary ductdilatation. The spleen, pancreas, and the adrenal glands are unremarkable. Complex multifocal abnormalities are again noted involving both kidneys.There are numerous simple and complex appearing cystic lesions presentthroughout both lesions. Several of the lesions including a 2.3 cm lowpole left renal lesion have high signal intensity on noncontrastT1-weighted images suggesting hemorrhagic content. Following intravenousinjection of gadolinium contrast none of the lesions appear to be showingany significant focal enhancement in these are not significantly changedin comparison to previous study. These are felt to represent a combinationof multiple Bosniak type II and Bosniak type II F lesions. The renal veinsare unremarkable. There is no significant lymphadenopathy no acuteinflammatory change, abscess nor ascites. =====IMPRESSION:===== 1. Complex abnormalities of both kidneys. These appear to represent abilateral combination of benign Bosniak type II simple cysts and Bosniaktype II F indeterminate cysts of relatively low suspicion. These do notappear to be significantly changed in comparison to the previous study.Correlation with follow-up pre and post contrast renal protocol MRIabdomen in 6 months would be recommended for continued evaluation. Ordered By: JUNO FIELD Interpreted By: Kennedy Ortiz MD, 03/12/2024 4:21 PM Juno Field MD MRI Patience l Result * OCCULT BLOOD, FECES (09/16/2023 5:50 PM CDT) OCCULT BLOOD FECAL NEGATIVE 09/16/2023 7:06 PM CDT [facility] STOOL SPECIMEN / Unknown 09/16/2023 5:50 PM CDT Nicholas Nassar MD BODY FLUIDS AND STOOLS ORDERAB LES Final Result [facility] [address] [place] [address], [place] [phone] from Last 3 Months or Most Recently Relevant to Health Maintenance Insurance [employer] [facility] A Advance Directives * Full Code (Latest Code Status on File) Date Activated Date Inactivated Comments 09/16/2023 7:01 PM 09/20/2023 3:53 PM Care Teams Antenna Installer Relationship Specialty Start Date End Date Tip Gordon MD [address] [place] [address] PCP - General FAMILY PRACTICE 04/27/21
--- OUTSIDE RECORDS SUMMARY | 2024-03-27 00:27 | XMS_ITS | Encounter Summary ---
Author Organization [facility] Address [address] [place] [address] Care Team Providers Care Washer Engineer Name Role Phone Tip Gordon MD Primary Care Provider [phone] Reason for Visit * Reason Onset Date Comments SURGICAL ADMIT 11/07/2019 SPOKE [address] JASMIN Wray WITH [facility] Encounter Details Date Type Department Care Team (Late st Contact Info) Description 11/07/2019 Telephone [facility] Admitting [address] [place] [address] [place] [address] [facility] [address] [place] [address] SURGICAL ADMIT (SPOKE TO JASMIN MENDOZA WITH DR[facility]) Social History Tobacco Use Types Packs/Day Years [...] file Not on file Not on file COVID-19 Exposure Response Date Recorded In the last month, have you been in contact with someone who was confirmed or suspected to have Coronavirus / COVID-19? No / Unsure 11/03/2019 10:26 AM CDT documented as of this encounter Plan of Treatment Not on file documented as of this encounter Visit Diagnoses Not on filedocumented in this encounter Care Teams Washer Engineer Relationship Specialty Start Date End Date Tip Gordon MD [address] [facility] [address] [place] [address] PCP - General Family Practice 11/12/18 documented as of this encounter
--- OUTSIDE RECORDS SUMMARY | 2024-03-27 00:27 | XMS_ITS | Clinical Summary ---
Author Organization [facility] Address [address] [place] [id number] Phone Care Team Providers Care Wet Mix Operator Name Role Phone Tip Gordon MD Primary Care Provider Allergies Active Allergy Reactions Criticality Noted Date Comments Hydrocodone 03/14/2021 Morphine 03/14/2021 Niacin Rash Low 01/25/2019 Penicillins Rash Low 01/25/2019 Pregabalin 03/14/2021 Tramadol 03/14/2021 Medications Medication Sig Dispensed Refills Start Date End Date Status alendronate (FOSAMAX) 35 MG tablet 01/26/2021 Active ALPRAZolam (XANAX) 0.25 MG tablet 12/11/2020 Active amLODIPine (NORVASC) 10 MG tablet 02/19/2021 Active famotidine (PEPCID) 40 MG tablet 12/05/2020 Active furosemide (LASIX) 20 MG tablet 02/11/2021 Active lisinopril (PRINIVIL) 40 MG tablet 02/15/2021 Active metoprolol succinate XL (TOPROL-XL) 25 MG 24 hr tablet 12/23/2020 Active ondansetron ODT (ZOFRAN-ODT) 4 MG dispersible tablet 12/30/2020 Active pantoprazole (PROTONIX) 40 MG EC tablet 01/19/2021 Active sertraline (ZOLOFT) 25 MG tablet daily 06/11/2020 Active Sod Picosulfate-Mag Ox-Cit Acd (Clenpiq) 10-3.5-12 MG-GM -GM/160ML solution Clenpiq 10 mg-3.5 gram-12 gram/160 mL oral solution PLEASE SEE ATTACHED FOR DETAILED DIRECTIONS Active Active Problems Problem Noted Date Diagnosed Date Edema of lower extremity 04/27/2019 Ventricular premature beats 04/27/2019 Anxiety 04/05/2019 Arthritis 04/05/2019 Atypical chest pain 04/05/2019 Carpal tunnel syndrome 04/05/2019 Depressive disorder 04/05/2019 Essential hypertension 04/05/2019 Fracture of ankle 04/05/2019 Gastroesophageal reflux disease 04/05/2019 Hyperlipidemia 04/05/2019 Hypokalemia 04/05/2019 Mitral valve prolapse 04/05/2019 Lumbago 04/05/2019 Palpitations 04/05/2019 Renal stone 04/05/2019 Solitary nodule of lung 04/05/2019 Lumbar spondylolisthesis 01/22/2019 Neurogenic claudication 01/22/2019 Immunizations Name Administration Dates Next Due Sars-cov-2, Unspecified 07/01/2020 Family History Medical History Relation Comments Thrombotic thrombocytopenic purpura Daughter Hypertension Father Parkinson's disease Father Hypertension Mother Diabetes mellitus Sibling Relation Status Comments Daughter Alive Father Mother Sibling Alive Social History Tobacco Use Types Packs/Day Years Used Date Smoking Tobacco: Never Smokeless Tobacco: Never Alcohol Use Standard Drinks/Week Comments Never 0 (1 standard drink = 0.6 oz pur e alcohol) Sex and Gender Information Value Date Recorded Sex Assigned at Not on file Gender Identity Not on file Sexual Orientation Not on file Last Filed Vital Signs Vital Sign Reading Time Taken Comments Blood Pressure 136/74 03/03/2021 9:47 AM FILER AND SANDER Pulse - - Temperature 36.6 C (97.8 F) 03/03/2021 9:47 AM FILER AND SANDER Respiratory Rate 18 03/03/2021 9:47 AM FILER AND SANDER Oxygen Saturation - - Inhaled Oxygen Concentration - - Weight 81.2 kg (179 lb) 03/03/2021 9:47 AM FILER AND SANDER Height 157.5 cm (5' 2 ) 03/03/2021 9:47 AM FILER AND SANDER Body Mass Index 32.74 03/03/2021 9:47 AM FILER AND SANDER Plan of Treatment Health Maintenance Due Date Last Done Comments Pneumococcal PPSV23/PCV13 65 + Years / Low and Medium Risk (1 of 4 - PCV) 2017 Influenza Vaccine (#1) 2023 10/23/2012 Care Teams Wet Mix Operator Relationship Specialty Start Date End Date Tip Gordon MD [address] [facility] [address] [facility] [address] [place] [id number] PCP - General Internal Medicine 01/27/21
[2024-03-27 06:53] VITALS: BP 209/60; PULSE 53; RESP 16; TEMP 35.7; O2SAT 100; BMI 30.7
[2024-03-27] MEDS: LACTATED RINGERS 1,000 ML 150 ML IV CONT (07:01)
--- NOTE | 2024-03-27 07:36 | WPDANESEPPF ---
Anes - Initial Pre Proc Eval Procedure: Operation Date: 03/27/24 08:00 Proposed Procedures p Esophagogastroduodenoscopy - Ignacio Nuno MD Date/Time: 03/27/24 07:36 Surgeon: Ignacio Nuno MD Pre Op Diagnosis: Polyp of stomach Patient Data Age: 73 Gender: F Height: 1.57 m Weight: 76.2 kg Last Vital Signs Temp 96.2 F L 03/27/24 06:53 Pulse 53 L 03/27/24 06:53 Resp 16 03/27/24 06:53 BP 209/60 H 03/27/24 06:53 Pulse Ox 100 03/27/24 06:53 O2 Del Method Room Air 03/27/24 06:53 Allergies Allergy/AdvReac Type Severity Reaction Status Date / Time pregabalin Allergy Intermediate LETHARGIC, Verified 03/27/24 06:49 SLEEPY, SPACEY niacin Allergy Mild Rash Verified 03/27/24 06:49 Penicillins Allergy Mild Rash Verified 03/27/24 06:49 buspirone AdvReac Intermediate Agitated Verified 03/27/24 06:49 hydrocodone AdvReac Mild Nausea and Verified 03/27/24 06:49 Vomiting morphine AdvReac Mild Nausea and Verified 03/27/24 06:49 Vomiting tramadol AdvReac Mild Gastrointestinal Verified 03/27/24 06:49 Upset Home Medications ?Medication ?Instructions ?Recorded ?Confirmed ?Type atorvastatin 10 mg tablet 10 mg PO DAILY 01/21/19 03/27/24 History omega 1-rmt-pov-fish oil 300 1 cap PO DAILY 10/17/19 03/27/24 History mg-1,000 mg capsule (Fish Oil) amlodipine 10 mg tablet See Rx Instructions .Route 08/25/20 03/27/24 Rx .COMPLEX #90 tabs hydralazine 50 mg tablet 50 mg PO TID 11/03/22 03/27/24 History nitroglycerin 0.4 mg sublingual 0.4 mg sublingual Q5M PRN Chest 11/03/22 03/13/24 History tablet Pain ondansetron 4 mg disintegrating 4 - 8 mg (1 - 2 x 4 mg) PO Q8H PRN 07/03/23 03/13/24 Rx tablet nausea and vomiting #30 tabs calcitriol 0.25 mcg capsule 0.25 mcg PO 3XW #48 caps 08/09/23 03/27/24 Rx cyclobenzaprine 10 mg tablet 10 mg PO TID PRN muscle spasm #30 08/25/23 03/27/24 Rx tabs ferrous sulfate 325 mg (65 mg 325 mg PO EVERY OTHER DAY 30 days 09/13/23 03/27/24 Rx iron) tablet #15 tabs metoprolol succinate 50 mg 50 mg PO DAILY 10/09/23 03/27/24 History tablet,extended release 24 hr pantoprazole 40 mg tablet,delayed 40 mg PO QAM 12/21/23 03/27/24 History release (Protonix) amiodarone 200 mg tablet 200 mg PO DAILY 12/25/23 03/27/24 History aspirin 325 mg tablet,delayed 325 mg PO DAILY 12/25/23 03/27/24 History release triamcinolone acetonide 0.1 % 1 applic topical DAILY #60 mL 02/05/24 03/13/24 Rx lotion lisinopril 10 mg tablet 10 mg PO DAILY #30 tabs 02/16/24 03/27/24 Rx clonazepam 0.25 mg disintegrating 0.25 mg PO BID #60 tabs 03/03/24 03/27/24 Rx tablet potassium chloride 20 mEq 20 meq PO DAILY #90 tabs 03/14/24 03/27/24 Rx tablet,extended release Patient hx anesthesia problems: none Family hx anesthesia problems: none Results Review: All pre-operative results and documents have been reviewed as part of the pre-operative evaluation. 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 Bicahlo History of bilateral carpal tunnel release 2002 and 2005 Hx of section History of hysterectomy 1985 Family History Family History Father , He in June 2019 due to complications of COVID-19. Hypertension Parkinson disease Mother Hypertension Sibling Diabetes mellitus Daughter , at age 34. (2011) TTP (thrombotic thrombocytopenic purpura) Social History Social History Social History: Primary Care Provider: Dr. 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 Gender identity (if verbalized by the patient): Female Sexual Orientation (if Verbalized by the Patient): Straight or Heterosexual Spiritual care concerns: Yes Agree to blood products: No Anes - Eval Final PreProcedure Day of Procedure 03/27/24 07:36 Patient weight: overweight Lungs: normal air movement Airway: Mallampati scale and special considerations (Missing many upper teeth. ) Neurological: alert and oriented Last oral intake: >/= 8 hours ASA classification: IV Emergent: no Anesthetic plan: proceed Anesthesia type and monitoring: general GIVS and standard monitoring Results Review: All pre-operative results and documents have been reviewed as part of the pre-operative evaluation. Paroxysmal afib, off AC, ROSALVA on CPAP, CKD w chronic anemia. Hgb 9.1 on03/04/24. Pt reports home BPs 160-180 systolic. Informed Consent: The patient's anesthetic plan and its attendant risks and benefits were discussed with the patient/family/POA. Questions were solicited and answers provided to the satisfaction of the patient/family/POA.
--- NOTE | 2024-03-27 07:55 | PM.IMHP ---
H&P: HPI History of Present Illness Date/Time: 03/27/24 07:55 Chief Complaint: History of gastric polyp Narrative: on 01/05/2024 a 1.7 cm gastric polyp was removed by endoscopic mucosal resection. Pathology showed a hyperplastic polyp. Three clips were placed on the resection site. She is here today for EGD, to check resection site. No complaints, no rectal bleeding no abdominal pain. She has been kept on a PPI. 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 Hilario History of bilateral carpal tunnel release 2002 and 2005 Hx of section History of hysterectomy 1985 Family History Family History Father , He in June 2019 due to complications of COVID-19. Hypertension Parkinson disease Mother Hypertension Sibling Diabetes mellitus Daughter , at age 34. (2011) TTP (thrombotic thrombocytopenic purpura) Social History Social History Social History: Primary Care Provider: Dr. 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 Gender identity (if verbalized by the patient): Female Sexual Orientation (if Verbalized by the Patient): Straight or Heterosexual Spiritual care concerns: Yes Agree to blood products: No Meds Home Medications and Allergies Home Medications ?Medication ?Instructions ?Recorded ?Confirmed ?Type atorvastatin 10 mg tablet 10 mg PO DAILY 01/21/19 03/27/24 History omega 7-qcu-clo-fish oil 300 1 cap PO DAILY 10/17/19 03/27/24 History mg-1,000 mg capsule (Fish Oil) amlodipine 10 mg tablet See Rx Instructions .Route 08/25/20 03/27/24 Rx .COMPLEX #90 tabs hydralazine 50 mg tablet 50 mg PO TID 11/03/22 03/27/24 History nitroglycerin 0.4 mg sublingual 0.4 mg sublingual Q5M PRN Chest 11/03/22 03/13/24 History tablet Pain ondansetron 4 mg disintegrating 4 - 8 mg (1 - 2 x 4 mg) PO Q8H PRN 07/03/23 03/13/24 Rx tablet nausea and vomiting #30 tabs calcitriol 0.25 mcg capsule 0.25 mcg PO 3XW #48 caps 08/09/23 03/27/24 Rx cyclobenzaprine 10 mg tablet 10 mg PO TID PRN muscle spasm #30 08/25/23 03/27/24 Rx tabs ferrous sulfate 325 mg (65 mg 325 mg PO EVERY OTHER DAY 30 days 09/13/23 03/27/24 Rx iron) tablet #15 tabs metoprolol succinate 50 mg 50 mg PO DAILY 10/09/23 03/27/24 History tablet,extended release 24 hr pantoprazole 40 mg tablet,delayed 40 mg PO QAM 12/21/23 03/27/24 History release (Protonix) amiodarone 200 mg tablet 200 mg PO DAILY 12/25/23 03/27/24 History aspirin 325 mg tablet,delayed 325 mg PO DAILY 12/25/23 03/27/24 History release triamcinolone acetonide 0.1 % 1 applic topical DAILY #60 mL 02/05/24 03/13/24 Rx lotion lisinopril 10 mg tablet 10 mg PO DAILY #30 tabs 02/16/24 03/27/24 Rx clonazepam 0.25 mg disintegrating 0.25 mg PO BID #60 tabs 03/03/24 03/27/24 Rx tablet potassium chloride 20 mEq 20 meq PO DAILY #90 tabs 03/14/24 03/27/24 Rx tablet,extended release Allergies Allergy/AdvReac Type Severity Reaction Status Date / Time pregabalin Allergy Intermediate LETHARGIC, Verified 03/27/24 06:49 SLEEPY, SPACEY niacin Allergy Mild Rash Verified 03/27/24 06:49 Penicillins Allergy Mild Rash Verified 03/27/24 06:49 buspirone AdvReac Intermediate Agitated Verified 03/27/24 06:49 hydrocodone AdvReac Mild Nausea and Verified 03/27/24 06:49 Vomiting morphine AdvReac Mild Nausea and Verified 03/27/24 06:49 Vomiting tramadol AdvReac Mild Gastrointestinal Verified 03/27/24 06:49 Upset Vital Signs Vital Signs - 24 hr 03/27/24 06:53 Temperature 96.2 F L Pulse Rate 53 L Respiratory Rate 16 Blood Pressure 209/60 H Pulse Oximetry 100 Oxygen Delivery Room Air Exam Const: General: cooperative and healthy appearing Resp: Effort & Inspection: normal respiratory effort and able to speak in complete sentences Auscultation: clear to auscultation bilaterally Cardio: Rate: regular rate Rhythm: regular rhythm GI: Inspection: normal to inspection GI Palp: No No hepatosplenomegaly present Auscultation: normal bowel sounds Rectal Exam: deferred Skin: General skin exam: normal color Psych: Appearance: grossly normal Mental Status: mental status grossly normal Assessment and Plan Assessment and plan (1) History of gastric polyp: Code(s): Z87.19 - Personal history of other diseases of the digestive system Status: Acute Assessment and Plan: The patient is deemed a good candidate for the procedure. Consent signed. Will proceed.
[2024-03-27 08:07] VITALS: BP 174/67; PULSE 53; RESP 17; O2SAT 94
[2024-03-27 08:17] VITALS: BP 159/60; PULSE 50; RESP 17; O2SAT 95
[2024-03-27 08:27] VITALS: BP 171/63; PULSE 50; RESP 19; O2SAT 98
== END 2024-03-27 08:45 | disposition home or self-care (01) ==
PROVIDERS: PCP Family Medicine; Visit Provider Internal Medicine Gastroenterology
PROC: 0DJ08ZZ Inspection of Upper Intestinal Tract, Via Natural or Artificial Opening Endoscopic (ICD-10-PCS; CPT 43235; principal; 2024-03-27 08:00)
DX: Z09 Encounter for follow-up examination after completed treatment for conditions other than malignant neoplasm (principal); K29.30 Chronic superficial gastritis without bleeding; Z87.19 Personal history of other diseases of the digestive system
CPT/HCPCS: 43235; J2704; J7120

== ENCOUNTER 2024-04-24 14:19 | Emergency (ER) | payer OTHER, SELFPAY ==
--- NOTE | ~2024-04-24 | XR_ITS ---
XR chest 2V Ordering provider: Kash Perez MD History: 73 years Female with . dyspnea . Comparison: September 13, 2023 FINDINGS: MEDIASTINUM: The cardiac silhouette is slightly enlarged. LUNGS: No infiltrates, effusions or pneumothorax. Opacification of the vertebrae in the lateral view is most likely due to the aortic arch and degenerative changes of the spine. Possibility of infiltrat e less likely. Follow-up advised. OTHER: No free air under the diaphragm. Degenerative changes of the spine. IMPRESSION: Minimal opacification projected over the left tibia which is most likely summation shadow. Possibilit y of infiltrate is less likely. Follow-up advised. Otherwise, No acute cardiopulmonary pathology. Reviewed, dictated and finalized at location A. IMPRESSION: Minimal opacification projected over the left tibia which is most likely summat ion shadow. Possibility of infiltrate is less likely. Follow-up advised. Otherw ise, No acute cardiopulmonary pathology.
--- NOTE | ~2024-04-24 | CT_ITS ---
CT brain wo con Ordering provider: Kash Perez MD History: 73 years Female with . hughes, htn . Comparison: October 19, 2023 Technique: CT of the head without contrast. Radiation reduction technique utilized. The dose-length p roduct was 605. mGy-cm. FINDINGS: BRAIN PARENCHYMA AND CSF SPACES: Mild leukoaraiosis and diffuse cortical atrophy. Mild atheromatous d isease. No midline shift, mass effect or hemorrhage. The brain parenchyma and CSF spaces are otherwise norm al. VISUALIZED PARANASAL SINUSES: Well aerated. MASTOIDS: Well aerated. BONES: The bones appear intact. SOFT TISSUES: Visualized nasopharynx is normal. Superficial soft tissues are normal. IMPRESSION: No acute intracranial findings. Reviewed, dictated and finalized at location A.
--- NOTE | 2024-04-24 14:21 | ECG_ITS ---
Test Date: 2024-04-24 14:49:26 Measurements Intervals [place] Rate: 46 P: 42 CO: 131 QRS: -35 QRSD: 96 T: 39 QT: 466 QTc: 412 Interpretive Statements SINUS BRADYCARDIA POSSIBLE LEFT ATRIAL ENLARGEMENT [-0.1mV P-WAVE IN V1/V2] LEFT AXIS DEVIATION [QRS AXIS < -30] INCOMPLETE RIGHT BUNDLE BRANCH BLOCK [90+ ms QRS DURATION, TERMINAL R IN V1/V2, 40+ ms S IN I/aVL/V4/V5/V6] SEPTAL MYOCARDIAL INFARCTION , PROBABLY OLD [40+ ms Q WAVE IN V1/V2] No previous ECG available for comparison Electronically Signed On 04-25-2024 13:54:34 CDT by Vishal Stahl M.D.
[2024-04-24 14:26] VITALS: BP 161/46; PULSE 50; RESP 18; TEMP 36.6; O2SAT 99
[2024-04-24 15:04] LABS: Basophils Percent Auto 0.2 % (0.2-1.2); Eosinophils Absolute Auto 0.1 K/mm3 (0-0.3); Eosinophils Percent Auto 0.9 % (0-4.4); Hematocrit 29.2 % (37.0-47.0); Hemoglobin 9.4 g/dL (12.0-15.0); Immature Granulocyte Absolute 0.04 K/mm3 (0.00-0.031); Immature Granulocyte Percent A 0.5 % (0-0.5); Lymphocytes Absolute Auto 1.43 K/mm3 (0.9-3.2); Lymphocytes Percent Auto 16.8 % (18.3-44.2); Mean Corpuscular HGB Conc 32.2 g/dl (32-36); Mean Corpuscular Volume 96.4 fl (80-100); Mean Platelet Volume 9.3 fl (7.4-10.4); Monocytes Absolute Auto 0.7 K/mm3 (0.1-0.6); Monocytes Percent Auto 8.2 % (2.6-8.5); Neutrophils Absolute Auto 6.3 K/mm3 (1.3-6.7); Neutrophils Percent Auto 73.4 % (45.5-73.1); Platelet Count Result 261 k/mm3 (150-375); Red Blood Count 3.03 M/mm3 (4.2-5.4); Red Cell Distribution Width 15.2 % (11.5-14.5); White Blood Count 8.5 K/mm3 (4.5-10.0)
[2024-04-24 15:15] LABS: Alanine Aminotransferase 35 U/L (6-35); Albumin Level 4.1 g/dL (3.5-5.1); Alkaline Phosphatase 95 U/L (38-126); Anion Gap 11 mmol/L (4-12); Aspartate Amino Transferase 31 U/L (14-36); Bilirubin,Total 0.4 mg/dL (0.2-1.3); Blood Urea Nitrogen 58 mg/dL (7-17); Calcium 9.8 mg/dL (8.4-10.2); Carbon Dioxide 25 mmol/L (22-30); Chloride 107 mmol/L (98-107); Estimated CRCL calculation 8 ml/min; Estimated Glomerular Filt Rate 7; Glucose 112 mg/dL (65-110); Sodium 143 mmol/L (137-145)
[2024-04-24 15:54] VITALS: O2SAT 100
[2024-04-24 16:00] VITALS: BP 170/57; PULSE 50; RESP 19; O2SAT 98
--- OUTSIDE RECORDS SUMMARY | 2024-04-24 16:09 | XMS_ITS | Clinical Summary ---
Author Organization [facility] [address] [facility] Address [address] [place] [address] Care Team Providers Care Senior Tableau Developer Name Role Phone Tip Gordon MD Primary Care Provider [phone] Allergies Active Allergy Reactions Criticality Noted Date [...] Colonography Q 5 years 1997 PNEUMOCOCCAL VACCINE 50+ YEARS (1 of 1 - PCV) 10/10/19 03 ZOSTER VACCINE (1 of 2) 2002 OSTEOPOROSIS SCREENING 2017 INFLUENZA VACCINE (#1) 2023 04/23/2019 RSV VACCINE (60+ or ) (1 - 1-dose 75+ series) 10/10/2027 Medical Devices Implanted Type Area Natural Resources Specialist Device Identifier Shelf Expiration Date Model / Serial / Lot Hemostatic Surgiflo 8ml W/Thrombin 2994 - [id number] Implanted:Qty: 1 on 11/06/2019 by [facility] Hemostatic N/A: Spine Lumbar [employer] 10/13/2020 2994 / / [id number] Meliton Cdh Solera Ccm 4.28q15pb Capped [id number] - [id number] Implanted:Qty: 2 on 11/06/2019 by Matt Brooks MD at [facility] Meliton N/A: Spine Lumbar [employer] SOFAMOR DANEK [id number] / / N/A Description:Load no. 02 Sterilized Nov 05 SAPPHIRE REQ [id number] Screw Solera Markell Ma 6.5x40mm 4.75 Ext Tab [id number] - [id number] Implanted:Qty: 2 on 11/06/2019 by Matt Brooks MD at [facility] Screw N/A: Spine Lumbar [employer]AM[employer]ANEK [id number] / / N/A Description:Load no. 02 Sterilized Nov 05 Set Screw Solera Perc 4.75mm [id number] - [id number] Implanted:Qty: 4 on 11/06/2019 by Matt Brooks MD at [facility] N/A: Spine Lumbar [employer]AMOR [employer]ANEK [id number] / / N/A Description:Load no. 02 Sterilized Nov 05 Screw Solera Markell Ma 6.5x35mm 4.75 Ext Tab [id number] - [id number] Implanted:Qty: 1 on 11/06/2019 by Matt Brooks MD at [facility] Screw N/A: Spine Lumbar [employer]ANE[employer] [id number] / / N/A Description:Load no. 202-675 02 Sterilized Nov 05 Screw Solera Markell Ma 5.5x35mm 4.75 Ext Tab [id number] - [id number] Implanted:Qty: 1 on 11/06/2019 by Matt Brooks MD at [facility] Screw N/A: Spine Lumbar [employer]K [id number] / / N/A Description:Load no. 5 02 Sterilized Nov 05 Infuse Protein Kit Sm [id number] - [id number] Implanted:Qty: 1 on 11/06/2019 by Matt Brooks [facility] Tissue N/A: Spine Lumbar [employer]ANEK 10/13/2020 [id number] / / [id number] Description:REQ#[id number] Globus Spacer 8x22, 7-13mm Implanted:Qty: 1 on 11/06/2019 by Matt Brooks MD at [facility] N/A: Spine Lumbar [employer] 193.001 / STERILIZED 11/06/2019 / LOAD #[id number] Description:ENTERED BY RN [id number] 1X ADD SAPPHIRE REQ [id number] Insurance MEDICARE PART A HOSPITAL ONLY [employer] HMO OPEN ACCESS RX [facility] [employer] Advance Directives For more information, please contact: [phone] * Full Code (Latest Code Status on File) Date Activated Date Inactivated Comments 11/06/2019 6:31 PM 11/08/2019 7:39 PM * Full Code Date Activated Date Inactivated Comments 11/06/2019 10:06 AM 11/06/2019 6:31 PM Care Teams Senior Tableau Developer Relationship Specialty Start Date End Date Tip Gordon MD [address] [facility] [address] [place] [address] PCP - General Family Practice 11/12/18
--- OUTSIDE RECORDS SUMMARY | 2024-04-24 16:09 | XMS_ITS | Encounter Summary ---
Author Organization [facility] Address [address] [place] [address] Phone Care Team Providers Care Typewriters Functional Tester Name Role Phone Tip Gordon MD Primary Care Provider Gilberto Huang MD Unavailable [phone] Encounter Details Date Type Department Care Team (Late st Contact Info) Description 11/24/2023 Telephone [facility] [address] [phone] Gilberto Huang MD [address] [facility] [address] [place] [address] Social History Tobacco Use Types Packs/Day Years Used Date Smoking Tobacco: Never Smokeless Tobacco: Never Alcohol Use Standard Drinks/Week Comments Not Currently 0 (1 standard drink = 0.6 oz pur e alcohol) Comments Unknown Sex and Gender Information Value Date Recorded Sex Assigned at Not on file Legal Sex Female 1:21 PM FACILITIES MANAGEMENT EXECUTIVE Gender Identity Not on file Sexual Orientation [...] AM CDT Lab [facility] [address] [phone] Lab, [facility] 05/10/2024 11:15 AM CDT Office Visit [facility] [address] [phone] Gilberto Huang MD [address] [address] documented as of this encounter Visit Diagnoses Not on filedocumented in this encounter Care Teams Typewriters Functional Tester Relationship Specialty Start Date End Date Tip Gordon MD [address] [place] [address] PCP - General Family Medicine 09/20/23 Gilberto Huang MD [address] [place] [phone] Oncology 09/20/23 documented as of this encounter
--- OUTSIDE RECORDS SUMMARY | 2024-04-24 16:09 | XMS_ITS | Clinical Summary ---
Author Organization [facility] Address [address], [address] [place] [address] Phone Care Team Providers Care Finish Molder Name Role Phone Tip Gordon MD Primary Care Provider Gilberto Huang MD Unavailable [phone] Allergies Active Allergy Reactions Criticality Noted Date [...] Department Care Team Description 03/15/2024 10:45 AM ARCHIVIST MILITARY HISTORY Office Visit [facility] [address] [place] [phone] Gilberto Huang MD Iron deficiency anemia due to chronic blood loss (Primary Dx); Anemia in stage 3b chronic kidney disease (HCC); Stage 3 chronic kidney disease, unspecified whether stage 3a or 3b CKD (HCC) 03/15/2024 Travel 03/05/2024 Results Follow-Up [facility] [address] [place] [phone] Gilberto Huang MD 03/04/2024 10:30 AM ARCHIVIST MILITARY HISTORY Lab [facility] [address] [phone] Lab, Cc [place] Iron deficiency anemia due to chronic blood loss; Anemia in stage 3b chronic kidney disease (HCC); Chronic atrial fibrillation (HCC) 03/04/2024 Travel 02/16/2024 10:45 AM ARCHIVIST MILITARY HISTORY Office Visit [facility] [address] [phone] Jolene Carpenter APRN, PHILIP Anemia in stage 3b chronic kidney disease (HCC) (Primary Dx); Iron deficiency anemia due to chronic blood loss; Chronic atrial fibrillation (HCC) 02/16/2024 Travel 02/12/2024 10:40 AM ARCHIVIST MILITARY HISTORY Lab [facility] [address] [phone] Lab, [facility] [place] Iron deficiency anemia due to chronic blood loss; Anemia in stage 3b chronic kidney disease (HCC); Stage 3 chronic kidney disease, unspecified whether stage 3a or 3b CKD (HCC) 02/12/2024 Telephone [facility] [address] [phone] Gilberto Huang MD 02/12/2024 Travel from Last 3 Months Immunizations Immunization Administration Dates Next Due COVID-19, Mrna, Lnp-s, Pf, 50 mcg/0.5 mL 024 Covid-19, Mrna, Lnp-s, Pf, 1 00 Mcg Or 50 Mcg Dose (MODERNA) 03/19/2020 Influenza, High-dose, Quadrivalent 12/03/2022, Influenza, high-dose, trivalent, PF 12/09/2023 Pneumococcal conjugate PCV20 , polysaccharide [id number] conjugate, adjuvant, PF 02/24/2022 RSV, Bivalent, Protein [...] on file Legal Sex Female 1:21 PM ARCHIVIST MILITARY HISTORY Gender Identity Not on file Sexual Orientation Not on file Last Filed Vital Signs Vital Sign Reading Time Taken Comments Blood Pressure 168/70 03/15/2024 10:58 AM ARCHIVIST MILITARY HISTORY Pulse 57 03/15/2024 10:58 AM ARCHIVIST MILITARY HISTORY Temperature 36.7 C (98 F) 03/15/2024 10:58 AM ARCHIVIST MILITARY HISTORY Respiratory Rate 18 03/15/2024 10:58 AM ARCHIVIST MILITARY HISTORY Oxygen Saturation 99% 03/15/2024 10:58 AM ARCHIVIST MILITARY HISTORY Inhaled Oxygen Concentration - - Weight 76.5 kg (168 lb 9.6 oz) 03/15/2024 10:58 AM ARCHIVIST MILITARY HISTORY Height 158.8 cm (5' 2.5 ) 03/15/2024 10:58 AM CS T Body Mass Index 30.35 03/15/2024 10:58 AM ARCHIVIST MILITARY HISTORY Plan of Treatment Upcoming Encounters Date Type Department Care Team (Late st Contact Info) Description 05/03/2024 11:00 AM CDT Lab [facility] [address] [phone] Lab, Cc [facility] 05/10/2024 11:15 AM CDT Office Visit [facility] [address] [phone] Gilberto Huang MD [address] [place] [address] [place] [address] Health Maintenance Due Date Last Done Comments DEXA Bone Density 1950 Hepatitis C Virus (HCV) Screening 1950 Mammogram 1950 Colonoscopy 1997 Cologuard 2002 Colorectal Cancer Screening 09/17/2023 SARS-COV-2 Immunization [...] AUTO DIFF OH Routine 03/04/2024 10:28 AM ARCHIVIST MILITARY HISTORY CMP (COMPREHENSIVE METABOLIC PANEL) Routine 03/04/2024 10:28 AM ARCHIVIST MILITARY HISTORY Iron deficiency anemia due to chronic blood loss Anemia in stage 3b chronic kidney disease (HCC) Chronic atrial fibrillation (HCC) LACTATE DEHYDROGENASE (LD) Routine 03/04/2024 10:28 AM ARCHIVIST MILITARY HISTORY Iron deficiency anemia due to chronic blood loss Anemia in stage 3b chronic kidney disease (HCC) Chronic atrial fibrillation (HCC) VITAMIN B12 Routine 03/04/2024 10:28 AM ARCHIVIST MILITARY HISTORY Iron deficiency anemia due to chronic blood loss Anemia in stage 3b chronic kidney disease (HCC) Chronic atrial fibrillation (HCC) FERRITIN Routine 03/04/2024 10:28 AM ARCHIVIST MILITARY HISTORY Iron deficiency anemia due to chronic blood loss Anemia in stage 3b chronic kidney disease (HCC) Chronic atrial fibrillation (HCC) IRON W/ IRON BINDING CAPACITY OH Routine 03/04/2024 10:28 AM ARCHIVIST MILITARY HISTORY Iron deficiency anemia due to chronic blood loss Anemia in stage 3b chronic kidney disease (HCC) Chronic atrial fibrillation (HCC) CBC WITH AUTO DIFF OH Routine 02/12/2024 10:43 AM ARCHIVIST MILITARY HISTORY CMP (COMPREHENSIVE METABOLIC PANEL) Routine 02/12/2024 10:43 AM ARCHIVIST MILITARY HISTORY Iron deficiency anemia due to chronic blood loss Anemia in stage 3b chronic kidney disease (HCC) Stage 3 chronic kidney disease, unspecified whether stage 3a or 3b CKD (HCC) LACTATE DEHYDROGENASE (LD) Routine 02/12/2024 10:43 AM ARCHIVIST MILITARY HISTORY Iron deficiency anemia due to chronic blood loss Anemia in stage 3b chronic kidney disease (HCC) Stage 3 chronic kidney disease, unspecified whether stage 3a or 3b CKD (HCC) VITAMIN B12 Routine 02/12/2024 10:43 AM ARCHIVIST MILITARY HISTORY Iron deficiency anemia due to chronic blood loss Anemia in stage 3b chronic kidney disease (HCC) Stage 3 chronic kidney disease, unspecified whether stage 3a or 3b CKD (HCC) IRON W/ IRON BINDING CAPACITY OH Routine 02/12/2024 10:43 AM ARCHIVIST MILITARY HISTORY Iron deficiency anemia due to chronic blood loss Anemia in stage 3b chronic kidney disease (HCC) Stage 3 chronic kidney disease, unspecified whether stage 3a or 3b CKD (HCC) FERRITIN Routine 02/12/2024 10:43 AM ARCHIVIST MILITARY HISTORY Iron deficiency anemia due to chronic blood loss Anemia in stage 3b chronic kidney disease (HCC) Stage 3 chronic kidney disease, unspecified whether stage 3a or 3b CKD (HCC) from Last 3 Months Results * (ABNORMAL) IRON W/ IRON BINDING CAPACITY OH (03/04/2024 10:28 AM ARCHIVIST MILITARY HISTORY) Only the most recent of2 resultswithin the time period is included. IRON 76 50 - 212 ug/dL [facility] UIBC 173 155 - 355 ug/dL [facility] TIBC 249(L) 261 - 478 ug/dl [facility] % Saturation 31 20 - 50 % [facility] 03/04/2024 10:2 8 AM ARCHIVIST MILITARY HISTORY Narrative [facility] - 03/04/2024 11:48 AM ARCHIVIST MILITARY HISTORY Release to patient->Immediate Jolene Carpenter APRN, SYSTEMS SOFTWARE DESIGNER LAB SEND OUTS Fin al Result [facility] [place] [address], * (ABNORMAL) CBC WITH AUTO DIFF [place] (03/04/2024 10:28 AM ARCHIVIST MILITARY HISTORY) Only the most recent of2 resultswithin the time period is included. WBC 8.0 4.0 - 10.0 10*3/uL [facility] HGB 9.1(L) 11.2 - 15.7 g/dL [facility] HCT 27.4(L) 34.1 - 44.9 % [facility] PLT 236 163 - 369 10*3/uL [facility] MPV 9.1(L) 9.4 - 12.4 fL [facility] RBC 2.89(L) 3.93 - 5.22 10*6/uL [facility] MCV 95 79 - 95 fL [facility] MCH 31.5 25.6 - 32.2 pg [facility] MCHC 33.2 32.2 - 36.5 g/dL [facility] RDW 15.2(H) 11.6 - 14.4 % [facility] Neutrophils % 70.8(H) 36.0 - 66.0 % [facility] Lymphocytes % 18.1(L) 19.0 - 40.0 % [facility]EC[facility] Monocytes % 8.5 4.1 - 12.1 % [facility] Eosinophils % 1.3 0.0 - 3.5 % [facility]IGHT[facility] EXEC[facility] Basophils % 0.5 0.0 - 1.0 % [facility]EC[facility] Absolute Neutrophils 5.7 1.4 - 6.6 10*3/uL [facility]EC[facility] Absolute Lymphocytes 1.4 0.8 - 4.0 10*3/uL [facility]IGHTS [facility]EC[facility] Absolute Monocytes 0.7 0.2 - 1.2 10*3/uL [facility]IGHT[facility]EC[facility] Absolute Eosinophils 0.1 0.0 - 0.4 10*3/uL [facility]EC[facility] Absolute Basophils 0.0 0.0 - 0.1 10*3/uL [facility] 03/04/2024 10:2 8 AM ARCHIVIST MILITARY HISTORY Jolene Carpenter APRN, SYSTEMS SOFTWARE DESIGNER LAB SEND OUTS Fin al Result [facility] [address] [place] [address], [place] [phone] * VITAMIN B12 (03/04/2024 10:28 AM ARCHIVIST MILITARY HISTORY) Only the most recent of2 resultswithin the time period is included. Vitamin B12 337 180 - 914 pg/mL [facility] Blood 03/04/2024 10:2 8 AM ARCHIVIST MILITARY HISTORY Narrative [facility] - 03/05/2024 2:48 PM ARCHIVIST MILITARY HISTORY Release to patient->Immediate us Jolene Carpenter APRN, SYSTEMS SOFTWARE DESIGNER CHEMISTRY ORDERABLE S Final Result Performing Organization Address City/[facility]/ZIP Co de Phone Number [facility] [address] [place] [address], [place] [phone] * LACTATE DEHYDROGENASE (LD) (03/04/2024 10:28 AM ARCHIVIST MILITARY HISTORY) Only the most recent of2 resultswithin the time period is included. LDH 187 140 - 271 U/L [facility] Blood 03/04/2024 10:2 8 AM ARCHIVIST MILITARY HISTORY Narrative [facility] - 03/04/2024 11:48 AM ARCHIVIST MILITARY HISTORY Release to patient->Immediate Jolene Carpenter APRN, SYSTEMS SOFTWARE DESIGNER CHEMISTRY ORDERABLE S Final Result Performing Organization Address City/[facility]/ZIP Co de Phone Number [facility] [place] [address], [place] [phone] * (ABNORMAL) FERRITIN (03/04/2024 10:28 AM ARCHIVIST MILITARY HISTORY) Only the most recent of2 resultswithin the time period is included. Ferritin 498(H) 11 - 307 ng/mL [facility] Blood 03/04/2024 10:2 8 AM ARCHIVIST MILITARY HISTORY Narrative [facility] - 03/05/2024 2:48 PM ARCHIVIST MILITARY HISTORY Release to patient->Immediate Jolene Carpenter APRN, SYSTEMS SOFTWARE DESIGNER CHEMISTRY ORDERABLE S Final Result Performing Organization Address [facility] Co de Phone Number [facility] [place] [address], [place] [phone] * (ABNORMAL) CMP (COMPREHENSIVE METABOLIC PANEL) (03/04/2024 10:28 AM ARCHIVIST MILITARY HISTORY) Only the most recent of2 resultswithin the time period is included. Glucose 94 70 - 105 mg/dL [facility] Blood Urea Nitrogen 57(H) 7 - 25 mg/dL [facility] Creatinine 5.1(H) 0.6 - 1.2 mg/dL [facility] Sodium 146(H) 136 - 145 mEq/L [facility] Potassium 3.8 3.5 - 5.1 mEq/L [facility] Chloride 106 98 - 107 mEq/L [facility] Bicarbonate 26 21 - 31 mEq/L [facility] Total Bilirubin 0.5 0.3 - 1.0 mg/dL [facility] Alk. Phosphatase 106(H) 34 - 104 U/L [facility] Aspartate Aminotransferase 34 13 - 39 U/L [facility] Alanine Aminotransferase 48 7 - 52 U/L [facility] Total Protein 6.0(L) 6.4 - 8.9 g/dL [facility] Albumin 4.0 3.5 - 5.7 g/dL [facility] Calcium 9.9 8.6 - 10.3 mg/dL [facility] Anion Gap 17.8(H) 7.0 - 15.0 mEq/L [facility] Globulin 2.0 2.0 - 3.5 g/dL [facility] EGFR 9(L) >60 ml/min/1. 73m2 [facility] Comment: This eGFR is calculated using 2020 CKD-EPI Creatinine equation without race modifier based on the NKF-ASN task force recommendations Blood 03/04/2024 10:2 8 AM ARCHIVIST MILITARY HISTORY Narrative [facility] - 03/04/2024 11:48 AM ARCHIVIST MILITARY HISTORY Release to patient->Immediate IS THE PATIENT REQUIRED TO BE FASTING FOR 8 HOURS?->No us Jolene Carpenter APRN, SYSTEMS SOFTWARE DESIGNER CHEMISTRY ORDERABLE S Final Result [facility]EC[facility] [address] [place] [address], from Last 3 Months Insurance [facility] Care Teams Finish Molder Relationship Specialty Start Date End Date Tip Gordon MD [address] [place] [address] PCP - General Family Medicine 09/20/23 Gilberto Huang MD [address] [place] [phone] Oncology 09/20/23
--- OUTSIDE RECORDS SUMMARY | 2024-04-24 16:11 | XMS_ITS | Clinical Summary ---
Author Organization [facility] Sheron nguyen Address [address] [place] [address] Phone Care Team Providers Care Cookie Breaker Name Role Phone Tip Gordon MD Primary Care Provider [phone] Allergies Active Allergy Reactions Criticality Noted Date [...] Comments Blood Pressure 136/74 03/03/2021 9:47 AM WEB DEVELOPMENT MANAGER Pulse - - Temperature 36.6 C (97.8 F) 03/03/2021 9:47 AM WEB DEVELOPMENT MANAGER Respiratory Rate 18 03/03/2021 9:47 AM WEB DEVELOPMENT MANAGER Oxygen Saturation - - Inhaled Oxygen Concentration - - Weight 81.2 kg (179 lb) 03/03/2021 9:47 AM WEB DEVELOPMENT MANAGER Height 157.5 cm (5' 2 ) 03/03/2021 9:47 AM WEB DEVELOPMENT MANAGER Body Mass Index 32.74 03/03/2021 9:47 AM WEB DEVELOPMENT MANAGER Plan of Treatment Health Maintenance Due Date Last Done Comments Pneumococcal PPSV23/PCV13 65 + Years / Low and Medium Risk (1 of 4 - PCV) 2017 Influenza Vaccine (#1) 2023 10/23/2012 Care Teams Cookie Breaker Relationship Specialty Start Date End Date Tip Gordon MD [address] [facility] [address] [facility] [address] [place] [phone] PCP - General Internal Medicine 01/27/21
--- OUTSIDE RECORDS SUMMARY | 2024-04-24 16:11 | XMS_ITS | Encounter Summary ---
Author Organization [facility] Address [address] [place] [address] Care Team Providers Care Curing Oven Tender Name Role Phone Tip Gordon MD Primary Care Provider [phone] Reason for Visit * Reason Onset Date Comments SURGICAL ADMIT 11/07/[address] JASMIN Wray [facility] Encounter Details Date Type Department Care Team (Late st Contact Info) Description 11/07/2019 Telephone [facility] Admitting [address] [place] [address] [place] [address] [facility] [address] [place] [address] SURGICAL ADMIT (SPOKE TO JASMIN [...] on filedocumented in this encounter Care Teams Curing Oven Tender Relationship Specialty Start Date End Date Tip Gordon MD [address] [facility] [address] [place] [address] PCP - General Family Practice 11/12/18 documented as of this encounter
--- OUTSIDE RECORDS SUMMARY | 2024-04-24 16:11 | XMS_ITS | Clinical Summary ---
Author Organization [facility] Address [address] [place] [address] Care Team Providers Care Production Tool Engineer Name Role Phone Tip Gordon MD Primary Care Provider [phone] Allergies Active Allergy Reactions Criticality Noted Date [...] Department Care Team Description 03/11/2024 8:00 AM OUTDOOR ADVENTURE LEADER - 03/11/2024 11:59 PM [facility] Hospital Encounter [facility] [place] [address] Juno Field MD Discharge Disposition: Home or [...] or pharmacy? Patient declines to respond 09/16/2023 [facility] Utilities Answer Date Recorded In the past 12 months has [facility] [employer], oil, or water [employer] threatened to shut off services in your [...] often do you attend chur ch or adventism services? More than 4 times per year 09/16/2023 Do you belong to any clubs o r organizations such as yarsani groups, unions, fraternal or athletic groups, or [...] medical care, and heating? Patient declined 09/16/2023 [facility] - Occupational Stress [...] any time in the past 12 m [facility], were you homeless or living in a fpc (including now)? No 09/16/2023 Comments No Sex and Gender Information Value Date Recorded Sex Assigned at Female 03/11/2024 8:03 AM OUTDOOR ADVENTURE LEADER Legal Sex Female 6:23 PM CDT Gender [...] ABD WWO CON Routine 03/11/2024 9:15 AM OUTDOOR ADVENTURE LEADER Left renal mass OCCULT BLOOD, FECES STAT 09/16/2023 5 :50 PM CDT from Last 3 Months or Most Recently Relevant to Health Maintenance Results * MRI ABD WWO CON (03/11/2024 9:15 AM OUTDOOR ADVENTURE LEADER) Anatomical Region Laterality Modality Abdomen Magnetic Resonan ce 03/12/2024 4:21 PM OUTDOOR ADVENTURE LEADER Impressions 03/12/2024 4:27 PM OUTDOOR ADVENTURE LEADER =====IMPRESSION:===== 1. Complex abnormalities of both kidneys. [...] 03/12/2024 4:21 PM Narrative 03/12/2024 4:27 PM OUTDOOR ADVENTURE LEADER [address] [address] EXAMINATION: MRI Abdomen with/without contrast EXAM DATE/TIME: [...] Procedure Note Kennedy Ortiz MD - 03/12/[address] [address] EXAMINATION: MRI Abdomen with/without contrast EXAM DATE/TIME: [...] BLOOD FECAL NEGATIVE 09/16/2023 7:06 PM CDT [facility] STOOL SPECIMEN / Unknown 09/16/2023 5:50 PM CDT Nicholas Nassar MD BODY FLUIDS AND STOOLS ORDERAB LES Final Result [facility] [address] [place] [address], [place] [phone] from Last 3 Months or Most Recently Relevant to Health Maintenance Insurance [employer] OPEN ACCESS [facility] MEDICARE PART A Advance Directives * Full Code (Latest Code Status on File) Date Activated Date Inactivated Comments 09/16/2023 7:01 PM 09/20/2023 3:53 PM Care Teams Production Tool Engineer Relationship Specialty Start Date End Date Tip Gordon MD [address] [place] [address] PCP - General FAMILY PRACTICE 04/27/21
[2024-04-24 17:00] VITALS: BP 167/55; PULSE 50; RESP 17; O2SAT 97
[2024-04-24 17:55] LABS: Troponin I < 0.012 ng/mL (0.000-0.034)
--- OUTSIDE RECORDS SUMMARY | 2024-04-24 17:57 | XMS_ITS | Clinical Summary ---
Author Organization [employer] [id number] [facility] Address [address] [place] [address] Care Team Providers Care Date Pitter Name Role Phone Tip Gordon MD Primary Care Provider [phone] Allergies Active Allergy Reactions Criticality Noted Date [...] series) 10/10/2027 Medical Devices Implanted Type Area Insurance Claims Analyst Device Identifier Shelf Expiration Date Model / Serial / Lot Hemostatic Surgiflo 8ml W/Thrombin 2994 - [id number] Implanted:Qty: 1 on 11/06/2019 by Matt Brooks MD at [facility] Hemostatic N/A: Spine Lumbar [employer] 10/13/2020 2994 / / [id number] Mel[place] Cdh Solera Ccm 4.78c04vd Capped [id number] - [id number] Implanted:Qty: 2 on 11/06/2019 by Matt Brooks MD at [facility] Meliton N/A: Spine Lumbar [employer]AM[employer] DANEK [id number] / / N/A Description:Load no. 02 Sterilized Nov 05 [employer] REQ [id number] Screw Solera Markell Ma 6.5x40mm 4.75 Ext Tab [id number] - [id number] Implanted:Qty: 2 on 11/06/2019 by Matt Brooks MD at [facility] Screw N/A: Spine Lumbar [employer] [id number] / / N/A Description:Load no. 02 Sterilized Nov 05 Set Screw Solera Perc 4.75mm [id number] - [id number] Implanted:Qty: 4 on 11/06/2019 by Matt Brooks MD at [facility] N/A: Spine Lumbar [employer] [id number] / / N/A Description:Load no. 02 Sterilized Nov 05 Screw Solera Markell Ma 6.5x35mm 4.75 Ext Tab [id number] - [id number] Implanted:Qty: 1 on 11/06/2019 by Matt Brooks MD at [facility] Screw N/A: Spine Lumbar [employer] [id number] / / N/A Description:Load no. 202-675 02 Sterilized Nov 05 Screw Solera Markell Ma 5.5x35mm 4.75 Ext Tab [id number] - [id number] Implanted:Qty: 1 on 11/06/2019 by Matt Brooks MD at [facility] Screw N/A: Spine Lumbar [employer] [id number] / / N/A Description:Load no. 5 02 Sterilized Nov 05 Infuse Protein Kit Sm [id number] - [id number] Implanted:Qty: 1 on 11/06/2019 by Matt Brooks MD at [facility] Tissue N/A: Spine Lumbar [employer] 10/13/2020 [id number] / / [id number] Description:REQ#[id number] Globus Spacer 8x22, 7-13mm Implanted:Qty: 1 on 11/06/2019 by Matt Brooks MD at [facility] N/A: Spine Lumbar [employer] 193.001 / STERILIZED 11/06/2019 / LOAD #[id number] Description:ENTERED BY RN [phone] [id number] 1X ADD [employer]IRE REQ [id number] Insurance MEDICARE PART A HOSPITAL ONLY [employer] HMO OPEN ACCESS RX [facility] [employer] Advance Directives For more information, please contact: [phone] * Full Code (Latest Code Status on File) Date Activated Date Inactivated Comments 11/06/2019 6:31 PM 11/08/2019 7:39 PM * Full Code Date Activated Date Inactivated Comments 11/06/2019 10:06 AM 11/06/2019 6:31 PM Care Teams Date Pitter Relationship Specialty Start Date End Date Tip Gordon MD [address] [facility] [address] [place] [address] PCP - General Family Practice 11/12/18
--- OUTSIDE RECORDS SUMMARY | 2024-04-24 17:57 | XMS_ITS | Encounter Summary ---
Author Organization [facility] Address [address] [place] [address] Phone Care Team Providers Care Sand Sifter Name Role Phone Tip Gordon MD Primary Care Provider Gilberto Huang MD Unavailable [phone] Encounter Details Date Type Department Care Team (Late st Contact Info) Description 11/24/2023 Telephone [facility] [address] [phone] Gilberto Huang MD [address] [facility] [address] [place] [address] Social History Tobacco Use Types Packs/Day Years Used Date Smoking Tobacco: Never Smokeless Tobacco: Never Alcohol Use Standard Drinks/Week Comments Not Currently 0 (1 standard drink = 0.6 oz pur e alcohol) Comments Unknown Sex and Gender Information Value Date Recorded Sex Assigned at Not on file Legal Sex Female 1:21 PM CARPENTER'S ASSISTANT Gender Identity Not on file Sexual Orientation [...] AM CDT Lab [facility] [address] [phone] Lab, [facility] 05/10/2024 11:15 AM CDT Office Visit [facility] [address] [phone] Gilberto Huang MD [address] [address] documented as of this encounter Visit Diagnoses Not on filedocumented in this encounter Care Teams Sand Sifter Relationship Specialty Start Date End Date Tip Gordon MD [address] [place] [address] PCP - General Family Medicine 09/20/23 Gilberto Huang MD [address] [place] [phone] Oncology 09/20/23 documented as of this encounter
--- OUTSIDE RECORDS SUMMARY | 2024-04-24 17:57 | XMS_ITS | Clinical Summary ---
Author Organization [facility] Address [address] [place] [address] Phone Care Team Providers Care Anodizing Line Operator Name Role Phone Tip Gordon MD Primary Care Provider Gilberto Huang MD Unavailable [phone] Allergies Active Allergy Reactions Criticality Noted Date [...] Department Care Team Description 03/15/2024 10:45 AM DIRECTOR CORPORATE COMPLIANCE Office Visit [facility] [address] [place] [phone] Gilberto Huang MD Iron deficiency anemia due to chronic blood loss (Primary Dx); Anemia in stage 3b chronic kidney disease (HCC); Stage 3 chronic kidney disease, unspecified whether stage 3a or 3b CKD (HCC) 03/15/2024 Travel 03/05/2024 Results Follow-Up [facility] [address] [place] [phone] Gilberto Huang MD 03/04/2024 10:30 AM DIRECTOR CORPORATE COMPLIANCE Lab [facility] [address] [phone] Lab, [facility] [place] Iron deficiency anemia due to chronic blood loss; Anemia in stage 3b chronic kidney disease (HCC); Chronic atrial fibrillation (HCC) 03/04/2024 Travel 02/16/2024 10:45 AM DIRECTOR CORPORATE COMPLIANCE Office Visit [facility] [address] [phone] Jolene Carpenter APRN, PHILIP Anemia in stage 3b chronic kidney disease (HCC) (Primary Dx); Iron deficiency anemia due to chronic blood loss; Chronic atrial fibrillation (HCC) 02/16/2024 Travel 02/12/2024 10:40 AM DIRECTOR CORPORATE COMPLIANCE Lab [facility] [address] [phone] Lab, [facility] [place] Iron deficiency anemia due to chronic blood loss; Anemia in stage 3b chronic kidney disease (HCC); Stage 3 chronic kidney disease, unspecified whether stage 3a or 3b CKD (HCC) 02/12/2024 Telephone [facility] [address] [phone] Gilberto Huang MD 02/12/2024 Travel from Last 3 Months Immunizations Immunization Administration Dates Next Due COVID-19, Mrna, Lnp-s, Pf, 50 mcg/0.5 mL 024 Covid-19, Mrna, Lnp-s, Pf, 1 00 Mcg Or 50 Mcg Dose (MODERNA) 03/19/2020 Influenza, High-dose, Quadrivalent 12/03/2022, Influenza, high-dose, trivalent, PF 12/09/2023 Pneumococcal conjugate PCV20 , polysaccharide [id number] conjugate, adjuvant, PF 02/24/2022 RSV, Bivalent, Protein [...] on file Legal Sex Female 1:21 PM DIRECTOR CORPORATE COMPLIANCE Gender Identity Not on file Sexual Orientation Not on file Last Filed Vital Signs Vital Sign Reading Time Taken Comments Blood Pressure 168/70 03/15/2024 10:58 AM DIRECTOR CORPORATE COMPLIANCE Pulse 57 03/15/2024 10:58 AM DIRECTOR CORPORATE COMPLIANCE Temperature 36.7 C (98 F) 03/15/2024 10:58 AM DIRECTOR CORPORATE COMPLIANCE Respiratory Rate 18 03/15/2024 10:58 AM DIRECTOR CORPORATE COMPLIANCE Oxygen Saturation 99% 03/15/2024 10:58 AM DIRECTOR CORPORATE COMPLIANCE Inhaled Oxygen Concentration - - Weight 76.5 kg (168 lb 9.6 oz) 03/15/2024 10:58 AM DIRECTOR CORPORATE COMPLIANCE Height 158.8 cm (5' 2.5 ) 03/15/2024 10:58 AM CS T Body Mass Index 30.35 03/15/2024 10:58 AM DIRECTOR CORPORATE COMPLIANCE Plan of Treatment Upcoming Encounters Date Type Department Care Team (Late st Contact Info) Description 05/03/2024 11:00 AM CDT Lab [facility] [address] [phone] Lab, [facility] 05/10/2024 11:15 AM CDT Office Visit [facility] [address] [phone] Gilberto Huang MD [address] [place] [address] [place] [id number] Health Maintenance Due Date Last Done Comments [...] AUTO DIFF OH Routine 03/04/2024 10:28 AM DIRECTOR CORPORATE COMPLIANCE CMP (COMPREHENSIVE METABOLIC PANEL) Routine 03/04/2024 10:28 AM DIRECTOR CORPORATE COMPLIANCE Iron deficiency anemia due to chronic blood loss Anemia in stage 3b chronic kidney disease (HCC) Chronic atrial fibrillation (HCC) LACTATE DEHYDROGENASE (LD) Routine 03/04/2024 10:28 AM DIRECTOR CORPORATE COMPLIANCE Iron deficiency anemia due to chronic blood loss Anemia in stage 3b chronic kidney disease (HCC) Chronic atrial fibrillation (HCC) VITAMIN B12 Routine 03/04/2024 10:28 AM DIRECTOR CORPORATE COMPLIANCE Iron deficiency anemia due to chronic blood loss Anemia in stage 3b chronic kidney disease (HCC) Chronic atrial fibrillation (HCC) FERRITIN Routine 03/04/2024 10:28 AM DIRECTOR CORPORATE COMPLIANCE Iron deficiency anemia due to chronic blood loss Anemia in stage 3b chronic kidney disease (HCC) Chronic atrial fibrillation (HCC) IRON W/ IRON BINDING CAPACITY OH Routine 03/04/2024 10:28 AM DIRECTOR CORPORATE COMPLIANCE Iron deficiency anemia due to chronic blood loss Anemia in stage 3b chronic kidney disease (HCC) Chronic atrial fibrillation (HCC) CBC WITH AUTO DIFF OH Routine 02/12/2024 10:43 AM DIRECTOR CORPORATE COMPLIANCE CMP (COMPREHENSIVE METABOLIC PANEL) Routine 02/12/2024 10:43 AM DIRECTOR CORPORATE COMPLIANCE Iron deficiency anemia due to chronic blood loss Anemia in stage 3b chronic kidney disease (HCC) Stage 3 chronic kidney disease, unspecified whether stage 3a or 3b CKD (HCC) LACTATE DEHYDROGENASE (LD) Routine 02/12/2024 10:43 AM DIRECTOR CORPORATE COMPLIANCE Iron deficiency anemia due to chronic blood loss Anemia in stage 3b chronic kidney disease (HCC) Stage 3 chronic kidney disease, unspecified whether stage 3a or 3b CKD (HCC) VITAMIN B12 Routine 02/12/2024 10:43 AM DIRECTOR CORPORATE COMPLIANCE Iron deficiency anemia due to chronic blood loss Anemia in stage 3b chronic kidney disease (HCC) Stage 3 chronic kidney disease, unspecified whether stage 3a or 3b CKD (HCC) IRON W/ IRON BINDING CAPACITY OH Routine 02/12/2024 10:43 AM DIRECTOR CORPORATE COMPLIANCE Iron deficiency anemia due to chronic blood loss Anemia in stage 3b chronic kidney disease (HCC) Stage 3 chronic kidney disease, unspecified whether stage 3a or 3b CKD (HCC) FERRITIN Routine 02/12/2024 10:43 AM DIRECTOR CORPORATE COMPLIANCE Iron deficiency anemia due to chronic blood loss Anemia in stage 3b chronic kidney disease (HCC) Stage 3 chronic kidney disease, unspecified whether stage 3a or 3b CKD (HCC) from Last 3 Months Results * (ABNORMAL) IRON W/ IRON BINDING CAPACITY OH (03/04/2024 10:28 AM DIRECTOR CORPORATE COMPLIANCE) Only the most recent of2 resultswithin the time period is included. IRON 76 50 - 212 ug/dL [facility] UIBC 173 155 - 355 ug/dL [facility] TIBC 249(L) 261 - 478 ug/dl [facility] % Saturation 31 20 - 50 % [facility] 03/04/2024 10:2 8 AM DIRECTOR CORPORATE COMPLIANCE Narrative [facility], [facility]1983 - 03/04/2024 11:48 AM DIRECTOR CORPORATE COMPLIANCE Release to patient->Immediate Jolene Carpenter APRN, [employer]ER LAB SEND OUTS Fin al Result [facility] [place] [address], * (ABNORMAL) CBC WITH AUTO DIFF [place] (03/04/2024 10:28 AM DIRECTOR CORPORATE COMPLIANCE) Only the most recent of2 resultswithin the time period is included. WBC 8.0 4.0 - 10.0 10*3/uL [facility]1983 HGB 9.1(L) 11.2 - 15.7 g/dL [facility], [facility]1983 HCT 27.4(L) 34.1 - 44.9 % [facility] INSTRUMENTATION [facility]1983 PLT 236 163 - 369 10*3/uL [facility] INSTRUMENTATION [facility], [facility]1983 MPV 9.1(L) 9.4 - 12.4 fL [facility] INSTRUMENTATION OFF[facility]1983 RBC 2.89(L) 3.93 - 5.22 10*6/uL [facility]MICAL INSTRUMENTATION OFF[facility], [facility]1983 MCV 95 79 - 95 fL [facility]MICAL INSTRUMENTATION OFFIC[facility], [facility]1983 MCH 31.5 25.6 - 32.2 pg [facility] INSTRUMENTATION OFF[facility], [facility]1983 MCHC 33.2 32.2 - 36.5 g/dL [facility] INSTRUMENTATION OFF[facility]1983 RDW 15.2(H) 11.6 - 14.4 % [facility] INSTRUMENT[facility], [facility]1983 Neutrophils % 70.8(H) 36.0 - 66.0 % [facility]MICAL INSTRUMENTATION OFF[facility]1983 Lymphocytes % 18.1(L) 19.0 - 40.0 % [facility]MICAL INSTRUMENTATION OFF[facility], [facility]1983 Monocytes % 8.5 4.1 - 12.1 % [facility]MICAL INSTRUMENTATION OFF[facility], [facility]1983 Eosinophils % 1.3 0.0 - 3.5 % [facility] CHEMICAL INSTRUMENTATION OFFIC[facility]1983 Basophils % 0.5 0.0 - 1.0 % [facility]MICAL INSTRUMENTATION OFFIC[facility]1983 Absolute Neutrophils 5.7 1.4 - 6.6 10*3/uL [facility] INSTRUMENTATION OFF[facility]1983 Absolute Lymphocytes 1.4 0.8 - 4.0 10*3/uL [facility] INSTRUMENTATION OFF[facility]1983 Absolute Monocytes 0.7 0.2 - 1.2 10*3/uL [facility] INSTRUMENTATION [facility]1983 Absolute Eosinophils 0.1 0.0 - 0.4 10*3/uL [facility] INSTRUMENTATION [facility]1983 Absolute Basophils 0.0 0.0 - 0.1 10*3/uL [facility] 03/04/2024 10:2 8 AM DIRECTOR CORPORATE COMPLIANCE Jolene Carpenter APRN, GLORY HOLE TENDER LAB SEND OUTS Fin al Result [facility] INSTRUMENTATION [facility] [address] [place] [address], [place] [phone] * VITAMIN B12 (03/04/2024 10:28 AM DIRECTOR CORPORATE COMPLIANCE) Only the most recent of2 resultswithin the time period is included. Vitamin B12 337 180 - 914 pg/mL [facility] Blood 03/04/2024 10:2 8 AM DIRECTOR CORPORATE COMPLIANCE Narrative [facility] - 03/05/2024 2:48 PM DIRECTOR CORPORATE COMPLIANCE Release to patient->Immediate us Jolene Carpenter APRN, GLORY HOLE TENDER CHEMISTRY ORDERABLE S Final Result Performing Organization Address City/[facility]/ZIP Co de Phone Number [facility] [address] [place] [address], [place] [phone] * LACTATE DEHYDROGENASE (LD) (03/04/2024 10:28 AM DIRECTOR CORPORATE COMPLIANCE) Only the most recent of2 resultswithin the time period is included. LDH 187 140 - 271 U/L [facility] Blood 03/04/2024 10:2 8 AM DIRECTOR CORPORATE COMPLIANCE Narrative [facility] - 03/04/2024 11:48 AM DIRECTOR CORPORATE COMPLIANCE Release to patient->Immediate Jolene Carpenter APRN, GLORY HOLE TENDER CHEMISTRY ORDERABLE S Final Result Performing Organization Address City/[facility]/ZIP Co de Phone Number [facility] [place] [address], [place] [phone] * (ABNORMAL) FERRITIN (03/04/2024 10:28 AM DIRECTOR CORPORATE COMPLIANCE) Only the most recent of2 resultswithin the time period is included. Ferritin 498(H) 11 - 307 ng/mL [facility] Blood 03/04/2024 10:2 8 AM DIRECTOR CORPORATE COMPLIANCE Narrative [facility] - 03/05/2024 2:48 PM DIRECTOR CORPORATE COMPLIANCE Release to patient->Immediate Jolene Carpenter APRN, GLORY HOLE TENDER CHEMISTRY ORDERABLE S Final Result Performing Organization Address [facility] Co de Phone Number [facility] [place] [place] [address], [place] [phone] * (ABNORMAL) CMP (COMPREHENSIVE METABOLIC PANEL) (03/04/2024 10:28 AM DIRECTOR CORPORATE COMPLIANCE) Only the most recent of2 resultswithin the time period is included. Glucose 94 70 - 105 mg/dL [facility] Blood Urea Nitrogen 57(H) 7 - 25 mg/dL [facility] Creatinine 5.1(H) 0.6 - 1.2 mg/dL [facility] Sodium 146(H) 136 - 145 mEq/L [facility] Potassium 3.8 3.5 - 5.1 mEq/L [facility] Chloride 106 98 - 107 mEq/L [facility] Bicarbonate 26 21 - 31 mEq/L [facility] Total Bilirubin 0.5 0.3 - 1.0 mg/dL [facility] Alk. Phosphatase 106(H) 34 - 104 U/L [facility] Aspartate Aminotransferase 34 13 - 39 U/L [facility] Alanine Aminotransferase 48 7 - 52 U/L [facility] Total Protein 6.0(L) 6.4 - 8.9 g/dL [facility] Albumin 4.0 3.5 - 5.7 g/dL [facility] Calcium 9.9 8.6 - 10.3 mg/dL [facility] Anion Gap 17.8(H) 7.0 - 15.0 mEq/L [facility] Globulin 2.0 2.0 - 3.5 g/dL [facility] EGFR 9(L) >60 ml/min/1. 73m2 [facility]STRUMENTATION [facility] Comment: This eGFR is calculated using 2020 CKD-EPI Creatinine equation without race modifier based on the NKF-ASN task force recommendations Blood 03/04/2024 10:2 8 AM DIRECTOR CORPORATE COMPLIANCE Narrative [facility] - 03/04/2024 11:48 AM DIRECTOR CORPORATE COMPLIANCE Release to patient->Immediate IS THE PATIENT REQUIRED TO BE FASTING FOR 8 HOURS?->No us Jolene Carpenter APRN, GLORY HOLE TENDER CHEMISTRY ORDERABLE S Final Result [facility]STR[facility] [address] [place] [address], from Last 3 Months Insurance [facility] Care Teams Anodizing Line Operator Relationship Specialty Start Date End Date Tip Gordon MD [address] [place] [address] PCP - General Family Medicine 09/20/23 Gilberto Huang MD [address] [place] [phone] Oncology 09/20/23
--- OUTSIDE RECORDS SUMMARY | 2024-04-24 17:57 | XMS_ITS | Data Portability ---
Author Organization [place] - [facility] OFFICE Address [address] [place] [address] Care Team Providers Care Territory Representative Name Role Phone TALA URIARTE Primary Care [...] None recorded. Imaging None recorded. Medication Orders furosemid e 40 mg tablet 2024 025 [facility]/Pharmacy #[id number], [address] [place], [address], 03/16/2024 15:31:24 rosuvasta tin 10 mg tablet 2024 025 [facility]/Pharmacy #[id number], [address] [place], [address], 03/16/2024 15:31:24 hydralazi ne 50 mg tablet 2023 024 [facility]/Pharmacy #[id number], [address] [place], [address], 08/08/2023 17:36:19 furosemid e 40 mg tablet 2023 024 [facility]/Pharmacy #[id number], [address] [place], [address], 08/08/2023 17:36:21 Patient TargetsNo targets recorded. Patient Instructions Encounter Date Encounter Id Patient Instructions Last Modified By Organization Details Last Modified Time 04/25/2023 [id number] Low cholesterol diet advised Low sodium diet advised. [email or web address] Not available 04/25/2023 12:55:17 08/29/2023 [id number] Weight loss 20 pounds Exercise advised Low cholesterol diet advised Low sodium diet advised. [email or web address] Not available 08/29/2023 12:39:20 09/23/2023 [id number] Weight loss 20 pounds Exercise advised Low [...] record ed. [email or web address] Not Available 2024 16:03:38 04/01/19 25 03/26/2024 , [facility] ardio gram No observ ation record ed. [facility] [address] [place], [place], [address], 04/01/2024 03:25:05 Result Notes None recorded. Problems Name Problem SNOMED Code Status Onset Date Resolution Date Notes Provider Name and Address Organization Details Recorded Time Chest pain 14085788 Active 2019 DIANA Shook - [facility] 0 15:02:45 Palpitatio ns 94680371 Active 2019 [place] - [facility] 0 15:02:52 Fracture of ankle 11957268 Active 2019 [place] [facility] 0 15:17:27 Anxiety 60594163 Active 2019 [place] [facility] 0 15:18:29 Arthritis 6728122 Active 2019 [place] [facility] 0 15:18:35 Carpal tunnel syndrome 67562456 Active 2019 [place] [facility] 0 15:19:24 Low back pain 146754402 Active 2019 bilateral [place] [facility] 0 15:21:03 Depressive disorder 63329841 Active 2019 [place] [facility] 0 15:21:56 Gastroesop hageal reflux disease 552195071 Active 2019 [place] [facility] 0 15:22:05 Hyperlipid emia 81290092 Active 2019 [place] [facility] 2 14:39:11 Essential hypertensi on 01178924 Active 2019 [place] [facility] 2 14:39:03 Hypokalemi a 85165822 Active 2019 [place] [facility] 0 15:22:33 Kidney stone 52174786 Active 2019 [place] [facility] 0 15:24:20 Mitral valve prolapse 507648309 Active 2019 [place] [facility] 0 15:24:51 Nodule of lung 499325393 Active 2019 [place] [facility] 0 15:39:32 Ventricula r premature beats 12730968 Active 2019 [place] [facility] 0 08:16:19 Atypical chest pain 937276639 Active 2019 [place] [facility] 0 08:16:32 Solitary nodule of lung 216324499 Active 2019 [place] [facility] 0 08:16:42 Edema of lower extremity 286148607 Active 2019 [place] [facility] 0 08:16:53 Problem Notes None recorded. Procedures Surgical History Date Name Laterality Status Provider Name and Address Organization Details Recorded Time hysterectomy completed [facility] [place] - [facility] 04/05/2019 15:25:09 Knee arthroscopy/surge ry completed [facility] [place] [facility] 04/05/2019 15:26:23 Carpal tunnel surgery completed [facility] [place] [place] - [facility] 04/05/2019 15:26:59 Caesarean Section completed [facility] - [facility] 04/05/2019 15:27:46 Imaging Results Imaging Date Name Status LastModified by Organization Details LastModified Time 08/08/2023 electrocardiogram completed Informa tion not available 08/09/2023 10:58:56 08/29/2023 electrocardiogram completed Informa tion not available 08/29/2023 16:38:01 03/16/2024 electrocardiogram completed Informa tion not available 03/19/2024 16:03:38 03/26/2024 , echocardiogram completed [facility] [place] [address], [place], [address], 04/01/2024 03:25:05 Procedure Notes None recorded. Medical Equipment None Reported. Allergies Allergen ID Allergen Name Allergen Category Reaction Reaction Severity Criticality Documentation Date Start Date Code Code System Note Provider Name and Address Organization Details Recorded Time 9613 pregabali n medicatio n Not available Not available Not available 04/05/2019 79183 2 RxNorm [place] - [facility] 0 15:34:20 9614 niacin medicatio n Not available Not available Not available 04/05/2019 7393 RxNorm Black [place] [facility], [facility] 0 15:34:35 9615 Product containin g penicilli n (product) medicatio n Not available Not available Not available 04/05/2019 72954 8001 SNOMED [place] [facility], [facility] 0 15:34:42 9616 tramadol medicatio n Not available Not available Not available 04/05/2019 80729 RxNorm [place] [facility], [facility] 0 15:34:48 9617 hydrocodo ne Not available Not available Not available Not available 04/05/2019 5489 RxNorm [place] [facility], [facility] 0 15:35:01 9618 morphine medicatio n Not available Not available Not available 04/05/2019 7052 RxNorm [place] [facility], [facility] 0 15:35:09 Medications Name Sig Start Date [...] 07/23 completed pt no longer takes 12/30/19 21 nj Not Available Not Available Not Available [...] Updated DateTime 4 157.48 cm 32.7 kg/m2 39424.0 3 g 56 /min 98 % 98 % 165 mm[Hg] 62 mm[Hg] Liz Ribera [facility] 4 12:36:08 Date Recorded Body height Body mass index (BMI) Body weight Heart rate Oxygen saturation Oxygen saturation in Arterial blood by Pulse oximetry Systolic blood pressure Diastolic blood pressure Provider Name and Address Organization Details Last Updated DateTime 4 157.48 cm 32 kg/m2 53655.6 6 g 52 /min 99 % 99 % 140 mm[Hg] 60 mm[Hg] Laura Luque [facility] 4 17:18:46 Date Recorded Body height Body mass index (BMI) Body weight Heart rate Oxygen saturation Oxygen saturation in Arterial blood by Pulse oximetry Systolic blood pressure Diastolic blood pressure Provider Name and Address Organization Details Last Updated DateTime 4 157.48 cm 31.6 kg/m2 42114.4 8 g 54 /min 99 % 99 % 120 mm[Hg] 52 mm[Hg] Laura Luque [facility] 4 12:13:23 Date Recorded Body height Body mass index (BMI) Body weight Heart rate Oxygen saturation Oxygen saturation in Arterial blood by Pulse oximetry Systolic blood pressure Diastolic blood pressure Provider Name and Address Organization Details Last Updated DateTime 4 157.48 cm 30.5 kg/m2 25847.2 1 g 63 /min 97 % 97 % 138 mm[Hg] 60 mm[Hg] Liz Ribera [facility] 4 14:04:16 Date Recorded Body height Body mass index (BMI) Body weight Heart rate Oxygen saturation Oxygen saturation in Arterial blood by Pulse oximetry Systolic blood pressure Diastolic blood pressure Provider Name and Address Organization Details Last Updated DateTime 5 157.48 cm 30.8 kg/m2 52229.3 1 g 49 /min 100 % 100 % 130 mm[Hg] 80 mm[Hg] Priscilla Guerra [facility] 5 15:08:49 Social History Question Answer Notes LastModified by Organizat ion Details LastModified Time Tobacco Smoking Status Never Smoker [place] [facility] 04/05/2019 15:31:46 What Is Your Level Of [...] 15:30:39 Medical History Condition Response Depression Y Valvular Heart Disease Y Hyperlipidemia Y GERD/Reflux Y Hypertension Y Kidney Disease Y Gynecological HistoryNo gynecological history recorded. Obstetrics History GPAL:G 0 P 0 0 0 0 Past Encounters Encounter ID Performer Location Encounter Start Date Encounter Closed Date Diagnosis/Indication Diagnosis SNOMED-CT Code Diagnosis ICD10 Code Diagnosis Note [id number] Osorio Burger MD [place] [facility] [address] [place] [address] 04/08/2019 15:43:00 04/08/2019 16:33:18 Ventricular premature beats 07559481 I49.3 Atypical chest pain 1025 04306 R07.89 Had negative stress test Essential hypertension 96647243 I10 Now well controlled Solitary n odule of lung 255647788 R91.1 Pulmonary follow up Edema of l ower extremity 827356487 R60.0 [id number] [address] [place] [address] [place] [address] 05/15/2019 14:08:26 05/15/2019 14:53:26 Ventricular premature beats 41813288 I49.3 Stable. Continue Metoprolol . Atypical chest pain 1025 42252 R07.89 Resolved. Had negative stress test Essential hypertension 73708593 I10 Now well controlled Solitary n odule of lung 100187810 R91.1 Pulmonary follow up Edema of l ower extremity 602765298 R60.0 04/22/19 ECHO: LV chamber size is normal. The estimated left ventricle ejection fraction is 55-60%(nor mal). LV relaxation is impaired. There is borderline left atrial enlargemen t. There is mild aortic valve sclerosis without significan t stenosis. Mitral valve prolapse is present. There is mild thickening of mitral valve anterior leaflet. There is trace mitral regurgitat ion. Hyperlipidemia 91085145 E78.5 Needs to keep LDL less than 100, and HDL more than 40 [place] [id number] [address] [facility] OFF[facility] [address] [place] [address] 07/19/2019 11:57:46 07/19/2019 13:04:29 Ventricular premature beats 72385433 I49.3 Stable. Continue Metoprolol . Atypical chest pain 1025 73549 R07.89 Resolved. Had negative stress test 04/04/2019 Essential hypertension 05331422 I10 Now well controlled Edema of l ower extremity 424881669 R60.0 04/22/19 ECHO: LV chamber size is normal. The estimated left ventricle ejection fraction is 55-60%(nor mal). LV relaxation is impaired. There is borderline left atrial enlargemen t. There is mild aortic valve sclerosis without significan t stenosis. Mitral valve prolapse is present. There is mild thickening of mitral valve anterior leaflet. There is trace mitral regurgitat ion. Hyperlipidemia 35127569 E78.5 Needs to keep LDL less than 100, and HDL more than 40 Will get fasting [place] [id number] Osorio Burger MD [place] OFF[facility] [place] [address] 08/16/2019 10:07:18 08/16/2019 11:01:05 Ventricular premature beats 24829007 I49.3 Increase metoprolol to 25mg daily 08/16/2019 Atypical chest pain 1025 21416 R07.89 Will arrange for cardiac CTA, the patient will need further investigat ions, and would benefit from CT to look for any Coronary Artery Disease Negative stress test 04/04/2019 Essential hypertension 73386911 I10 Well controlled Edema of l ower extremity 984845863 R60.0 Stable, improved. 04/22/2019 ECHO: LV chamber size is normal. The estimated left ventricle ejection fraction is 55-60%(nor mal). LV relaxation is impaired. There is borderline left atrial enlargemen t. There is mild aortic valve sclerosis without significan t stenosis. Mitral valve prolapse is present. There is mild thickening of mitral valve anterior leaflet. There is trace mitral regurgitat ion. Hyperlipidemia 13391172 E78.5 Needs to keep LDL less than 100, and HDL more than 40 Will get fasting [place] [id number] Osorio Burger MD [place] [facility] [place] [address] 09/13/2019 12:32:18 09/26/2019 11:22:47 Ventricular premature beats 73379858 I49.3 Stable, improved.o n metoprolol to 25mg daily since 08/16/2019 Atypical chest pain 1025 48376 R07.89 Resolved Cardiac CTA 09/02/2019 showed no significan t CAD Negative stress test 04/04/2019 Essential hypertension 25672474 I10 Blood pressure is elevated today, but this is only one reading, will keep close follow up, and consider medication change if blood pressure is still elevated next visit. Edema of l ower extremity 916099685 R60.0 Stable, improved. 04/22/2019 ECHO: LV chamber size is normal. The estimated left ventricle ejection fraction is 55-60%(nor mal). LV relaxation is impaired. There is borderline left atrial enlargemen t. There is mild aortic valve sclerosis without significan t stenosis. Mitral valve prolapse is present. There is mild thickening of mitral valve anterior leaflet. There is trace mitral regurgitat ion. Hyperlipidemia 97166943 E78.5 Needs to keep LDL less than 100, and HDL more than 40 Will get fasting lipids for follow-upC ontinue atorvastat in 10mg nightly [id number] Osorio Burger MD [place] [facility] [address] [place] [address] 12/13/2019 12:18:06 12/13/2019 13:59:06 Ventricular premature beats 88474418 I49.3 Stable, improved with metoprolol 25mg. Atypical chest pain 1025 41896 R07.89 Resolved Cardiac CTA 09/02/2019 showed no significan t CAD Negative stress test 04/04/2019 Essential hypertension 74872176 I10 Fair control on current regimen Edema of l ower extremity 357348962 R60.0 Will start Lasix 20mg daily Echo [...] There is trace mitral regurgitat ion. Hyperlipidemia 35358140 E78.5 Needs to keep LDL less than 100, and HDL more than 40 Will get fasting lipids for follow-upC ontinue atorvastat in 10mg nightly Mitral valve prolapse 40 6299004 I34.1 Stable, echo as above. [id number] Kathleen Thomas [facility] [address] [place] [address] 02/05/2020 14:19:50 02/05/2020 15:19:10 Ventricular premature beats 66378390 I49.3 Reports episode of palpitatio ns today that caused her to insole tack puller hand and call to make an appointmen t. Took alprazolam , which resolved the palpitatio ns. Obtain 48 hour holter improved with metoprolol 25mg. Atypical chest pain 1025 00286 R07.89 Resolved Cardiac CTA 09/02/2019 showed no significan t CAD Negative stress test 04/04/2019 Essential hypertension 32349950 I10 Fair control on current regimen Edema of l ower extremity 145011367 R60.0 StableLasi x 20mg daily Echo 04/22/2019 [...] There is trace mitral regurgitat ion. Hyperlipidemia 01610191 E78.5 Needs to keep LDL less than 100, and HDL more than 40 Will get fasting lipids for follow-upC ontinue atorvastat in 10mg nightly Mitral valve prolapse 40 6372573 I34.1 Stable, echo as above. [id number] Osorio Burger MD [place] [facility] [address] [place] [address] 03/13/2020 11:11:24 03/13/2020 13:14:10 Ventricular premature beats 28737976 I49.3 Reports episode of palpitatio ns today that caused her to insole tack puller hand and call to make an appointmen t. Took alprazolam , which resolved the palpitatio ns. Education on talking to her PCP about [facility] medication s. 48 hour holter unremarkab le improved with metoprolol 25mg. Atypical chest pain 1025 03340 R07.89 Resolved Cardiac CTA 09/02/2019 showed no significan t CAD Negative stress test 04/04/2019 Essential hypertension 84950379 I10 Fair control on current regimen Edema of l ower extremity 211650472 R60.0 StableLasi x 20mg daily Echo 04/22/2019 [...] There is trace mitral regurgitat ion. Hyperlipidemia 99892015 E78.5 Needs to keep LDL less than 100, and HDL more than 40 Will get fasting lipids for follow-upC ontinue atorvastat in 10mg nightly Mitral valve prolapse 40 2870091 I34.1 Stable, echo as above. [id number] MD Td [place] [facility] [address] [place] [address] 06/01/2020 09:59:43 06/01/2020 10:37:52 Ventricular premature beats 08299380 I49.3 with recurrent palpitatio ns Stress and anxiety management discussed 48 hour holter monitor 02/24/2020 : Unremarkab le holter. Continue metoprolol 25 mg Atypical chest pain 1025 67919 R07.89 Resolved Cardiac CTA obtained 09/02/2019 showed no significan t CAD Negative stress test 04/04/2019 Essential hypertension 49040942 I10 Fair control on current regimen Edema of l ower extremity 250709899 R60.0 Venous duplex and reflux study Compressio [...] There is trace mitral regurgitat ion. Hyperlipidemia 65033415 E78.5 Needs to keep LDL less than 100, and HDL more than 40 Will get fasting lipids for follow-up Continue atorvastat in 10 mg nightly Mitral valve prolapse 40 3333305 I34.1 Stable, echo as above. [id number] MD [facility] [address] [place] [address] 06/11/2020 10:10:40 06/11/2020 10:34:45 Ventricular premature beats 97276925 I49.3 with recurrent palpitatio ns r/t anxiety/pa jag attacks Stress and anxiety management discussed 48 hour holter monitor 02/24/2020 : Unremarkab le holter. Continue metoprolol 25 mg and OTC fish oil Atypical chest pain 1025 32686 R07.89 Resolved Cardiac CTA obtained 09/02/2019 showed no significan t CAD Negative stress test 04/04/2019 Essential hypertension 21843207 I10 Fair control on current regimen Edema of l ower extremity 629178593 R60.0 Venous duplex and reflux study Compressio [...] There is trace mitral regurgitat ion. Hyperlipidemia 04498058 E78.5 Needs to keep LDL less than 100, and HDL more than 40. Will get fasting lipids for follow-up Continue atorvastat in 10 mg nightly Mitral valve prolapse 40 4202695 I34.1 Stable, echo as above. [id number] Wong [facility]vin [facility] [address] [place] [address] 09/04/2020 10:00:16 09/07/2020 08:45:59 Ventricular premature beats 65193593 I49.3 with recurrent palpitatio ns r/t anxiety/pa jag attacks Stress and anxiety management discussed 48 hour holter monitor 02/24/2020 : Unremarkab le holter. Continue metoprolol 25 mg and OTC fish oil Atypical chest pain 1025 00326 R07.89 Resolved with Pepcid Cardiac CTA obtained 09/02/2019 showed no significan t CAD Negative stress test 04/04/2019 Essential hypertension 55386250 I10 Well controlled on current regimen Edema of l ower extremity 737018384 R60.0 Resolved Venous reflux 07/23/2020 : No [...] There is trace mitral regurgitat ion. Hyperlipidemia 68848808 E78.5 Needs to keep LDL less than 100, and HDL more than 40. Will get fasting lipids for follow-up Continue atorvastat in 10 mg nightly Mitral valve prolapse 40 8319150 I34.1 Stable, echo as above. [id number] Osorio Burger MD [place] [facility] [address] [place] [address] 12/29/2020 17:04:00 12/29/2020 17:46:59 Essential hypertension 27317647 I10 Well controlled on current regimen Hyperlipidemia 68234128 E78.5 Needs to keep LDL less than 100, and HDL more than 40. Will get fasting lipids for follow-up Continue atorvastat in 10 mg nightly Ventricula r premature beats 83639734 I49.3 with recurrent palpitatio ns r/t anxiety/pa jag attacks Stress and anxiety management discussed 48 hour holter monitor 02/24/2020 : Unremarkab le holter. Continue metoprolol 25 mg and increase to bid Edema of l ower extremity 221405825 R60.0 Obtain echo to evaluate for structural /functiona l disease. 94400 Kathleen Thomas [facility] [address] [place] [address] 03/30/2021 16:39:07 03/30/2021 18:15:50 Essential hypertension 58126065 I10 Well controlled on current regimen Hyperlipidemia 73176191 E78.5 Needs to keep LDL less than 100, and HDL more than 40. Will get fasting lipids for follow-up Continue atorvastat in 10 mg nightly Ventricula r premature beats 38777082 I49.3 with recurrent palpitatio ns r/t anxiety/pa jag attacks Stress and anxiety management discussed 48 hour holter monitor 02/24/2020 : Unremarkab le holter. Continue metoprolol 50 mg once a day Edema of l ower extremity 377761078 R60.0 2+ edema will start lasix 20 daily and will check her in 2 weeks Coronary arteriosclerosis 67831304 I25.10 chest pain will do stres echo 04673 Osorio Burger MD [place] [facility] [address] [place] [address] 07/23/2021 10:03:45 07/23/2021 11:18:07 Essential hypertension 94893386 I10 Well controlled on current regimen Hyperlipidemia 81189903 E78.5 Needs to keep LDL less than 100, and HDL more than 40. Will get fasting lipids for follow-up Continue atorvastat in 10 mg nightly Ventricula r premature beats 05824015 I49.3 with recurrent palpitatio ns r/t anxiety/pa jag attacks Stress and anxiety management discussed 48 hour holter monitor 02/24/2020 : Unremarkab le holter. Continue metoprolol 50 mg once a day Edema of l ower extremity 334817970 R60.0 resolved Coronary arteriosclerosis 67192509 I25.10 Negative stress echo Pre-surger y evaluation 780275274 Z01.818 There is no cardiac contraindi cation for the procedure. The planned procedure would be within acceptable risk. {{ Patient may stop taking aspirin and Plavix five (5) days prior to the procedure. *}} [id number] MD Td [place] [facility] [address] [place] [address] 10/13/2021 15:18:53 10/13/2021 16:00:18 Essential hypertension 71322825 I10 still elevated at 162/80will add HCTZ 25 mg daily Hyperlipidemia 32888625 E78.5 Needs to keep LDL less than 100, and HDL more than 40.LDL 98 done on tinue atorvastat in 10 mg nightly Ventricula r premature beats 57210118 I49.3 with recurrent palpitatio ns r/t anxiety/pa jag attacks Stress and anxiety management discussed 48 hour holter monitor 02/24/2020 : Unremarkab le holter. Continue metoprolol 100 mg once a dayadd fish oil Edema of l ower extremity 362659175 R60.0 3+ edema contiune lasix 20 mg dailyadd HCTZ 25 mg daily Coronary arteriosclerosis 28943017 I25.10 Negative stress echo 73669 Osorio Burger MD [place] [facility] [place] [address] 01/21/2022 09:11:04 01/21/2022 09:35:11 Essential hypertension 92631333 I10 still elevated at 162/80will add HCTZ 25 mg daily Hyperlipidemia 28283064 E78.5 Needs to keep LDL less than 100, and HDL more than 40.LDL 98 done on tinue atorvastat in 10 mg nightly Ventricula r premature beats 32588474 I49.3 with recurrent palpitatio ns r/t anxiety/pa jag attacks Stress and anxiety management discussed 48 hour holter monitor 02/24/2020 : Unremarkab le holter. Continue metoprolol 100 mg once a dayadd fish oil Edema of l ower extremity 359631757 R60.0 1+ edema continue lasix 20 mg dailyand HCTZ 25 mg daily Coronary arteriosclerosis 98450440 I25.10 Negative stress echo 78706 Osorio Burger MD [place] [facility] [address] [place] [address] 04/22/2022 11:20:08 04/22/2022 12:14:18 Essential hypertension 50377720 I10 Better nowwill add HCTZ 25 mg daily Hyperlipidemia 62070769 E78.5 Needs to keep LDL less than 100, and HDL more than 40.LDL 98 done 2Con tinue atorvastat in 10 mg nightly Ventricula r premature beats 12850261 I49.3 with recurrent palpitatio ns r/t anxiety/pa jag attacks Stress and anxiety management discussed 48 hour holter monitor 02/24/2020 : Unremarkab le holter. Continue metoprolol 100 mg once a day, OK to take 50 mg PRN for Palpitatio n Edema of l ower extremity 218943762 R60.0 1+ edema continue lasix 20 mg dailyand HCTZ 25 mg daily Coronary arteriosclerosis 37054997 I25.10 Negative stress echo 88153 Chayo So [facility] [address] [place] [address] 10/21/2022 10:06:50 10/21/2022 11:14:39 Essential hypertension 30024787 I10 elevated BP 190/100wil l add hydralazin e to 50 mg TID daily Hyperlipidemia 08383127 E78.5 Needs to keep LDL less than 100, and HDL more than 40.LDL 98 done on tinue atorvastat in 10 mg nightly Ventricula r premature beats 88340929 I49.3 with recurrent palpitatio ns r/t anxiety/pa jag attacks Stress and anxiety management discussed 48 hour holter monitor 02/24/2020 : Unremarkab le holter. Continue metoprolol 100 mg once a day, OK to take 50 mg PRN for Palpitatio n Edema of l ower extremity [id number] R60.0 1+ edema continue lasix 20 mg dailyconti nue HCTZ 25 mg daily Coronary arteriosclerosis 48852160 I25.10 Negative stress echo will repeat echo [id number] NATHANIEL ZARAGO[facility] [address] [place] [address] 10/28/2022 10:15:48 10/28/2022 11:27:18 Essential hypertension 11927452 I10 mildly elevated at 140 /67continu e hydralazin e to 50 mg TID daily as it is new for herwill increase if stay high in 3 months Hyperlipidemia 29459031 E78.5 Needs to keep LDL less than 100, and HDL more than 40.LDL 98 done on tinue atorvastat in 10 mg nightly Ventricula r premature beats 77718353 I49.3 with recurrent palpitatio ns r/t anxiety/pa jag attacks Stress and anxiety management discussed 48 hour holter monitor 02/24/2020 : Unremarkab le holter. Continue metoprolol 100 mg once a day, OK to take 50 mg PRN for Palpitatio n Edema of l ower extremity 817485608 R60.0 1+ edema continue lasix 20 mg dailyconti nue HCTZ 25 mg daily Coronary arteriosclerosis 05419629 I25.10 Negative stress echo US, echocardio gram ECHO 10/26/22:L V chamber size is normal,LVE F 65-70%.LV relaxation is impaired,l eft atrium chamber is mildly dilated,th e aortic valve is mildly calcified, degenerati ve aortic valve. Chronic ki dney disease stage 3 [id number] N18.30 Her Cr increased from 1.6 to 2.8 with drop in her GFRW[place] [id number] Osorio Burger MD [facility] [address] [place] [address] 11/12/2022 08:59:12 11/12/2022 09:46:51 Essential hypertension 16495380 I10 mildly elevated at 140 /67continu e hydralazin e to 50 mg TID daily as it is new for herwill increase if stay high in 3 months Hyperlipidemia 12523217 E78.5 Needs to keep LDL less than 100, and HDL more than 40.LDL 98 done on tinue atorvastat in 10 mg nightly Ventricula r premature beats 54081196 I49.3 with recurrent palpitatio ns r/t anxiety/pa jag attacks Stress and anxiety management discussed 48 hour holter monitor 02/24/2020 : Unremarkab le holter. Continue metoprolol 100 mg once a day, OK to take 50 mg PRN for Palpitatio n Edema of l ower extremity 750020496 R60.0 1+ edema continue lasix 20 mg dailyconti nue HCTZ 25 mg daily Coronary arteriosclerosis 06140442 I25.10 Negative stress echo US, echocardio gram ECHO 10/26/22:L V chamber size is normal,LVE F 65-70%.LV relaxation is impaired,l eft atrium chamber is mildly dilated,th e aortic valve is mildly calcified, degenerati ve aortic valve. Chronic ki dney disease stage 3 543815457 N18.30 Her Cr increased from 1.6 to 2.8 with drop in her GFRHad follow labs, will get for [facility] [id number] [facility]ANIEL ZARAGOZA [facility] [address] [place] [address] 12/21/2022 16:10:17 12/21/2022 16:45:58 Palpitations 56271916 R00.2 she is on metop 100 mg dailytoday she has one episode of heart flutter and took additional 50 mg metoprolol and now her fluttering is better. Fluttering heart 4664554 04 R00.2 will do event monitor for one monthwill add full aspirincon tinue with metoprolol 100 mg daily [id number] NATHANIEL ZARAGOZA [facility] [address] [place] [address] 01/25/2023 16:06:46 01/25/2023 16:33:24 Palpitations 00209899 R00.2 she is on metop 100 mg dailytoday she has one episode of heart flutter and took additional 50 mg metoprolol and now her fluttering is better. Fluttering heart 2574014 04 R00.2 event monitor showed paroxysmal a fib with RVRcontinu e with aspirin and will start xarelto 15 mg dailyconti nue with metoprolol 100 mg daily/ rate controlled [id number] Osorio Burger MD [facility] [place] [address] 03/04/2023 13:08:10 03/04/2023 13:41:33 Palpitations 74522962 R00.2 she is on metop 100 mg dailytoday she has one episode of heart flutter and took additional 50 mg metoprolol and now her fluttering is better. Fluttering heart 5064763 04 R00.2 event monitor showed paroxysmal a fib with RVRcontinu e with aspirin and will start xarelto 15 mg dailyconti nue with metoprolol 100 mg daily/ rate controlled Hyperlipidemia 44084176 E78.5 Needs to keep LDL less than 100, and HDL more than 40.LDL 98 done on tinue atorvastat in 10 mg nightly Essential hypertension 87011361 I10 mildly elevated at 140 /67continu e hydralazin e to 50 mg TID daily as it is new for herwill increase if stay high in 3 months [id number] Osorio Burger MD [facility] [place] [address] 04/25/2023 12:25:22 04/25/2023 13:06:17 Palpitations 73740490 R00.2 she is on metop 100 mg daily well controlled today Fluttering heart 3566216 04 R00.2 event monitor showed paroxysmal a fib with RVRcontinu e with aspirin and will start xarelto 15 mg dailyconti nue with metoprolol 100 mg daily/ rate controlled Hyperlipidemia 69993948 E78.5 Needs to keep LDL less than 100, and HDL more than 40.LDL 98 done on tinue atorvastat in 10 mg nightly Essential hypertension 16558936 I10 mildly elevated at 140 /67continu e hydralazin e to 50 mg TID daily as it is new for herwill increase if stay high in 3 months Swelling o f bilateral lower limbs 552902749 M79.89 continue with HCTZ and lasix 40 [id number] Osorio Burger MD [facility] [address] [place] [address] 08/08/2023 16:55:40 08/08/2023 17:45:53 Palpitations 10737374 R00.2 she is on metop 100 mg daily well controlled today Fluttering heart 5294358 04 R00.2 event monitor showed paroxysmal a fib with RVRcontinu e with aspirin and will start xarelto 15 mg dailyconti nue with metoprolol 100 mg daily/ rate controlled Hyperlipidemia 42159707 E78.5 Needs to keep LDL less than 100, and HDL more than 40.LDL 98 done on tinue atorvastat in 10 mg nightly Essential hypertension 57944452 I10 mildly elevated at 140 /67continu e hydralazin e to 50 mg TID daily as it is new for herwill increase if stay high in 3 months Swelling o f bilateral lower limbs 537601175 M79.89 continue with HCTZ and lasix 40 Obstructiv e sleep apnea syndrome 92551853 G47.33 Home sleep studyHe has leg swelling, fatigue, and snoring [id number] Osorio Burger MD [facility] [address] [place] [address] 08/29/2023 11:32:59 08/29/2023 12:41:22 Palpitations 19876243 R00.2 she is on metop 100 mg daily well controlled today Fluttering heart 1702649 04 R00.2 event monitor showed paroxysmal a fib with RVRcontinu e with aspirin and will start xarelto 15 mg dailyconti nue with metoprolol 100 mg daily/ rate controlled Hyperlipidemia 43280832 E78.5 Needs to keep LDL less than 100, and HDL more than 40.LDL 98 done 3Con tinue atorvastat in 10 mg nightly Essential hypertension 05102855 I10 mildly elevated at 140 /67continu e hydralazin e to 50 mg TID daily as it is new for herwill increase if stay high in 3 months Swelling o f bilateral lower limbs 007255880 M79.89 continue with HCTZ and lasix 40 Obstructiv e sleep apnea syndrome 76256158 G47.33 Home sleep studyHe has leg swelling, fatigue, and snoring [id number] Osorio Burger MD [facility] [place] [address] 09/23/2023 13:44:18 09/23/2023 14:51:02 Palpitations 95339030 R00.2 she is on metop 100 mg daily well controlled today Fluttering heart 7353794 04 R00.2 event monitor showed paroxysmal a fib with RVRcontinu e with aspirin full dosecontin ue with metoprolol 100 mg daily/ rate controlled Hyperlipidemia 33023419 E78.5 Needs to keep LDL less than 100, and HDL more than 40.LDL 98 done on tinue atorvastat in 10 mg nightly Essential hypertension 93189396 I10 mildly elevated at 140 /67continu e hydralazin e to 50 mg TID daily as it is new for herwill increase if stay high in 3 months Swelling o f bilateral lower limbs 026287515 M79.89 continue with HCTZ and lasix 40 Obstructiv e sleep apnea syndrome 42791599 G47.33 Home sleep studyHe has leg swelling, fatigue, and snoring [id number] Osorio Burger MD [facility] [place] [address] 03/16/2024 14:22:29 03/16/2024 15:38:52 Palpitations 89937674 R00.2 she is on metop 100 mg daily well controlled todayObtai n echo to evaluate for structural /functiona l disease. Fluttering heart 3293706 04 R00.2 event monitor showed paroxysmal a fib with RVRcontinu e with aspirin full dosecontin ue with metoprolol 100 mg daily/ rate controlled Hyperlipidemia 21257143 E78.5 Needs to keep LDL less than 100, and HDL more than 40.LDL 98 done 10/2022 Essential hypertension 44516292 I10 Needs to keep LDL less than 70, and HDL more than 40Will get fasting lipids for follow up Swelling o f bilateral lower limbs 156117202 M79.89 continue with HCTZ and lasix 40 Obstructiv e sleep apnea syndrome 45964145 G47.33 on Cpap Health Concerns Section Related Observation LastModified by Organization Detai ls LastModified Time None Recorded Concern Status LastModified by Organization Details LastModified Time None Recorded Advance Directives Directive None Recorded Payers Encounter Date Sequence Insurance Name Policy Number Policy Alonzo Covered Member ID Alonzo Member ID Guarantor Name 04/25/2023 1 [facility] [employer] ([facility] Ira Lord [id number] OI Ira Lord 08/08/2023 1 [facility] [employer] (O) Ira Lord [id number] OI Ira Lord 08/29/2023 1 [facility] [employer] (PPO) Ira Lord [id number] OI Ira Lord 09/23/2023 1 [facility] [employer] (O) Ira Lord [id number] OI Ira Lord 03/16/2024 1 [facility] [employer] (O) Ira Lord [id number] OI Ira Lord Notes Date Note Type Note Provider Name and Address Organization Details Recorded Time 04/25/2023 text/html 04/25/23CC: Card iac follow-up dyspnea on [id number] Female with h/o mitral valve prolapse, ROSALVA [...] mild Coronary Artery Disease. She was in [facility] in 04/04/19 because of Chest pain. [...] mitral regurgitation. Osorio Burger MD [address] [place], [address], [facility] 04/25/2023 12:55:21 08/08/2023 text/html 08/08/23CC: Card iac follow-up , [id number] Female with h/o mitral valve prolapse, ROSALVA [...] mild Coronary Artery Disease. She was in [facility] in 04/04/19 because of Chest pain. [...] trace mitral regurgitation. Osorio Burger MD [address] [place], [address], [facility] 08/08/2023 17:37:22 08/29/2023 text/html 08/29/23CC: Card iac follow-up , issues with heart [id number] Female with h/o mitral valve prolapse, ROSALVA [...] mild Coronary Artery Disease. She was in [facility] in 04/04/19 because of Chest pain. [...] leaflet. There is trace mitral regurgitation. Osorio Bugrer MD [address] [place], [address], [facility] 08/29/2023 12:39:29 09/23/2023 text/html 09/23/23CC: Card iac follow-up, dyspnea on [id number] Female with h/o mitral valve prolapse, ROSALVA [...] mild Coronary Artery Disease. She was in [facility] in 04/04/19 because of Chest pain. [...] is trace mitral regurgitation. Osorio Burger MD [address] [place], [address], [facility] 09/23/2023 14:51:13 03/16/2024 text/html 03/16/24CC: Card iac [id number] Female with h/o mitral valve prolapse, ROSALVA [...] mild Coronary Artery Disease. She was in [facility] in 04/04/19 because of Chest pain. [...] is trace mitral regurgitation. Osorio Burger MD [address] [place], [address], [facility] 03/16/2024 15:32:10 OBGyn Episode No OBEpisode recorded.
--- OUTSIDE RECORDS SUMMARY | 2024-04-24 17:58 | XMS_ITS | Encounter Summary ---
Author Organization [facility] Address [address] [place] [address] Care Team Providers Care Floating Labor Gang Supervisor Name Role Phone Tip Gordon MD Primary Care Provider [phone] Reason for Visit * Reason Onset Date Comments SURGICAL ADMIT 11/07/[address] [facility] Encounter Details Date Type Department Care Team (Late st Contact Info) Description 11/07/2019 Telephone [facility] Admitting [address] [place] [address] [place] [address] [facility] [address] [place] [address] SURGICAL ADMIT (SPOKE TO JASMIN [...] on filedocumented in this encounter Care Teams Floating Labor Gang Supervisor Relationship Specialty Start Date End Date Tip Gordon MD [address] [facility] [address] [place] [address] PCP - General Family Practice 11/12/18 documented as of this encounter
--- OUTSIDE RECORDS SUMMARY | 2024-04-24 17:58 | XMS_ITS | Continuity of Care Document ---
Author Organization [facility] Address [address] [facility] [address] [place] [address] Phone Care Team Providers Care Medical Doctor Md Name Role Phone Melinda Raf JENNINGS Unavailable Unavailable Procedures Procedure Date PT Re-evaluation Therapeutic Exercise Neuromuscular Re-Ed Therapeutic Activities Therapeutic Exercise Manual Therapy Therapeutic Activities Hot or Cold Pack Neuromuscular Re-Ed Progress Note Therapeutic Activities Neuromuscular Re-Ed Therapeutic Exercise Manual Therapy Hot or Cold Pack Therapeutic Activities Neuromuscular Re-Ed Manual Therapy Therapeutic Exercise Hot or Cold Pack Therapeutic Activities Neuromuscular Re-Ed Manual Therapy Hot or Cold Pack Therapeutic Exercise Manual Therapy Therapeutic Activities Hot or Cold Pack Therapeutic Exercise Neuromuscular Re-Ed Therapeutic Activities Manual Therapy Hot or Cold Pack Neuromuscular Re-Ed Therapeutic Exercise Therapeutic Activities Therapeutic Exercise Neuromuscular Re-Ed Manual Therapy Hot or Cold Pack Therapeutic Activities Therapeutic Exercise Neuromuscular Re-Ed Hot or Cold Pack Manual Therapy Therapeutic Activities Manual Therapy Neuromuscular Re-Ed Hot or Cold Pack Therapeutic Exercise Therapeutic Activities Neuromuscular Re-Ed Therapeutic Exercise Manual Therapy Hot or Cold Pack Therapeutic Activities Hot or Cold Pack Neuromuscular Re-Ed Manual Therapy Therapeutic Exercise Therapeutic Activities Hot or Cold Pack Neuromuscular Re-Ed Therapeutic Exercise Manual Therapy Therapeutic Activities Manual Therapy Neuromuscular Re-Ed Therapeutic Exercise Therapeutic Activities Neuromuscular Re-Ed Therapeutic Exercise Manual Therapy Therapeutic Activities Hot or Cold Pack Neuromuscular Re-Ed Therapeutic Exercise Manual Therapy Therapeutic Activities Manual Therapy Hot or Cold Pack Neuromuscular Re-Ed Therapeutic Exercise Therapeutic Activities Neuromuscular Re-Ed Therapeutic Exercise Manual Therapy Hot or Cold Pack Therapeutic Activities Neuromuscular Re-Ed Therapeutic Exercise Manual Therapy Hot or Cold Pack Neuromuscular Re-Ed PT Evaluation Moderate Complexity Therapeutic Exercise Therapeutic Activities Manual Therapy Therapeutic Exercise Therapeutic Activities Hot or Cold Pack Therapeutic Exercise Hot or Cold Pack NSF Fee PT Evaluation Moderate Complexity Therapeutic Exercise Forearm OT EVALUATION THERAPEUTIC EXERCISES ORTHOTIC FITTING Advance Directives Directive Yes / No Effective Date File Name No Information Encounters Encounter Description Practice Location Reason(s) For Visit Diagnoses Date Provider Providers Copied on Encounter [address], [id number], tel:[phone] [place] No Information 1 Dalel Raf. [address] [place] [address], [facility] [address], [place], [facility], . tel:[phone], [id number], tel:[phone] [place] No Information 1 Dalel Raf. [address] [place] [address], [facility] [address] [address], . tel:[phone], [id number], tel:[phone] [place] No Information 1 Muehl Raf. [address] [facility], [facility] [address], [place] [address], . tel:[phone], [id number], tel:[phone] [place] No Information 1 Dalel Raf. [address] [facility], [address], [facility], [place]. tel:[phone] [facility] [address], [place], [place], [id number], [place] tel:[phone] [place] No Information June-2 1- 1 Kath Parrish. . [facility], [address], [place], [place], [id number], [place] tel:[phone] [place] No Information June-1 - 1 Muehl Raf. [address] [facility], [address], [place], [place], [facility], [place]. tel:[phone] [facility] [address] [place], [place] [address], [place], [place], [id number], tel:[phone] [place] No Information June-0 1 Muehl Raf. [address] [place] [address], [address], [place], [place], [facility], [place]. tel:[phone] [facility] [address], [place], [place], [id number], [place] tel:[phone] [place] No Information June-0 1 Muehl Raf. [address] [facility], [address], [place], [place], [facility], [place]. tel:[phone] [facility] [address] [place], [place] [address], [place], [place], [id number], [place] tel:[phone] [place] No Information May-2 1 Kath Parrish. . [facility], [place], [place], [address], [place] tel:[phone] [place] No Information May-2 1 Muehl Raf. [address] [facility], [address], [place], [place], [facility], [place]. tel:[phone] [facility] [address], [place], [place], [address], [place] tel:[phone] [place] No Information May-2 3- 1 Muehl Raf. [address] [place] [address], [address], [place], [place], [facility], [place]. tel:[phone] [facility] [address], [place], [place], [id number], [place] tel:[phone] [place] No Information Apr-2 0-202 1 Kath Parrish. . [facility], [address], [place], [place], [address], [place] tel:[phone] [place] No Information Apr-1 4-202 1 Kath Parrish. . [facility], [address], [place], [place], [address], [place] tel:[phone] [place] No Information Apr-1 2-202 1 Muehl Raf. [address] [place] [address], [address], [place], [place], [facility], [place]. tel:[phone] [facility] [address] [place], [place] [address], [place], [place], [id number], [place] tel:[phone] [place] No Information Apr-0 6-202 1 Muehl Raf. [address] [place] [address], [address], [place], [facility], [place]. tel:[phone] [facility] [address] [place], [place] [address], [place], [place], [id number], [place] tel:[phone] [place] No Information Apr-0 5-202 1 Muehl Raf. [address] [place] [address], [address], [place], [address], [place]. tel:[phone] [facility] [address], [place], [place], [id number], [place] tel:[phone] [place] No Information Apr-0 2-202 1 Muehl Raf. [address] [place] [address], [address], [place], [facility], [place]. tel:[phone] [facility] [address], [place], [place], [address], [place] tel:[phone] [place] No Information Mar-2 9-202 1 Muehl Raf. [address] [facility], [address], [place], [place], [facility], [place]. tel:[phone] [address], [place], [place], [id number], tel:[phone] [place] No Information Apr-2 1 Muehl Raf. [address] [place] [address], [address], [place], [facility], [place]. tel:[phone] [address], [place], [place], [address], [place] tel:[phone] [place] No Information 1 Muehl Raf. [address] [place] [address], [address], [place], [place], [facility], [place]. tel:[phone], [id number], tel:[phone] [place] Pain in right shoulderStiffne ss of right shoulder, not elsewhere classifiedMuscl e weakness (generalized)Im pingement syndrome of right shoulder 8 Muehl Raf. [address] [place] [address], [address], [place], [place], [facility], [place]. tel:[phone] Referring Provider: Tip Gordon [address], [place], [address]. tel:[phone] [address], [place], [id number], [place] tel:[phone] [place] Pain in right shoulderStiffne ss of right shoulder, not elsewhere classifiedMuscl e weakness (generalized)Im pingement syndrome of right shoulder 8 Muehl Raf. [address] [place] [address], [address], [place], [place], [facility], [place]. tel:[phone] Referring Provider: Tip Gordon [address], [place], [address]. tel:[phone] [place] [address], [id number], tel:[phone] [employer] No Information 8 Screen Clinician. . Referring Provider: Clinician Screen. [facility] [address] [place] [address], [id number], tel:[phone] [place] Pain in right shoulderStiffne ss of right shoulder, not elsewhere classifiedMuscl e weakness (generalized)Im pingement syndrome of right shoulder 8 Muehl Raf. [address] [facility], [address], [place], [place], [facility], [place]. tel:[phone] Referring Provider: Tip Gordon, [address] [place] [address] [address], [place], [place], [facility]. tel:[phone] [facility] [address] [place] [address], [id number], tel:[phone] [place] No Information 5 Monroe Moseley. [address] [facility], [address], [place], [address], [place]. tel:[phone] Referring Provider: Lui Hearn, [address] [place] [address] [address], [place], [address]. tel:[phone] [facility] [address] [place] [address], [id number], tel:[phone] [place] Pain in right handUnsp fx fifth MC bone, right hand, subs for fx w routn heal 5 Monroe Moseley. [address] [facility], [address], [place], [address], [place]. tel:[phone] Referring Provider: Chuck Busby, [address] [place] [address], [place], [address]. tel:[phone] Family History Family Member Type Diagnosis Age At Onset No Information Payers Payer name Insurance type Covered libertarian ID Authoriza tion(s) No Information Social History Type Description Quantity Date Captured Comments Alcohol Use Details Unknown Caffeine Use Details Unknown Tobacco Use Status Current non-smoker Smoking Status Never smoker Non-Smoking Tobacco Use Details : No Details Available : No Details Available Sex Female Chief Complaint And Reason For Visit No Information Reason For Referral Reason For Referral No Information History Of Present Illness Encounter Date Complaint History Of Prese nt Illness No Information Functional Status Date Functional Assessmen t No Information Instructions Date Instruction Additional Infor yousuf Prescribed activity/exercise edu cation Related to Overweight Dietary needs education Related to Overweight Assessments Type Assessment Date No Information Patient Care Teams Name Effective Dates (start - stop) Status Members No Information
--- OUTSIDE RECORDS SUMMARY | 2024-04-24 17:58 | XMS_ITS | Clinical Summary ---
Author Organization [facility] Address [address] [place] [address] Care Team Providers Care Tubing Machine Tender Name Role Phone Tip Gordon MD Primary Care Provider [phone] Allergies Active Allergy Reactions Criticality Noted Date [...] Department Care Team Description 03/11/2024 8:00 AM SALES AND DISTRIBUTION CLERK - 03/11/2024 11:59 PM [facility] Encounter [facility] [place] [address] Juno Field MD Discharge Disposition: Home or [...] or pharmacy? Patient declines to respond 09/16/2023 [facility] Utilities Answer Date Recorded In the past 12 months has [facility] [employer], oil, or water [employer] threatened to shut off services in your [...] often do you attend chur ch or jainism services? More than 4 times per year 09/16/2023 Do you belong to any clubs o r organizations such as presybeterian groups, unions, fraternal or athletic groups, or [...] medical care, and heating? Patient declined 09/16/2023 [facility] - Occupational [...] any time in the past 12 m [facility], were you homeless or living in a chcf (including now)? No 09/16/2023 Comments No Sex and Gender Information Value Date Recorded Sex Assigned at Female 03/11/2024 8:03 AM SALES AND DISTRIBUTION CLERK Legal Sex Female 6:23 PM CDT Gender [...] ABD WWO CON Routine 03/11/2024 9:15 AM SALES AND DISTRIBUTION CLERK Left renal mass OCCULT BLOOD, FECES STAT 09/16/2023 5 :50 PM CDT from Last 3 Months or Most Recently Relevant to Health Maintenance Results * MRI ABD WWO CON (03/11/2024 9:15 AM SALES AND DISTRIBUTION CLERK) Anatomical Region Laterality Modality Abdomen Magnetic Resonan ce 03/12/2024 4:21 PM SALES AND DISTRIBUTION CLERK Impressions 03/12/2024 4:27 PM SALES AND DISTRIBUTION CLERK =====IMPRESSION:===== 1. Complex abnormalities of both kidneys. [...] 03/12/2024 4:21 PM Narrative 03/12/2024 4:27 PM SALES AND DISTRIBUTION CLERK [address] [address] EXAMINATION: MRI Abdomen with/without contrast EXAM DATE/TIME: [...] Procedure Note Kennedy Ortiz MD - 03/12/[address] [address] EXAMINATION: MRI Abdomen with/without contrast EXAM DATE/TIME: [...] BLOOD FECAL NEGATIVE 09/16/2023 7:06 PM CDT [facility] STOOL SPECIMEN / Unknown 09/16/2023 5:50 PM CDT Nicholas Nassar MD BODY FLUIDS AND STOOLS ORDERAB LES Final Result [facility] [address] [place] [address], [place] [phone] from Last 3 Months or Most Recently Relevant to Health Maintenance Insurance [employer] [facility] MEDICARE PART A Advance Directives * Full Code (Latest Code Status on File) Date Activated Date Inactivated Comments 09/16/2023 7:01 PM 09/20/2023 3:53 PM Care Teams Tubing Machine Tender Relationship Specialty Start Date End Date Tip Gordon MD [address] [place] [address] PCP - General FAMILY PRACTICE 04/27/21
--- OUTSIDE RECORDS SUMMARY | 2024-04-24 17:58 | XMS_ITS | Clinical Summary ---
Author Organization [facility] Address [address] [place] [id number] Phone Care Team Providers Care Sheet Rock Applier Name Role Phone Tip Gordon MD Primary [...] Comments Blood Pressure 136/74 03/03/2021 9:47 AM NETEZZA DEVELOPER Pulse - - Temperature 36.6 C (97.8 F) 03/03/2021 9:47 AM NETEZZA DEVELOPER Respiratory Rate 18 03/03/2021 9:47 AM NETEZZA DEVELOPER Oxygen Saturation - - Inhaled Oxygen Concentration - - Weight 81.2 kg (179 lb) 03/03/2021 9:47 AM NETEZZA DEVELOPER Height 157.5 cm (5' 2 ) 03/03/2021 9:47 AM NETEZZA DEVELOPER Body Mass Index 32.74 03/03/2021 9:47 AM NETEZZA DEVELOPER Plan of Treatment Health Maintenance Due Date Last Done Comments Pneumococcal PPSV23/PCV13 65 + Years / Low and Medium Risk (1 of 4 - PCV) 2017 Influenza Vaccine (#1) 2023 10/23/2012 Care Teams Sheet Rock Applier Relationship Specialty Start Date End Date Tip Gordon MD [address] [facility] [address] [facility] [address] [place] [id number] PCP - General Internal Medicine 01/27/21
[2024-04-24 18:00] VITALS: BP 177/65; PULSE 52; RESP 16; O2SAT 97
--- NOTE | 2024-04-24 19:11 | ED_ITS ---
HPI - General Adult General Chief complaint: Shortness of Breath/Dyspnea Stated complaint: feeling off , h/a, feeling sob Time Seen by Provider: 04/24/24 16:31 History of Present Illness HPI narrative: 73-year-old female with a past medical history including hypertension, hyperlipidemia, stage IV CKD, GERD, ROSALVA, paroxysmal AFib on Eliquis. Patient presents to the emergency department today with a chief complaint of chest pressure and chest heaviness associated with a headache. She was seen by her primary care provider this morning and referred to the ER for evaluation. Patient states since her arrival to the ER headache and chest pain and pressure of sense slowly resolved and now normal. Patient denies any symptoms at this time, no headache, vision change, nausea, vomiting, chest pain, shortness a breath. No dizziness or spinning. She does that her blood pressure was elevated today and thinks that her symptoms could have been related to this as they are now improved with her blood pressure also lowering without intervention. Related Data Home Medications ?Medication ?Instructions ?Recorded ?Confirmed ?Last Taken ?Type atorvastatin 10 mg tablet 10 mg PO DAILY 01/21/19 04/24/24 03/26/24 History omega 5-upx-cat-fish oil 300 1 cap PO DAILY 10/17/19 04/24/24 03/26/24 History mg-1,000 mg capsule (Fish Oil) hydralazine 50 mg tablet 50 mg PO TID 11/03/22 04/24/24 03/26/24 History nitroglycerin 0.4 mg sublingual 0.4 mg sublingual Q5M PRN Chest 11/03/22 04/24/24 01/04/24 History tablet Pain metoprolol succinate 50 mg 50 mg PO DAILY 10/09/23 04/24/24 03/27/24 History tablet,extended release 24 hr pantoprazole 40 mg tablet,delayed 40 mg PO QAM 12/21/23 04/24/24 03/26/24 History release (Protonix) amiodarone 200 mg tablet 200 mg PO DAILY 12/25/23 04/24/24 03/26/24 History aspirin 325 mg tablet,delayed 325 mg PO DAILY 12/25/23 04/24/24 03/26/24 History release Allergies Allergy/AdvReac Type Severity Reaction Status Date / Time pregabalin Allergy Intermediate LETHARGIC, Verified 04/24/24 14:21 SLEEPY, SPACEY niacin Allergy Mild Rash Verified 04/24/24 14:21 Penicillins Allergy Mild Rash Verified 04/24/24 14:21 buspirone AdvReac Intermediate Agitated Verified 04/24/24 14:21 diazepam (From Valium) AdvReac Mild Nausea and Verified 04/24/24 14:21 Vomiting hydrocodone AdvReac Mild Nausea and Verified 04/24/24 14:21 Vomiting morphine AdvReac Mild Nausea and Verified 04/24/24 14:21 Vomiting tramadol AdvReac Mild Gastrointestinal Verified 04/24/24 14:21 Upset Review of Systems 2 Review of Systems: As reviewed above in [facility] Past Medical History Medical History 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 Hilario History of bilateral carpal tunnel release 2002 and 2005 Hx of section History of hysterectomy 1985 Family History Family History Father , He in June 2019 due to complications of COVID-19. Hypertension Parkinson disease Mother Hypertension Sibling Diabetes mellitus Daughter , at age 34. (2011) TTP (thrombotic thrombocytopenic purpura) Social History Social History Social History: Primary Care Provider: Dr. 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 Gender identity (if verbalized by the patient): Female Sexual Orientation (if Verbalized by the Patient): Straight or Heterosexual Spiritual care concerns: Yes Agree to blood products: No Exam 2 Narrative: GENERAL: [Well-appearing, well-nourished, and in no acute distress.] HEAD: [Normocephalic, atraumatic.] EYES: [PERRLA and EOMI.] ENT: Nares clear, no rhinorrhea or epistaxis. Mucous membranes moist. NECK: Supple. CHEST: [Clear to auscultation. No respiratory distress.] HEART: [Regular rate and rhythm]. No murmur heard. [Normal peripheral pulses.] ABDOMEN: [Soft, nondistended], [nontender], [No rigidity or guarding] EXTREMITIES: Normal range of motion. [No edema.] SKIN: Warm, dry, no rash. NEURO: [No focal deficits]. Alert and oriented [x3.] PSYCH: [Normal mood and affect.] Course Vital Signs Vital signs: Vital Signs Temperature 36.6 C 04/24/24 14:26 Pulse Rate 50 L 04/24/24 14:26 Respiratory Rate 18 04/24/24 14:26 Blood Pressure 161/46 H 04/24/24 14:26 Pulse Oximetry 99 04/24/24 14:26 Temperature 36.6 C 04/24/24 14:26 Pulse Rate 52 L 04/24/24 18:00 Respiratory Rate 16 04/24/24 18:00 Blood Pressure 177/65 H 04/24/24 18:00 Pulse Oximetry 97 04/24/24 18:00 Oxygen Delivery Room Air 04/24/24 15:54 Medical Decision Making MDM Narrative Medical decision making narrative: 73-year-old female with history of hypertension, hyperlipidemia, stage IV CKD, paroxysmal AFib on chronic anticoagulation. She presents to the ER from her primary care provider's office for concerns of chest pressure and heaviness as well as a headache. She thinks it could be related to her blood pressure at was was elevated in the 170s to 180 systolic and she states that her headache and symptoms got worse when the blood pressure was higher. She presents to the ER today and states her symptoms have slowly improved and now presently absent and her blood pressure was also improved without intervention to 161 systolic. Given her age and risk factors a cardiac workup at this time was ordered to assess for any signs of hypertensive urgency/emergency. Clinically she is well appearing not any acute distress suspicion for end-organ damage such as intracranial bleed, stroke, liver kidney injury, troponin elevation or ACS or very unlikely. Cardiac workup including troponin, CBC, CMP, chest x-ray, EKG and a CT of the head was obtained. Patient is presently asymptomatic and remained on case monitor and pulse oximetry while in the ED. Workup shows no leukocytosis, hemoglobin 9.4 which is around her baseline compared to previous labs. Normal platelet count. Electrolytes within normal limits, BUN and creatinine reflective of her normal CKD stage 4. She still makes urine and is not on dialysis. Normal glucose, normal LFTs. Troponin is undetectable. Chest x-ray shows no acute cardiopulmonary pathology, some small opacification of the vertebrae, most likely degenerative changes in the spine. Patient has no signs or symptoms of infection. CT of the head shows no acute intracranial findings. EKG shows sinus bradycardia but no signs of ST segment elevations, depressions or inversions. On review of the EMR patient is chronically bradycardic with a heart rate in the 40s to 50s and this is not new. Patient is presently asymptomatic. She is safe and stable for discharge home at this time with regular PCP follow-up. Patient comfortable with this plan of care. Medical Records Medical records reviewed: Yes I reviewed the external patient's medical records. Vital Signs Vital Signs: Vital Signs Temperature 36.6 C 04/24/24 14:26 Pulse Rate 50 L 04/24/24 14: Respiratory Rate 18 04/24/24 14: Blood Pressure 161/46 H 04/24/24 14:26 Pulse Oximetry 99 04/24/24 14: Temperature 36.6 C 04/24/24 14: Pulse Rate 52 L 04/24/24 18:00 Respiratory Rate 16 04/24/24 18:00 Blood Pressure 177/65 H 04/24/24 18:00 Pulse Oximetry 97 04/24/24 18:00 Oxygen Delivery Room Air 04/24/24 15:54 Lab Data Lab results reviewed: Yes I reviewed the patient's lab results. 04/24/24 14:55 04/24/24 14:55 Labs: Lab Results 04/24/24 Range/Units 14:55 WBC 8.5 (4.5-10.0) K/mm3 RBC 3.03 L (4.2-5.4) M/mm3 Hgb 9.4 L D (12.0-15.0) g/dL Hct 29.2 L (37.0-47.0) % MCV 96.4 (80-100) fl MCH 31.0 (26-34) pg MCHC 32.2 (32-36) g/dl RDW 15.2 H (11.5-14.5) % Plt Count 261 (150-375) k/mm3 MPV 9.3 (7.4-10.4) fl Immature Gran % (Auto) 0.5 (0-0.5) % Neut % (Auto) 73.4 H (45.5-73.1) % Lymph % (Auto) 16.8 L (18.3-44.2) % Grainger % (Auto) 8.2 (2.6-8.5) % Eos % (Auto) 0.9 (0-4.4) % Baso % (Auto) 0.2 (0.2-1.2) % Lymph # (Auto) 1.43 (0.9-3.2) K/mm3 Grainger # (Auto) 0.7 H (0.1-0.6) K/mm3 Eos # (Auto) 0.1 (0-0.3) K/mm3 Baso # (Auto) 0.0 (0.0-0.1) K/mm3 Abs Immat Gran (auto) 0.04 H (0.00-0.031) K/mm3 Absolute Neuts (auto) 6.3 (1.3-6.7) K/mm3 Absolute Nucleated RBC 0.000 (0.0-0.012) K/mm3 Nucleated RBC % 0.0 (0.0-0.2) % Sodium 143 (137-145) mmol/L Potassium 4.0 (3.4-5.0) mmol/L Chloride 107 (98-107) mmol/L Carbon Dioxide 25 (22-30) mmol/L Anion Gap 11 (4-12) mmol/L BUN 58 H D (7-17) mg/dL Creatinine 5.76 H (0.7-1.0) mg/dL Estim Creat Clear Calc 8 ml/min Estimated GFR 7 L (59 - ) Glucose 112 H (65-110) mg/dL Calcium 9.8 (8.4-10.2) mg/dL Total Bilirubin 0.4 (0.2-1.3) mg/dL AST 31 (14-36) U/L ALT 35 (6-35) U/L Alkaline Phosphatase 95 (38-126) U/L Troponin I < 0.012 (0.000-0.034) ng/mL Total Protein 7.0 (6.3-8.2) g/dL Albumin 4.1 (3.5-5.1) g/dL Imaging Data Attestation: I personally reviewed and interpreted this imaging study as follows: My impression: Impressions Chest X-Ray 04/24/24 15:20 IMPRESSION: Minimal opacification projected over the left tibia which is most likely summation shadow. Possibility of infiltrate is less likely. Follow-up advised. Otherwise, No acute cardiopulmonary pathology. Head CT 04/24/24 18:03 IMPRESSION: No acute intracranial findings. ECG Data EKG #1: Attestation: I personally reviewed and interpreted this ECG as follows: ECG completion date: 04/24/24 ECG completion time: 14:49 Prior ECG tracings: available for review Interpretation: Sinus bradycardia, no signs of ST segment elevations, depressions or acute inversions. Regular rhythm and regular axis, QTC 411, NC interval 131, rate of 46. No significant interval change compared to prior EKG. Overall interpretation sinus bradycardia. Discharge Plan Discharge Clinical Impression: Asymptomatic hypertension Patient Disposition: Home, Self-Care Condition: Stable Instructions: Antibiotic Form, Chronic Hypertension (ED) Additional Instructions: Your workup appears very reassuring, no signs of heart damage, no CT findings or concerns and your brain, laboratory studies show chronic kidney disease but nothing new. Otherwise you are safe and can be followed up with on outpatient basis regarding her blood pressure. Call your primary doctor for close outpatient follow-up about your blood pressure issues. Return with any new or worsening concerns. Patient Language: Vietnamese Prescriptions: No Action omega 7-moy-uvd-fish oil [Fish Oil] 300-1,000 mg capsule 1 cap PO DAILY atorvastatin 10 mg tablet 10 mg PO DAILY hydralazine 50 mg tablet 50 mg PO TID nitroglycerin 0.4 mg tablet, sublingual 0.4 mg sublingual Q5M PRN (Reason: Chest Pain) metoprolol succinate 50 mg tablet extended release 24 hr 50 mg PO DAILY cyclobenzaprine 10 mg tablet 10 mg PO TID PRN (Reason: muscle spasm) Qty: 30 2RF ferrous sulfate 325 mg (65 mg iron) tablet 325 mg PO EVERY OTHER DAY 30 Days Qty: 15 0RF pantoprazole [Protonix] 40 mg tablet,delayed release (DR/EC) 40 mg PO QAM aspirin [Aspirin Enseal] 325 mg Tablet,Delayed Release (Dr/Ec) 325 mg PO DAILY amiodarone 200 mg tablet 200 mg PO DAILY amlodipine 10 mg tablet See Rx Instructions .ROUTE .COMPLEX Qty: 90 3RF Dose Instruction: TAKE 1 TABLET BY MOUTH EVERY DAY Rx Instructions: TAKE 1 TABLET BY MOUTH EVERY DAY ondansetron 4 mg tablet,disintegrating 4 - 8 mg PO Q8H PRN (Reason: nausea and vomiting) Qty: 30 0RF calcitriol 0.25 mcg capsule 0.25 mcg PO 3XW Qty: 48 3RF Rx Instructions: Take on Mon/Mon/Monday triamcinolone acetonide 0.1 % lotion 1 applic topical DAILY Qty: 60 0RF Rx Instructions: Apply to affected areas once daily for no more then 2 weeks lisinopril 10 mg tablet 10 mg PO DAILY Qty: 30 2RF clonazepam 0.25 mg tablet,disintegrating 0.25 mg PO BID Qty: 60 0RF potassium chloride 20 mEq tablet extended release 20 meq PO DAILY Qty: 90 0RF Follow-up/Referrals: Tip Gordon MD [Primary Care Provider] - Time of Disposition: 19:20
[2024-04-24 19:51] VITALS: BP 185/65; PULSE 52; RESP 16; O2SAT 100
== END 2024-04-24 19:53 | disposition home or self-care (01) ==
PROVIDERS: Emergency Provider Student in an Organized Health Care Education/Training Program; PCP Family Medicine
DX: I12.9 Hypertensive chronic kidney disease with stage 1 through stage 4 chronic kidney disease, or unspecified chronic kidney disease (principal); N18.4 Chronic kidney disease, stage 4 (severe); I34.1 Nonrheumatic mitral (valve) prolapse; I48.0 Paroxysmal atrial fibrillation; E78.5 Hyperlipidemia, unspecified; D50.9 Iron deficiency anemia, unspecified; G47.33 Obstructive sleep apnea (adult) (pediatric); R73.03 Prediabetes; M19.90 Unspecified osteoarthritis, unspecified site; Z96.651 Presence of right artificial knee joint; Z98.1 Arthrodesis status; Z87.442 Personal history of urinary calculi; Z90.710 Acquired absence of both cervix and uterus; Z79.82 Long term (current) use of aspirin; Z79.899 Other long term (current) drug therapy; Z79.01 Long term (current) use of anticoagulants; R94.31 Abnormal electrocardiogram [ECG] [EKG]; R00.1 Bradycardia, unspecified; I45.10 Unspecified right bundle-branch block
CPT/HCPCS: 36415; 70450; 71046; 80053; 84484; 85025; 93005; 99284

== ENCOUNTER 2024-06-24 09:00 | Outpatient (RCR) | payer OTHER, SELFPAY ==
--- NOTE | 2024-04-26 13:39 | PCPTNOTE ---
pt called and canceled today's evaluation appt.
[2024-05-14 15:10] VITALS: BP_SYST 155
--- NOTE | 2024-05-14 16:08 | OPREHPOC ---
Outpatient Therapy Plan of Care This is a Multidisciplinary Plan of Care that may contain components documented by all disciplines (PT, OT, and ST.) PT Problem 1 PT Problem #1 Knowledge Deficit PT Goal 1 Goal / Goal Update *independent with HEP Target Visit 6 PT Problem 2 PT Problem #2 Pain PT Goal 1 Goal / Goal Update *pt report pain at worst rating of 7/10 Target Visit 6 PT Problem 3 PT Problem #3 Impaired Strength PT Goal 1 Goal / Goal Update increase strength of L shoulder to improve ability to use L arm for home and self care activities: in standing x 5 reps 1* flexion to 145' 2* abduction to 130' 3* IR- reach behind back, fingers to distal edge of scapula --- 4* pt stand with shoulder in correct posture Target Visit 6
--- NOTE | 2024-05-14 16:08 | PTOPEVAL1 ---
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 Reported Pain Level Pain Score Self Report Additional Pain Score Comments pain range in the past week 3-10/10; achy, bad toothache like feeling; lateral shoulder and upper arm. have tingle all the time into L fingers; increase pain: at night, end of day; decrease pain: rest, heat, tylenol report is able to sleep OK, no awakening due to shoulder pain Assessment PT Clinical Summary Ira has the diagnosis of L rotator cuff tear. The PT order is dated Mar 2024. MRI report states tears of supraspinatus and infraspinatus muscles. She reports increase in pain over the past year. Self assessment with DASH rating of 27% limitation in activity level. She is R hand dominant and reports doing is able to do everything she needs to do, with more pain at the end of the day. No issues with sleeping. With the evaluation, she has decreased strength of L shoulder and pain with abduction and flexion motions; rounded shoulder posture. Skilled PT services are indicated for modalities to decrease pain, therapeutic exercises to increase L shoulder/scapular strength and improve position/posture of GH joint and education for HEP Plan of Care Interventions Electrical Stimulation,Hot Pack/Cold Pack,Manual Therapy,Neuro Re-education,Patient/Caregiver Education,Therapeutic Activities,Therapeutic Exercise,Ultrasound,Other Other Interventions taping PT Services Indicated Yes Treatment Frequency and 1-2x/wk for 6 visits Duration These treatments will address the objective and functional deficits as defined above. The patient will be advanced safely and appropriately in order for the patient to progress towards his/her prior level of function. Additional exercises will be introduced and as well as a comprehensive home exercise program upon discharge, if needed, to ensure carryover of functional gains achieved in the clinic. This treatment plan has been reviewed and agreement upon by the patient.
--- NOTE | 2024-06-13 12:40 | PCPTNOTE ---
patient r/s appt from
--- NOTE | 2024-07-03 10:39 | PTOPDC ---
Assessment and note entered by Geneva Clancy, PT Assessment Status Discharge - Pt Not Present ICD-10 Condition Codes (PT) Pain in left shoulder M25.512 Other ICD-10 Condition Codes ( M75.122 L rotator cuff tear PT) Onset about 1 year ago Subjective Information pt was not seen this date. Assessment PT Clinical Summary Ira has received 4 PT sessions. She then called and canceled PT treatments Discharge PT. The goals were not addressed. Plan of Care PT Services Indicated No
== END 2024-07-03 13:19 | disposition home or self-care (01) ==
LOC: ANHPT 09:00
PROVIDERS: PCP Family Medicine; Visit Provider Orthopaedic Surgery
DX: M75.122 Complete rotator cuff tear or rupture of left shoulder, not specified as traumatic (principal)
CPT/HCPCS: 97110; 97140; 97161

== ENCOUNTER 2024-08-07 14:00 | Outpatient (RCR) | payer OTHER, SELFPAY ==
--- NOTE | 2024-07-10 16:21 | OPREHPOC ---
Outpatient Therapy Plan of Care This is a Multidisciplinary Plan of Care that may contain components documented by all disciplines (PT, OT, and ST.) PT Problem 1 PT Problem #1 Knowledge Deficit PT Goal 1 Goal / Goal Update 1*independent with HEP 2* correct lifting technique demonstrated from floor/waist lift1 Target Visit 6 PT Problem 2 PT Problem #2 Pain PT Goal 1 Goal / Goal Update * pt report pain in back at worst of 5/10 Target Visit 6 PT Problem 3 PT Problem #3 Impaired Flexibility PT Goal 1 Goal / Goal Update increase anterior hip-quad length, to decrease pull on hips and spine prone knee flexion to 105' 1* R 2* L Target Visit 6 PT Problem 4 PT Problem #4 Impaired Strength PT Goal 1 Goal / Goal Update *increase strength of hips and trunk, to improve support and stability to spine and hips: 1* R and L hip abduction 4/5 2* R and L hip extension 4/5 Target Visit 6
--- NOTE | 2024-07-10 16:21 | PTOPEVAL1 ---
Assessment and note entered by Geneva Clancy, PT Evaluation Information Assessment Status Evaluation ICD-10 Condition Codes (PT) Pain in low back M54.50 Onset about 1year Subjective Information chronic issues with back pain; gradually more pain , without trauma to back; saw neurosurgeon and had EMG, discussed back surgery, but not going to have any at this time; history of lumbar fusion in 2021. 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 She has a history of chronic back and neck pain, with cervical and lumbar fusions. Self assessment with Back Index rating of 18% limitation in activity level. Pain is increased with walking and eased with sitting/resting. She is able to perform all her self care, home and work tasks, with increase pain and increase time to perform due to rests needed. With the evaluation: she has weakness of R and L hip abduction and extension with tightness over anterior hip-quads. 2 minute walking test distance of 310' with pain increase to 8/10. Skilled PT services are indicated for modalities PRN, therapeutic exercises to increase hip strength and anterior hip muscle length and education for HEP and posture/body mechanics. Plan of Care Interventions Electrical Stimulation,Gait Training,Hot Pack/Cold Pack,Manual Therapy,Mechanical Traction,Neuro Re- education,Patient/Caregiver Education,Therapeutic Activities,Therapeutic Exercise,Ultrasound,Other Other Interventions taping PT Services Indicated Yes Treatment Frequency and 1x/wk for 6 visits Duration These treatments will address the objective and functional deficits as defined above. The patient will be advanced safely and appropriately in order for the patient to progress towards his/her prior level of function. Additional exercises will be introduced and as well as a comprehensive home exercise program upon discharge, if needed, ?to ensure carryover of functional gains achieved in the clinic. This treatment plan has been reviewed and agreement upon by the patient.
--- NOTE | 2024-07-10 16:22 | PCPTNOTE ---
pt was 10 minutes late for initial evaluation.
--- NOTE | 2024-07-24 16:01 | PCPTNOTE ---
Pt did not show for appt today.
--- NOTE | 2024-09-18 08:52 | PCPTNOTE ---
pt did not show for today's reeval appt. Called and left voice mail messsage.
--- NOTE | 2024-12-26 15:20 | PCPTNOTE ---
PHYSICAL THERAPY DISCHARGE 12-26-[address] Jose Daniel Roth has received 3 PT sessions, from July 10 to August 07. She then stopped attending. Discharge PT due to pt not attending.
== END 2024-10-08 23:59 | disposition home or self-care (01) ==
LOC: ANHPT 14:00
PROVIDERS: PCP Family Medicine; Visit Provider Neurological Surgery
DX: M54.50 Low back pain, unspecified (principal)
CPT/HCPCS: 97110; 97161; 97530